=== PATIENT | male | born 1965 | race Caucasian/White ===

== ENCOUNTER 2017-04-10 08:14 | Emergency (ER) | payer BC ==
[2017-04-10 09:45] VITALS: BP 128/82
--- NOTE | 2017-04-10 10:16 | UC ---
UC General HPI - HPI Summary HPI Summary: pt c/o sudden bodyaches, sore throat, ear pressure, head/chest congestion. sputum clear to yellow. no overt f/c's, sob, n/v. - History of Current Complaint Chief Complaint: UCGeneralIllness Stated Complaint: UPPER RESP,ROMAIN Time Seen by Provider: 04/10/17 10:05 Hx Obtained From: Patient Onset/Duration: Sudden Onset Timing: Constant Pain Intensity: 8 Associated Signs & Symptoms: Positive: Cough. Negative: Chest Pain, Diarrhea, Dysuria, Fever, Headache, Nausea, SOB - Allergy/Home Medications Allergies/Adverse Reactions: Allergies Allergy/AdvReac Type Severity Reaction Status Date / Time No Known Allergies Allergy Verified 04/10/17 09:42 Home Medications: Home Medications Omeprazole CAP* [Prilosec CAP* 20 MG] 20 mg PO DAILY 04/10/17 [History Confirmed 04/10/17] Tadalafil [Cialis] 5 mg PO DAILY 04/10/17 [History Confirmed 04/10/17] PMH/Surg Hx/FS Hx/Imm Hx - Additional Past Medical History Additional PMH: Healthy Previously Healthy: Yes - Surgical History Surgical History: Yes Surgery Procedure, Year, and Place: SPLENECTOMY - Social History Occupation: Employed Full-time Alcohol Use: Occasionally Substance Use Type: None Smoking Status (MU): Never Smoked Tobacco - Immunization History Vaccination Up to Date: Yes Review of Systems ENT: Sore Throat, Ear Ache, Nasal Discharge, Sinus Congestion, Sinus Pain/ Tenderness Respiratory: Cough Musculoskeletal: Myalgia 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 Negative: Tonsillar swelling, Tonsillar exudate, Trismus , Muffled voice, Hoarse voice, Sinus tenderness Neck: Positive: Supple, Nontender, No Lymphadenopathy Respiratory: Positive: Lungs clear, Normal breath sounds, No respiratory distress, Other: - cough is congested Cardiovascular: Positive: RRR, No Murmur Abdomen Description: Positive: Nontender, No Organomegaly, Soft Bowel Sounds: Positive: Present Musculoskeletal: Positive: ROM Intact, No Edema Neurological: Positive: Alert Psychological: Positive: Age Appropriate Behavior Skin Exam: Normal Diagnostics - Laboratory Diagnostic Studies Completed/Ordered: rapid strep=neg, Rapid flu + A. will tx tamiflu and close f/u. pt is non toxic. no indication for antibiotics. tx plan d /w Dr Car. Course/Dx - Differential Dx - Multi-Symptom Provider Diagnoses: Influenza A Discharge - Discharge Plan Condition: Stable Disposition: HOME Prescriptions: Oseltamivir Phosphate [Tamiflu] 75 mg PO BID 5 Days #10 capsule Patient Education Materials: Influenza (ED) Forms: *Work Release Referrals: Dougie Gaytan DO [Primary Care Provider] - 5 Days Additional Instructions: GIVEN YOUR HISTORY OF SPLENECTOMY, YOU MUST FOLLOW UP WITH DR GAYTAN FOR A RECHECK IN 5 DAYS OR SOONER FOR ANY WORSENING.
== END 2017-04-10 10:59 | disposition home or self-care (01) ==
LOC: UCCORT 08:14
DX: J10.1 Influenza due to other identified influenza virus with other respiratory manifestations (principal); Z90.81 Acquired absence of spleen
CPT/HCPCS: 87502; 87651; 99212; G0463

== ENCOUNTER 2019-02-20 12:57 | Emergency (ER) | payer BC ==
[2019-02-20 13:27] LABS: ABS Basophils 0.1 10^3/ul (0-0.2); ABS Eosinophils 0.2 10^3/ul (0-0.6); ABS Lymphocytes 1.1 10^3/ul (1.0-4.8); ABS Monocytes 0.9 10^3/ul (0-0.8); ABS Neutrophils 6.6 10^3/ul (1.5-7.7); Eosinophil % 2.8 %; Hematocrit 32 % (42-52); Hemoglobin 10.9 g/dL (14.0-18.0); Mean Corpuscular HGB Conc 35 g/dL (31-36); Mean Corpuscular Hemoglobin 32 pg (27-31); Mean Corpuscular Volume 92 fL (80-94); Mean Platelet Volume 7.8 fL (7.4-10.4); Platelet Count 325 10^3/uL (150-450); Red Blood Count 3.44 10^6 /uL (4.18-5.48); Red Cell Distribution Width 14 % (10-15); White Blood Count 8.9 10^3/uL (3.5-10.8)
[2019-02-20] MEDS ORDERED: Aspirin 81 mg CHEW TAB* 81 MG TAB.CHEW PO ONE (13:34)
[2019-02-20] MEDS ORDERED: Nitroglycerin TAB 0.4 MG* 0.4 MG TAB SL ONE (13:34)
[2019-02-20 13:35] LABS: INR 1.09 (0.82-1.09)
--- NOTE | 2019-02-20 13:36 | ED ---
HPI Chest Pain - HPI Summary HPI Summary: The patient is a 54 y/o M presenting to [facility] accompanied by with a chief complaint of intermittent chest pressures over the last few days. He reports that he has been experiencing left anterior pressure and squeezing sensation intermittently but worst at night while at rest and lasting for a few hours before spontaneous resolution. He states that he has had similar episodes in the past likely attributed to elevated T waves on EKGs with workups for suspected pneumonitis and ground glass opacities found by CT. He has not followed up since then but has had negative nuclear stress tests. He denies any fevers, chills, nausea, vomiting, SOB, cough, pain in calves, or edema in legs. He currently has mild pressure rated 2/10 in severity. 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 There are no aggravating factors. He notes elevated BP over the last two days without diagnosed HTN. No previous history of DVTs. No recent travels or surgeries. PMHx: ulcerative colitis, splenectomy. FHx: fatal [place] in father age 67. Nonsmoker, occasional EtOH, no substance use. Medications reviewed. Allergies noted. - History of Current Complaint Chief Complaint: EDChestPainROMI Time Seen by Provider: 02/20/19 13:25 Hx Obtained From: Patient Onset/Duration: Started Days Ago, Still Present Timing: Intermittent, Lasting Hours Initial Severity: Moderate Current Severity: Mild Pain Intensity: 2 Pain Scale Used: 0-10 Numeric Chest Pain Location: Left Anterior Chest Pain Radiates: No Character: Pressure/Squeezing Aggravating Factor(s): Nothing Alleviating Factor(s): Nothing Associated Signs and Symptoms: Positive: Chest Pain, Back Pain - interscapular. Negative: Shortness of Breath, Fever, Chills, Nausea, Cough, Calf Pain/ Swelling, Vomiting, Edema - Allergy/Home Medications Allergies/Adverse Reactions: Allergies Allergy/AdvReac Type Severity Reaction Status Date / Time No Known Allergies Allergy Verified 02/20/19 13:09 Home Medications: Home Medications Meloxicam(NF) [Mobic(NF)] 15 mg PO DAILY 02/20/19 [History Confirmed 02/20/19] Mesalamine SUPP (NF) [Canasa SUPP (NF)] 1,000 mg AK DAILY 02/20/19 [History Confirmed 02/20/19] Omeprazole CAP (NF) [Prilosec CAP* 20 MG] 20 mg PO DAILY 02/20/19 [History Confirmed 02/20/19] Tadalafil (Nf) [Cialis (NF)] 5 mg PO DAILY 02/20/19 [History Confirmed 02/20/19] PMH/Surg Hx/FS Hx/Imm Hx Endocrine/Hematology History: Denies: Hx Diabetes Cardiovascular History: Denies: Hx Hypertension Respiratory History: Denies: Hx Chronic Obstructive Pulmonary Disease (COPD) GI History: Reports: Other GI Disorders - ulcerative colitis - Surgical History Surgical History: Yes Surgery Procedure, Year, and Place: SPLENECTOMY Infectious Disease History: No Infectious Disease History: Denies: Traveled Outside the [place] in Last 30 Days - Family History Known Family History: Positive: Cardiac Disease - fatal [place] father age 67 - Social History Alcohol Use: Occasionally Hx Substance Use: No Substance Use Type: Reports: None Hx Tobacco Use: No Smoking Status (MU): Never Smoked Tobacco Review of Systems Negative: Fever, Chills Positive: Chest Pain - pressure/squeezing left anterior Negative: Shortness Of Breath, Cough Negative: Vomiting, Nausea Positive: Other - interscapular pain. Negative: Myalgia - in calves, Edema - in legs All Other Systems Reviewed And Are Negative: Yes Physical Exam - Summary Physical Exam Summary: Constitutional: Well-developed, Well-nourished, Alert. (-) Distressed Skin: Warm, Dry HENT: Normocephalic; Atraumatic Eyes: Conjunctiva normal Neck: Musculoskeletal ROM normal neck. (-) JVD, (-) Stridor, (-) Tracheal deviation Cardio: Rhythm regular, rate normal, Heart sounds normal; Intact distal pulses; Radial pulses are 2+ and symmetric. (-) Murmur Pulmonary/Chest wall: Effort normal. (-) Respiratory distress, (-) Wheezes, (-) Rales Abd: Soft, (-) tenderness, (-) Distension, (-) Guarding, (-) Rebound Musculoskeletal: (-) Edema, Good pulses bilaterally in radius, No calf tenderness, No venous cords, No pain with dorsiflexion of foot. Lymph: (-) Cervical adenopathy Neuro: Alert, Oriented x3 Psych: Mood and affect Normal Triage Information Reviewed: Yes Vital Signs On Initial Exam: Initial Vitals Temp Pulse Resp BP Pulse Ox 98.0 F 83 16 148/97 98 02/20/19 13:05 02/20/19 13:05 02/20/19 13:05 02/20/19 13:05 02/20/19 13:05 Vital Signs Reviewed: Yes Procedures - Sedation Patient Received Moderate/Deep Sedation with Procedure: No Diagnostics - Vital Signs Vital Signs Temp Pulse Resp BP Pulse Ox 02/20/19 13:05 98.0 F 83 16 148/97 98 - Laboratory Lab Results: Lab Results 02/20/19 Range/Units 13:07 WBC 8.9 (3.5-10.8) 10^3/uL RBC 3.44 L (4.18-5.48) 10^6 /uL Hgb 10.9 L (14.0-18.0) g/dL Hct 32 L (42-52) % MCV 92 (80-94) fL MCH 32 H (27-31) pg MCHC 35 (31-36) g/dL RDW 14 (10-15) % Plt Count 325 (150-450) 10^3/uL MPV 7.8 (7.4-10.4) fL Neut % (Auto) 74.2 % Lymph % (Auto) 12.0 % [place] % (Auto) 10.3 % Eos % (Auto) 2.8 % Baso % (Auto) 0.7 % Absolute Neuts (auto) 6.6 (1.5-7.7) 10^3/ul Absolute Lymphs (auto) 1.1 (1.0-4.8) 10^3/ul Absolute Monos (auto) 0.9 H (0-0.8) 10^3/ul Absolute Eos (auto) 0.2 (0-0.6) 10^3/ul Absolute Basos (auto) 0.1 (0-0.2) 10^3/ul Absolute Nucleated RBC 0.0 10^3/ul Nucleated RBC % 0.0 Result Diagrams: 02/20/19 13:07 02/20/19 13:07 Lab Statement: Any lab studies that have been ordered have been reviewed, and results considered in the medical decision making process. - Radiology CXR Radiology Interpretation Completed By: Radiologist Summary of Radiographic Findings: Impression: No active cardiopulmonary disease. ED physician has reviewed this report. - EKG 1300 Cardiac Rate: NL - 76 bpm EKG Rhythm: Sinus Rhythm Summary of EKG Findings: EKG at 1300 reveals NSR at 76 bpm. No ischemic changes. No STEMI. ED physician has reviewed and interpreted this EKG. Re-Evaluation - Re-Evaluation First Eval Re-Evaluation Time: 14:40 Change: Improved Comment: Pain has slightly improved with NTG. Second Eval Re-Evaluation Time: 17:18 Comment: We discussed results and plan for discharge. Chest Pain Course/Dx - Course Course Of Treatment: Patient is here with periodic left-sided chest pressure that occurs mostly at night and is nonexertional in nature. Patient has no family history of ACS. Patient has minimal risk factors for ACS. Patient had an EKG which showed no evidence of ischemia. Patient had serial troponins which were negative. Patient has a well score of 0 for PE and his story is not consistent with aortic dissection. Given patient's low heart score, patient was discharged with stress test as an outpatient - Diagnoses Provider Diagnoses: Chest pain Discharge ED - Sign-Out/Discharge Documenting (check all that apply): Patient Departure - Patient will be discharged home. - Discharge Plan Condition: Stable Disposition: HOME Patient Education Materials: Chest Pain (DC) Referrals: Dougie Gaytan DO [Primary Care Provider] - 3 Days Dante Rolle MD [Medical Doctor] - 3 Days Additional Instructions: Follow up with your primary care provider or Dr. Rolle from cardiology for a stress test. Come back if you have any worsening chest pain, trouble breathing, or any other concerning symptoms. Avoid exertion until cleared by semiconductor processing group leader. - Billing Disposition and Condition Condition: STABLE Disposition: Home - Attestation Statements Document Initiated by Sven: Yes Documenting Scribe: Kailee Alvarado Provider For Whom Sven is Documenting (Include Credential): Dr. Sonny Stiles MD Scribe Attestation: Butch, Kailee Alvarado scribed for Dr. Sonny Stiles MD on 02/20/19 at 1836. Scribe Documentation Reviewed: Yes Provider Attestation: The documentation as recorded by the Kailee thompson accurately reflects the service I personally performed and the decisions made by me, Dr. Sonny Stiles MD Status of Scribe Document: Viewed
[2019-02-20 13:50] LABS: Albumin 4.1 g/dL (3.2-5.2); Albumin/Globulin Ratio 1.6 (1-3); BUN/Creatinine Ratio 28.4 (8-20); Calcium 8.4 mg/dL (8.6-10.3); EGFR African American 119.7 (>60); EGFR Non-African American 98.9 (>60); Globulin 2.5 g/dL (2-4); Potassium 4.1 mmol/L (3.5-5.0); Total Bilirubin 0.4 mg/dL (0.2-1.0); Total Protein 6.6 g/dL (6.4-8.9)
[2019-02-20 13:51] LABS: Troponin I 0.01 ng/mL (<0.03)
[2019-02-20 17:28] VITALS: BP 122/89
== END 2019-02-20 17:30 | disposition home or self-care (01) ==
LOC: ED 12:57
DX: R07.9 Chest pain, unspecified (principal); M54.9 Dorsalgia, unspecified; Z79.899 Other long term (current) drug therapy
CPT/HCPCS: 36415; 71045; 80053; 84484; 85025; 85610; 93005; 99284; A9270-GY

== ENCOUNTER 2019-03-15 21:19 | Observation (INO) | payer BC ==
--- NOTE | 2019-03-15 21:36 | ED ---
Complex/Multi-Sys Presentation - HPI Summary HPI Summary: Patient complains of hemoglobin of 6.4 per routine labs done at [place] today, intermittent chest pain, and exertional SOB 1 month. Patient was seen at [place] today, given 1 unit of RBC, then transferred here for possible GI bleed evaluation. Chest pain is left anterior chest radiating to left upper back and shoulder. Described as intermittent, sharp, random onset. CTA negative on at [place]. Last stress test 2015. History of chronic black stools times months. Denies red blood in stool. Recent diagnosis of pericarditis by cardiology Dr Bobby at [place] for chronic chest pain, taking daily prednisone. Denies fever, cough, sore throat, N/V/D, abdominal pain, change in urine, change in BM. Medical history is Crohn's, pericarditis. Positive family cardiac history. Nonsmoker, denies EtOH or recreational drug use. - History Of Current Complaint Chief Complaint: EDGIBleed Time Seen by Provider: 03/15/19 21:25 Hx Obtained From: Patient Onset/Duration: Gradual Onset, Lasting Weeks Timing: Intermittent, Lasting:, Hours Severity Currently: Moderate Severity Initially: Mild Character: Sharp Associated Signs And Symptoms: Positive: SOB, Chest Pain - Allergies/Home Medications Allergies/Adverse Reactions: Allergies Allergy/AdvReac Type Severity Reaction Status Date / Time No Known Allergies Allergy Verified 03/15/19 21:53 Home Medications: Home Medications Colchicine* [Colcrys*] 0.6 mg PO DAILY 03/16/19 [History Confirmed 03/16/19] PMH/Surg Hx/FS Hx/Imm Hx Endocrine/Hematology History: Denies: Hx Diabetes Cardiovascular History: Denies: Hx Hypertension Respiratory History: Denies: Hx Chronic Obstructive Pulmonary Disease (COPD) GI History: Reports: Other GI Disorders - ulcerative colitis History: Denies: Hx Dialysis Sensory History: Denies: Hx Eye Prosthesis Opthamlomology History: Denies: Hx Legally Blind EENT History: Denies: Hx Deafness Neurological History: Denies: Hx Dementia - Surgical History Surgery Procedure, Year, and Place: SPLENECTOMY Infectious Disease History: Yes Infectious Disease History: Denies: Traveled Outside the [place] in Last 30 Days - Family History Known Family History: Positive: Cardiac Disease - fatal [place] father age 67 - Social History Alcohol Use: Occasionally Hx Substance Use: No Substance Use Type: Reports: None Hx Tobacco Use: No Smoking Status (MU): Never Smoked Tobacco Review of Systems Constitutional: Negative Eyes: Negative ENT: Negative Positive: Chest Pain Positive: Shortness Of Breath Gastrointestinal: Negative Genitourinary: Negative Musculoskeletal: Negative Skin: Negative Neurological: Negative Psychological: Normal All Other Systems Reviewed And Are Negative: Yes Physical Exam - Summary Physical Exam Summary: Chest pain mildly reproducible with pressure. Abdomen soft nontender. Triage Information Reviewed: Yes Vital Signs On Initial Exam: Initial Vitals Temp Pulse Resp BP Pulse Ox 98.5 F 90 19 134/90 99 03/15/19 21:23 03/15/19 21:23 03/15/19 21:23 03/15/19 21:23 03/15/19 21:23 Vital Signs Reviewed: Yes Appearance: Positive: Well-Appearing Skin: Positive: Warm Head/Face: Positive: Normal Head/Face Inspection Eyes: Positive: Normal Neck: Positive: Supple Respiratory/Lung Sounds: Positive: Clear to Auscultation Cardiovascular: Positive: Normal Abdomen Description: Positive: Nontender Musculoskeletal: Positive: Normal Neurological: Positive: Normal Psychiatric: Positive: Normal AVPU Assessment: Alert - [place] Coma Scale Best Eye Response: 4 - Spontaneous Best Motor Response: 6 - Obeys Commands Best Verbal Response: 5 - Oriented Coma Scale Total: 15 Procedures - Sedation Patient Received Moderate/Deep Sedation with Procedure: No Diagnostics - Vital Signs Vital Signs Temp Pulse Resp BP Pulse Ox 03/15/19 21:34 90 03/15/19 21:23 98.5 F 90 19 134/90 99 - Laboratory Result Diagrams: 03/17/19 05:29 03/17/19 05:29 Lab Statement: Any lab studies that have been ordered have been reviewed, and results considered in the medical decision making process. Complex Multi-Symp Course/Dx Course Of Treatment: Patient complains of hemoglobin of 6.4 per routine labs done at [place] today, intermittent chest pain, and exertional SOB 1 month. Patient was seen at [place] today, given 1 unit of RBC, then transferred here for possible GI bleed evaluation. Chest pain is left anterior chest radiating to left upper back and shoulder. Described as intermittent, sharp, random onset. CTA negative on 03/04 at [place]. Last stress test 2015. History of chronic black stools times months. Denies red blood in stool. Recent diagnosis of pericarditis by cardiology Dr Bobby at [place] for chronic chest pain, taking daily prednisone. Denies fever, cough, sore throat, N/V/D, abdominal pain, change in urine, change in BM. Medical history is Crohn's, pericarditis. Positive family cardiac history. Nonsmoker, denies EtOH or recreational drug use. Vital signs within normal limits. WBC 20.2. Hemoglobin 7. Platelets 673. Serial troponins negative. EKG sinus rhythm, heart rate of 89, normal P axis, same as prior. Chest x-ray unremarkable. Discussed patient with GI Dr Lara, who recommended another unit of RBC and admission for further evaluation by GI. - Diagnoses Provider Diagnoses: Anemia, Crohn's disease Discharge ED - Sign-Out/Discharge Documenting (check all that apply): Patient Departure - Discharge Plan Condition: Stable Disposition: ADMITTED TO [facility] - Billing Disposition and Condition Condition: STABLE Disposition: Admitted to [facility]
[2019-03-15] MEDS ORDERED: Ondansetron INJ* 2 MG/ML VIAL IV ONE (21:47)
[2019-03-15] MEDS ORDERED: Morphine 4 MG/ML VIAL (1 ml) 4 MG/ML VIAL IV ONE (21:47)
[2019-03-15 22:09] LABS: Hematocrit 22 % (42-52); Mean Corpuscular HGB Conc 32 g/dL (31-36); Mean Corpuscular Hemoglobin 28 pg (27-31); Mean Corpuscular Volume 87 fL (80-94); Mean Platelet Volume 6.2 fL (7.4-10.4); Platelet Count 673 10^3/uL (150-450); Red Blood Count 2.49 10^6 /uL (4.18-5.48); Red Cell Distribution Width 15 % (10-15); White Blood Count 20.2 10^3/uL (3.5-10.8)
--- OUTSIDE RECORDS SUMMARY | 2019-03-15 22:15 | XMS REPORT | Continuity of Care Document ---
:1965 External Reference #:[id number] Author Name Joe Parham MD Address [address] [place] [id number] Care Team Providers Name Role Phone Dougie Gaytan DO Care Team Information Chute Tender [phone] Problems Active Problems Provider Date Problem Onset: Chronic ulcerative proctitis Joe Parham MD Onset: 08/27/2018 Abdominal pain Lucy Walsh PA-C Onset: 07/16/2018 Hemorrhage of rectum and anus Lucy Walsh PA-C Onset: 07/16/2018 Social History Type Date Description Comments Sex Unknown Tobacco Use Start: Unknown Patient has never smoked Smoking Status Reviewed: 01/27/19 Patient has never smoked Allergies, Adverse Reactions, Alerts Description No Known Drug Allergies Medications Active Medications SIG Qnty Indications Ordering Date Provider Mesalamine place one 60units Joe Chen 08/27/2018 1000mg suppository in MD Dione Suppository rectum q hs Mesalamine 2 by mouth twice a 120tabs Joe Chen 07/25/2018 1.2gm day MD Dione Tablets Escitalopram Oxalate Dougie Gaytan, DO 10mg Tablets Testosterone bi weekly injection Dougie Gaytan, Cypionate DO 200mg/ml Solution Tadalafil Dougie Gaytan, 5mg Tablets DO Omeprazole Dougie Gaytan, 20mg DO Capsules DR [place] Description No Information Available Vital Signs Date Vital Result Comment 01/27/2019 3:32pm Height 72 inches 6'0" Weight 184.00 lb BP Systolic 144 mmHg BP Diastolic 92 mmHg Heart Rate 69 /min BMI (Body Mass Index) 25.0 kg/m2 08/27/2018 9:41am Height 72 inches 6'0" Weight 183.00 lb BP Systolic 141 mmHg BP Diastolic 85 mmHg Heart Rate 68 /min BMI (Body Mass Index) 24.8 kg/m2 Results Test Acquired Facility Test Result H/L Range Note Date Hepatitis B 01/30/2019 [facility] [place]atitis B Nonreactive Nonreactive Surf Antigen Surface Antigen CBC Auto Diff 01/10/2019 N2N/CCD Import White Blood 6.2 10^3/uL 3.5- 10.8 Count Red Blood Count 4.37 10^6/uL 4.18-5.48 Hemoglobin 13.8 g/dL Low 14.0-18.0 Hematocrit 40 % Low 42-52 Mean Corpuscular Volume 91 fL 80-94 Mean Corpuscular Hemoglobin 32 pg High 27-31 Mean Corpuscular HGB Conc 35 g/dL 31-36 Red Cell Distribution Width 14 % 10-15 Platelet Count 364 10^3/uL 150-450 Mean Platelet Volume 8.2 fL 7.4-10.4 Abs Neutrophils 4.0 10^3/uL 1.5-7.7 Abs Lymphocytes 1.0 10^3/uL 1.0-4.8 Abs Monocytes 0.7 10^3/uL 0-0.8 Abs Eosinophils 0.5 10^3/uL 0-0.6 Abs Basophils 0.1 10^3/uL 0-0.2 Abs Nucleated RBC 0.0 10^3/uL Granulocyte % 64.7 % Lymphocyte % 16.0 % Monocyte % 11.0 % Eosinophil % 7.3 % Basophil % 1.0 % Nucleated Red Blood Cells % 0.1 1 Comp Metabolic Panel 01/10/2019 N2N/CCD Import Sodium 139 mmol/L 135- 145 Potassium 4.5 mmol/L 3.5-5.0 Chloride 103 mmol/L 101-111 Co2 Carbon Dioxide 30 mmol/L 22-32 Anion Gap 6 mmol/L 2-11 Calcium 9.2 mg/dL 8.6-10.3 Albumin 4.2 g/dL 3.2-5.2 Total Bilirubin 0.40 mg/dL 0.2-1.0 Glucose 93 mg/dL 70-100 Blood Urea Nitrogen 16 mg/dL 6-24 Creatinine 0.80 mg/dL 0.67-1.17 BUN/Creatinine Ratio 20.0 1 8-20 Total Protein 7.1 g/dL 6.4-8.9 Globulin 2.9 g/dL 2-4 Albumin/Globulin Ratio 1.4 1 1-3 Alkaline Phosphatase 59 U/L 34-104 Alt 18 U/L 7-52 Ast 19 U/L 13-39 Egfr Non- 100.7 1 Egfr 121.9 1 1 Lab Results 01/10/2019 N2N/CCD Import Testosterone 206.29 ng/dL Low 240- 950 Triglycerides 87 mg/dL 2 Cholesterol 229 mg/dL 3 HDL Cholesterol 71.1 mg/dL 4 LDL Cholesterol 141 mg/dL 5 PSA Screening 0.284 ng/mL 0-4.000 6 Vitamin B12 608 pg/mL 180-914 7 Lab Results 01/10/2019 N2N/CCD Import Triglycerides 87 mg/dL 8 Cholesterol 229 mg/dL 9 HDL Cholesterol 71.1 mg/dL 10 LDL Cholesterol 141 mg/dL 11 PSA Screening 0.284 ng/mL 0-4.000 12 Vitamin B12 608 pg/mL 180-914 13 Lab Results 01/10/2019 N2N/CCD Import PSA Screening 0.284 ng/mL 0-4.000 14 Vitamin B12 608 pg/mL 180-914 15 1 Because ethnic data is not always readily available, this report includes an eGFR for both -Americans and non- Americans. The National Kidney Disease Education Program (NKDEP) does not endorse the use of the MDRD equation for patients that are not between the ages of 18 and 70, are , have extremes of body size, muscle mass, or nutritional status, or are non- or non-. According to the National Kidney Foundation, irrespective of diagnosis, the stage of the disease is based on the level of kidney function: Stage Description GFR(mL/min/1.73 m(2)) 1 Kidney damage with normal or decreased GFR 90 2 Kidney damage with mild decrease in GFR 60-89 3 Moderate decrease in GFR 30-59 4 Severe decrease in GFR 15-29 5 Kidney failure <15 (or dialysis) 2 Desirable: <150 Borderline High: 150-199 High: 200-499 Very High: >500 3 Desirable: <200 Borderline High: 200-239 High: >239 4 Low: <40 Desirable: 40-60 High: >60 5 Desirable: <100 Near Optimal: 100-129 Borderline High: 130-159 High: 160-189 Very High: >189 6 Serum levels of PSA measured using the [employer] [place] DXI Hybritech immunoassay should not be interpreted as absolute evidence of the presence or absence of disease. The PSA value should be used in conjunction with other pertinent clinical diagnostic procedures. A PSA value in the range of 0.1 to 0.6 ng/ml is indeterminate if being used as an indicator of recurrent or residual disease. The values obtained with different assay methods or kits cannot be used interchangeably. 7 Normal Range 180 to 914 Indeterminate Range 145 to 180 Deficient Range <145 8 Desirable: <150 Borderline High: 150-199 High: 200-499 Very High: >500 9 Desirable: <200 Borderline High: 200-239 High: >239 10 Low: <40 Desirable: 40-60 High: >60 11 Desirable: <100 Near Optimal: 100-129 Borderline High: 130-159 High: 160-189 Very High: >189 12 Serum levels of PSA measured using the [employer]ub[employer] DXI Hybritech immunoassay should not be interpreted as absolute evidence of the presence or absence of disease. The PSA value should be used in conjunction with other pertinent clinical diagnostic procedures. A PSA value in the range of 0.1 to 0.6 ng/ml is indeterminate if being used as an indicator of recurrent or residual disease. The values obtained with different assay methods or kits cannot be used interchangeably. 13 Normal Range 180 to 914 Indeterminate Range 145 to 180 Deficient Range <145 14 Serum levels of PSA measured using the [employer] Lavern DXI Hybritech immunoassay should not be interpreted as absolute evidence of the presence or absence of disease. The PSA value should be used in conjunction with other pertinent clinical diagnostic procedures. A PSA value in the range of 0.1 to 0.6 ng/ml is indeterminate if being used as an indicator of recurrent or residual disease. The values obtained with different assay methods or kits cannot be used interchangeably. 15 Normal Range 180 to 914 Indeterminate Range 145 to 180 Deficient Range <145 Procedures Description No Information Available Medical Devices Description No Information Available Encounters Type Date Location Provider Dx Diagnosis Office Visit 08/27/2018 Gastroenterology Joe Chen K51.211 [facility]ative 9[facility] MD (chronic) proctitis with rectal bleeding Assessments Date Code Description Provider 01/27/2019 K51.211 Ulcerative (chronic) proctitis with rectal Joe Parham MD bleeding 08/27/2018 K51.211 Ulcerative (chronic) proctitis with rectal Joe Parham MD bleeding Plan of Treatment 01/27/2019 - Joe Parham MDK51.211 Ulcerative (chronic) proctitis with rectal bleedingComments:His symptoms are better however they have plateaued. We discussed mesalamine products in the next steps. We discussed immunosuppressants immunomodulators Biologics. he is already thought about all this and he would like to transition to Humira. We had a long discussion regarding risks benefits alternatives including infectious lymphoma neurological disorders. I will obtain blood work hepatitis BPPD and we will start the prior authorization for Humira Functional Status Description No Information Available Mental Status Description No Information Available Referrals Description No Information Available
--- OUTSIDE RECORDS SUMMARY | 2019-03-15 22:15 | XMS REPORT | Continuity of Care Document ---
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 Problems Active Problems Provider Date Mixed hyperlipidemia Onset: 08/27/2014 Benign essential hypertension Onset: 09/16/2014 Hyperlipidemia Chastity Saleh, CARLINE, CIVIL ENGINEER'S AIDE Onset: 02/26/2019 Social History Type Date Description Comments Sex Unknown Tobacco Use Start: Unknown Never Smoked Cigarettes ETOH Use Currently consumes alcohol socially Allergies, Adverse Reactions, Alerts Description No Known Drug Allergies Medications Active Medications SIG Qnty Indications Ordering Provider Date Escitalopram Oxalate 1 by mouth every Unknown 10mg day Tablets Meloxicam 1 tab by mouth Unknown 15mg Tablets every day Mesalamine Unknown 400mg Capsules DR Omeprazole 1 by mouth every Unknown 20mg Capsules DR day Tadalafil 1 tab by mouth Unknown 5mg Tablets as needed Immunizations Description No Information Available Vital Signs Date Vital Result Comment 09/16/2014 1:10pm Heart Rate 68 /min Respiratory Rate 16 /min Height 73 inches 6'1" Weight 180.00 lb BMI (Body Mass Index) 23.7 kg/m2 BSA (Body Surface Area) 2.06 m2 Results Description No Information Available Procedures Description No Information Available Medical Devices Description No Information Available Encounters Description No Information Available Assessments Date Code Description Provider 02/26/2019 R07.9 Chest pain, unspecified Chastity Saleh, CARLINE, CIVIL ENGINEER'S AIDE 02/26/2019 I10 Benign essential hypertension Chastity Saleh, MSN, CIVIL ENGINEER'S AIDE 02/26/2019 E78.5 Chastity Ding, MSN, CIVIL ENGINEER'S AIDE Plan of Treatment No Information Available Functional Status Description No Information Available Mental Status Description No Information Available Referrals Description No Information Available
--- OUTSIDE RECORDS SUMMARY | 2019-03-15 22:15 | XMS REPORT | Continuity of Care Document ---
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 [phone] Problems Active Problems Provider Date Mixed hyperlipidemia Onset: 08/27/2014 Benign essential hypertension Onset: 09/16/2014 Hyperlipidemia Chastity Saleh, MSN, AGENT LICENSING CLERK Onset: 02/26/2019 Chest pain Chastity Saleh, MSN, AGENT LICENSING CLERK Onset: 02/26/2019 Social History Type Date Description Comments Sex Unknown Tobacco Use Start: Unknown Never Smoked Cigarettes ETOH Use Currently consumes alcohol socially Allergies, Adverse Reactions, Alerts Description No Known Drug Allergies Medications Active Medications SIG Qnty Indications Ordering Date Provider Methylprednisolone Taper dosage 21tabs R07.9 Jacklynko, 02/26/2019 4mg Tablets over 6 days as Ranjan Starkey M.D., directed [facility] Escitalopram Oxalate 1 by mouth Unknown 10mg every day Tablets Meloxicam 1 tab by mouth Unknown 15mg Tablets every day Mesalamine Unknown 400mg Capsules DR Omeprazole 1 by mouth Unknown 20mg Capsules DR every day Tadalafil 1 tab by mouth Unknown 5mg Tablets as needed Cyclobenzaprine HCL Ron Houston, 10mg MD Tablets Alprazolam tid Ron Houston, 0.25mg Tablets MD Testosterone Cypionate Dougie Gaytan, 200mg/ml DO Solution Immunizations Description No Information Available Vital Signs Date Vital Result Comment 02/26/2019 4:35pm BP Systolic 115 mmHg BP Diastolic 73 mmHg Heart Rate 92 /min 09/16/2014 1:10pm Heart Rate 68 /min Respiratory Rate 16 /min Height 73 inches 6'1" Weight 180.00 lb BMI (Body Mass Index) 23.7 kg/m2 BSA (Body Surface Area) 2.06 m2 Results Description No Information Available Procedures Date Code Description Status 02/26/2019 59373 EKG-Tracing And Report Completed Medical Devices Description No Information Available Encounters Description No Information Available Assessments Date Code Description Provider 02/26/2019 R07.9 Chest pain, unspecified Chastity Saleh, MSN, AGENT LICENSING CLERK 02/26/2019 I10 Benign essential hypertension Chastity Saleh, MSN, AGENT LICENSING CLERK Plan of Treatment Future Appointment(s):03/04/2019 1:00 pm - Ranjan Bobby M.D., FACC at [id number]/26/2019 - Chastity Saleh, MSN, FNPR07.9 Chest pain, unspecifiedNew Medication:Methylprednisolone 4 mg - Taper dosage over 6 days as directedComments:I spent a long time discussing why I thought he has very low likelihood of having ischemic pain. He may have inflammation of the chest wall or, less likely, pericarditis or pleuritis. I also indicated that ischemic testing is not the best approach, being the pre-test probability of CAD so low.I preferto treat him empirically with tapering dose of steroids and bring him in a week to decide the next stepI10 Benign essential hypertensionComments: BP goal is <130/80 mmHg. Controlled. No changes Functional Status Description No Information Available Mental Status Description No Information Available Referrals Description No Information Available
[2019-03-15 22:28] LABS: ALT 16 U/L (7-52); AST 10 U/L (13-39); Albumin 3.1 g/dL (3.2-5.2); Albumin/Globulin Ratio 1.2 (1-3); Alkaline Phosphatase 49 U/L (34-104); Anion Gap 5 mmol/L (2-11); BUN/Creatinine Ratio 17.9 (8-20); Blood Urea Nitrogen 12 mg/dL (6-24); C Reactive Protein 16.72 mg/L (<8.01); CO2 Carbon Dioxide 28 mmol/L (22-32); Calcium 7.5 mg/dL (8.6-10.3); Chloride 101 mmol/L (101-111); EGFR Non-African American 123.2 (>60); Globulin 2.5 g/dL (2-4); Glucose 106 mg/dL (70-100); INR 1.12 (0.82-1.09); Potassium 3.9 mmol/L (3.5-5.0); Sodium 134 mmol/L (135-145); Total Protein 5.6 g/dL (6.4-8.9)
[2019-03-15 22:29] LABS: Troponin I 0.02 ng/mL (<0.03)
[2019-03-15 22:36] LABS: ABS Eosinophils 0.2 10^3/ul (0-0.6); ABS Lymphocytes 1.6 10^3/ul (1.0-4.8); ABS Neutrophils 16.3 10^3/ul (1.5-7.7); Eosinophil % 0.8 %; Nucleated Red Blood Cells % 0.1
[2019-03-15] MEDS ORDERED: NS 0.9% 1000 ML** 1,000 ML IV ONE (22:48)
[2019-03-15] MEDS ORDERED: Pantoprazole IV* 40 MG IV ONE (22:56)
[2019-03-15 23:17] LABS: Erythrocyte Sed Rate 45 mm/Hr (0-19)
[2019-03-16 01:18] LABS: Urine Appearance Clear; Urine Bilirubin Negative (Negative); Urine Blood Negative (Negative); Urine Color Straw; Urine Glucose Negative (Negative); Urine Ketones Negative (Negative); Urine Nitrite Negative (Negative); Urine Protein Negative (Negative); Urine Specific Gravity 1.012 (1.010-1.030); Urine Urobilinogen Negative (Negative)
[2019-03-16] MEDS ORDERED: Lactated Ringers 1000 ML Bag* 1,000 ML IV SCH (03:00)
[2019-03-16 03:03] LABS: Total Iron Binding Capacity 379 mcg/dL (250-450); Transferrin 271 mg/dL (203-362)
[2019-03-16 03:06] LABS: % Iron Saturation 5 % (15-55); Iron < 20 ug/dL (50-212)
[2019-03-16 03:37] LABS: Folate 13.74 ng/mL (>3.99)
[2019-03-16 03:58] LABS: Corrected Retic Count 2.1 % (0.5-1.5); Hematocrit 24 % (42-52); Hematocrit for Retic CNT 24 % (42-52); Hemoglobin 7.8 g/dL (14.0-18.0); Immature Retic Fraction 0.43; Mean Corpuscular HGB Conc 32 g/dL (31-36); Mean Corpuscular Hemoglobin 28 pg (27-31); Mean Corpuscular Volume 87 fL (80-94); Mean Platelet Volume 6.8 fL (7.4-10.4); Platelet Count 620 10^3/uL (150-450); Red Cell Distribution Width 15 % (10-15); White Blood Count 22.4 10^3/uL (3.5-10.8)
[2019-03-16 04:01] LABS: ABS Basophils 0.1 10^3/ul (0-0.2); ABS Eosinophils 0.1 10^3/ul (0-0.6); ABS Lymphocytes 1.1 10^3/ul (1.0-4.8); ABS Monocytes 2.6 10^3/ul (0-0.8); ABS Neutrophils 18.4 10^3/ul (1.5-7.7); Eosinophil % 0.6 %; Nucleated Red Blood Cells % 0.1
[2019-03-16 04:19] LABS: Troponin I 0.04 ng/mL (<0.03)
[2019-03-16] MEDS: Morphine INJ* 2 MG/ML 1 ML SYRINGE (TWO MG - NEW SYRINGE VERSION) IV PRN ×4 (05:44→15:40)
[2019-03-16 05:48] LABS: Troponin I 0.03 ng/mL (<0.03)
[2019-03-16] MEDS: Ondansetron INJ* 2 MG/ML VIAL IV PRN ×2 (06:32→13:12)
[2019-03-16] MEDS: MESALAMINE 1000 MG PR SCH (07:24)
[2019-03-16] MEDS: Pantoprazole IV* 40 MG IV SCH ×2 (07:30→19:48)
[2019-03-16] MEDS: Escitalopram * 10 MG TAB PO SCH (07:30)
[2019-03-16] MEDS ORDERED: Iron Sucrose* 200 MG in NS 0.9% 100 ML* 100 ML IVPB ONE (08:00)
[2019-03-16] MEDS ORDERED: Colchicine* 0.6 MG TAB PO SCH (09:00)
--- NOTE | 2019-03-16 10:25 | HP ---
HISTORY AND PHYSICAL: DATE OF ADMISSION: 03/16/19 PRIMARY CARE PHYSICIAN: Dr. Gaytan. ADMITTING PHYSICIAN: Dr. Arnold Caicedo. CHIEF COMPLAINT: Chest pain/pressure/pounding. HISTORY OF PRESENT ILLNESS: Christiano Ying is a 54-year-old male with a past medical history of recently diagnosed ulcerative colitis since Spring 2018 on mesalamine, months of chronic pericarditis, following with Dr. Bobby and recently started on colchicine and prednisone, anxiety, and GERD. He presented to [facility] with a sensation of chest discomfort and a pounding sensation on his chest, which he just could not get a break from and which the colchicine and steroids did not seem to be resolving. He was found to have a hemoglobin of 6.3 down from approximately 8 on 03/04/19 in [facility] and 10.9 on 02/20/19 at [facility]. He attested to months of black soft stool. He is not on any iron supplements. He never had an EGD. He has been following with Dr. Parham for this diagnosis and they have been trying to get him Humira but he needed to fail a second initial drug, the first being mesalamine, before that would be approved by his insurance. He got 1 unit of packed red blood cells at [facility] and given the unavailability of gastroenterology services, he was transferred to [facility]. Lara recommended the patient be admitted and get an additional unit of blood and prep for Dr. Parham to perform an EGD. He continues to attest to chest discomfort which was relieved somewhat by 4 mg of morphine in the emergency room. He was referred to hospital service for admission. PAST MEDICAL HISTORY: Ulcerative colitis diagnosed in July 2018, pericarditis ( chronic), anxiety, GERD, erectile dysfunction. MEDICATIONS: Home medications include: 1. Colchicine 0.6 mg p.o. daily. 2. Prednisone 20 mg p.o. daily. 3. Testosterone subcutaneous every 2 weeks. 4. Cialis 5 mg p.o. daily. 5. Omeprazole 20 mg p.o. daily. 6. Mesalamine suppository 1000 mg per rectum daily. 7. Meloxicam 50 mg p.o. daily. 8. Lexapro 10 mg p.o. daily. ALLERGIES: No known drug allergies. FAMILY HISTORY: Dad of heart disease in his late 60s. Mother of Alzheimer's at age 83. SOCIAL HISTORY: He is a never smoker. Occasional alcohol use. 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 REVIEW OF SYSTEMS: Complete 14 -point review of systems was negative except as per HPI. He does attest to a headache, some chronic abdominal pain, there are some black soft stools for the last several months. He complains of pounding chest pressure. PHYSICAL EXAMINATION VITAL SIGNS: Temperature 98.5, 90s, sating 99% on room air, respiratory rate 13 and 19, blood pressure 134/90. HEENT: Normocephalic and atraumatic. Pupils are equally round and reactive to light. Extraocular movements intact. No scleral icterus. LUNGS: Clear to auscultation bilaterally with no wheezing, rales, or rhonchi. CARDIOVASCULAR: Regular rate and rhythm. No murmurs, rubs, or gallops. ABDOMEN: Soft, nontender. No rebound or guarding. EXTREMITIES: Warm and well perfused. No peripheral edema. SKIN: No lesions or rashes. NEUROLOGIC: Cranial nerves II through XII intact. LABORATORY DATA: White count 20.2, hemoglobin 7.0, hematocrit 22, platelets 673, ESR 45, INR 1.12. Sodium 134, potassium 3.9, chloride 101, carbon dioxide 28, BUN 12, creatinine 0.67, glucose 106, iron less than 20, iron sat 5, ferritin 7, total bili 0.4, AST 10, ALT 16, alk phos 49. Troponin 0.02, 0.04, and 0.03. Albumin 3.1, vitamin B12 479, folic acid 13.7. Urinalysis within normal limits. Chest x-ray: Formal read pending, but no acute process per my read. EKG: Normal sinus rhythm, early R-wave progression, T-wave inversion in V1, no ST elevations or depressions, normal axis, normal intervals; unchanged from . ASSESSMENT: Christiano Ying is a 54-year-old with the past medical history of ulcerative colitis and chronic pericarditis, presenting with increasing sensation of pounding chest discomfort, found to be anemic with 6.3 at outside hospital, status post 2 units of blood now and with plan for EGD with Dr. Parham in the morning. He has been having months of black soft stools and has not been on outpatient iron. Add on labs do demonstrate evidence of iron- deficiency anemia and would recommend supplementation. There have been attempts to eventually get him on to Humira instead of the mesalamine, which has been of somewhat limited effect since last July. He is status post IV fluids. We will continue those along with IV PPI b.i.d., trend troponins which have peaked. Suspect some demand ischemia in the setting of severe anemia. He will be n.p.o. I will continue his prednisone and for his chronic pericarditis , we could consider echocardiogram. I will get records from [facility] and Dr. Bobby. We will avoid NSAIDs for now until we hear recommendations from Dr. Parham given his history, we are trying to rule out upper GI bleed. I will start him on 1 dose of Venofer now. His medical surrogate is his domestic partner, Radha Farfan. He desires to be a full code. [id number] #: [id number] MTDD
--- NOTE | 2019-03-16 15:38 | PN ---
Subjective Date of Service: 03/16/19 Interval History: Christiano still complained of bad chest pain, which is constant and no radiation, no related to exertion. He was recently diagnosed as pericarditis for which he was put on pred 20mg daily and colchicine for 1month He also complained of constant abdominal pain since he was diagnosed as ulcerative colitis, he used to have bloody stool, but now it turned back instead. His planetarium technician is planning to start biologics but they need him to prove he failed second medication other than mesalamine. Objective Active Medications: Colchicine (Colcrys*) 0.6 mg PO BID [facility] Escitalopram Oxalate (Lexapro *) 10 mg PO DAILY [facility] Last Admin: 03/16/19 07:30 Dose: 10 mg Mesalamine (Canasa Supp (Nf)) 1,000 mg GA DAILY [facility]; Protocol Last Admin: 03/16/19 07:24 Dose: Not Given Morphine Sulfate (Morphine Inj (Syringe))*) 2 mg IV Q2H PRN PRN Reason: PAIN - SEVERE Last Admin: 03/16/19 13:12 Dose: 2 mg Ondansetron HCl (Zofran Inj*) 4 mg IV Q6H PRN PRN Reason: NAUSEA Last Admin: 03/16/19 13:12 Dose: 4 mg Pantoprazole Sodium (Protonix Iv*) 40 mg IV Q12H [facility] Last Admin: 03/16/19 07:30 Dose: 40 mg Prednisone (Deltasone 20 Mg Tab) 20 mg PO DAILY [facility] Last Admin: 03/16/19 07:30 Dose: 20 mg Prochlorperazine Edisylate (Compazine Inj*) 2.5 mg IV Q6H PRN PRN Reason: NAUSEA/VOMITING Vital Signs - 8 hr 03/16/19 03/16/19 03/16/19 10:39 11:15 11:27 Temperature 98.8 F Pulse Rate 90 Respiratory 18 16 18 Rate Blood Pressure 125/70 (mmHg) O2 Sat by Pulse 97 Oximetry 03/16/19 03/16/19 13:12 14:07 Temperature Pulse Rate Respiratory 19 18 Rate Blood Pressure (mmHg) O2 Sat by Pulse Oximetry Oxygen Devices in Use Now: None Exam: Appearance: 54 y/o male not in NAD, alert and interactive Ears/Nose/Mouth/Throat: Clear Oropharnyx, Mucous Membranes Moist Neck: JVP not elevated Respiratory: Symmetrical Chest Expansion and Respiratory Effort, clear on auscultation Cardiovascular: NL Sounds; No Murmurs; no rubs Abdominal: NL Sounds; generalized tenderness on abdomen, no rebound tenderness; No Hepatosplenomegaly, Extremities: No Edema Neurological: Alert and Oriented x 3 Result Diagrams: 03/16/19 03:39 03/15/19 22:03 Additional Lab and Data: ESR 45 Iron study: low ferritin, low iron Assess/Plan/Problems-Billing Assessment: Christiano Ying is a 54 y/o male with history of ulcerative colitis on mesalamine, newly diagnosed pericarditis on daily steroid, presented with worsening chest pain and black stool, found to have iron def anemia with Hb drop , likely upper GI bleed vs UC relapse. - Patient Problems (1) Iron deficiency anemia Current Visit: Yes Status: Acute Code(s): D50.9 - IRON DEFICIENCY ANEMIA, UNSPECIFIED SNOMED Code(s): 29113542 Comment: - Cause unclear, upper GI bleeding (?NSAID, steroid related) vs UC flare causing chronic blood loss - 2U PRBC given in total, Hb increased from 6.3->7.8 - EGD today to look for upper GI bleeding - IV pantoprozole for now while nbm - off NSAID for now (2) Ulcerative colitis Current Visit: Yes Status: Acute Code(s): K51.90 - ULCERATIVE COLITIS, UNSPECIFIED, WITHOUT COMPLICATIONS SNOMED Code(s): 85166618 Comment: - concern of UC flare, still significant abdominal pain, and black stool - there is a plan for biologics humira when he was seeing Dr. Stiles outpatient , was told need to try second line medication first but still haven't obtained it - we will wait GI consult for this after EGD to decide whether a solemedru pulse will be needed. (3) Chest pain of pericarditis Current Visit: Yes Status: Acute Code(s): I31.9 - DISEASE OF PERICARDIUM, UNSPECIFIED SNOMED Code(s): 98358408831159 Comment: - Diagnosis was made by scrum coach Dr. Bobby in [place] 2019 - Notes from Dr. Bobby suggests the diagnosis was made in view of clinical features, chest pain improving with steroid, and elevated ESR, although EKG and echo was not indicative. Pred 20mg daily and colchicine was started therefore. - not responsive to current 20mg steroid and colchicine after 1+ weeks trial, persistent chest pain, unremarkable trop and ekg -At this moment, it's hard to say whether this chest pain is due to pericarditis or other causes (like gastric ulcer, muscularskeletal). We will wait GI workup results first, and we may need second opinion from our scrum coach regarding this chest pain. (4) Hypertension Current Visit: Yes Status: Acute Code(s): I10 - ESSENTIAL (PRIMARY) HYPERTENSION SNOMED Code(s): 02885374 Comment: well controlled (5) DVT prophylaxis Current Visit: Yes Status: Acute Code(s): Z29.9 - ENCOUNTER FOR PROPHYLACTIC MEASURES, UNSPECIFIED SNOMED Code(s): 419802458 Comment: ambulatory, consider if GI workup neg Status and Disposition: Inpatient Attestation Documenting Resident: Erin Ortega Supervising Physician: Cabrera Ramirez Attending/Supervising Physician Comment: Patient with clinical dx of pericarditis, but I doubt this now, not responding to colchicine, prednisone, and meloxicam. EGD deferred until tomorrow due to scheduling difficulties. Suspect UGI slow hemorrhage. NSAIDS on hold. HGB stable. Attestation: This service has been performed in part by a resident under the direction of a teaching physician.I, Cabrera Ramirez, performed the service, or was physically present during the critical, or vargas portions of the service, furnished by the resident. I participated in the management of the patient.
[2019-03-16] MEDS: PROCHLORPERAZINE INJ 5 MG/ML 2 ML VIAL IV PRN (15:40)
[2019-03-16] MEDS: Colchicine* 0.6 MG TAB PO SCH (19:49)
--- NOTE | 2019-03-17 01:24 | CONS ---
CONSULTATION REPORT: DATE OF CONSULT: 03/16/19 INDICATION: Chest pain and anemia. NARRATIVE: Mr. Ying is a pleasant 54-year-old gentleman well known to myself. I had seen him back in 2015 for a colonoscopy. It was normal at that time. In August 2018, I saw him for rectal bleeding. He did undergo a flex sig, which revealed ulcerative proctitis. He was started on mesalamine. Unfortunately, the mesalamine really has not done much to help his symptoms. I did want to switch him to Humira; however, his insurance company refused. He needs to fail two oral conservative medications until Humira can be be authorized. He has been switched to sulfasalazine at this point. In the meantime, he has been diagnosed with pericarditis and was put on meloxicam and prednisone for this. He states that around the time he started the meloxicam, he noticed dark and tarry stools. They have become black now. He states that the bright red blood he saw with the ulcerative proctitis had improved. I do wonder if it is related to the prednisone he had been on. He is having intermittent chest pains. No nausea, no vomiting. He denies any other non- steroidals other than the meloxicam. PAST MEDICAL HISTORY: Significant for cervical muscle spasms, ulcerative proctitis, GERD, and anxiety. MEDICATIONS: Medications at home include: 1. Lexapro. 2. Meloxicam. 3. Omeprazole. 4. Cialis. 5. Prednisone. 6. Colchicine. ALLERGIES: None. FAMILY HISTORY: Negative for colon cancer or inflammatory bowel disease. Alzheimer's and coronary artery disease. SOCIAL HISTORY: Rare alcohol. No tobacco. REVIEW OF SYSTEMS: Twelve systems were reviewed and other than that mentioned in the HPI were unremarkable. PHYSICAL EXAM: Temperature is 99.3, blood pressure is 126/63, pulse is 78, respiratory rate of 16, O2 sat is 97%. General: A well-appearing male lying flat on bed, alert, oriented, pleasant, and fluent. HEENT: Mucous membranes are moist without lesions, ulcers, or exudate. Neck is supple. Trachea is midline. Head is normocephalic, atraumatic. Heart: Regular rate and rhythm. Lungs: Clear to auscultation. Abdomen: Positive bowel sounds, soft, nontender , nondistended. No hepatosplenomegaly, masses, rebound or guarding. Skin is warm and dry. DIAGNOSTIC STUDIES/LAB DATA: Of note, white count is 22.4, hemoglobin is 7.8, up from 7.0, platelets of 620. Ferritin is 7. AST is 10. C-reactive protein is 16.72. ASSESSMENT AND PLAN: This is a pleasant 54-year-old gentleman with ulcerative proctitis, who presents with pericarditis and worsening anemia. I wonder if his worsening anemia is due to peptic ulcer disease likely secondary to the meloxicam and/or prednisone combination. We discussed the fact this could be ulcerative proctitis; however, I have lower suspicion for this. He does need an upper endoscopy. We will make arrangements for tomorrow. Additionally, he should continue with the Protonix on an every 12 hours basis and we will make further arrangements after his EGD. [id number]/[facility] #: [id number] SHANDRA
[2019-03-17] MEDS: Morphine INJ* 2 MG/ML 1 ML SYRINGE (TWO MG - NEW SYRINGE VERSION) IV PRN ×2 (02:50→09:14)
[2019-03-17] MEDS: PROCHLORPERAZINE INJ 5 MG/ML 2 ML VIAL IV PRN ×2 (02:50→09:14)
[2019-03-17 06:05] LABS: Hematocrit 26 % (42-52); Hemoglobin 8.7 g/dL (14.0-18.0); Mean Corpuscular HGB Conc 33 g/dL (31-36); Mean Corpuscular Hemoglobin 29 pg (27-31); Mean Corpuscular Volume 88 fL (80-94); Mean Platelet Volume 6.9 fL (7.4-10.4); Platelet Count 663 10^3/uL (150-450); Red Blood Count 2.99 10^6 /uL (4.18-5.48); Red Cell Distribution Width 15 % (10-15); White Blood Count 17.4 10^3/uL (3.5-10.8)
[2019-03-17 06:17] LABS: ABS Eosinophils 0.2 10^3/ul (0-0.6); ABS Lymphocytes 0.8 10^3/ul (1.0-4.8); ABS Monocytes 1.6 10^3/ul (0-0.8); ABS Neutrophils 14.7 10^3/ul (1.5-7.7); Eosinophil % 1.3 %; Lymphocyte % 4.6 %; Nucleated Red Blood Cells % 0.2
[2019-03-17 06:26] LABS: BUN/Creatinine Ratio 13.3 (8-20); Calcium 8.2 mg/dL (8.6-10.3); EGFR Non-African American 87.6 (>60); Potassium 4.7 mmol/L (3.5-5.0)
[2019-03-17] MEDS: Pantoprazole IV* 40 MG IV SCH (07:56)
[2019-03-17] MEDS: MESALAMINE 1000 MG PR SCH (10:11)
[2019-03-17 11:17] VITALS: BP 118/73
[2019-03-17] MEDS: Colchicine* 0.6 MG TAB PO SCH (15:48)
[2019-03-17] MEDS: Escitalopram * 10 MG TAB PO SCH (15:48)
[2019-03-17] MEDS ORDERED: Midazolam* 1 MG/ML 10 ML VIAL (10 MG) ONE (15:59)
[2019-03-17] MEDS ORDERED: fentaNYL* 50 MCG/ML 2 ML VIAL (100 MCG VIAL) ONE (15:59)
--- NOTE | 2019-03-18 03:04 | PRO ---
DATE: 03/17/19 - ROOM #443 REFERRING PHYSICIANS: Dougie Gaytan DO, [place]; Joe Parham MD * PROCEDURE: Upper gastrointestinal endoscopy and CLOtest mid gastric body; flexible sigmoidoscopy to mid sigmoid at 25 cm. 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 He was found to have a significant anemia and dark stool, although his BUN was not elevated. He had been seeing some red blood in the stool for a number of months because of history of ulcerative colitis. He had had a sense that the colitis was coming out of control and there have been questions changing his mesalamine to Humira, but the man at pharmacy he says is insisting on sulfasalazine. That problem has been going on a number of weeks. Currently, he has been having trouble with chest distress and has been treated for pericarditis. That workup is in [place]. Here, he apparently does not have an infusion. Because of neck stiffness, he was on meloxicam for 2 months in the fall. Because of pericarditis complaints (ER visits, 02/22/19, 02/27/19, and 03/04/19) , he had been treated with Medrol Dosepak and then since 03/04/19 prednisone 20 mg and colchicine 1 a day. He has been transfused 2 units and feels much better. Since admission, he has not had a bowel movement or any vomiting. Informed consent was obtained with an opportunity for questions and special concerns. Given the lack of chronic runny diarrhea, it was felt that a sigmoidoscopy might give information on his sigmoid colon. ENDOSCOPIST: Dr. Hickman. MEDICATIONS: Midazolam 8; fentanyl 50. FINDINGS: He is a slender, pale man in no overt distress. He was positioned left side down and moderate sedation induced with sequential doses of medication. EGD: Larynx - symmetric, limited views. Esophagus - easily entered and the mucosa is normal in the upper, mid, and lower esophagus with the EG junction at 40 to 41 cm. There are no erosions. Stomach - the cardia, fundus and body are normal. The antrum shows deformity which is concentrated from about 7 o'clock around to 2 or 3 o'clock. With this tipped further into the antrum, a large broad based smooth ulcer seen in that distribution. It has a uniform white base. There are no stigmata of bleeding and has a fairly uniform benign appearing smooth edge. There are few centimeters of intact mucosa down to the pylorus. The pylorus appears normal and patent. Duodenum - in the distal bulb, there are some linear ulcers with some red spots in them, although no protruding stigmata, clot or active bleeding. They are suspicious for recent blood loss. The second through fourth portions of the duodenum are normal. During withdrawal, a CLOtest taken in mid gastric body. FLEXIBLE SIGMOIDOSCOPY: Some irritation is seen from 0 to about 4 cm and then there was sparing of the rectum from about 5 cm to 10 or 12. Above that, there is edema, granularity and continuous mucopus up to about 25 cm and swelling and an angulation. Pseudomembranes were not seen. IMPRESSION: 1. Large gastric ulcer. 2. Duodenal ulcers - more likely the cause of acute bleeding. 3. Proctitis - probably being controlled by his current prednisone, which has been at 20 mg and some dose of prednisone can continue while the ulcer is being treated. 4. Anemia - substantial chronic contribution and some acute bleeding also, although the extent of this is hard to paddock judge as he has not displayed any active bleeding while in the hospital and his BUN is low. Double dose PPI and strict avoidance of NSAIDs is indicated. 5. Pericarditis - also could be an indication for taking some dose of prednisone and continuing colchicine, although GI toxicity clearly could be difficult to interpret. [id number]/[facility] #: [id number] MTDD
--- NOTE | 2019-03-18 23:42 | DS ---
CC: Dr. Dougie Gaytan, [place] * DISCHARGE SUMMARY: DATE OF ADMISSION: 03/16/19 DATE OF DISCHARGE: 03/17/19 PRIMARY DIAGNOSES: 1. Antral and Duodenal ulcer with upper gastrointestinal hem SECONDARY DIAGNOSES: 1. Ulcerative colitis. 2. Anemia of blood loss. 3. Nonsteroidal anti-inflammatory drug induced gastric and duodenal ulceration. 4. Gastroesophageal reflux disease. 5. Anxiety. 6. Erectile dysfunction. 7. Cervical muscle spasms. 8. Suspicion of pericarditis. MEDICATIONS ON DISCHARGE: 1. Colchicine 0.6 mg p.o. daily. 2. Lexapro 10 mg p.o. q.a.m. 3. Mesalamine suppositories 1000 mcg [place] daily. 4. Cialis 5 mg p.o. daily. 5. Testosterone 1 mL subcutaneous every 2 weeks. 6. Hydrocodone/acetaminophen 1 tab p.o. 4 times a day p.r.n. for chest pain. 7. Pantoprazole 40 mg p.o. b.i.d. 8. Prednisone 15 mg p.o. daily for 3 days and then 10 mg p.o. daily for 3 days and then 5 mg p.o. daily for 3 days and then stop. CONSULTATIONS: Dr. Parham of Gastroenterology. PROCEDURES: Endoscopy and sigmoidoscopy with Dr. Hickman. COMPLICATIONS: None. HOSPITAL COURSE: A 54-year-old man with recent diagnosis of ulcerative colitis within the last year, presented with chest pain and anemia. Please see the history and physical with Dr. Caicedo documenting the full admission presentation. The patient had been taking prednisone for possible pericarditis as well as ulcerative colitis as well as meloxicam for shoulder pain and pericarditis. The pericarditis was diagnosed by Dr. Bobby in [place] within the last month. He has had mildly elevated sedimentation rate, normal echocardiogram, normal EKG, so there is no clear evidence of pericarditis. He did respond with less chest pain to high dose prednisone, but as it was weaned down, he developed some more chest pain. In any case, he presented to the [place] [facility] with a hemoglobin of 6.3 and received 1 unit of blood transfusion in [place] and transferred to this hospital for GI investigations. The patient did receive a second unit of packed red cells here. His hemoglobin che from 7 up to 8.7 during this hospital stay. He had no further rectal bleeding or melena. He did have an elevated white count at 20 on admission, then fell to 17.4, this was attributed to prednisone use. His sedimentation rate was 45. Other interesting and pertinent lab studies during the hospital stay including INR of 1.1 and PTT of 24.2. He had an iron level of less than 20 and TIBC of 379 demonstrating iron deficiency anemia. Because of the chest pain, he was kept on telemetry for 24 hours and troponin was 0.02, initially peaked at 0.04 and fell to 0.03. No ischemic changes were seen in the EKG. He does not require any further cardiac workup. Stool occult blood was positive. The patient was seen in consultation by Dr. Parham who deferred endoscopy until the following day. Dr. Hickman performed an endoscopy, which showed the large smooth antral ulcer and large duodenal ulcer which he thinks is the source of bleeding. The patient was of course taken off NSAIDs and given intravenous Protonix on the beginning of admission. Dr. Hickman advised tapering the prednisone down slowly to avoid a flare of ulcerative colitis. There was discussion about switching the patient to biologics for his ulcerative colitis control because he was not really responding to mesalamine and prednisone well. The diagnosis of pericarditis is certainly possible, but not life-threatening and the patient agrees to take the colchicine and cut down on the prednisone and avoid any NSAIDs in the future. 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 He is to remain on pantoprazole twice a day for at least a month. He could go back to every day dosing after that. He was given a small supply of hydrocodone to give him alternative to take for chest pain and avoid NSAIDs. DISPOSITION: To home. FOLLOWUP: Follow up with primary care within 1 week and Gastroenterology in 1 month. DIET: Regular. ACTIVITY: As tolerated. STATUS: Observation. CONDITION: Improved. [id number]/[facility] #: [id number] SHANDRA
== END 2019-03-17 19:03 | disposition home or self-care (01) ==
LOC: ED 21:19 → MEDTELE 03-16 02:12
PROVIDERS: ADMIT Internal Medicine; ATTEND Internal Medicine
DX: K26.4 Chronic or unspecified duodenal ulcer with hemorrhage (principal); K92.2 Gastrointestinal hemorrhage, unspecified; K51.90 Ulcerative colitis, unspecified, without complications; D50.9 Iron deficiency anemia, unspecified; K21.9 Gastro-esophageal reflux disease without esophagitis; R06.02 Shortness of breath; K50.90 Crohn's disease, unspecified, without complications; F41.9 Anxiety disorder, unspecified; N52.9 Male erectile dysfunction, unspecified; M62.838 Other muscle spasm; Z79.899 Other long term (current) drug therapy; I31.9 Disease of pericardium, unspecified
CPT/HCPCS: 36415; 36430; 71046; 80048; 80053; 81003; 82270; 82607; 82728; 82746; 83540; 83550; 84484; 85025; 85045; 85610; 85652; 85730; 86140; 86850; 86900; 86901; 86922; 87077; 93005; 96361; 96365; 96367; 96375; 96376; 99156; 99157; 99285; G0378; J0780; J1756; J2250; J2270; J2405; J3010; J7512; P9040

== ENCOUNTER 2019-03-29 09:20 | Emergency (ER) | payer BC ==
[2019-03-29 11:04] VITALS: BP 148/88
--- NOTE | 2019-03-29 11:34 | UC ---
Complaint Male HPI - HPI Summary HPI Summary: 54 year old male present with complaint of c/o urgency, frequency, and discomfort with urination that started 4 days ago. Denies gross hematuria. He notes slight pelvic and lower back pain. He was diagnosed with Ulcerative Colitis within the past year, following with GI and his PCP. He also has a Reumatology and Dermatology appt this week. He is being treated for an ulcer and for anemia with iron infusions. No melena nor hematochezia recently. He also is being treated for pericarditis with colchicine, now controlled. - History of Current Complaint Chief Complaint: UCGU Stated Complaint: URINARY Time Seen by Provider: 03/29/19 11:32 Hx Obtained From: Patient Onset/Duration: Gradual Onset - over the past 4 days Pain Intensity: 7 Aggravating Factor(s): Voiding Associated Signs And Symptoms: Positive: Dysuria. Negative: Diaphoresis, Back Pain, Fever, Hematuria, Blood in Stool, Rectal Pain, Nausea - Allergies/Home Medications Allergies/Adverse Reactions: Allergies Allergy/AdvReac Type Severity Reaction Status Date / Time No Known Allergies Allergy Verified 03/29/19 11:04 Home Medications: Home Medications Prochlorperazine 10 mg TAB [Compazine 10 mg TAB] 10 mg PO Q6H PRN 03/29/19 [ History Confirmed 03/29/19] PMH/Surg Hx/FS Hx/Imm Hx Previously Healthy: Yes GI/ History: Ulcer, Other - ulcerative colitis - Surgical History Surgical History: Yes Surgery Procedure, Year, and Place: SPLENECTOMY - Family History Known Family History: Positive: Cardiac Disease - fatal [place] father age 67 - Social History Alcohol Use: Occasionally Substance Use Type: None Smoking Status (MU): Never Smoked Tobacco - Immunization History Vaccination Up to Date: Yes Review of Systems All Other Systems Reviewed And Are Negative: Yes Constitutional: Positive: Negative Skin: Positive: Rash - sores on his skin, seeing Derm in 3 days Eyes: Positive: Negative ENT: Positive: Negative Respiratory: Positive: Negative Cardiovascular: Positive: Negative Gastrointestinal: Positive: Other - lower pelvic discomfort. Genitourinary: Positive: Dysuria, Frequency, Urgency Motor: Positive: Negative Neurovascular: Positive: Negative Musculoskeletal: Positive: Negative Neurological: Positive: Negative Psychological: Positive: Negative Is Patient Immunocompromised?: No Physical Exam Triage Information Reviewed: Yes Appearance: Well-Appearing Vital Signs: Initial Vital Signs Temp 97.8 F 03/29/19 10:57 Pulse 86 03/29/19 10:57 Resp 17 03/29/19 10:57 BP 148/88 03/29/19 10:57 Pulse Ox 100 03/29/19 10:57 Vital Signs Reviewed: Yes Eye Exam: Normal ENT Exam: Normal Neck: Positive: Supple, Nontender, No Lymphadenopathy Respiratory: Positive: Chest non-tender, Lungs clear, Normal breath sounds, No respiratory distress. Negative: Crackles, Rhonchi, Wheezing Cardiovascular: Positive: RRR, No Murmur, Brisk Capillary Refill Abdomen Description: Positive: Soft, Other: - mild suprabubic tendernsss, no masses palpable.. Negative: CVA Tenderness (R), CVA Tenderness (L), Distended, Guarding Male Genital Exam: Positive: Normal Genitalia, Normal Prostate, No Hernia, Other - brown stool in vault, no gross blood.. Negative: Epididymal Tenderness , Inguinal Tenderness, Lesions, Scrotum Tenderness (R), Scrotum Tenderness (L), Testicular Tenderness (R), Testicular Tenderness (L), Urethral Discharge Musculoskeletal Exam: Normal Neurological Exam: Normal Psychological Exam: Normal Skin: Positive: Rashes - healing pustules on arms and buttock region. Complaint Male Course/Dx - Course Course Of Treatment: Discussed with patient there is no obvious cause of his dysuria. Urine was normal and prostate was small, nontender. - Differential Dx/Diagnosis Provider Diagnosis: Dysuria Discharge ED - Sign-Out/Discharge Documenting (check all that apply): Patient Departure All imaging exams completed and their final reports reviewed: No Studies - Discharge Plan Condition: Stable Disposition: HOME Patient Education Materials: Dysuria (ED) Referrals: Dougie Gaytan DO [Primary Care Provider] - Additional Instructions: Drink plenty of fluids, monitor for blood in your urine or stool. If your symptoms persist or worsen, follow-up with your primary care physician. - Billing Disposition and Condition Condition: STABLE Disposition: Home
== END 2019-03-29 12:17 | disposition home or self-care (01) ==
LOC: UCCORT 09:20
DX: R30.0 Dysuria (principal); R35.0 Frequency of micturition; R39.15 Urgency of urination; M54.9 Dorsalgia, unspecified; D64.9 Anemia, unspecified; I31.9 Disease of pericardium, unspecified; K51.90 Ulcerative colitis, unspecified, without complications; Z79.899 Other long term (current) drug therapy
CPT/HCPCS: 81003; 99211; G0463

== ENCOUNTER 2019-03-31 09:18 | Inpatient (IN) | payer BC ==
--- NOTE | 2019-03-31 09:31 | ED ---
Abdominal Pain/Male - HPI Summary HPI Summary: Patient is a 54 y/o M presenting to the ED for a chief complaint of suprapubic abdominal pain that radiates to the lower back for the last 1-2 weeks. On , patient was seen at [facility] for his symptoms. On 03/31/19, patient had 2 loose bowel movements with blood in the stool. He also notes nausea and dysuria. Patient denies fever, chills, vomiting, or diarrhea. The abdominal pain is rated as a 9/10 in severity. No aggravating or alleviating factors are reported. He believes he may have a bowel obstruction or ulcerative colitis flareup. Recently, patient was prescribed prednisone for pericarditis. PMHx is significant for anemia and ulcerative colitis diagnosed in Spring 2018. 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 Patient admits rare alcohol use, but denies tobacco or drug use. Five days ago, patient had labs drawn by Dr. Blancas. 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 His GI is Dr. Parham. Medications reviewed. Allergies noted. - History of Current Complaint Chief Complaint: EDAbdPain Stated Complaint: STOMACH PAIN PER PT Time Seen by Provider: 03/31/19 09:24 Hx Obtained From: Patient Onset/Duration: Sudden Onset, Still Present Timing: Constant Severity Initially: Severe Severity Currently: Severe Pain Intensity: 9 Pain Scale Used: 0-10 Numeric Location: Suprapubic Radiates: Yes Radiates to: Back - Lower Aggravating Factor(s): Nothing Alleviating Factor(s): Nothing Associated Signs And Symptoms: Positive: Urinary Symptoms - Dysuria, Nausea. Negative: Fever, Vomiting, Diarrhea - Allergies/Home Medications Allergies/Adverse Reactions: Allergies Allergy/AdvReac Type Severity Reaction Status Date / Time No Known Allergies Allergy Verified 03/31/19 09:41 PMH/Surg Hx/FS Hx/Imm Hx Previously Healthy: Yes Endocrine/Hematology History: Reports: Hx Anemia Denies: Hx Diabetes Cardiovascular History: Denies: Hx Hypertension Respiratory History: Denies: Hx Chronic Obstructive Pulmonary Disease (COPD) GI History: Reports: Hx Ulcer, Other GI Disorders - ulcerative colitis History: Denies: Hx Dialysis Sensory History: Denies: Hx Contacts or Glasses, Hx Eye Prosthesis, Hx Legally Blind, Hx Deafness, Hx Hearing Aid Opthamlomology History: Denies: Hx Contacts or Glasses, Hx Eye Prosthesis, Hx Legally Blind EENT History: Denies: Hx Deafness Neurological History: Denies: Hx Dementia Psychiatric History: Reports: Hx Anxiety, Hx Depression - Surgical History Surgical History: Yes Surgery Procedure, Year, and Place: SPLENECTOMY Infectious Disease History: No Infectious Disease History: Denies: Traveled Outside the [place] in Last 30 Days - Family History Known Family History: Positive: Cardiac Disease - fatal [place] father age 67 - Social History Occupation: Employed Part-time Lives: With Family Alcohol Use: Rare Hx Substance Use: No Substance Use Type: Reports: None Hx Tobacco Use: No Smoking Status (MU): Never Smoked Tobacco Review of Systems Negative: Fever, Chills Positive: Abdominal Pain - Suprapubic, Nausea, Other - Positive blood in stool with loose bowel movements. Negative: Vomiting, Diarrhea Positive: dysuria All Other Systems Reviewed And Are Negative: Yes Physical Exam - Summary Physical Exam Summary: Constitutional: Well-developed, Well-nourished, Alert. (-) Distressed Skin: Warm, Dry HENT: Normocephalic; Atraumatic Eyes: Conjunctiva normal Neck: Musculoskeletal ROM normal neck. (-) JVD, (-) Stridor, (-) Tracheal deviation Cardio: Rhythm regular, rate normal, Heart sounds normal; Intact distal pulses; Radial pulses are 2+ and symmetric. (-) Murmur Pulmonary/Chest wall: Effort normal. (-) Respiratory distress, (-) Wheezes, (-) Rales Abd: Soft, (-) Distension, (-) Guarding, (-) Rebound. Tenderness in the LLQ and suprapubic region Rectal: Jorje Granados nurse, is present for the exam. Hematochezia Musculoskeletal: (-) Edema Lymph: (-) Cervical adenopathy Neuro: Alert, Oriented x3 Psych: Mood and affect Normal Triage Information Reviewed: Yes Vital Signs On Initial Exam: Initial Vitals Temp Pulse Resp BP Pulse Ox 98.5 F 93 18 130/82 97 03/31/19 09:19 03/31/19 09:19 03/31/19 09:19 03/31/19 09:19 03/31/19 09:19 Vital Signs Reviewed: Yes Procedures - Sedation Patient Received Moderate/Deep Sedation with Procedure: No Diagnostics - Vital Signs Vital Signs Temp Pulse Resp BP Pulse Ox 03/31/19 09:19 98.5 F 93 18 130/82 97 - Laboratory Result Diagrams: 03/31/19 09:37 03/31/19 09:37 Lab Statement: Any lab studies that have been ordered have been reviewed, and results considered in the medical decision making process. - CT Abdomen/Pelvis CT CT Interpretation Completed By: Radiologist Summary of CT Findings: Abdomen/Pelvis CT IMPRESSION: There is mucosal thickening of the descending colon and sigmoid colon extending into the rectum. There is an extraluminal fluid collection consistent with an abscess and air- fluid levels noted posterior to the sigmoid colon measuring 4.2 x 4.0 x 3.[address] Stiles. Abdominal Pain Male Course/Dx - Course Course Of Treatment: Patient is here with lower abdominal pain in the setting of ulcerative colitis. Patient had laboratory performed which showed a leukocytosis of 12, elevated CRP of 150 and ESR greater than 120. Patient had a CT scan which showed colitis in the sigmoid colon with an abscess adjacent to the sigmoid colon as well. Surgery was called and thought that the probably better dressed with IR and GI. IR was called and they do not think this is amenable to IR drainage given the location. GI was called and they wanted to do a couple of days IV antibiotics with the thought that patient could be transferred in a couple of days but that is unknown at this time. - Diagnoses Provider Diagnoses: Exacerbation of ulcerative colitis, Intra-abdominal abscess - Provider Notifications Discussed Care Of Patient With: Vikas Reynoso - At 13:07, Dr. Vikas Reynoso recommends to call IR and GI. At 13:14, Dr. Dustin Shields states he thinks patient should try antibiotics and see if rescan needed in a few days. At 13:20 , Dr. Faizan Villareal recommends a trial of IV antibiotics. There is a possibility the patient will be transferred in a couple of days. At 13:51, Dr. Trina Garíca reviewed the patients case and agrees to admit the patient to [facility] with a diagnosis of ulcerative colitis flare and intraabdominal abscess. Time Discussed With Above Provider: 13:07 Instructed by Provider To: Admit As Inpatient Discharge ED - Sign-Out/Discharge Documenting (check all that apply): Patient Departure - Admit - Discharge Plan Condition: Stable Disposition: ADMITTED TO [facility] Referrals: Gaytan DO,Dougie Lo [Primary Care Provider] - - Billing Disposition and Condition Condition: STABLE Disposition: Admitted to [facility] - Attestation Statements Document Initiated by Sven: Yes Documenting Scribe: Vicenta Orosco Provider For Whom Sven is Documenting (Include Credential): Sonny Stiles MD Scribe Attestation: Vicenta Rae, scribed for Sonny Stiles MD on 03/31/19 at 1554. Scribe Documentation Reviewed: Yes Provider Attestation: The documentation as recorded by the Vicenta thompson accurately reflects the service I personally performed and the decisions made by me, Sonny Stiles MD Status of Scribe Document: Viewed
[2019-03-31] MEDS ORDERED: NS 0.9% 1000 ML** 1,000 ML IV ONE (09:36)
[2019-03-31] MEDS ORDERED: Morphine 4 MG/ML VIAL (1 ml) 4 MG/ML VIAL IV ONE ×2 (09:36→12:51)
[2019-03-31 09:58] LABS: ABS Basophils 0.1 10^3/ul (0-0.2); ABS Eosinophils 0.1 10^3/ul (0-0.6); ABS Lymphocytes 0.6 10^3/ul (1.0-4.8); ABS Monocytes 1.2 10^3/ul (0-0.8); ABS Neutrophils 9.8 10^3/ul (1.5-7.7); Eosinophil % 0.8 %; Hematocrit 25 % (42-52); Hemoglobin 7.9 g/dL (14.0-18.0); Lymphocyte % 5.4 %; Mean Corpuscular HGB Conc 32 g/dL (31-36); Mean Corpuscular Hemoglobin 27 pg (27-31); Mean Corpuscular Volume 85 fL (80-94); Mean Platelet Volume 7.4 fL (7.4-10.4); Platelet Count 899 10^3/uL (150-450); Red Blood Count 2.91 10^6 /uL (4.18-5.48); Red Cell Distribution Width 18 % (10-15); White Blood Count 11.8 10^3/uL (3.5-10.8)
[2019-03-31 10:06] LABS: Albumin 3.4 g/dL (3.2-5.2); Albumin/Globulin Ratio 0.9 (1-3); BUN/Creatinine Ratio 14.1 (8-20); C Reactive Protein 151.36 mg/L (<8.01); Calcium 8.5 mg/dL (8.6-10.3); EGFR African American 113.2 (>60); EGFR Non-African American 93.6 (>60); Globulin 3.7 g/dL (2-4); Potassium 3.7 mmol/L (3.5-5.0); Total Bilirubin 0.3 mg/dL (0.2-1.0); Total Protein 7.1 g/dL (6.4-8.9)
[2019-03-31 10:34] LABS: Urine Appearance Cloudy; Urine Bilirubin Negative (Negative); Urine Blood Negative (Negative); Urine Color Amber; Urine Glucose Negative (Negative); Urine Ketones Negative (Negative); Urine Nitrite Negative (Negative); Urine Protein 1+(30 mg/dL) (Negative); Urine Specific Gravity 1.033 (1.010-1.030); Urine Urobilinogen Negative (Negative)
[2019-03-31 10:37] LABS: Urine Bacteria Absent (Absent); Urine Red Blood Cell 1+(3-5/hpf) (Absent); Urine White Blood Cell Trace(0-5/hpf) (Absent)
--- OUTSIDE RECORDS SUMMARY | 2019-03-31 10:40 | XMS REPORT | Continuity of Care Document ---
:1965 External Reference #:[id number] Author Name Joe Parham MD Address [address] [place] [id number] Care Team Providers Name Role Phone Dougie Gaytan DO Care Team Information Staff Pharmacist [phone] Problems Active Problems Provider Date Problem Onset: [...] Medications SIG Qnty Indications Ordering Date Provider Sulfasalazine 4 by mouth twice a 540tabs Joe D. 03/16/2019 500mg day MD Dione Tablets DR Jesse Gamez inject 1 pens 6units Joe D. 03/02/2019 40mg/0.4ML every other week MD Dione PNKT after induction. Humira Pen-CD/UC/hs inject 2 80 mg 3units Joe D. 03/02/2019 Starter pens day 1,1 80 mg MD Dione 80mg/0.8ML PNKT pen day [address] one 60units Joe D. 08/27/2018 1000mg suppository in MD Dione Suppository rectum q hs Mesalamine 2 by mouth twice a 120tabs Joe D. 07/25/2018 1.2gm day MD Dione Tablets Escitalopram Oxalate Dougie Gaytan, DO 10mg Tablets Testosterone bi weekly Dougie Gaytan, Cypionate injection DO 200mg/ml Solution Tadalafil Dougie Gaytan, 5mg Tablets DO Omeprazole Dougie Gaytan, 20mg DO Capsules DR Immunizations Description No Information Available Vital Signs [...] Mass Index) 24.8 kg/m2 Results Test Acquired Date Facility Test Result H/L Range Note Laboratory test 03/16/2019 [facility] [place] Troponin I 0.02 ng/mL <0.03 1 finding Type & Screen 03/15/2019 [facility] Patient Blood B Positive 2 Type Antibody Screen NEGATIVE Laboratory test 03/15/2019 [facility] Packed Cells SEE RESULTS BELO 3 finding <SEE NOTE> Hepatitis B Surf 01/30/2019 [facility] Hepatitis B Nonreactive Nonreactive Antigen Surface Antigen CBC Auto Diff 01/10/2019 [...] Egfr Non- 100.7 1 Egfr 121.9 1 4 Lab Results 01/10/2019 [facility] Testosterone 206.29 ng/dL Low 240- 950 Triglycerides 87 mg/dL 5 Cholesterol 229 mg/dL 6 HDL Cholesterol 71.1 mg/dL 7 LDL Cholesterol 141 mg/dL 8 PSA Screening 0.284 ng/mL 0-4.000 9 Vitamin B12 608 pg/mL 180-914 10 Lab Results 01/10/2019 [facility] Triglycerides 87 mg/dL 11 Cholesterol 229 mg/dL 12 HDL Cholesterol 71.1 mg/dL 13 LDL Cholesterol 141 mg/dL 14 PSA Screening 0.284 ng/mL 0-4.000 15 Vitamin B12 608 pg/mL 180-914 16 Lab Results 01/10/2019 [facility] PSA Screening 0.284 ng/mL 0-4.000 17 Vitamin B12 608 pg/mL 180-914 18 1 Troponin-I testing on Plasma Separator Tubes (PST) has a known false positive rate of 0.20-0.40%. All positive troponins reflex immediately to secondary confirmatory testing. Using the [employer] Access Immunoassay systems, the 99th percentile upper reference limit was demonstrated to be < 0.03 ng/mL. 2 GI BLEED PER EMS 3 SEE RESULTS BELOW [id number] BP PC TRANSFUSED 03/16/19 0027 4 Because ethnic data is not always readily [...] 15-29 5 Kidney failure <15 (or dialysis) 5 Desirable: <150 Borderline High: 150-199 High: 200-499 Very High: >500 6 Desirable: <200 Borderline High: 200-239 High: >239 7 Low: <40 Desirable: 40-60 High: >60 8 Desirable: <100 Near Optimal: 100-129 Borderline High: 130-159 High: 160-189 Very High: >189 9 Serum levels of PSA measured using the [employer] 3Nod DXI Hybritech immunoassay should not be interpreted [...] methods or kits cannot be used interchangeably. 10 Normal Range 180 to 914 Indeterminate Range 145 to 180 Deficient Range <145 11 Desirable: <150 Borderline High: 150-199 High: 200-499 Very High: >500 12 Desirable: <200 Borderline High: 200-239 High: >239 13 Low: <40 Desirable: 40-60 High: >60 14 Desirable: <100 Near Optimal: 100-129 Borderline High: 130-159 High: 160-189 Very High: >189 15 Serum levels of PSA measured using the [employer] DXI Hybritech immunoassay should not be interpreted [...] methods or kits cannot be used interchangeably. 16 Normal Range 180 to 914 Indeterminate Range 145 to 180 Deficient Range <145 17 Serum levels of PSA measured using the Sh[employer]ham 3Nod DXI Hybritech immunoassay should not be interpreted [...] methods or kits cannot be used interchangeably. 18 Normal Range 180 to 914 Indeterminate Range 145 to 180 Deficient Range <145 Procedures Description No Information Available Medical Devices Description No Information Available Encounters Type Date Location Provider Dx Diagnosis Office Visit 01/27/2019 [facility] Joe Chen K51.211 Ulcerative 3:[facility] Parham MD (chronic) proctitis [...]
--- OUTSIDE RECORDS SUMMARY | 2019-03-31 10:40 | XMS REPORT | Continuity of Care Document ---
:1965 External Reference #:[id number] Author Name Joe Parham MD Address [address] [place] [id number] Care Team Providers Name Role Phone Dougie Gaytan DO Care Team Information Extension Service Specialist [phone] Problems Active Problems Provider Date Problem Onset: Gastric ulcer without hemorrhage, Joe Parham MD Onset: 03/26/2019 without perforation AND without obstruction Chronic ulcerative proctitis Joe Parham MD Onset: 08/27/2018 Abdominal pain Lucy Walsh PA-C Onset: 07/16/2018 Hemorrhage of rectum and anus Lucy Walsh PA-C Onset: 07/16/2018 Social History Type Date Description Comments Sex Unknown Tobacco Use Start: Unknown Patient has never smoked Smoking Status Reviewed: 03/26/19 Patient has never smoked Allergies, Adverse Reactions, Alerts Description No Known Drug Allergies Medications Active Medications SIG Qnty Indications Ordering Date Provider Mesalamine as needed 60units Joe Chen 08/27/2018 1000mg MD Dione Suppository Mesalamine 2 by mouth twice 120tabs Joe Chen 07/25/2018 1.2gm a day MD Dione Tablets Escitalopram Oxalate Dougie Gaytan, DO 10mg Tablets Testosterone bi weekly Dougie Gaytan, Cypionate injection DO 200mg/ml Solution Tadalafil Dougie Gaytan, 5mg Tablets DO Hydrocodone-Acetamino Cabrera Ramirez, taryn LEWIS 5-325mg Tablets Pantoprazole Sodium Erin Ortega M.D. 40mg Tablets Colchicine Unknown 0.6mg Tablets History Medications Sulfasalazine 4 by mouth twice 540tabs Joe Parham, 03/16/2019 - 500mg Tablets a day 03/26/2019 DR Molina Pen inject 1 pens 6units Joe Parham, 03/02/2019 - 40mg/0.4ML PNKT every other week 03/26/2019 after induction. Jesse Pen-CD/UC/hs inject 2 80 mg 3units Joe Parham, 03/02/2019 - Starter pens day 1,1 80 MD 03/26/2019 80mg/0.8ML PNKT mg pen day 15 Immunizations Description No Information Available Vital Signs Date Vital Result Comment 03/26/2019 2:28pm Height 72 inches 6'0" Weight 179.00 lb BP Systolic 140 mmHg BP Diastolic 77 mmHg Heart Rate 88 /min BMI (Body Mass Index) 24.3 kg/m2 01/27/2019 3:32pm Height 72 inches 6'0" Weight 184.00 lb BP Systolic 144 mmHg BP Diastolic 92 mmHg Heart Rate 69 /min BMI (Body Mass Index) 25.0 kg/m2 Results Test Acquired Date Facility Test Result H/L Range Note Laboratory test 03/16/2019 [facility] Troponin I 0.02 ng/mL <0.03 1 finding Type & Screen 03/15/2019 [facility] Patient Blood B Positive 2 Type Antibody Screen NEGATIVE Laboratory test 03/15/2019 [facility] Packed Cells SEE RESULTS BELO 3 finding <SEE NOTE> Hepatitis B Surf 01/30/2019 [facility] Hepatitis B Nonreactive Nonreactive Antigen Surface Antigen [...] % 0.1 1 Comp Metabolic Panel 01/10/2019 [facility] Sodium 139 mmol/L 135- 145 Potassium [...] Egfr 121.9 1 4 Lab Results 01/10/2019 [facility] Testosterone 206.29 ng/dL Low 240- 950 Triglycerides 87 mg/dL 5 Cholesterol 229 mg/dL 6 HDL Cholesterol 71.1 mg/dL 7 LDL Cholesterol 141 mg/dL 8 PSA Screening 0.284 ng/mL 0-4.000 9 Vitamin B12 608 pg/mL 180-914 10 Lab Results 01/10/2019 [facility] Triglycerides 87 mg/dL 11 Cholesterol 229 mg/dL 12 HDL Cholesterol 71.1 mg/dL 13 LDL Cholesterol 141 mg/dL 14 PSA Screening 0.284 ng/mL 0-4.000 15 Vitamin B12 608 pg/mL 180-914 16 Lab Results 01/10/2019 [facility] PSA Screening 0.284 ng/mL 0-4.000 17 Vitamin B12 608 pg/mL 180-914 18 1 Troponin-I testing on Plasma Separator Tubes (PST) has a known false positive rate of 0.20-0.40%. All positive troponins reflex immediately to secondary confirmatory testing. Using the [employer]sCloud DxI 800 Access Immunoassay systems, the 99th percentile upper reference limit was demonstrated to be < 0.03 ng/mL. 2 GI BLEED PER EMS 3 SEE RESULTS BELOW [id number] BP PC TRANSFUSED 03/16/19 0027 4 Because [...] levels of PSA measured using the Shubham [place] DXI Hybritech immunoassay should not be interpreted [...] levels of PSA measured using the [employer] [place] DXI Hybritech immunoassay should not be interpreted [...] rectal bleeding Assessments Date Code Description Provider 03/26/2019 K25.9 Gastric ulcer, unspecified as acute or Joe Parham MD chronic, without hemorrhage or perforation 03/26/2019 K51.211 Ulcerative (chronic) proctitis with rectal Joe Parham MD bleeding 03/16/2019 D64.9 Anemia, unspecified Joe Parham MD 01/27/2019 K51.211 Ulcerative (chronic) proctitis with rectal Joe Parham MD bleeding Plan of Treatment Future Appointment(s):05/07/2019 9:00 am - [facility] MD at [facility]03/26/2019 - Joe Parham MDK25.9 Gastric ulcer, unspecified as acute or chronic, without hemorrhage or perforationComments: RISKS AND BENEFITS OF THE PROCEDURE WERE DISCUSSED WITH PATIENT. Skippy in approximately a month from nowK51.211 Ulcerative (chronic) proctitis with rectal bleedingComments:Unfortunately he was not doing well with his mesalamine thus we switched him to the Pentasa per his insurance requirements and unfortunately he had an allergic reaction to the Pentasa. We will try to get authorization for Humira at this point. Functional Status Description No Information Available Mental Status Description No Information Available Referrals Description No Information Available
--- OUTSIDE RECORDS SUMMARY | 2019-03-31 10:40 | XMS REPORT | Continuity of Care Document ---
:1965 External Reference #:[id number] Author Name Joe Parham MD Address [address] [place] [id number] Care Team Providers Name Role Phone Dougie Gaytan DO Care Team Information Engine Repairer [phone] Problems Active Problems Provider Date Problem Onset: Chronic ulcerative proctitis oJe Parham MD Onset: 08/27/2018 Abdominal pain Lucy [...] Result H/L Range Note Laboratory test 03/16/2019 [facility]roponin I 0.02 ng/mL <0.03 1 finding Type & Screen 03/15/2019 [facility] Patient Blood B Positive 2 Type Antibody Screen NEGATIVE Laboratory test 03/15/2019 [facility] Packed Cells SEE RESULTS BELO 3 finding <SEE NOTE> Hepatitis B Surf 01/30/2019 [facility] [place]atitis B Nonreactive Nonreactive Antigen Surface Antigen [...] immediately to secondary confirmatory testing. Using the [employer] Access Immunoassay systems, the 99th percentile upper reference limit was demonstrated to be < 0.03 ng/mL. 2 GI BLEED PER EMS 3 SEE RESULTS BELOW [id number] BP PC TRANSFUSED 03/16/19 0027 4 Because [...] levels of PSA measured using the [employer] [place] DXI Hybritech immunoassay should not be interpreted [...] Serum levels of PSA measured using the [employer] DXI Hybritech immunoassay should not be interpreted [...] levels of PSA measured using the [employer] [place] Secure DXI Hybritech immunoassay should not be interpreted [...]
--- OUTSIDE RECORDS SUMMARY | 2019-03-31 10:40 | XMS REPORT | Continuity of Care Document ---
:1965 External Reference #:[id number] Author Name Raeann Matute PA Address [address] [place] [address] Problems Description No Information Available Social History Type Date Description Comments Sex Unknown Tobacco Use Start: Unknown Never Smoked Cigarettes ETOH Use Occasionally consumes liquor Recreational Drug Use Denies Drug Use Allergies, Adverse Reactions, Alerts Description No Known Drug Allergies Medications Active Medications SIG Qnty Indications Ordering Date Provider Pantoprazole Sodium 1 by mouth bid 30tabs Dougie Gaytan, 03/19/[address] ELEN 3ML Syringe use as directed every 8units E29.1 Dougie Gaytan, 2018 W/Needle 21GX1" 2 weeks for home DO admin of testosterone Testosterone 1 milliliters 6ml E29.1 Dougie Gaytan, 09/24/2016 Cypionate subcutaneously every DO 200mg/ml 2 weeks- code f Solution Escitalopram Oxalate take 1 tablet by 30tabs Dougie Gaytan, 04/04/2016 mouth once daily DO 10mg Tablets Cialis Take One Tablet by 30tabs N52.9 Dougie Gaytan, 11/22/2015 5mg Tablets mouth every day DO Sulfasalazine 4 by mouth twice a Unknown 500mg day Tablets Colchicine 1 by mouth twice a Unknown 0.6mg day Capsules History Medications Meloxicam take one tablet 30tabs Dougie Gaytan DO 02/10/2019 - 15mg by mouth every 03/19/2019 Tablets day with food Medications Administered in Office Medication SIG Qnty Indications Ordering Provider Date PPD Injection Schedule, Nurses 07/21/2018 PPD Injection Schedule, Nurses 08/06/2017 Injection Testosterone Cypionate Dougie Gaytan DO 12/20/2016 1cc, 200 MG Injection Injection Testosterone Cypionate Schedule, Nurses 12/20/2016 1cc, 200 MG Injection PPD Injection Schedule, Nurses 08/01/2015 Immunizations CPT Code Status Date Vaccine Lot # [id number] Given 12/02/2018 Influenza Vac, Quadrivalent, Split, 0.5mL Dosage, Im Use [id number] Given 05/26/2018 Tdap (Adacel) Ages 7 And Above Only [id number] Given 11/18/2017 Influenza Vac, Quadrivalent, Split, 0.5mL Dosage, Im Use Vital Signs Date Vital Result Comment 03/19/2019 1:56pm Body Temperature 98.7 F Weight 181.00 lb Heart Rate 97 /min BP Systolic 142 mmHg BP Diastolic 82 mmHg Respiratory Rate 18 /min Height 71 inches 5'11" O2 % BldC Oximetry 98 % BMI (Body Mass Index) 25.2 kg/m2 01/14/2019 1:44pm Weight 189.00 lb Heart Rate 76 /min BP Systolic 144 mmHg BP Diastolic 84 mmHg Respiratory Rate 18 /min Height 71 inches 5'11" BMI (Body Mass Index) 26.4 kg/m2 Results Test Acquired Date Facility Test Result H/L Range Note Laboratory test 03/19/2019 [facility] Vitamin B12 <pending> finding Inr/Protime 03/15/2019 [facility] Inr 1.12 High 0.82-1.09 1 Comp Metabolic 03/15/2019 [facility] Sodium 134 mmol/L Low 135 -145 Panel Potassium 3.9 mmol/L Normal 3.5-5.0 Chloride 101 mmol/L Normal 101-111 Co2 Carbon Dioxide 28 mmol/L Normal 22-32 Anion Gap 5 mmol/L Normal 2-11 Glucose 106 mg/dL High 70-100 Blood Urea Nitrogen 12 mg/dL Normal 6-24 Creatinine 0.67 mg/dL Normal 0.67-1.17 BUN/Creatinine Ratio 17.9 Normal 8-20 Calcium 7.5 mg/dL Low 8.6-10.3 Total Protein 5.6 g/dL Low 6.4-8.9 Albumin 3.1 g/dL Low 3.2-5.2 Globulin 2.5 g/dL Normal 2-4 Albumin/Globulin Ratio 1.2 Normal 1-3 Total Bilirubin 0.40 mg/dL Normal 0.2-1.0 Alkaline Phosphatase 49 U/L Normal 34-104 Alt 16 U/L Normal 7-52 Ast 10 U/L Low 13-39 Egfr Non- 123.2 >60 Egfr 149.0 >60 2 Laboratory test 03/15/2019 [facility] C Reactive 16.72 mg/L High <8.01 finding Protein Troponin I 0.02 ng/mL <0.03 3 CBC Auto Diff 03/15/2019 [facility] White Blood 20.2 10^3/uL High 3.5-10.8 Count Red Blood Count 2.49 10^6/uL Low 4.18-5.48 Hemoglobin 7.0 g/dL Low 14.0-18.0 Hematocrit 22 % Low 42-52 Mean Corpuscular Volume 87 fL Normal 80-94 Mean Corpuscular Hemoglobin 28 pg Normal 27-31 Mean Corpuscular HGB Conc 32 g/dL Normal 31-36 Red Cell Distribution Width 15 % Normal 10-15 Platelet Count 673 10^3/uL High 150-450 Mean Platelet Volume 6.2 fL Low 7.4-10.4 Abs Neutrophils 16.3 10^3/uL High 1.5-7.7 Abs Lymphocytes 1.6 10^3/uL Normal 1.0-4.8 Abs Monocytes 2.0 10^3/uL High 0-0.8 Abs Eosinophils 0.2 10^3/uL Normal 0-0.6 Abs Basophils 0.0 10^3/uL Normal 0-0.2 Abs Nucleated RBC 0.0 10^3/uL Granulocyte % 81.1 % Lymphocyte % 8.0 % Monocyte % 9.9 % Eosinophil % 0.8 % Basophil % 0.2 % Nucleated Red Blood Cells % 0.1 Laboratory test 03/15/2019 [facility] Erythrocyte Sed 45 mm/Hr High 0-19 finding Rate Urinalysis Profile 03/15/2019 [facility] Urine Color Straw Urine Appearance Clear Urine Specific [place] 1.012 Normal 1.010-1.030 Urine pH 7.0 Normal 5-9 Urine Urobilinogen Negative Negative Urine Ketones Negative Negative Urine Protein Negative Negative Urine Leukocytes Negative Negative Urine Blood Negative Negative Urine Nitrite Negative Negative Urine Bilirubin Negative Negative Urine Glucose Negative Negative Iron & Iron 03/15/2019 [facility] Total Iron 379 g/dL Normal 250-450 Binding Capacity Binding Capacity Transferrin 271 mg/dL Normal 203-362 Iron < 20 g/dL Low 50-212 Unsaturated Iron Binding < 364 g/dL % Iron Saturation 5 % Low 15-55 Laboratory test finding 03/15/2019 [facility] Ferritin 7.0 ng/ mL Low 24-336 Folate 13.74 ng/mL >3.99 Vitamin B12 479 pg/mL Normal 180-914 4 Stool Occult 03/15/2019 [facility] Stool Occult SEE RESULT 5 Blood, Screen Blood, Screen BELOW Laboratory test 03/04/2019 [facility] CK 146 U/L Normal 39-308 6 finding (315)- - Troponin-I < 0.015 ng/mL 7 C-Reactive Protein,Quant 37.4 mg/L High <3.0 Comprehensive 03/04/2019 [facility] Glucose 104 mg/dL Normal 74-106 Metabolic Panel (315)- - BUN 22 mg/dL High 7-18 Creatinine 0.9 mg/dL Normal 0.6-1.3 Glom Filtration Rate, Estimate >60 mL/min >60 If >60 mL/min >60 8 BUN/Creat 24.4 ratio Sodium 135 mmol/L Low 136-145 Potassium 4.2 mmol/L Normal 3.5-5.1 Chloride 103 mmol/L Normal 98-107 Carbon Dioxide 27 mmol/L Normal 21-32 Anion Gap 5 mEq/L Low 8-16 Calcium 7.5 mg/dL Low 8.5-10.1 Total Protein 6.8 g/dL Normal 6.4-8.2 Albumin 2.9 g/dL Low 3.4-5.0 Globulin 3.9 g/dL Normal 1.9-4.3 Alb/Glob 0.7 ratio Bilirubin,Total 0.2 mg/dL Normal 0.2-1.0 Sgot/Ast 13 U/L Low 15-37 9 SGPT/Alt 30 U/L Normal 12-78 Alkaline Phosphatase 63 U/L Normal 45-117 CBS W/Automated 03/04/2019 [facility] White Blood 16.3 K/ uL High 3.4-10.5 Diff (315)- - Count Red Blood Count 2.78 M/uL Low 4.20-5.80 Hemoglobin 8.1 gm/dL Low 12.8-17.0 Hematocrit 25.7 % Low 38.0-48.0 Mean Cell Volume 92.4 fl Normal 80.0-96.0 Mean Corpuscular HGB 29.1 pg Normal 27.0-33.0 Mean Corpuscular HGB Conc 31.5 g/dL Low 31.7-36.0 Platelet Count 617 K/uL High 155-360 Red Cell Distri Width SD 44.8 fl Normal 36-51 Red Cell Distri Width %CV 13.5 % Normal 11.6-15.8 Mean Platelet Volume 8.9 fl Normal 6.6-10.6 Neut% 80.8 % High 33.0-73.0 Lymph % 7.1 % Low 20.0-42.0 [place] % 8.1 % Normal 0.0-10.0 Eo% 2.6 % Normal 0.0-6.6 Bas% 0.6 % Normal 0.0-1.1 Immature Grans 0.8 % Normal 0.0-5.0 NRBC % 0.0 /100WBC < 10/ 100 WBC Neut# 13.14 K/uL High 1.8-7.0 Lymph # 1.16 K/uL Normal 1.0-4.0 [place] # 1.31 K/uL High 0.0-0.8 Eos # 0.42 K/uL Normal 0.0-0.5 Baso # 0.10 K/uL Normal 0.0-0.1 Immature Grans Absolute 0.13 K/uL NRBC # 0.00 K/uL Laboratory test 03/04/2019 [facility] Sedimentation 64 mm /hr High 2-45 10 finding (315)- - Rate Laboratory test 03/04/2019 [facility] Troponin-I < 0.015 11 finding (315)- - ng/mL CBS W/Automated 02/22/2019 [facility] White Blood Count 10.4 K/uL Normal 3.4-10.5 12 Diff (315)- - Red Blood Count 3.39 M/uL Low 4.20-5.80 Hemoglobin 10.3 gm/dL Low 12.8-17.0 Hematocrit 31.9 % Low 38.0-48.0 Mean Cell Volume 94.1 fl Normal 80.0-96.0 Mean Corpuscular HGB 30.4 pg Normal 27.0-33.0 Mean Corpuscular HGB Conc 32.3 g/dL Normal 31.7-36.0 Platelet Count 346 K/uL Normal 155-360 Red Cell Distri Width SD 46.1 fl Normal 36-51 Red Cell Distri Width %CV 13.5 % Normal 11.6-15.8 Mean Platelet Volume 9.4 fl Normal 6.6-10.6 Neut% 75.6 % High 33.0-73.0 Lymph % 8.7 % Low 20.0-42.0 [place] % 11.8 % High 0.0-10.0 Eo% 2.8 % Normal 0.0-6.6 Bas% 0.7 % Normal 0.0-1.1 Immature Grans 0.4 % Normal 0.0-5.0 NRBC % 0.0 /100WBC < 10/ 100 WBC Neut# 7.85 K/uL High 1.8-7.0 Lymph # 0.90 K/uL Low 1.0-4.0 [place] # 1.23 K/uL High 0.0-0.8 Eos # 0.29 K/uL Normal 0.0-0.5 Baso # 0.07 K/uL Normal 0.0-0.1 Immature Grans Absolute 0.04 K/uL NRBC # 0.00 K/uL Laboratory test 02/22/2019 [facility] D-Dimer, 0.49 ug/ mL 13 finding (315)- - Quantitative Comprehensive 02/22/2019 [facility] Glucose 108 mg/dL High 74-10 Metabolic Panel (315)- - 6 BUN 15 mg/dL Normal 7-18 Creatinine 0.9 mg/dL Normal 0.6-1.3 Glom Filtration Rate, Estimate >60 mL/min >60 If >60 mL/min >60 14 BUN/Creat 16.6 ratio Sodium 138 mmol/L Normal 136-145 Potassium 4.0 mmol/L Normal 3.5-5.1 Chloride 108 mmol/L High 98-107 Carbon Dioxide 26 mmol/L Normal 21-32 Anion Gap 4 mEq/L Low 8-16 Calcium 7.9 mg/dL Low 8.5-10.1 Total Protein 6.8 g/dL Normal 6.4-8.2 Albumin 3.2 g/dL Low 3.4-5.0 Globulin 3.6 g/dL Normal 1.9-4.3 Alb/Glob 0.9 ratio Bilirubin,Total 0.3 mg/dL Normal 0.2-1.0 Sgot/Ast 18 U/L Normal 15-37 SGPT/Alt 28 U/L Normal 12-78 Alkaline Phosphatase 55 U/L Normal 45-117 Laboratory test 02/22/2019 [facility] Lipase 124 U/L Normal 56-289 finding (315)- - Troponin-I < 0.015 ng/mL 15 Laboratory test 02/20/2019 [facility] Troponin I 0.01 ng/mL < 0.03 16 finding Comp Metabolic 02/20/2019 [facility] Sodium 137 mmol/L Normal 135-145 Panel Potassium 4.1 mmol/L Normal 3.5-5.0 Chloride 104 mmol/L Normal 101-111 Co2 Carbon Dioxide 27 mmol/L Normal 22-32 Anion Gap 6 mmol/L Normal 2-11 Glucose 92 mg/dL Normal 70-100 Blood Urea Nitrogen 23 mg/dL Normal 6-24 Creatinine 0.81 mg/dL Normal 0.67-1.17 BUN/Creatinine Ratio 28.4 High 8-20 Calcium 8.4 mg/dL Low 8.6-10.3 Total Protein 6.6 g/dL Normal 6.4-8.9 Albumin 4.1 g/dL Normal 3.2-5.2 Globulin 2.5 g/dL Normal 2-4 Albumin/Globulin Ratio 1.6 Normal 1-3 Total Bilirubin 0.40 mg/dL Normal 0.2-1.0 Alkaline Phosphatase 46 U/L Normal 34-104 Alt 18 U/L Normal 7-52 Ast 22 U/L Normal 13-39 Egfr Non- 98.9 >60 Egfr 119.7 >60 17 Inr/Protime 02/20/2019 [facility] Inr 1.09 Normal 0.82-1.09 18 CBC Auto Diff 02/20/2019 [facility] White Blood 8.9 10^3/uL Normal 3.5-10.8 Count Red Blood Count 3.44 10^6/uL Low 4.18-5.48 Hemoglobin 10.9 g/dL Low 14.0-18.0 Hematocrit 32 % Low 42-52 Mean Corpuscular Volume 92 fL Normal 80-94 Mean Corpuscular Hemoglobin 32 pg High 27-31 Mean Corpuscular HGB Conc 35 g/dL Normal 31-36 Red Cell Distribution Width 14 % Normal 10-15 Platelet Count 325 10^3/uL Normal 150-450 Mean Platelet Volume 7.8 fL Normal 7.4-10.4 Abs Neutrophils 6.6 10^3/uL Normal 1.5-7.7 Abs Lymphocytes 1.1 10^3/uL Normal 1.0-4.8 Abs Monocytes 0.9 10^3/uL High 0-0.8 Abs Eosinophils 0.2 10^3/uL Normal 0-0.6 Abs Basophils 0.1 10^3/uL Normal 0-0.2 Abs Nucleated RBC 0.0 10^3/uL Granulocyte % 74.2 % Lymphocyte % 12.0 % Monocyte % 10.3 % Eosinophil % 2.8 % Basophil % 0.7 % Nucleated Red Blood Cells % 0.0 Laboratory test 02/20/2019 [facility] Troponin I 0.01 ng/mL < 0.03 19 finding Laboratory test 01/14/2019 [facility] 4.7 mg/dL 2.6-8.4 finding CRP (C-Reactive) inflammation 0.21 mg/dL 0.00-0.75 CBC Auto Diff 01/10/2019 [facility] White Blood 6.2 10^3/uL Normal 3.5-10.8 Count Red Blood Count 4.37 10^6/uL Normal 4.18-5.48 Hemoglobin 13.8 g/dL Low 14.0-18.0 Hematocrit 40 % Low 42-52 Mean Corpuscular Volume 91 fL Normal 80-94 Mean Corpuscular Hemoglobin 32 pg High 27-31 Mean Corpuscular HGB Conc 35 g/dL Normal 31-36 Red Cell Distribution Width 14 % Normal 10-15 Platelet Count 364 10^3/uL Normal 150-450 Mean Platelet Volume 8.2 fL Normal 7.4-10.4 Abs Neutrophils 4.0 10^3/uL Normal 1.5-7.7 Abs Lymphocytes 1.0 10^3/uL Normal 1.0-4.8 Abs Monocytes 0.7 10^3/uL Normal 0-0.8 Abs Eosinophils 0.5 10^3/uL Normal 0-0.6 Abs Basophils 0.1 10^3/uL Normal 0-0.2 Abs Nucleated RBC 0.0 10^3/uL Granulocyte % 64.7 % Lymphocyte % 16.0 % Monocyte % 11.0 % Eosinophil % 7.3 % Basophil % 1.0 % Nucleated Red Blood Cells % 0.1 Comp Metabolic Panel 01/10/2019 [facility] Sodium 139 mmol/L Normal 135-145 Potassium 4.5 mmol/L Normal 3.5-5.0 Chloride 103 mmol/L Normal 101-111 Co2 Carbon Dioxide 30 mmol/L Normal 22-32 Anion Gap 6 mmol/L Normal 2-11 Calcium 9.2 mg/dL Normal 8.6-10.3 Albumin 4.2 g/dL Normal 3.2-5.2 Total Bilirubin 0.40 mg/dL Normal 0.2-1.0 Glucose 93 mg/dL Normal 70-100 Blood Urea Nitrogen 16 mg/dL Normal 6-24 Creatinine 0.80 mg/dL Normal 0.67-1.17 BUN/Creatinine Ratio 20.0 Normal 8-20 Total Protein 7.1 g/dL Normal 6.4-8.9 Globulin 2.9 g/dL Normal 2-4 Albumin/Globulin Ratio 1.4 Normal 1-3 Alkaline Phosphatase 59 U/L Normal 34-104 Alt 18 U/L Normal 7-52 Ast 19 U/L Normal 13-39 Egfr Non- 100.7 >60 Egfr 121.9 >60 20 Laboratory test 01/10/2019 [facility] Testosterone 206.29 ng/dL Low 240-950 finding Lipid Profile 01/10/2019 [facility] Triglycerides 87 mg/dL 21 (Trig/Chol/HDL) Cholesterol 229 mg/dL 22 HDL Cholesterol 71.1 mg/dL 23 LDL Cholesterol 141 mg/dL 24 Laboratory test 01/10/2019 [facility] PSA Screening 0.284 ng/mL Normal 0-4.000 25 finding Vitamin B12 608 pg/mL Normal 180-914 26 1 Standard intensity warfarin therapeutic range: 2.0-3.0 High intensity warfarin therapeutic range: 2.5-3.5 2 Because ethnic data is not always readily [...] 15-29 5 Kidney failure <15 (or dialysis) 3 Troponin-I testing on Plasma Separator Tubes (PST) has a known false positive rate of 0.20-0.40%. All positive troponins reflex immediately to secondary confirmatory testing. Using the [employer] DxI 800 Access Immunoassay systems, the 99th percentile upper reference limit was demonstrated to be < 0.03 ng/mL. 4 Normal Range 180 to 914 Indeterminate Range 145 to 180 Deficient Range <145 5 SEE RESULT BELOW Name: YOBANY YING : [address]: Michelle Hermosillo MD Acct: [id number] Unit: [id number] AGE: 54 Location: ED Re03/15/19 SEX: M Status: REG ER SPEC: [id number] SANDY: 03/15/19-2[address] [facility] [address]: Tru DIXON REQ: [id number] RECD: 03/15/19 STATUS: LIAN DALAL DR: Michelle Gaytan DO _ SOURCE: STOOL SPDESC: ORDERED: Occult Bl, Scn Procedure Result Reported Site Stool Occult Blood (1) Final 03/15/19- 2220 [facility] Stool Occult Blood Positive Collection Date (1) 03/15/19 * [facility] - Main Lab . END OF REPORT DEPARTMENT OF PATHOLOGY, [address] [place] [address] Darryl Zuñiga M.D. Director [facility] # [id number] 6 CP 7 0.0 - 0.045 ng/mL: Normal 0.046 - 0.5 ng/mL: Suggestive 0.6 - 1.5 ng/mL: Consistent 8 Note: Persistent reduction for 3 months or more in an eGFR <60 mL/min/1.73 m2 defines CKD. Patients with eGFR values >/=60 mL/min/1.73 m2 may also have CKD if evidence of persistent proteinuria is present. The original MDRD equation for estimated GFR is not valid for patients less than 18 years of age. Additional information may be found at www.kdoqi.org. 9 Values below the stated reference ranges of AST and ALT can be seen in normal populations. Clinical correlation is suggested. 10 This result was obtained with an ESR method that is not based on the standard Westergren Method. When comparing results obtained from the traditional Westergren ESR and this method it is important to refer to the reference range for each method. Method: Capillary Photometry 11 0.0 - 0.045 ng/mL: Normal 0.046 - 0.5 ng/mL: Suggestive 0.6 - 1.5 ng/mL: Consistent 12 CHEST PAIN 13 <=0.49 ug/mL - Low likelihood of DIC, DVT or Pulmonary Embolism >0.49 ug/mL - Additional testing should be done to rule out DIC, DVT, or Pulmonary embolism as clinically indicated. ([facility] has established a 97.89% negative predictive value for thrombotic disease when a cutoff value of 0.5 ug/mL is used.) 14 Note: Persistent reduction for 3 months or more in an eGFR <60 mL/min/1.73 m2 defines CKD. Patients with eGFR values >/=60 mL/min/1.73 m2 may also have CKD if evidence of persistent proteinuria is present. The original MDRD equation for estimated GFR is not valid for patients less than 18 years of age. Additional information may be found at www.kdoqi.org. 15 0.0 - 0.045 ng/mL: Normal 0.046 - 0.5 ng/mL: Suggestive 0.6 - 1.5 ng/mL: Consistent 16 Troponin-I testing on Plasma Separator Tubes (PST) has a known false positive rate of 0.20-0.40%. All positive troponins reflex immediately to secondary confirmatory testing. Using the [employer] Access Immunoassay systems, the 99th percentile upper reference limit was demonstrated to be < 0.03 ng/mL. 17 Because ethnic data is not always readily [...] 15-29 5 Kidney failure <15 (or dialysis) 18 Standard intensity warfarin therapeutic range: 2.0-3.0 High intensity warfarin therapeutic range: 2.5-3.5 19 Troponin-I testing on Plasma Separator Tubes (PST) has a known false positive rate of 0.20-0.40%. All positive troponins reflex immediately to secondary confirmatory testing. Using the PEPperPRINT DxI 800 Access Immunoassay systems, the 99th percentile upper reference limit was demonstrated to be < 0.03 ng/mL. 20 Because ethnic data is not always readily [...] 15-29 5 Kidney failure <15 (or dialysis) 21 Desirable: <150 Borderline High: 150-199 High: 200-499 Very High: >500 22 Desirable: <200 Borderline High: 200-239 High: >239 23 Low: <40 Desirable: 40-60 High: >60 24 Desirable: <100 Near Optimal: 100-129 Borderline High: 130-159 High: 160-189 Very High: >189 25 Serum levels of PSA measured using the [employer] DXI Hybritech immunoassay should not be interpreted [...] methods or kits cannot be used interchangeably. 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 D51.9 Vitamin B12 deficiency anemia, unspecified F43.0 Acute stress reaction N52.9 Male erectile dysfunction, unspecified J30.9 Allergic rhinitis, unspecified K21.9 Gastro-esophageal reflux disease without esophagitis M54.2 Cervicalgia I83.92 Asymptomatic varicose veins of LEFT lower extremity K51.911 Ulcerative colitis, unspecified with rectal bleeding Z13.31 Encounter for screening for depression M79.672 Pain in LEFT foot Z68.26 Body mass index (BMI) 26.0-26.9, adult Assessments Date Code Description Provider 03/19/2019 K29.01 Acute gastritis with bleeding Raeann Matute PA 03/19/2019 K51.911 Ulcerative colitis, unspecified with rectal Raeann Matute PA bleeding 03/19/2019 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) 03/19/2019 R07.89 Other chest pain Raeann Matute PA 03/19/2019 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 Schedule, Laboratory loss (chronic) 03/19/2019 Z68.25 Body mass index (BMI) 25.0-25.9, adult Raeann Matute PA 03/19/2019 K29.01 Acute gastritis with bleeding Schedule, Laboratory 01/14/2019 M79.672 Pain in LEFT foot Dougie Gaytan, 01/14/2019 E29.1 Testicular hypofunction Dougie Gaytan, DO 01/14/2019 D51.9 Vitamin B12 deficiency anemia, unspecified Dougie Gaytan, DO 01/14/2019 F43.0 Acute stress reaction Dougie Gaytan, DO 01/14/2019 N52.9 Male erectile dysfunction, unspecified Dougie Gaytan, DO 01/14/2019 J30.9 Allergic rhinitis, unspecified Dougie Gaytan, DO 01/14/2019 K21.9 Gastro-esophageal reflux disease without Dougie Gaytan, esophagitis 01/14/2019 M54.2 Cervicalgia Dougie Gaytan, 01/14/2019 I83.92 Asymptomatic varicose veins of LEFT lower Dougie Gaytan DO extremity 01/14/2019 K51.911 Ulcerative colitis, unspecified with rectal Dougie Gaytan, bleeding 01/14/2019 Z13.31 Encounter for screening for depression Dougie Gaytan, DO 01/14/2019 M79.672 Pain in LEFT foot GaytanDougie mera, DO 01/14/2019 Z68.26 Body mass index (BMI) 26.0-26.9, adult Dougie Gaytan, DO 01/14/2019 M79.672 Pain in LEFT foot Schedule, Laboratory 01/14/2019 M79.672 Pain in LEFT foot [facility] Plan of Treatment Future Appointment(s):07/17/2019 3:00 pm - [facility]/19/2019 - Raeann Matute PAK29.01 Acute gastritis with bleedingComments:Had 2 units PRBC transfusedFollows with Dr. Hoffman pantoprazoleBland dietFollow up: PrnK51.911 Ulcerative colitis, unspecified with rectal bleedingComments: Recently changed from mesalamine to sulfasalazine Discussed Humira with Dr. Rubin50.0 Iron deficiency anemia secondary to blood loss (chronic)Comments: Will check labs todayDiscussed potential hematology referralCall with worsening SOB, dizziness, wcudnqcD33.89 Other chest painComments:On colchicine for possible pericarditisPain has improvedContinue care with Dr. Villagomez68.25 Body mass index (BMI) 25.0-25.9, adult Functional Status Description No Information Available Mental Status Description No Information Available Referrals Description No Information Available
--- OUTSIDE RECORDS SUMMARY | 2019-03-31 10:40 | XMS REPORT | Continuity of Care Document ---
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: @ 10 yrs old due to trauma Ulcerative colitis DESTINY Gregorio Onset: 10/24/2018 Social History Type Date Description Comments Sex Unknown Tobacco Use Start: Unknown Patient has never smoked Smoking Status Reviewed: 03/30/19 Patient has never smoked Allergies, Adverse Reactions, Alerts Description No Known Drug Allergies Medications Active Medications SIG Qnty Indications Ordering Date Provider Escitalopram Oxalate 1 by mouth 30tabs Dougie Gaytan, 10mg every day DO Tablets Testosterone twice a month Unknown Cypionate/Testosterone as needed Propionate 160-40mg/ml Solution Tadalafil 1 by mouth Unknown 5mg Tablets every day as needed Colcrys 1 by mouth Unknown 0.6mg Tablets every day as neededf Pantoprazole Sodium 1 by mouth Unknown 40mg every day Solution Rec Hydrocodone-Acetaminophe 1 or 2 tabs by Unknown n mouth every 6-8 5-325mg Tablets hours as needed for pain Prochlorperazine Maleate take 1 tab by Unknown 5mg mouth every 6 Tablets hours as needed for nausea Sulfasalazine take one Unknown 500mg Tablets capsule/tablet daily by mouth for 1 week then 1 twice daily ongoing History Medications Azithromycin 2 tabs by 11tabs J06.9 Nahum Sanchez, 10/24/2018 - 250mg mouth today 11/04/2018 Tablets then 1 tab by mouth daily Immunizations Description No Information Available Vital Signs Date Vital Result Comment 03/30/2019 7:51am Height 71.5 inches 5'11.50" Weight 175.00 lb Heart Rate 93 /min BP Systolic 145 mmHg BP Diastolic 88 mmHg Body Temperature 98.3 F Pain Level 7 O2 % BldC Oximetry 96 % BMI (Body Mass Index) 24.1 kg/m2 10/24/2018 12:11pm Heart Rate 85 /min BP Systolic Sitting 148 mmHg BP Diastolic Sitting 90 mmHg Body Temperature 99.1 F O2 % BldC Oximetry 98 % Results Test Acquired Date Facility Test Result H/L Range Note CBC W/Auto 03/30/2019 [facility] White Blood <pending > Diff [address] [place] [address] [phone] RBC Red Blood Count <pending> Hemoglobin <pending> Hematocrit <pending> MCV (Corpuscular Volume) <pending> MCH (Corpuscular Hemoglobin) <pending> MCHC (Corpuscular Hemog Conc) <pending> RDW <pending> Platelet Count <pending> MPV <pending> Neutrophils <pending> Bands <pending> Lymphocytes <pending> Monocytes <pending> Eosinophils <pending> Basophils <pending> Absolute Basophil <pending> Absolute Eosinophil <pending> Absolute Lymphocyte <pending> Absolute Monocytes <pending> Absolute Neutrophils <pending> Comp Metabolic 03/26/2019 [facility] Sodium 137 mmol/L Normal 135-[address] [place] [address] [phone] Potassium 4.3 mmol/L Normal 3.5-5.0 Chloride 101 mmol/L Normal 101-111 Co2 Carbon Dioxide 29 mmol/L Normal 22-32 Anion Gap 7 mmol/L Normal 2-11 Calcium 8.2 mg/dL Low 8.6-10.3 Albumin 3.4 g/dL Normal 3.2-5.2 Total Bilirubin 0.30 mg/dL Normal 0.2-1.0 Glucose 125 mg/dL High 70-100 Blood Urea Nitrogen 9 mg/dL Normal 6-24 Creatinine 0.85 mg/dL Normal 0.67-1.17 BUN/Creatinine Ratio 10.6 Normal 8-20 Total Protein 6.3 g/dL Low 6.4-8.9 Globulin 2.9 g/dL Normal 2-4 Albumin/Globulin Ratio 1.2 Normal 1-3 Alkaline Phosphatase 62 U/L Normal 34-104 Alt 24 U/L Normal 7-52 Ast 14 U/L Normal 13-39 Egfr Non- 93.6 >60 Egfr 113.2 >60 1 Laboratory test 03/26/2019 [facility] C Reactive 110.46 mg/L High <8.[address] [place] [address] [phone] CBC Auto Diff 03/26/2019 [facility] White Blood 11.0 High 3.5- 10.[address] Count 10^3/[place] [address] [phone] Red Blood Count 2.81 10^6/uL Low 4.18-5.48 Hemoglobin 7.7 g/dL Low 14.0-18.0 Hematocrit 24 % Low 42-52 Mean Corpuscular Volume 87 fL Normal 80-94 Mean Corpuscular Hemoglobin 27 pg Normal 27-31 Mean Corpuscular HGB Conc 32 g/dL Normal 31-36 Red Cell Distribution Width 16 % High 10-15 Platelet Count 517 10^3/uL High 150-450 Mean Platelet Volume 7.4 fL Normal 7.4-10.4 Abs Neutrophils 9.1 10^3/uL High 1.5-7.7 Abs Lymphocytes 0.7 10^3/uL Low 1.0-4.8 Abs Monocytes 0.7 10^3/uL Normal 0-0.8 Abs Eosinophils 0.3 10^3/uL Normal 0-0.6 Abs Basophils 0.1 10^3/uL Normal 0-0.2 Abs Nucleated RBC 0.0 10^3/uL Granulocyte % 83.3 % Lymphocyte % 6.6 % Monocyte % 6.6 % Eosinophil % 2.8 % Basophil % 0.7 % Nucleated Red Blood Cells % 0.0 Laboratory test 03/26/2019 [facility] Erythrocyte Sed > 120 High 0-[address] Rate mm/[place] [address] [phone] Anti Nuclear Antibody 0.4 U 2 Anca AB Ser If 03/26/2019 [facility] C-Anca Negative Negative [address] [place] [address] [phone] P-Anca Positive Abnormal Negative 3 Hla B27 03/26/2019 [facility] Hla B27 Positive 4 [address] [place] [address] [phone] Hla B27 Interp See Comment 5 1 Because ethnic data is not always [...] 5 Kidney failure <15 (or dialysis) 2 REFERENCE VALUE <=1.0 (Negative) Test Performed by: [facility] [place] [address] Foster Winder: Jesse Haynes M.D. Ph.D.; CLIA# [id number] 3 Positive for pANCA pattern by immunofluorescence. Suggest further testing for anti-myeloperoxidase (anti-MPO) antibodies, if clinically indicated. ADDITIONAL INFORMATION This test was developed and its performance characteristics determined by [facility] in a manner consistent with CLIA requirements. This test has not been cleared or approved by the U.S. Food and Drug Administration. Test Performed by: [place] [address] Foster Winder: Jesse Haynes M.D. Ph.D.; CLIA# [id number] 4 REFERENCE VALUE Not Applicable 5 HLA-B27 antigen was detected. Approximately 8% of the normal population carries the HLA-B27 antigen. HLA-B27 is present in approximately 89% of patients with ankylosing spondylitis, 79% of patients with Chuy's syndrome and 42% of patients with juvenile rheumatoid arthritis. However, lacking other data, it is not diagnostic for these disorders. This test does not differentiate B27 alleles. i.e. B*27:05, B*27:06, etc. ADDITIONAL INFORMATION Method: Flow Cytometry Test Performed by: [place] [address] Foster Winder: Jesse Haynes M.D. Ph.D.; CLIA# [id number] Procedures Date Code Description Status 11/29/2015 [id number] Colonoscopy Completed Medical Devices Description No Information Available Encounters Type Date Location Provider Dx Diagnosis Office Visit 10/24/2018 [facility] Karyn Archer, J06.9 Acute upper 10:01a Walk-in at [facility] respiratory Drugs infection, unspecified R03.0 Elevated blood-pressure reading, w/o diagnosis of htn R05 Cough Assessments Date Code Description Provider 03/30/2019 K27.4 Chronic or unspecified peptic ulcer, Rolando Atkinson MD site unspecified, with hemorrhage 03/30/2019 K51.918 Ulcerative colitis, unspecified with Rolando Atkinson MD other complication 03/30/2019 D50.9 Iron deficiency anemia, unspecified Rolando Atkinson MD 03/30/2019 R21 Rash and other nonspecific skin Rolando Atkinson MD eruption 03/30/2019 R79.82 Elevated C-reactive protein (CRP) Rolando Atkinson MD 03/30/2019 R70.0 Elevated erythrocyte sedimentation Rolando Atkinson MD rate 03/30/2019 R76.0 Raised antibody titer Rolando Atkinson MD 03/17/2019 K27.4 Chronic or unspecified peptic ulcer, Cabrera [facility] M.D.,[facility] site unspecified, with hemorrhage 03/16/2019 D50.9 Iron deficiency anemia, unspecified Arnold Caicedo MD 03/16/2019 R07.9 Chest pain, unspecified Arnold Caicedo MD 03/16/2019 K92.1 Melena Arnold Caicedo MD 10/24/2018 J06.9 Acute upper respiratory infection, DESTINY Gregorio unspecified 10/24/2018 R03.0 Elevated blood-pressure reading, DESTINY Gregorio without diagnosis of hypertension 10/24/2018 R05 Cough DESTINY Gregorio Plan of Treatment Future Appointment(s):04/13/2019 8:00 am - Rolando Atkinson MD at [facility]04/01/2019 8:45 am - Pancho Allan DO at [facility]87/10/2020 - Rolando Atkinson MDK27.4 Chronic or unspecified peptic ulcer, site unspecified, with hemorrhageFollow up:1-2 [id number] Ulcerative colitis, unspecified with other complicationNew Labs: Hepatitis B Core Antibody Tot, Ordered: 03/30/19Hepatitis C Virus Antibody, Ordered: 03/30/19iopurine Methyltransferase, Ordered: 03/30/19Follow up: Please print out excuse [id number] Iron deficiency anemia, unspecifiedComments: Lab the week of [id number] Rash and other nonspecific skin nkltzsawI52.82 Elevated C-reactive protein (CRP)R70.0 Elevated erythrocyte sedimentation rateR76.0 Raised antibody titerNew Labs:Myeloperoxidase Abs, Ordered: 03/30/19Proteinase- 3 AB, Ordered: 03/30/19 Functional Status Description No Information Available Mental Status Description No Information Available Referrals Description No Information Available
--- OUTSIDE RECORDS SUMMARY | 2019-03-31 10:40 | XMS REPORT | Continuity of Care Document ---
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 Using the [employer] Access Immunoassay systems, the 99th percentile upper reference limit was demonstrated to be < 0.03 ng/mL. 2 GI BLEED PER EMS 3 SEE RESULTS BELOW [id number] BP PC TRANSFUSED 03/16/19 0027 4 Because [...] levels of PSA measured using the [employer] DXI Hybritech immunoassay should not be interpreted [...] Serum levels of PSA measured using the [employer] DXI Hybritech immunoassay should not be interpreted [...] levels of PSA measured using the [employer] DXI Hybritech immunoassay should not be interpreted [...] 01/27/2019 [facility]astroenter[facility] Joe Chen K51.211 Ulcerative 3:45p [facility] Nolan Parham MD (chronic) proctitis with rectal bleeding Assessments Date Code Description Provider 01/27/2019 K51.211 Ulcerative (chronic) proctitis with rectal Joe Parham MD bleeding Plan of Treatment Future Appointment(s):03/26/2019 2:45 pm - Joe Parham MD at [facility]01/27/2019 - Joe Parham MDK51.211 Ulcerative (chronic) proctitis [...]
[2019-03-31] MEDS ORDERED: Iohexol 300* (CONTRAST) 10 ML SDV IV ONE (10:50)
[2019-03-31 11:00] LABS: Erythrocyte Sed Rate > 120 mm/Hr (0-19)
[2019-03-31] MEDS ORDERED: Piperacillin/Tazobac ADVAN(*) 3.375 GM in NS 0.9% 100 ML* 100 ML IVPB ONE (12:59)
[2019-03-31] MEDS ORDERED: HYDROcodone/ACETAMIN 5-325 MG* 1 TAB PO PRN (15:29)
[2019-03-31] MEDS ORDERED: NS 0.9% 1000 ML** 1,000 ML IV SCH (15:30)
[2019-03-31] MEDS ORDERED: Zosyn per Pharmacy* NOTE FOLLOW UP SCH (16:00)
--- NOTE | 2019-03-31 16:38 | HP ---
History of Present Illness - History of Present Illness Reason for Visit: Abdominal pain for 3 days History of Present Illness: 54 M with past medical history significant for Ulcerative colitis, Peptic Ulcer disease, Pericarditis, Iron deficiency anemia and erectile dysfunction presented with complaint of abdominal pain for 3 days. According to patient, he was having on and of abdominal pain for couple of weeks but since 3 days he says that his abdominal pain is worsening, located on suprapubic region, deep aching type with occasional throbbing and 9/10 intensity radiating to lower back. He denies any aggravating and alleviating factor but admits that he would get severe cramps while defecation. He denies nausea and vomiting, fever, chills and rigor. Although he reports of having loose motion since this morning and is painful and there is blood in stool. He states that since this episode he is also having pain during urination and increased frequency of micturition. He was recently admited on 03/16/2019 for gastric and duodenal ulcer and was prescribed PPI. SInce his discharge he has rash in his extremities and buttocks which is nontender but is red and one of them had seropurulent drainage. he is seeing Dr. narvaez for Ulcerative colitis. he also sees Dr. Blancas for anemia and was referred to Dr. Atkinson for rashes and UC. He saw DR. Atkinson yesterday who highly recommended biologics for UC and did Iron infusion. Hospital Course patient vitals were stable. Blood work showed leukocytosis of 11.8, Hb of 7.9, Platelet of 899, elevated CRP of 150 and ESR greater than 120. Patient had a CT scan which showed mucosal thickening of descending colon and sigmoid colon extending to rectum with extraluminal fluid collection consistent with an abscess and air-fluid levels noted posterior to the sigmoid colon. According to ED, Surgery was called and thought that the probably better addressed with IR and GI. IR was called and they do not think this is amenable to IR drainage given the location. GI was called and they wanted to do a couple of days IV antibiotics. - Past Medical History Past Medical History: 1. Ulcerative Colitis- for 1 year; Mesalamine 1.2 g 2 tablets twice a day. HAs failed sulfasalazine and insurance didnot cover humira. 2. Anemia: secondary to LEYDA 2/2 blood loss- received iron infusion yesterday 3. PUD- gastric and duodenal ulcer- on PPI 4. Pericarditis- On colchicine 5. Erectile dysfunction- On cialis; takes testosterone injection every 2 weeks. 6. Anxiety0 On escitalopram - Past Surgical History Past Surgical History: 1. 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 Mother had alzheimer. 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 He ocassionally consumes alcohol. Denies tobacco use and substance use. He lives with significant other-Ivory Worley() who is his surrogate decision maker. He is full code. Medications: Home Medications Medication Instructions Recorded Confirmed Type Escitalopram * [Lexapro 10 mg (NF)] 10 mg PO DAILY 07/18/18 03/31/19 History Mesalamine SUPP (NF) [Canasa SUPP 1,000 mg TN DAILY 02/20/19 03/31/19 History (NF)] Colchicine* [Colcrys*] 0.6 mg PO DAILY 03/16/19 03/31/19 History Hydrocodone/Acetaminophen 1 each PO QID PRN #20 tablet MDD 4 03/17/19 03/31/19 Rx [Hydrocodone-Acetamin 5-325 mg] Pantoprazole TAB * [Protonix TAB*] 40 mg PO BID #30 tab 03/17/19 03/31/19 Rx Prochlorperazine 10 mg TAB 10 mg PO Q6H PRN 03/29/19 03/31/19 History [Compazine 10 mg TAB] Allergies/Adverse Reactions: Allergies Allergy/AdvReac Type Severity Reaction Status Date / Time No Known Allergies Allergy Verified 03/31/19 09:41 Review of Systems - Review of Systems Constitutional: Negative: Fever, Chills, Sweats, Weakness, Malaise, Other Eyes: Negative: Pain, Vision Change, Conjunctivae Inflammation, Eyelid Inflammation, Redness, Other ENT: Negative: Ear Pain, Ear Discharge, Nose Pain, Nose Discharge, Nose Congestion, Mouth Pain, Mouth Swelling, Throat Pain, Throat Swelling, Other Respiratory: Negative: Cough, Dry, Shortness of Breath, Hemoptysis, SOB with Excertion, Pleuritic Pain, Sputum, Wheezing Cardiovascular: Negative: Chest Pain, Palpitations, Orthopnea, Paroxysmal Noc. Dyspnea, Edema, Light Headedness, Other Gastrointestinal: Positive: Nausea, Abdominal Pain, Hematochezia. Negative: Vomiting, Diarrhea, Constipation, Melena, Other Genitourinary: Positive: Dysuria, Frequency. Negative: Incontinence, Hematuria , Retention, Other Musculoskeletal: Negative: Neck Pain, Shoulder Pain, Arm Pain, Back Pain, Hand Pain, Leg Pain, Foot Pain, Other Skin: Positive: Rash. Negative: Lesions, Dewayne, Bruising, Other Neurological/Mental Status: Negative: Weakness, Numbness, Incoordination, Change in Speech, Confusion, Seizures, Other Exam Vital Signs: Vital Signs (72 hours) 03/31/19 03/31/19 03/31/19 09:19 09:51 09:53 Temperature 98.5 F Pulse Rate 93 90 91 Respiratory 18 Rate Blood Pressure 130/82 138/79 (mmHg) O2 Sat by Pulse 97 97 98 Oximetry 03/31/19 03/31/19 03/31/19 09:57 10:00 10:14 Temperature Pulse Rate 87 83 Respiratory 18 Rate Blood Pressure 137/80 (mmHg) O2 Sat by Pulse 97 98 Oximetry 03/31/19 03/31/19 03/31/19 10:29 10:44 11:02 Temperature Pulse Rate 84 79 86 Respiratory Rate Blood Pressure 144/88 144/93 (mmHg) O2 Sat by Pulse 96 97 98 Oximetry 03/31/19 03/31/19 03/31/19 11:14 12:31 12:32 Temperature Pulse Rate 80 96 94 Respiratory Rate Blood Pressure 148/84 158/83 (mmHg) O2 Sat by Pulse 95 98 98 Oximetry 03/31/19 03/31/19 03/31/19 12:47 13:01 13:02 Temperature Pulse Rate 86 86 Respiratory 14 Rate Blood Pressure 150/89 (mmHg) O2 Sat by Pulse 96 98 Oximetry 03/31/19 03/31/19 03/31/19 13:17 13:47 14:00 Temperature Pulse Rate 84 84 85 Respiratory Rate Blood Pressure 141/80 147/81 (mmHg) O2 Sat by Pulse 96 97 96 Oximetry 03/31/19 03/31/19 03/31/19 14:17 14:47 15:00 Temperature Pulse Rate 75 77 80 Respiratory Rate Blood Pressure 135/79 129/76 (mmHg) O2 Sat by Pulse 96 93 94 Oximetry 03/31/19 03/31/19 03/31/19 15:18 15:47 16:19 Temperature 99 F Pulse Rate 84 84 84 Respiratory 18 Rate Blood Pressure 140/83 134/82 134/82 (mmHg) O2 Sat by Pulse 95 96 96 Oximetry Exam: General - NAD, sitting up in bed, well groomed Eyes - PERRLA, EOM intact HEENT- no abnormality Lymph Nodes - No lymphadenopathy Cardiovascular - RRR no m/r/g, no JVD, no carotid bruits Lungs - Clear to auscltation, no use of acessory muscles, no crackles or wheezes. Skin - skin warm and dry, [place] scattered erythematous area on upper extremities with one open wound; nontender. Abdomen - Normal bowel sounds, abdomen soft and nondistended. tender on suprapubic area Extremities - No edema, cyanosis or clubbing Musculo Skeletal - 5/5 strength, normal range of motion, no swollen or erythematous joints. Neurological Alert and oriented x 3, CN 2-12 grossly intact. Result Diagrams: 03/31/19 09:37 03/31/19 09:37 Assessment/Plan - Assessment/Plan Assessment: 54 M with past medical history significant for Ulcerative colitis, Peptic Ulcer disease, Pericarditis, Iron deficiency anemia and erectile dysfunction presented with acute suprapubic abdominal pain associated with hematochezia and nausea. FOund to have intraabdominal abscess posterior to sigmoid colon with mucosal thickening of descending and sigmoid colon. Treating conservatively with IV zosyn(day 1) Plan: 1. Abdominal pain: Patient had on and off abdominal pain for weeks but severe acute pain for 3 days. He is found to have intrabdominal abscess(2/2 to microperforation). other differential include UC flare up. He is noncomplaint with his medication. he states that he takes his meds on and off as he thinks mesalamine does not work for him. He is not on any biologics. We will ask GI to see him and optimize his medication. He is not a good candidate for steroids as he has PUD. For abscess we will treat him conservatively with IV zosyn. If does not improve then needs to be managed surgically. 2. Ulcerative colitis: He has distal ulcerative colitis- proctitis. Patient is not complaint with his meds. He is currently taking Mesalamine 2.4g BID PO and 100o mg suppositories 1-2 times a week. His last discharge summary says Mesalamine 1000 mg TN daily. We will continue that for now. 3. Anemia: Iron deficiency anemia 2/2 to blood loss. received IV iron yesterday at rheumatology clinic. Hb is 7.9. We will continue to monitor it. 4. Peptic ulcer disease: Has gastric and duodenal ulcer diagnosed on 03/16/2019 secondary to NSAIDS. Continue PPI. Avoid NSAIDS. 5. Dysuria: Has dysuria with increased frequency and this morning he had dark colored urine. Urine analysis showed cast and higher specific gravity which could be from dehydration. No nitrates and leucocyte esterase. Urine culture pending. we will give him IV fluids. 6. Hematochezia: Could be from Proctitis form UC. will continue mesalamine. 7. Pericarditis: No sx at present. Continue cochicine. 8. Erectile dysfunction: he says he ocassinally takes the meds but gets testosterone injection every 2 weeks. 9. Anxiety: Continue lexapro 10. DVT prophylaxis: SCD as he has ulcer. 11. Full code Attestation Documenting Resident: Darryl Small Supervising Physician: Sophia Nam Attending/Supervising Physician Comment: Agree with resident findings and plan, essentially 54M with roughly new onset UC , poorly controlled, who is presenting with a deep pelvic abscess. -Surgery feels not amenable, IR feels to deep for percutaneous drainage, will attempt conservative mgmt with IV abx, bring GI onboard and help determine best when to repeat CT scan Attestation: This service has been performed in part by a resident under the direction of a teaching physician.I, Sophia Nam, performed the service, or was physically present during the critical, or vargas portions of the service, furnished by the resident. I participated in the management of the patient.
[2019-03-31] MEDS: HYDROcodone/ACETAMIN 5-325 MG* 1 TAB PO PRN ×2 (17:50→23:00)
[2019-03-31] MEDS: ZOSYN 3.375 GM Q8H per EXTENDED INFUSION IVPB SCH ×2 (17:51)
[2019-03-31] MEDS: Pantoprazole TAB * 40 MG TAB PO SCH (21:42)
--- NOTE | 2019-03-31 22:53 | CONS ---
CC: Dr. Atkinson, Rheumatology; Dr. Blancas, Hematology; Dr. Parham, Primary Supervisor [employer] * CONSULTATION REPORT: DATE OF CONSULT: 03/31/19 REASON FOR CONSULT: Sigmoid abscess. HISTORY OF PRESENT ILLNESS: This is a 54-year-old male with a past medical history of ulcerative colitis, recent peptic ulcer disease, pericarditis, and iron deficiency anemia, who presented to the emergency room with a complaint of abdominal pain for about 2 to 3 days. He states overall his bowels have been relatively normal, but over the last 2 to 3 days he began to have abdominal pain on the left side that radiated to his back. This was up to 9 in intensity , worse with straining in a bowel movement, nothing seemed to improve the pain. Denies nausea or vomiting. Denies any black in the stool. He did have 1 episode of some scant blood today, but has not had any consistent blood on a regular basis for some time. He had a recent admission on 03/16/19 and was found to have a gastric duodenal ulcer and was prescribed b.i.d. PPI therapy with a plan for repeat upper endoscopy in the next few months to ensure healing. He did also have a flexible sigmoidoscopy which did show some mild erythema and some skipping to about 15 to 20 cm with again edema and swelling. No biopsies were taken. He has not done well with mesalamine therapy. This has been complicated by allergic reaction and potentially pericarditis and the plan was eventually to get Humira. Of note, he has also had a developing rash on his extremities which is red and nodular at times with eruption. He recently saw Rheumatology, there was concern for potential vasculitis. He denies any weight loss or weight gain. Denies any dysphagia or odynophagia. The remainder of the 14-point review of systems was grossly negative except for as described in the HPI. PAST MEDICAL HISTORY: Ulcerative colitis, peptic ulcer disease, pericarditis, iron deficiency anemia. 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 HOME MEDICATIONS: Include: 1. Lexapro. 2. Mesalamine suppository. 3. Canasa. 4. Hydrocodone. 5. Pantoprazole. 6. Prochlorperazine. ALLERGIES: No known drug allergies. FAMILY HISTORY: Denies any family history of GI cancer or inflammatory bowel disease. 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 Denies tobacco or illicit substances. REVIEW OF SYSTEMS: Remainder of the 14-point review of systems was grossly negative except for as described in the HPI. PHYSICAL EXAM: Vital Signs: Blood pressure is 146/74, pulse is 81, respiratory rate is 16, temperature is 98.9, he is 97% on room air. General: Alert and oriented x3, in no acute distress. HEENT: Atraumatic, normocephalic. Pupils equal, round, reactive to light. Extraocular movements intact. Conjunctivae are pink. Sclerae anicteric. Cardiovascular: Regular rate and rhythm. S1, S2. Respiratory: Clear to auscultation bilaterally. Abdomen: Soft. Tenderness to palpation left lower quadrant, left upper quadrant. No guarding or rebound. Bowel sounds positive. Extremities: No clubbing, no cyanosis, no edema. Multiple lesions on the skin with partial eruption, warm. Psych: Appropriate mood and affect. DIAGNOSTIC STUDIES/LAB DATA: Hemoglobin 7.9. WBC count is 11.8, platelet count is 899. ESR 120. CRP 151. Chloride 100, bilirubin 0.3, AST 12, ALT 17, alkaline phosphatase is 74. He had a CT of the abdomen and pelvis done on 03/31/19. This showed mucosal thickening of the descending and sigmoid colon extending into the rectum. There is extraluminal fluid collection consistent with an abscess, this measures 4.2 x 4 x 3.1. IMPRESSION: 1. Sigmoid abscess, unclear if this is secondary to a diverticular abscess. He was noted to have diverticulosis on colonoscopy in 2016; however, he has had a recent diagnosis of ulcerative colitis. It would be unusual to develop an abscess and ulcerative colitis; however, it is possible that this may be Crohn' s where an abscess may be possible. The case was discussed with the interventional radiologist via the ER physician earlier and does not feel that this may be amendable to interventional drainage secondary to the posterior nature of it. General Surgery was also contacted and recommended input from us and consideration for IV antibiotics and observation initially. At this point, he is nontoxic and hemodynamically stable. I think it would be reasonable to give him IV antibiotics and then consider repeat imaging in the next 48 hours. If no change, may potentially need surgical treatment of this. Hold on biologics for the time being. It may be useful to get an MRI enterography to see if there is any evidence of any other small bowel disease that would lead more towards a diagnosis of Crohn colitis and ileitis. 2. Ulcerative colitis, has failed mesalamine, insurance has not approved Humira but work on this is pending. 3. Multiple skin lesions, in process of evaluation via Dermatology and Rheumatology. 4. Iron deficiency anemia, has been following with Dr. Blancas, likely partially contributing is his recent large gastric ulcer, continue b.i.d. PPI therapy. 5. Large gastric ulcer, continue b.i.d. PPI therapy, repeat endoscopy in the next few months as scheduled. [id number]/CPS #: [id number] [facility]
[2019-04-01] MEDS: ZOSYN 3.375 GM Q8H per EXTENDED INFUSION IVPB SCH ×6 (00:51→16:44)
[2019-04-01] MEDS: HYDROcodone/ACETAMIN 5-325 MG* 1 TAB PO PRN ×4 (04:51→19:03)
--- NOTE | 2019-04-01 07:03 | PN ---
Subjective Date of Service: 04/01/19 Interval History: HD 2 on 04/01 54 M with past medical history significant for Ulcerative colitis, Peptic Ulcer disease, Pericarditis, Iron deficiency anemia and erectile dysfunction presented with acute suprapubic abdominal pain associated with hematochezia and nausea. FOund to have intraabdominal abscess posterior to sigmoid colon with mucosal thickening of descending and sigmoid colon. Treating conservatively with IV zosyn(day 2) No acute overnight events Vitals stable Patient was having his breakfast and tolerating it well. patient has abdominal pain but is getting better than yesterday. Objective Active Medications: Hydrocodone Bitart/Acetaminophen ([place] 5-325 Tab*) 1 tab PO QID PRN PRN Reason: PAIN - MILD Last Admin: 04/01/19 04:51 Dose: 1 tab Colchicine (Colcrys*) 0.6 mg PO DAILY [facility] Escitalopram Oxalate (Lexapro *) 10 mg PO DAILY [facility] Piperacillin Sod/Tazobactam (Sod 3.375 gm/ Sodium Chloride) 100 mls @ 25 mls/ hr IVPB Q8H [facility] Last Admin: 04/01/19 00:51 Dose: 25 mls/hr Mesalamine (Canasa Supp (Nf)) 1,000 mg DC DAILY [facility]; Protocol Pantoprazole Sodium (Protonix Tab*) 40 mg PO BID [facility] Last Admin: 03/31/19 21:42 Dose: 40 mg Pharmacy Consult (Zosyn Per Pharmacy*) 1 note FOLLOW UP .ZOSYN PER PHARMACY [facility] Vital Signs - 8 hr 03/31/19 04/01/19 04/01/19 23:00 00:31 03:01 Temperature Pulse Rate Respiratory 16 18 18 Rate Blood Pressure (mmHg) O2 Sat by Pulse Oximetry 04/01/19 04/01/19 03:40 04:51 Temperature 98.5 F Pulse Rate 80 Respiratory 20 16 Rate Blood Pressure 149/70 (mmHg) O2 Sat by Pulse 98 Oximetry Oxygen Devices in Use Now: None Exam: General - NAD, sitting up in bed, well groomed Eyes - PERRLA, EOM intact HEENT- no abnormality Lymph Nodes - No lymphadenopathy Cardiovascular - RRR no m/r/g, no JVD, no carotid bruits Lungs - Clear to auscltation, no use of acessory muscles, no crackles or wheezes. Skin - skin warm and dry, [place] scattered erythematous area on upper extremities with one open wound; nontender. Abdomen - Normal bowel sounds, abdomen soft and nondistended. tender on suprapubic area Extremities - No edema, cyanosis or clubbing Musculo Skeletal - 5/5 strength, normal range of motion, no swollen or erythematous joints. Neurological Alert and oriented x 3, CN 2-12 grossly intact. Result Diagrams: 04/01/19 08:00 04/01/19 08:00 Assess/Plan/Problems-Billing Assessment: 54 M with past medical history significant for Ulcerative colitis, Peptic Ulcer disease, Pericarditis, Iron deficiency anemia and erectile dysfunction presented with acute suprapubic abdominal pain associated with hematochezia and nausea. FOund to have intraabdominal abscess posterior to sigmoid colon with mucosal thickening of descending and sigmoid colon. Treating conservatively with IV zosyn(day 2) - Patient Problems (1) Intra-abdominal abscess Current Visit: Yes Status: Acute Code(s): K65.1 - PERITONEAL ABSCESS SNOMED Code(s): 27738474 Comment: -Presented with 3 days of worsening abdominal pain. -No fever -MIld leucocytosis -CT scan showing intra-abdominal abscess-sigmoid and colitis -there is concern that is this from IBD or from diverticular as patient had diverticulosis previously -managing conservatively with IV zosyn(day 2 on 04/01) -repeat CT scan in 48 hours to see response -If no response then need surgical drainage -appreciate GI input (2) Ulcerative colitis Current Visit: No Status: Acute Code(s): K51.90 - ULCERATIVE COLITIS, UNSPECIFIED, WITHOUT COMPLICATIONS SNOMED Code(s): 71590202 Comment: -Diagnosed in 2019 -on mesalamine- failed sulfasalazine -has abdominal pain and loose stool with blood- could be UC flare; but no BM since yesterday -can't give steroid because of gastric and duodenal ulcer. -GI following (3) Anemia Current Visit: Yes Status: Acute Code(s): D64.9 - ANEMIA, UNSPECIFIED SNOMED Code(s): 871482231 Comment: -Hb of 8.2 -2/2 LEYDA which 2/2 to blood loss secondary to PUD and UC -received Iv infusion on 03/30 -H and H stable -will monitor (4) PUD (peptic ulcer disease) Current Visit: Yes Status: Acute Code(s): K27.9 - PEPTIC ULC, SITE UNSP, UNSP AC OR CHR, W/O HEMOR OR PERF SNOMED Code(s): 35655177 Comment: -has gastric and duodenal ulcer diagnosed in 03/17/19 -EGD on 03/17/19 -On PPI (5) Pericarditis Current Visit: Yes Status: Acute Code(s): I31.9 - DISEASE OF PERICARDIUM, UNSPECIFIED SNOMED Code(s): 0576816 Comment: -Diagnosed months ago -Asymptomatic at present -on colchicine (6) Rash Current Visit: Yes Status: Acute Code(s): R21 - RASH AND OTHER NONSPECIFIC SKIN ERUPTION SNOMED Code(s): 811050351 Comment: -has scattered erythematous rash on extremities and buttock -2 open wound. -likely manifestation of UC -following with rheumatology as an outpatient (7) DVT prophylaxis Current Visit: No Status: Acute Code(s): Z29.9 - ENCOUNTER FOR PROPHYLACTIC MEASURES, UNSPECIFIED SNOMED Code(s): 015835014 Comment: -SCD -ambulatory -has ulcer and anemia (8) Full code status Current Visit: Yes Status: Acute Code(s): Z78.9 - OTHER SPECIFIED HEALTH STATUS SNOMED Code(s): 503822788 Status and Disposition: Inpatient Attending: Sophia Nam Attestation Documenting Resident: Darryl Small Supervising Physician: Sophia Nam Attending/Supervising Physician Comment: Agree with resident findings and agree with note, 54M PMH UC admitted for deep pelvic abscess, treating conservatively Interim Hx: No issues since admission, VSS and labs stable Plan -Tolerating clear diet, advance to soft today -Continue tx for recent pericarditis -Continue mesalamine for UC, appreciate GI to hold on Biologic initiation -Need to suss out best time to repeat CTAP, if no change, need to re consult for definitive mgmt, 48 hours from admission, we will place the order Attestation: This service has been performed in part by a resident under the direction of a teaching physician.I, Sophia Nam, performed the service, or was physically present during the critical, or vargas portions of the service, furnished by the resident. I participated in the management of the patient.
[2019-04-01 08:22] LABS: ABS Basophils 0.1 10^3/ul (0-0.2); ABS Eosinophils 0.1 10^3/ul (0-0.6); ABS Lymphocytes 0.9 10^3/ul (1.0-4.8); ABS Neutrophils 8.3 10^3/ul (1.5-7.7); Eosinophil % 1.4 %; Hematocrit 26 % (42-52); Hemoglobin 8.2 g/dL (14.0-18.0); Lymphocyte % 8.6 %; Mean Corpuscular HGB Conc 32 g/dL (31-36); Mean Corpuscular Hemoglobin 27 pg (27-31); Mean Corpuscular Volume 85 fL (80-94); Mean Platelet Volume 7.4 fL (7.4-10.4); Platelet Count 941 10^3/uL (150-450); Red Blood Count 3.01 10^6 /uL (4.18-5.48); Red Cell Distribution Width 18 % (10-15); White Blood Count 10.5 10^3/uL (3.5-10.8)
[2019-04-01 08:40] LABS: Calcium 8.6 mg/dL (8.6-10.3); EGFR African American 110.2 (>60); EGFR Non-African American 91.1 (>60); Potassium 3.9 mmol/L (3.5-5.0)
[2019-04-01] MEDS: Colchicine* 0.6 MG TAB PO SCH (08:58)
[2019-04-01] MEDS: Escitalopram * 10 MG TAB PO SCH (08:58)
[2019-04-01] MEDS: Pantoprazole TAB * 40 MG TAB PO SCH ×2 (08:58→20:52)
[2019-04-01] MEDS ORDERED: MESALAMINE 1000 MG PR SCH (09:00)
--- NOTE | 2019-04-01 18:37 | PN ---
Progress Note - Progress Note Date of Service: 04/01/19 Note: GASTROENTEROLOGY FOLLOW-UP IE/S: - Pain persists (unchanged) across lower abdomen and back O: VS stable. Tm 99.1 Sitting upright in chair, eating dinner. Comfortable appearing. Abdominal exam not performed. Labs reviewed. Normal WBC. H/H low, but stable. CRP elevated yesterday. Micro blood cultures NGTD CT Abdomen/pelvis reviewed. A/P: 54yM w/ history of ulcerative colitis, PUD, pericarditis, and LEYDA, who is admitted with colonic abscess. Unclear if the abscess is related to IBD (underlying Crohn's more likely than UC in that case) or complicated diverticulitis. Discussed with IR today. Dr Shields confirmed that the abscess is not easily accessible for drainage (nearby ureter and vascular structures). Will continue IV antibiotics in hope that this leads to abscess improvement/resolution. - Monitor CBC, CMP, CRP daily - Continue Zosyn - Recommend MR enterography and MR pelvis (performed at same time) on to reassess abscess for interval change AND evaluate small bowel for evidence of inflammation (given concern for Crohn's). If MRI is not feasible tomorrow, then ok to proceed with CT abdomen/pelvis instead (would discuss with radiology the possibility of adding enterography procotol). - If abscess persists unchanged on follow-up imaging, then I would recommend multi-disciplinary discussion between GI, surgery, ID, and IR to discuss best way to address abscess. Biologic therapy cannot be started for underlying IBD until abscess has been adequately addressed. - Consider IV iron while inpatient given significant LEYDA. Hgb too high for transfusion today. GI will continue to follow. Myra Lara MD
[2019-04-01] MEDS: PTO:Mesalamine (NF) 1.2 GM TAB PO SCH (20:53)
[2019-04-01] MEDS ORDERED: HYDROcodone/ACETAMIN 5-325 MG* 1 TAB PO ONE (21:05)
[2019-04-02] MEDS: ZOSYN 3.375 GM Q8H per EXTENDED INFUSION IVPB SCH ×6 (00:47→17:18)
[2019-04-02] MEDS ORDERED: Morphine INJ* 4 MG/ML 1 ML SYRINGE (NEW SYRINGE VERSION) IV ONE (02:28)
[2019-04-02] MEDS ORDERED: PROCHLORPERAZINE INJ 5 MG/ML 2 ML VIAL IV ONE (02:29)
--- NOTE | 2019-04-02 02:38 | PN ---
Hospitalist Progress Note Date of Service: 04/02/19 Called to bedside to eval pain. Patient with increasing abd pain in the pelvic area. He states it feels like it did when he came in He denies n/v. He state the norco helps somewhat but is not lasting. He denies distention. He states that walking around helps him. On exam he is tender in the lower abdomen, non distended, no tenderness in the upper quadrants, does not appear to be a surgical abdomen, at this point will given one time dose of morphine and compazine as the morphine makes him nauseous, will continue to follow
[2019-04-02 06:39] LABS: ABS Basophils 0.1 10^3/ul (0-0.2); ABS Eosinophils 0.2 10^3/ul (0-0.6); ABS Lymphocytes 0.7 10^3/ul (1.0-4.8); ABS Monocytes 1.2 10^3/ul (0-0.8); ABS Neutrophils 8.2 10^3/ul (1.5-7.7); Eosinophil % 1.9 %; Hematocrit 24 % (42-52); Hemoglobin 7.8 g/dL (14.0-18.0); Lymphocyte % 6.4 %; Mean Corpuscular HGB Conc 33 g/dL (31-36); Mean Corpuscular Hemoglobin 28 pg (27-31); Mean Corpuscular Volume 85 fL (80-94); Mean Platelet Volume 7.3 fL (7.4-10.4); Platelet Count 841 10^3/uL (150-450); Red Cell Distribution Width 18 % (10-15); White Blood Count 10.3 10^3/uL (3.5-10.8)
[2019-04-02 06:56] LABS: BUN/Creatinine Ratio 8.5 (8-20); Calcium 8.1 mg/dL (8.6-10.3); EGFR Non-African American 97.5 (>60); Potassium 3.8 mmol/L (3.5-5.0)
[2019-04-02] MEDS: HYDROcodone/ACETAMIN 5-325 MG* 1 TAB PO PRN ×3 (07:29→20:53)
--- NOTE | 2019-04-02 07:34 | PN ---
Subjective Date of Service: 04/02/19 Interval History: HD 3 on 04/02 54 M with past medical history significant for Ulcerative colitis, Peptic Ulcer disease, Pericarditis, Iron deficiency anemia and erectile dysfunction presented with acute suprapubic abdominal pain associated with hematochezia and nausea. FOund to have intraabdominal abscess posterior to sigmoid colon with mucosal thickening of descending and sigmoid colon. Treating conservatively with IV zosyn(day 3) Overnight: had abdominal pain and received morphine vitals: stable. Patient has some abdominal pain on suprapubic region. denies nausea and vomiting. had 3 BM yesterday; liquid and watery. waiting MRI Objective Active Medications: Hydrocodone Bitart/Acetaminophen ([place] 5-325 Tab*) 1 tab PO QID PRN PRN Reason: PAIN - MODERATE Last Admin: 04/02/19 07:29 Dose: 1 tab Colchicine (Colcrys*) 0.6 mg PO DAILY [facility] Last Admin: 04/01/19 08:58 Dose: 0.6 mg Escitalopram Oxalate (Lexapro *) 10 mg PO DAILY [facility] Last Admin: 04/01/19 08:58 Dose: 10 mg Piperacillin Sod/Tazobactam (Sod 3.375 gm/ Sodium Chloride) 100 mls @ 25 mls/ hr IVPB Q8H [facility] Last Admin: 04/02/19 00:47 Dose: 25 mls/hr Mesalamine (Lialda (Nf)) 2.4 gm PO BID [facility] Last Admin: 04/01/19 20:53 Dose: 2.4 gm Pantoprazole Sodium (Protonix Tab*) 40 mg PO BID [facility] Last Admin: 04/01/19 20:52 Dose: 40 mg Pharmacy Consult (Zosyn Per Pharmacy*) 1 note FOLLOW UP .ZOSYN PER PHARMACY [facility] Vital Signs - 8 hr 04/02/19 04/02/19 04/02/19 00:47 02:35 03:15 Temperature 98.2 F Pulse Rate 88 Respiratory 16 18 20 Rate Blood Pressure 133/70 (mmHg) O2 Sat by Pulse 97 Oximetry 04/02/19 04/02/19 04/02/19 07:05 07:06 07:10 Temperature 98.1 F Pulse Rate 79 Respiratory 18 18 18 Rate Blood Pressure 136/62 (mmHg) O2 Sat by Pulse 99 Oximetry 04/02/19 07:29 Temperature Pulse Rate Respiratory 18 Rate Blood Pressure (mmHg) O2 Sat by Pulse Oximetry Oxygen Devices in Use Now: None Exam: General - NAD, sitting up in bed, well groomed Eyes - PERRLA, EOM intact HEENT- no abnormality Lymph Nodes - No lymphadenopathy Cardiovascular - RRR no m/r/g, no JVD, no carotid bruits Lungs - Clear to auscltation, no use of acessory muscles, no crackles or wheezes. Skin - skin warm and dry, [place] scattered erythematous area on upper extremities with one open wound; nontender. Abdomen - Normal bowel sounds, abdomen soft and nondistended. tender on suprapubic area Extremities - No edema, cyanosis or clubbing Musculo Skeletal - 5/5 strength, normal range of motion, no swollen or erythematous joints. Neurological Alert and oriented x 3, CN 2-12 grossly intact. Result Diagrams: 04/02/19 06:13 04/02/19 06:13 Assess/Plan/Problems-Billing Assessment: 54 M with past medical history significant for Ulcerative colitis, Peptic Ulcer disease, Pericarditis, Iron deficiency anemia and erectile dysfunction presented with acute suprapubic abdominal pain associated with hematochezia and nausea. FOund to have intraabdominal abscess posterior to sigmoid colon with mucosal thickening of descending and sigmoid colon. Treating conservatively with IV zosyn(day 3) - Patient Problems (1) Intra-abdominal abscess Current Visit: Yes Status: Acute Code(s): K65.1 - PERITONEAL ABSCESS SNOMED Code(s): 45969190 Comment: -Presented with 3 days of worsening abdominal pain. -No fever -CT scan showing intra-abdominal abscess-sigmoid and colitis -there is concern that is this from IBD or from diverticular as patient had diverticulosis previously -managing conservatively with IV zosyn(day 3 on 04/02) -appreciate GI input -pending MRI (2) Ulcerative colitis Current Visit: No Status: Acute Code(s): K51.90 - ULCERATIVE COLITIS, UNSPECIFIED, WITHOUT COMPLICATIONS SNOMED Code(s): 14766849 Comment: -Diagnosed in 2019 -on mesalamine- failed sulfasalazine -has abdominal pain and loose stool with blood- could be UC flare; -can't give steroid because of gastric and duodenal ulcer. -GI following (3) Anemia Current Visit: Yes Status: Acute Code(s): D64.9 - ANEMIA, UNSPECIFIED SNOMED Code(s): 053135173 Comment: -Hb of 8.2 -2/2 LEYDA which 2/2 to blood loss secondary to PUD and UC -received Iv infusion on 03/30 -H and H low but stable; can not give IV iron because of ongoing infection. -will monitor (4) PUD (peptic ulcer disease) Current Visit: Yes Status: Acute Code(s): K27.9 - PEPTIC ULC, SITE UNSP, UNSP AC OR CHR, W/O HEMOR OR PERF SNOMED Code(s): 49521426 Comment: -has gastric and duodenal ulcer diagnosed in 03/17/19 -EGD on 03/17/19 -On PPI (5) Pericarditis Current Visit: Yes Status: Acute Code(s): I31.9 - DISEASE OF PERICARDIUM, UNSPECIFIED SNOMED Code(s): 3905807 Comment: -Diagnosed months ago -Asymptomatic at present -on colchicine (6) Rash Current Visit: Yes Status: Acute Code(s): R21 - RASH AND OTHER NONSPECIFIC SKIN ERUPTION SNOMED Code(s): 453945880 Comment: -has scattered erythematous rash on extremities and buttock -2 open wound. -likely manifestation of UC -following with rheumatology as an outpatient (7) DVT prophylaxis Current Visit: No Status: Acute Code(s): Z29.9 - ENCOUNTER FOR PROPHYLACTIC MEASURES, UNSPECIFIED SNOMED Code(s): 794647926 Comment: -SCD -ambulatory -has ulcer and anemia (8) Full code status Current Visit: Yes Status: Acute Code(s): Z78.9 - OTHER SPECIFIED HEALTH STATUS SNOMED Code(s): 763628784 Status and Disposition: Inpatient GI and ID following Attending: Imani Thacker Attestation Documenting Resident: Darryl Small Supervising Physician: Imani Thacker Attending/Supervising Physician Comment: Agree with resident findings and agree with note. Mr Ying is a 54yo M who has a PMHx of UC admitted for deep pelvic abscess currently being treated conservatively. Follow up GI recommendations today [facility], IBD specialist and colorectal surgeon. Currently the patient's VSS and labs are improving. Plan -Diet de-escalated today due to patient having increased pain last night. -Continue tx for recent pericarditis with colchicine. -Continue mesalamine for UC, appreciate GI to hold on Biologic initiation -As above, attempt to transfer pt to [facility] (no beds at this time). Attestation: This service has been performed in part by a resident under the direction of a teaching physician.I, Imani Thacker, performed the service, or was physically present during the critical, or vargas portions of the service, furnished by the resident. I participated in the management of the patient.
[2019-04-02 08:21] LABS: C Reactive Protein 129.86 mg/L (<8.01)
[2019-04-02] MEDS: Escitalopram * 10 MG TAB PO SCH (08:38)
[2019-04-02] MEDS: PTO:Mesalamine (NF) 1.2 GM TAB PO SCH ×2 (08:38→20:53)
[2019-04-02] MEDS: Pantoprazole TAB * 40 MG TAB PO SCH ×2 (08:38→20:53)
[2019-04-02] MEDS: Colchicine* 0.6 MG TAB PO SCH (08:38)
[2019-04-02] MEDS ORDERED: Glucagon* 1 MG VIAL ONE (11:33)
[2019-04-02] MEDS ORDERED: Gadoteridol* (CONTRAST) 279.3 MG/ML 10 ML IV ONE (12:30)
--- NOTE | 2019-04-02 14:52 | DS ---
Resident Discharge Summary Discharge Summary: Date of Admission: 03/31/19 Date of Discharge: 04/04/2019 Admitting MD: Trina García MD Attending MD: Juliette Erickson MD Primary Care Physician: Dougie Gaytan DO MEDICATION AT DISCHARGE Escitalopram * [Lexapro 10 mg (NF)] 10 mg PO DAILY 07/18/18 [History Confirmed 03/31/19] Colchicine* [Colcrys*] 0.6 mg PO DAILY 03/16/19 [History Confirmed 03/31/19] Hydrocodone/Acetaminophen [Hydrocodone-Acetamin 5-325 mg] 1 each PO QID PRN #20 tablet MDD 4 03/17/19 [Rx Confirmed 03/31/19] Pantoprazole TAB * [Protonix TAB*] 40 mg PO BID #30 tab 03/17/19 [Rx Confirmed 03/31/19] Prochlorperazine 10 mg TAB [Compazine 10 mg TAB] 10 mg PO Q6H PRN 03/29/19 [ History Confirmed 03/31/19] Mesalamine (NF) [Lialda (NF)] 2.4 gm PO BID tab 04/02/19 [Rx] Zosyn per Pharmacy* 1 note FOLLOW UP .ZOSYN PER PHARMACY note 04/02/19 [Rx] Acetaminophen TAB* [Tylenol TAB*] 650 mg PO Q6H PRN tab 04/04/19 [Rx] Heparin FLUSH PICC/ML/CVC(*) 1 - 3 ml FLUSH 0600,1800 syringe 04/04/19 [Rx] Disposition: Transfer to other facility Condition: Stable Primary Diagnosis: 1. Pelvic abscess 2. Ulcerative Colitis Secondary Diagnosis: 1. Peptic Ulcer Disease 2. Iron Deficiency Anemia 3. Anxiety 4. Pericarditis Diagnostic Imagin. Abdomen/Pelvis CT(03/31/2019): Mucosal thickening of descending and sigmoid colon extending into rectum. There is an extraluminal fluid collection and air- fluid level consistent with abscess posterior to sigmoid colon measuring 4.2x4.0x3.1 cm. 2. Abdomen MRI(04/02/2019): Pelvic abscess superior to sigmoid colon measuring 5.2x2.6x3.4 cm. There is wall thickening of sigmoid colon. No dilated loops of bowel noted. Small bowel demonstrates no mucosal thickening. Pertinent Laboratory Results: Laboratory Last Values WBC 13.5 10^3/uL (3.5-10.8) H 04/04/19 04:58 RBC 2.93 10^6 /uL (4.18-5.48) L 04/04/19 04:58 Hgb 7.9 g/dL (14.0-18.0) L 04/04/19 04:58 Hct 25 % (42-52) L 04/04/19 04:58 MCV 86 fL (80-94) 04/04/19 04:58 MCH 27 pg (27-31) 04/04/19 04:58 MCHC 31 g/dL (31-36) 04/04/19 04:58 RDW 19 % (10-15) H 04/04/19 04:58 Plt Count 907 10^3/uL (150-450) H 04/04/19 04:58 MPV 6.7 fL (7.4-10.4) L 04/04/19 04:58 Neut % (Auto) 81.2 % 04/04/19 04:58 Lymph % (Auto) 6.4 % 04/04/19 04:58 Crane % (Auto) 10.9 % 04/04/19 04:58 Eos % (Auto) 1.0 % 04/04/19 04:58 Baso % (Auto) 0.5 % 04/04/19 04:58 Absolute Neuts (auto) 10.9 10^3/ul (1.5-7.7) H 04/04/19 04:58 Absolute Lymphs (auto) 0.9 10^3/ul (1.0-4.8) L 04/04/19 04:58 Absolute Monos (auto) 1.5 10^3/ul (0-0.8) H 04/04/19 04:58 Absolute Eos (auto) 0.1 10^3/ul (0-0.6) 04/04/19 04:58 Absolute Basos (auto) 0.1 10^3/ul (0-0.2) 04/04/19 04:58 Absolute Nucleated RBC 0.0 10^3/ul 04/04/19 04:58 Nucleated RBC % 0.0 04/04/19 04:58 ESR > 120 mm/Hr (0-19) H 03/31/19 09:37 Sodium 136 mmol/L (135-145) 04/04/19 04:58 Potassium 3.8 mmol/L (3.5-5.0) 04/04/19 04:58 Chloride 101 mmol/L (101-111) 04/04/19 04:58 Carbon Dioxide 26 mmol/L (22-32) 04/04/19 04:58 Anion Gap 9 mmol/L (2-11) 04/04/19 04:58 BUN 5 mg/dL (6-24) L 04/04/19 04:58 Creatinine 0.69 mg/dL (0.67-1.17) 04/04/19 04:58 Est GFR ( Amer) 144.0 (>60) 04/04/19 04:58 Est GFR (Non-Af Amer) 119.0 (>60) 04/04/19 04:58 BUN/Creatinine Ratio 7.2 (8-20) L 04/04/19 04:58 Glucose 106 mg/dL (70-100) H 04/04/19 04:58 Calcium 8.2 mg/dL (8.6-10.3) L 04/04/19 04:58 Total Bilirubin 0.30 mg/dL (0.2-1.0) 04/04/19 04:58 AST 14 U/L (13-39) 04/04/19 04:58 ALT 18 U/L (7-52) 04/04/19 04:58 Alkaline Phosphatase 88 U/L (34-104) 04/04/19 04:58 C-Reactive Protein 143.02 mg/L (<8.01) H 04/04/19 04:58 Total Protein 6.7 g/dL (6.4-8.9) 04/04/19 04:58 Albumin 3.2 g/dL (3.2-5.2) 04/04/19 04:58 Globulin 3.5 g/dL (2-4) 04/04/19 04:58 Albumin/Globulin Ratio 0.9 (1-3) L 04/04/19 04:58 Lipase 17 U/L (11.0-82.0) 03/31/19 09:37 Urine Color Demetria 03/31/19 10:05 Urine Appearance Cloudy 03/31/19 10:05 Urine pH 5.0 (5-9) 03/31/19 10:05 Ur Specific [place] 1.033 (1.010-1.030) H 03/31/19 10:05 Urine Protein 1+(30 mg/dl) (Negative) A 03/31/19 10:05 Urine Ketones Negative (Negative) 03/31/19 10:05 Urine Blood Negative (Negative) 03/31/19 10:05 Urine Nitrate Negative (Negative) 03/31/19 10:05 Urine Bilirubin Negative (Negative) 03/31/19 10:05 Urine Urobilinogen Negative (Negative) 03/31/19 10:05 Ur Leukocyte Esterase Negative (Negative) 03/31/19 10:05 Urine WBC (Auto) Trace(0-5/hpf) (Absent) 03/31/19 10:05 Urine RBC (Auto) 1+(3-5/hpf) (Absent) A 03/31/19 10:05 Urine Bacteria Absent (Absent) 03/31/19 10:05 Hyaline Casts Present (Absent) A 03/31/19 10:05 Urine Glucose Negative (Negative) 03/31/19 10:05 Urine Ascorbic Acid * (Negative) A 03/31/19 10:05 Hospital Course: 54 M with past medical history significant for Ulcerative colitis, Peptic Ulcer Disease, Iron Deficiency anemia and Anxiety presented with complaint of suprapubic abdominal pain for 3 days associated with hematochezia( 2 episodes) and intermittent abdominal pain for 2 weeks. He also had dysuria and increased frequency of micturition. He denied nausea, vomiting, fever, chills and rigor. When he arrived to emergency his vitals were stable but had mild leucocytosis of 11.8, Hb 7.9, thrombocytosis and elevated CRP of 151. Urine analysis did not show UTI and urine culture were negative. Abdominal Ct showed abscess adjacent to sigmoid colon with colitis. He was seen by GI and IR. It was difficult to drain by IR because of the location of abscess. So he was started on conservative management with IV zosyn. His Mesalamine was continued but he was not on any steroid and biologic and it was not given on this hospitalization given his abscess and PUD. Patient did not develop fever throughout the hospitalization but he had on and off abdominal pain. We repeated imaging in 48 hour to look for progression of abscess. MRI showed pelvic abscess superior to sigmoid colon. GI specialist was consulted and he recommended transfer to higher facility with advance IR and colorectal surgeon. Patient failed conservative management and is deteriorating clinically; having abdominal pain and increasing leucocytosis. Plan of care was discussed with patient and his significant other and patient was agreeable with the plan. Hospital Course by problem: 1. Pelvic Abscess: See above 2. Ulcerative Colitis: Patient is on Mesalamine 2.4g BID. He has failed sulfasalazine and insurance did not cover humira. 3. PUD: Has gastric and duodenal ulcer. COntinue PPI BID. 4. Pericarditis: He had pericarditis 2 months ago. he is asymptomatic at present. He is on maintenance Colchicine. 5. Iron Deficiency Anemia: Secondary to blood loss. he is getting IV iron as an outpatient. last infusion 03/30/2019. CONSULTATION DURING HOSPITAL STAY: Business Attorney, Infectious Disease Follow Up Instructions: Patient is ambulating well and is tolerating clear liquid diet. Patient is stable to be transferred to [facility]. Attestation Documenting Resident: Darryl Small Supervising Physician: Juliette Erickson Attestation: This service has been performed in part by a resident under the direction of a teaching physician.I, Juliette Erickson, performed the service, or was physically present during the critical, or vargas portions of the service, furnished by the resident. I participated in the management of the patient.
--- NOTE | 2019-04-02 17:12 | PN ---
Progress Note - Progress Note Date of Service: 04/02/19 Note: GI Follow up Note: Patient seen and examined. A bit more pain today. Hungry. Just went for MRI. VS: 136/62, P-79, R-18, T-98.1, 99% RA Gen: alert and oriented x3, nad HEENT: at/nc, perral, eomi, no jvp CVS: RRR s1s2 Resp: cta b/l Abd: soft, ttp LLQ, LUQ, bs+ Ext: eruptive erythematous lesions WBC: 11.80->10.3 Hgb 7.9->7.8 CRP 151->129 MRI: similar abscess. Normal small bowel A/P 54 year old male with history of poorly controlled ulcerative colitis, diverticulosis presenting with sigmoid abscess 1.) Sigmoid abscess. Unchanged by IV antibiotics. IR here states difficult area with ureter nearby. Recommend transfer for tertiary IR evaluation, if not feasible will likely need colorectal surgery to drain. Continue with IV antibiotics. If change in clinical status here may need general surgery evaluation. Unclear if abscess related to IBD (?Crohns) or diverticular. [facility] would be preference given IBD physician availability. 2.) Ulcerative colitis: Primary GI has been trying to get Humira approved but insurance states had 2 fail at least 2 oral 5-ASA. He did not tolerate lialda, pentasa. Had pericarditis. Will need humira after abscess addressed. Faizan Forrest DO 04/02/19 1203
[2019-04-03] MEDS: ZOSYN 3.375 GM Q8H per EXTENDED INFUSION IVPB SCH ×6 (01:17→16:34)
[2019-04-03] MEDS: HYDROcodone/ACETAMIN 5-325 MG* 1 TAB PO PRN ×4 (03:23→18:17)
[2019-04-03 07:50] LABS: ABS Basophils 0.1 10^3/ul (0-0.2); ABS Eosinophils 0.2 10^3/ul (0-0.6); ABS Lymphocytes 0.6 10^3/ul (1.0-4.8); ABS Monocytes 1.1 10^3/ul (0-0.8); ABS Neutrophils 6.9 10^3/ul (1.5-7.7); Eosinophil % 2.1 %; Hematocrit 25 % (42-52); Lymphocyte % 7.2 %; Mean Corpuscular HGB Conc 32 g/dL (31-36); Mean Corpuscular Hemoglobin 27 pg (27-31); Mean Corpuscular Volume 85 fL (80-94); Mean Platelet Volume 7.3 fL (7.4-10.4); Platelet Count 940 10^3/uL (150-450); Red Blood Count 2.92 10^6 /uL (4.18-5.48); Red Cell Distribution Width 18 % (10-15); White Blood Count 8.9 10^3/uL (3.5-10.8)
[2019-04-03 08:15] LABS: Albumin 3.1 g/dL (3.2-5.2); Albumin/Globulin Ratio 0.9 (1-3); BUN/Creatinine Ratio 6.4 (8-20); C Reactive Protein 137.54 mg/L (<8.01); Calcium 8.3 mg/dL (8.6-10.3); EGFR African American 100.8 (>60); EGFR Non-African American 83.3 (>60); Globulin 3.4 g/dL (2-4); Potassium 3.7 mmol/L (3.5-5.0); Total Bilirubin 0.2 mg/dL (0.2-1.0); Total Protein 6.5 g/dL (6.4-8.9)
[2019-04-03] MEDS: Pantoprazole TAB * 40 MG TAB PO SCH ×2 (08:48→21:13)
[2019-04-03] MEDS: PTO:Mesalamine (NF) 1.2 GM TAB PO SCH ×2 (08:48→21:13)
[2019-04-03] MEDS: Colchicine* 0.6 MG TAB PO SCH (08:49)
[2019-04-03] MEDS: Escitalopram * 10 MG TAB PO SCH (08:49)
--- NOTE | 2019-04-03 12:11 | PN ---
Subjective Date of Service: 04/03/19 Interval History: HD 4 on 04/03 54 M with past medical history significant for Ulcerative colitis, Peptic Ulcer disease, Pericarditis, Iron deficiency anemia and erectile dysfunction presented with acute suprapubic abdominal pain associated with hematochezia and nausea. FOund to have intraabdominal abscess posterior to sigmoid colon with mucosal thickening of descending and sigmoid colon. Treating conservatively with IV zosyn(day 4) No acute overnight events vitals stable. Paient has suprapubic pain-2/10. Denies nausea and vomiting. Had Loose BM yesterday; no any blood. Tolerating clear diet. will advance to soft diet. Objective Active Medications: Hydrocodone Bitart/Acetaminophen ([place] 5-325 Tab*) 1 tab PO QID PRN PRN Reason: PAIN - MODERATE Last Admin: 04/03/19 08:48 Dose: 1 tab Colchicine (Colcrys*) 0.6 mg PO DAILY [facility] Last Admin: 04/03/19 08:49 Dose: 0.6 mg Enoxaparin Sodium (Lovenox(*)) 40 mg SUBCUT Q24H [facility] Escitalopram Oxalate (Lexapro *) 10 mg PO DAILY [facility] Last Admin: 04/03/19 08:49 Dose: 10 mg Piperacillin Sod/Tazobactam (Sod 3.375 gm/ Sodium Chloride) 100 mls @ 25 mls/ hr IVPB Q8H [facility] Last Admin: 04/03/19 08:48 Dose: 25 mls/hr Mesalamine (Lialda (Nf)) 2.4 gm PO BID [facility] Last Admin: 04/03/19 08:48 Dose: 2.4 gm Pantoprazole Sodium (Protonix Tab*) 40 mg PO BID [facility] Last Admin: 04/03/19 08:48 Dose: 40 mg Pharmacy Consult (Zosyn Per Pharmacy*) 1 note FOLLOW UP .ZOSYN PER PHARMACY [facility] Vital Signs - 8 hr 04/03/19 04/03/19 04/03/19 05:31 07:13 07:15 Temperature 98.3 F Pulse Rate 79 Respiratory 17 16 14 Rate Blood Pressure 116/64 (mmHg) O2 Sat by Pulse 98 Oximetry 04/03/19 04/03/19 04/03/19 08:48 10:32 11:15 Temperature 98.6 F Pulse Rate 80 Respiratory 16 16 18 Rate Blood Pressure 123/73 (mmHg) O2 Sat by Pulse 99 Oximetry Oxygen Devices in Use Now: None Exam: General - NAD, sitting up in bed, well groomed Eyes - PERRLA, EOM intact HEENT- no abnormality Lymph Nodes - No lymphadenopathy Cardiovascular - RRR no m/r/g, no JVD, no carotid bruits Lungs - Clear to auscltation, no use of acessory muscles, no crackles or wheezes. Skin - skin warm and dry, [place] scattered erythematous area on upper extremities with one open wound; nontender. Abdomen - Normal bowel sounds, abdomen soft and nondistended. tender on suprapubic area Extremities - No edema, cyanosis or clubbing Musculo Skeletal - 5/5 strength, normal range of motion, no swollen or erythematous joints. Neurological Alert and oriented x 3, CN 2-12 grossly intact. Result Diagrams: 04/03/19 07:05 04/03/19 07:05 Assess/Plan/Problems-Billing Assessment: 54 M with past medical history significant for Ulcerative colitis, Peptic Ulcer disease, Pericarditis, Iron deficiency anemia and erectile dysfunction presented with acute suprapubic abdominal pain associated with hematochezia and nausea. FOund to have intraabdominal abscess posterior to sigmoid colon with mucosal thickening of descending and sigmoid colon. Treating conservatively with IV zosyn(day 4) - Patient Problems (1) Intra-abdominal abscess Current Visit: Yes Status: Acute Code(s): K65.1 - PERITONEAL ABSCESS SNOMED Code(s): 96851865 Comment: -Presented with 3 days of worsening abdominal pain. -No fever -CT scan showing intra-abdominal abscess-sigmoid and colitis -there is concern that is this from IBD or from diverticular as patient had diverticulosis previously -managing conservatively with IV zosyn(day 3 on 04/02) -appreciate GI input -MRI showing abscess adjacent to sigmoid measuring 5 cm. -there was a plan of trasferring him to higher center for possible drainage but we will try IV abx for 3-4 weeks and repeat imaging next week. -He will have to follow up with Dr. Peters closely after discharge -PICC line ordered (2) Ulcerative colitis Current Visit: No Status: Acute Code(s): K51.90 - ULCERATIVE COLITIS, UNSPECIFIED, WITHOUT COMPLICATIONS SNOMED Code(s): 53372947 Comment: -Diagnosed in 2019 -on mesalamine- failed sulfasalazine -has abdominal pain and loose stool with blood- could be UC flare; -can't give steroid because of gastric and duodenal ulcer. -GI following (3) Anemia Current Visit: Yes Status: Acute Code(s): D64.9 - ANEMIA, UNSPECIFIED SNOMED Code(s): 905182226 Comment: -Hb of 8.0 -2/2 LEYDA which 2/2 to blood loss secondary to PUD and UC -received Iv infusion on 03/30 -H and H low but stable; can not give IV iron because of ongoing infection. -will monitor (4) PUD (peptic ulcer disease) Current Visit: Yes Status: Acute Code(s): K27.9 - PEPTIC ULC, SITE UNSP, UNSP AC OR CHR, W/O HEMOR OR PERF SNOMED Code(s): 14617649 Comment: -has gastric and duodenal ulcer diagnosed in 03/17/19 -EGD on 03/17/19 -On PPI (5) Pericarditis Current Visit: Yes Status: Acute Code(s): I31.9 - DISEASE OF PERICARDIUM, UNSPECIFIED SNOMED Code(s): 7695077 Comment: -Diagnosed months ago -Asymptomatic at present -on colchicine (6) Rash Current Visit: Yes Status: Acute Code(s): R21 - RASH AND OTHER NONSPECIFIC SKIN ERUPTION SNOMED Code(s): 895125722 Comment: -has scattered erythematous rash on extremities and buttock -2 open wound. -likely manifestation of UC -following with rheumatology as an outpatient (7) DVT prophylaxis Current Visit: No Status: Acute Code(s): Z29.9 - ENCOUNTER FOR PROPHYLACTIC MEASURES, UNSPECIFIED SNOMED Code(s): 416107482 Comment: -SCD -ambulatory -has ulcer and anemia (8) Full code status Current Visit: Yes Status: Acute Code(s): Z78.9 - OTHER SPECIFIED HEALTH STATUS SNOMED Code(s): 539547962 Status and Disposition: Inpatient GI and ID following Attending: Juliette Erickson Attestation Documenting Resident: Darryl Small Supervising Physician: Juliette Erickson Attestation: This service has been performed in part by a resident under the direction of a teaching physician.I, Juliette Erickson, performed the service, or was physically present during the critical, or vargas portions of the service, furnished by the resident. I participated in the management of the patient.
--- NOTE | 2019-04-03 12:37 | CONS ---
CONSULTATION REPORT: DATE OF CONSULT: 04/03/19 REQUESTING PHYSICIAN: Dr. Mckeon. CONSULTING SERVICE: Infectious Disease. REASON FOR CONSULT: Pelvic abscess. IMPRESSION: 1. Small pelvic abscess, seen first on CT on 03/31/19, 4.2 x 4 x 3.1 cm, adjacent to bladder by my read which may explain some of his prior bladder symptoms despite negative urinalysis, urine culture, just a mechanical issue. A follow up MRI after a brief course of antibiotics showed a 5.2 x 2.6 x 3.4 cm pelvic abscess superior to the sigmoid colon. There is associated wall thickening of the sigmoid colon. Given location, this could be microperforation from diverticular disease leading to this abnormality. He also has underlying inflammatory bowel disease which may be contributing. The microbiology is bowel samia. I do not think we need fluid sampling to obtain microbiology data. There is ongoing evaluation for transfer for further source control. I think given the small size and relatively brief duration of antibiotics in between the images, it would also be reasonable to pursue a couple of weeks of IV antibiotics as an outpatient and followup imaging given that he is otherwise slowly improving symptom gurrola and is quit well overall. 2. Chronic pericarditis, question related to underlying inflammatory condition. 3. Recent onset pustular rash. No active lesions to biopsy currently. This could be an epiphenomenon related to his inflammatory bowel disease, could be allergic reaction to colchicine which was started recently. 4. Recent upper gastrointestinal bleed with transfusions. Ulcer on EGD, february. 5. Inflammatory bowel disease. Current diagnosis is ulcerative colitis, question of Crohn's has been raised and not confirmed. RECOMMENDATIONS: Continue Zosyn which is excellent coverage. I will discuss the case with Gastroenterology as I would also be comfortable with 2 to 3 weeks of IV antibiotics and repeat imaging at that time assuming he is otherwise improving day to day. I think the size and location may preclude Interventional Radiology wanting to take much action. HISTORY OF PRESENT ILLNESS: This is a 54-year-old man with inflammatory bowel disease, recent admission with pericarditis, treated with colchicine and prednisone, transferred to [facility] february with an upper GI bleed. Endoscopy confirmed an esophageal ulcer which did not show active bleeding. He has had blood transfusion. He was discharged, february on colchicine and his baseline home medications. About a week later, he developed pelvic symptoms of pain and some bladder pressure and urgency. Pain was worse lying down. His appetite was about the same. No real change in the bowel and his bowel patterns. Because of progressive pain, he saw GI as an outpatient. He was recommended to come in to the hospital. He had a white count of 12,000. A CT scan with findings as noted above. He was started on Zosyn and then on , he had the MRI with results as above. During that time, he has had no fevers. His white count was down to 8.9. CRP was initially 150 then was 129 on 04/02/19, today is 137. He does not know the history of diverticulitis or other diverticular issues. He is not having significant issues with diarrhea currently. His appetite is fair. For about the last 2 or 3 weeks, he has had some pustular skin lesions on his proximal legs, arms, upon his trunk, that resolved on their own after a few days. He has not had any recent ones. They had initially been thought related to his inflammatory bowel disease. He has not had other rash. PAST MEDICAL HISTORY: 1. Inflammatory bowel disease, ulcerative colitis. 2. Anemia in the setting of blood loss. 3. Peptic ulcer disease. 4. Chronic pericarditis. 5. Erectile dysfunction. 6. Testosterone deficiency. 7. Anxiety. 8. 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 MEDICATIONS: 1. Colchicine. 2. Lexapro. 3. Mesalamine. 4. Pantoprazole. 5. Zosyn 3.375 g every 8 hours by extended infusion. FAMILY HISTORY: Father with cardiac issues. Mother has had Alzheimer's dementia. SOCIAL HISTORY: He lives in [place]. 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 Drinks alcohol occasionally, nonsmoker or no illicit use. Lives with a partner. REVIEW OF SYSTEMS: All negative except as noted above to 14 point review of systems. PHYSICAL EXAM: Vital Signs: Temperature is 37, heart rate 79, respiratory rate 14, blood pressure 116/64, oxygen saturation 98% on room air. General: He is awake, not in distress. Neurologic: He is oriented x3, follows all commands. HEENT: There is no conjunctival hemorrhage. Oropharynx without lesions. Neck is supple without mass. Lymph nodes: There is no cervical, supraclavicular, inguinal, axillary, or epitrochlear lymphadenopathy. Heart is regular rate and rhythm without murmurs, rubs, or gallops. Lungs are clear to auscultation bilaterally. Abdomen: Soft, nontender, nondistended. There are bowel sounds present. There is no rebound tenderness. Skin: There is no diffuse rash or splinter hemorrhage. There are a few 3 to 4 mm resolving erythematous lesions on his trunk, arms, proximal legs, which are nonblanching. There is no vesicle or pustule currently. Musculoskeletal: There is no spine tenderness to palpation or joint synovitis. DIAGNOSTIC STUDIES/LAB DATA: White blood cell count 8.9, hemoglobin 8, platelets 940. Creatinine is 0.9. Urinalysis was negative for blood or leukocyte esterase or white cells. Please see impressions and recommendations outlined above. Thanks for asking me to see Mr. Ying in consultation. [id number]/CPS #: [id number] MTDD
[2019-04-03] MEDS ORDERED: Enoxaparin(*) 40 MG/0.4 ML SYR SUBCUT SCH (13:00)
[2019-04-03] MEDS ORDERED: Morphine INJ* 4 MG/ML 1 ML SYRINGE (NEW SYRINGE VERSION) IV ONE (21:25)
[2019-04-03] MEDS ORDERED: PROCHLORPERAZINE INJ 5 MG/ML 2 ML VIAL ONE (21:27)
[2019-04-03] MEDS ORDERED: Morphine INJ* 4 MG/ML 1 ML SYRINGE (NEW SYRINGE VERSION) ONE (21:28)
[2019-04-04] MEDS: HYDROcodone/ACETAMIN 5-325 MG* 1 TAB PO PRN ×4 (00:18→17:13)
[2019-04-04] MEDS: ZOSYN 3.375 GM Q8H per EXTENDED INFUSION IVPB SCH ×6 (00:18→17:13)
[2019-04-04 05:06] LABS: ABS Basophils 0.1 10^3/ul (0-0.2); ABS Eosinophils 0.1 10^3/ul (0-0.6); ABS Lymphocytes 0.9 10^3/ul (1.0-4.8); ABS Monocytes 1.5 10^3/ul (0-0.8); ABS Neutrophils 10.9 10^3/ul (1.5-7.7); Hematocrit 25 % (42-52); Hemoglobin 7.9 g/dL (14.0-18.0); Lymphocyte % 6.4 %; Mean Corpuscular HGB Conc 31 g/dL (31-36); Mean Corpuscular Hemoglobin 27 pg (27-31); Mean Corpuscular Volume 86 fL (80-94); Mean Platelet Volume 6.7 fL (7.4-10.4); Platelet Count 907 10^3/uL (150-450); Red Blood Count 2.93 10^6 /uL (4.18-5.48); Red Cell Distribution Width 19 % (10-15); White Blood Count 13.5 10^3/uL (3.5-10.8)
[2019-04-04 05:37] LABS: Total Bilirubin 0.3 mg/dL (0.2-1.0)
[2019-04-04 05:44] LABS: C Reactive Protein 143.02 mg/L (<8.01); Total Protein 6.7 g/dL (6.4-8.9)
[2019-04-04 05:57] LABS: Albumin 3.2 g/dL (3.2-5.2); Albumin/Globulin Ratio 0.9 (1-3); BUN/Creatinine Ratio 7.2 (8-20); Calcium 8.2 mg/dL (8.6-10.3); Globulin 3.5 g/dL (2-4)
[2019-04-04 05:58] LABS: Potassium 3.8 mmol/L (3.5-5.0)
[2019-04-04] MEDS ORDERED: Acetaminophen TAB* 325 MG PO PRN (07:10)
--- NOTE | 2019-04-04 07:15 | PN ---
Subjective Date of Service: 04/04/19 Interval History: HD 5 on 04/04 54 M with past medical history significant for Ulcerative colitis, Peptic Ulcer disease, Pericarditis, Iron deficiency anemia and erectile dysfunction presented with acute suprapubic abdominal pain associated with hematochezia and nausea. Found to have intraabdominal abscess posterior to sigmoid colon with mucosal thickening of descending and sigmoid colon. Treating conservatively with IV zosyn(day 5) Overnight: Had abdominal pain; required Morphine vitals stable. Patient seen and examined at bedside. Patient states he had bad experience overnight because of abdominal silva. Although he denies nausea and vomiting. Patient is back to clear liquids again. Discussed in length about ongoing medical issues. Spoke to Dr. Forrest and recommends transferring him to higher facility for possible IR drain and if required surgery-colorectal Objective Active Medications: Acetaminophen (Tylenol Tab*) 650 mg PO Q6H PRN PRN Reason: PAIN - MILD Hydrocodone Bitart/Acetaminophen ([place] 5-325 Tab*) 1 tab PO QID PRN PRN Reason: PAIN - MODERATE Last Admin: 04/04/19 06:19 Dose: 1 tab Colchicine (Colcrys*) 0.6 mg PO DAILY [facility] Last Admin: 04/03/19 08:49 Dose: 0.6 mg Escitalopram Oxalate (Lexapro *) 10 mg PO DAILY [facility] Last Admin: 04/03/19 08:49 Dose: 10 mg Heparin Sodium (Porcine) (Heparin Flush Picc/Ml/Cvc(*)) 1 - 3 ml FLUSH 0600, 1800 [facility]; Protocol Last Admin: 04/04/19 04:59 Dose: 1 ml Piperacillin Sod/Tazobactam (Sod 3.375 gm/ Sodium Chloride) 100 mls @ 25 mls/ hr IVPB Q8H [facility] Last Admin: 04/04/19 00:18 Dose: 25 mls/hr Mesalamine (Lialda (Nf)) 2.4 gm PO BID [facility] Last Admin: 04/03/19 21:13 Dose: 2.4 gm Pantoprazole Sodium (Protonix Tab*) 40 mg PO BID [facility] Last Admin: 04/03/19 21:13 Dose: 40 mg Pharmacy Consult (Zosyn Per Pharmacy*) 1 note FOLLOW UP .ZOSYN PER PHARMACY [facility] Vital Signs - 8 hr 04/04/19 04/04/19 04/04/19 00:18 00:25 03:15 Temperature 98.5 F 98.2 F Pulse Rate 84 81 Respiratory 18 16 18 Rate Blood Pressure 141/64 126/67 (mmHg) O2 Sat by Pulse 98 99 Oximetry 04/04/19 04/04/19 04:02 06:19 Temperature Pulse Rate Respiratory 16 16 Rate Blood Pressure (mmHg) O2 Sat by Pulse Oximetry Oxygen Devices in Use Now: None Exam: General - NAD, sitting up in bed, well groomed Eyes - PERRLA, EOM intact HEENT- no abnormality Lymph Nodes - No lymphadenopathy Cardiovascular - RRR no m/r/g, no JVD, no carotid bruits Lungs - Clear to auscltation, no use of acessory muscles, no crackles or wheezes. Skin - skin warm and dry, [place] scattered erythematous area on upper extremities with one open wound; nontender. Abdomen - Normal bowel sounds, abdomen soft and nondistended. tender on suprapubic area Extremities - No edema, cyanosis or clubbing Musculo Skeletal - 5/5 strength, normal range of motion, no swollen or erythematous joints. Neurological Alert and oriented x 3, CN 2-12 grossly intact. Result Diagrams: 04/04/19 04:58 04/04/19 04:58 Assess/Plan/Problems-Billing Assessment: 54 M with past medical history significant for Ulcerative colitis, Peptic Ulcer disease, Pericarditis, Iron deficiency anemia and erectile dysfunction presented with acute suprapubic abdominal pain associated with hematochezia and nausea. FOund to have intraabdominal abscess posterior to sigmoid colon with mucosal thickening of descending and sigmoid colon. Treating conservatively with IV zosyn(day 5) - Patient Problems (1) Intra-abdominal abscess Current Visit: Yes Status: Acute Code(s): K65.1 - PERITONEAL ABSCESS SNOMED Code(s): 69380982 Comment: -Presented with 3 days of worsening abdominal pain. -No fever -CT scan showing intra-abdominal abscess-sigmoid and colitis -there is concern that is this from IBD or from diverticular as patient had diverticulosis previously -managing conservatively with IV zosyn(day 5 on 04/04) -appreciate GI input -MRI showing abscess adjacent to sigmoid measuring 5 cm. -there was a plan of transferring him to [facility] for possible drainage but we will try IV abx for 3-4 weeks and repeat imaging next week but the patient developed pain overnight with increasing leucocytosis and elevated CRP. -Plan is to transfer him to [facility] for possible IR drainage +/- colorectal surgery. (2) Ulcerative colitis Current Visit: No Status: Acute Code(s): K51.90 - ULCERATIVE COLITIS, UNSPECIFIED, WITHOUT COMPLICATIONS SNOMED Code(s): 10462800 Comment: -Diagnosed in 2019 -on mesalamine- failed sulfasalazine; declined humira by insurance -has abdominal pain and loose stool with blood- could be UC flare; -can't give steroid because of gastric and duodenal ulcer. -GI following (3) Anemia Current Visit: Yes Status: Acute Code(s): D64.9 - ANEMIA, UNSPECIFIED SNOMED Code(s): 943080498 Comment: -Hb of 7.9 -2/2 LEYDA which 2/2 to blood loss secondary to PUD and UC -received Iv infusion on 03/30 -H and H low but stable; can not give IV iron because of ongoing infection. -will monitor (4) PUD (peptic ulcer disease) Current Visit: Yes Status: Acute Code(s): K27.9 - PEPTIC ULC, SITE UNSP, UNSP AC OR CHR, W/O HEMOR OR PERF SNOMED Code(s): 01454617 Comment: -has gastric and duodenal ulcer diagnosed in 03/17/19 -EGD on 03/17/19 -On PPI (5) Pericarditis Current Visit: Yes Status: Acute Code(s): I31.9 - DISEASE OF PERICARDIUM, UNSPECIFIED SNOMED Code(s): 4632525 Comment: -Diagnosed months ago -Asymptomatic at present -on colchicine (6) Rash Current Visit: Yes Status: Acute Code(s): R21 - RASH AND OTHER NONSPECIFIC SKIN ERUPTION SNOMED Code(s): 837236071 Comment: -has scattered erythematous rash on extremities and buttock -2 open wound. -likely manifestation of UC -following with rheumatology as an outpatient (7) DVT prophylaxis Current Visit: No Status: Acute Code(s): Z29.9 - ENCOUNTER FOR PROPHYLACTIC MEASURES, UNSPECIFIED SNOMED Code(s): 303730949 Comment: -SCD -ambulatory -has ulcer and anemia (8) Full code status Current Visit: Yes Status: Acute Code(s): Z78.9 - OTHER SPECIFIED HEALTH STATUS SNOMED Code(s): 185664355 Status and Disposition: Inpatient GI and ID following transfer to higher facility Attending: Juliette Erickson Attestation Documenting Resident: Darryl Small Supervising Physician: Juliette Erickson Attestation: This service has been performed in part by a resident under the direction of a teaching physician.I, Juliette Erickson, performed the service, or was physically present during the critical, or vargas portions of the service, furnished by the resident. I participated in the management of the patient.
[2019-04-04] MEDS: Escitalopram * 10 MG TAB PO SCH (09:16)
[2019-04-04] MEDS: Colchicine* 0.6 MG TAB PO SCH (09:17)
[2019-04-04] MEDS: Pantoprazole TAB * 40 MG TAB PO SCH ×2 (09:17→21:07)
[2019-04-04] MEDS: PTO:Mesalamine (NF) 1.2 GM TAB PO SCH ×2 (09:17→21:07)
--- NOTE | 2019-04-04 12:18 | PN ---
Progress Note - Progress Note Date of Service: 04/04/19 Note: GI Progress Note Patient seen and examined. Pain worse over night. No chills or rigors VS: 127/70, P-70, 99.2 Gen: alert and oriented x3 HEENT: AT/NC, perrla, eomi, no jvp CVS: RRR s1s2 Resp: cta b/l Abd:soft, ttp LLQ, BS+ Ext: no c/c/e Labs: WBC 8.5-> 13.5 CRP trending up Assessment Sigmoid abscess in setting of diverticulosis and ulcerative colitis not in remission Plan: Again unclear if diverticular abscess or IBD source Worsening pain, increased leukocytosis. Discussion with patient and plan, pain concerning, and worsening of WBC count. We are also delaying definitive treatment of his IBD (Humira). His insurance would not pay for Humira in past unless he failed 2 consecutive 5ASA agents, taking sulfasalazine yielded nausea and vomiting and mesalamine yieled pericarditis. Unsure if this abscess is diverticular or IBD, he previously has had clear ulcerative colitis uncomplicated but not controlled. Recent MRE yielded no small bowel involvement. Given pain, increased leukocytosis, I feel her should be evaluated at tertiary care for IR drainage +/- Colorectal surgery evaluation. Needs higher level of care as our IR here states would be difficult with ureter closeby the ideal tract. In addition if surgery needed for drainage given concurrent IBD CRS services would be needed. Faizan Forrest Do 04/04/19 [id number]
[2019-04-04] MEDS ORDERED: HYDROcodone/ACETAMIN 5-325 MG* 1 TAB PO ONE (19:58)
--- NOTE | 2019-04-04 20:31 | PN ---
Hospitalist Progress Note Date of Service: 04/04/19 Interval Update since Discharge Summary. Patient has continued on zosyn and had increasing abdominal pain. Leukocytosis increased AM of discharge and spike a fever evening of transfer. Dr. Forrest of GI continued to recommend transfer to a tertiary care center with access to colorectal surgery and interventional radiology. [facility] has been on diversion but transfer center called around 7:30pm saying a bed likely would be available later tonight. Case discussed with Dr. Kelly who accepted the patient for transfer.
[2019-04-04 21:29] VITALS: BP 116/72
== END 2019-04-04 19:15 | disposition short-term general hospital (02) | DRG 245 ==
LOC: ED 09:18 → MED 15:23
PROVIDERS: ADMIT Internal Medicine; ATTEND Internal Medicine
PROC: 05H533Z Insertion of Infusion Device into Right Subclavian Vein, Percutaneous Approach (ICD-10-PCS; principal; 2019-04-03)
DX: K51.914 Ulcerative colitis, unspecified with abscess (principal); I31.9 Disease of pericardium, unspecified; K92.1 Melena; K27.9 Peptic ulcer, site unspecified, unspecified as acute or chronic, without hemorrhage or perforation; F41.9 Anxiety disorder, unspecified; D47.3 Essential (hemorrhagic) thrombocythemia; N52.9 Male erectile dysfunction, unspecified; D72.829 Elevated white blood cell count, unspecified; D50.0 Iron deficiency anemia secondary to blood loss (chronic); L08.0 Pyoderma; R30.0 Dysuria; Z82.49 Family history of ischemic heart disease and other diseases of the circulatory system; Z79.899 Other long term (current) drug therapy
CPT/HCPCS: 36415; 71045; 74177; 74183; 80048; 80053; 81003; 81015; 82272; 83605; 83690; 85025; 85652; 86140; 87040; 87086; 96374; 96376; 99284; A9270-GY; A9579; C1751; J0780; J1610; J2270; J2543; Q9967

== ENCOUNTER 2019-05-08 08:40 | Emergency (ER) | payer BC ==
--- OUTSIDE RECORDS SUMMARY | 2019-05-08 08:51 | XMS REPORT | Summary of Care ---
:1965 Author Organization [facility] Address [address] [place] [address] Care Team Providers Name Role Phone Dougie Gaytan DO Primary Care Provider Reason for Referral Diagnostic Radiology (STAT) Status Reason Specialty Diagnoses / Referred By Referred To Procedures Contact Contact Authorized Radiology Diagnoses Abscess of abdominal cavity Juli Ayala Procedures CT Abdomen Pelvis with Contrast MD Demetra [address] [place] [address] Email: [email or web address] Reason for Visit Diagnostic Radiology (STAT) Status Reason Specialty Diagnoses / Referred By Referred To Procedures Contact Contact Authorized Radiology Diagnoses Abscess of abdominal cavity Juli Ayala Procedures CT Abdomen Pelvis with Contrast MD Demetra [address] [address] Email: [email or web address] Encounter Details Date Type Department Care Team Description 04/27/[address] [facility] Abscess of abdominal [address] [facility] [address] [place] [address] Allergies No Known Allergiesdocumented as of this encounter (statuses as of 04/28/2019) Medications Medication Sig Dispensed Refills Start Date End Date Status Escitalopram Oxalate Take 10 mg by mouth 0 Active 10 MG Oral Tablet daily (LEXAPRO) Tadalafil 5 MG Oral Take 5 mg by mouth 0 Active Tablet (CIALIS) as needed for Erectile Dysfunction Colchicine 0.6 MG Take 0.6 mg by 0 Active Oral Tablet mouth daily oxymetazoline 0.025 % 2 sprays by Nasal 0 Active NA nasal spray route as needed for Congestion Testosterone Inject 200 mg into 0 Active Cypionate 200 MG/ML the skin every 14 Injection Solution (fourteen) days On Saturdays Mesalamine 1.2 GM Take 2,400 mg by 0 Active Oral Tablet Delayed mouth Two Times Release (LIALDA) Daily Pantoprazole Sodium Take 40 mg by mouth 0 Active 40 MG Oral Tablet Two Times Daily Delayed Release (PROTONIX) documented as of this encounter (statuses as of 04/28/2019) Active Problems Problem Noted Date Colostomy in place 04/15/2019 Peptic ulcer disease 04/08/2019 Anemia of chronic disease 04/08/2019 Pelvic abscess in male 04/08/2019 Encounter for ostomy care education 04/08/2019 Ulcerative colitis 04/06/2019 Abscess of abdominal cavity 04/04/2019 documented as of this encounter (statuses as of 04/28/2019) Social History Tobacco Use Types Packs/Day Years Used Date Never Smoker Smokeless Tobacco: Never Used Alcohol Use Drinks/Week oz/Week Comments Yes Occasionally, hasn't had a drink in months Sex Assigned at Date Recorded Not on file Job Start Date Occupation Industry Not on file Not on file Not on file Travel History Travel Start Travel End No recent travel history available. documented as of this encounter Last Filed Vital Signs Not on filedocumented in this encounter Plan of Treatment Name Type Priority Associated Diagnoses Date/Time CT Abdomen Pelvis with Imaging STAT Abscess of abdominal 04/27/2019 5:44 PM Contrast cavity EDT Name Type Priority Associated Diagnoses Order Schedule CT Abdomen Pelvis Imaging STAT Abscess of abdominal As Needed for 1 with Contrast cavity Occurrences starting 04/27/2019 until 04/27/2019 Health Maintenance Due Date Last Done Comments MMR Vaccines (1 of 1 - Standard 02[birth year]14/1965 series) Varicella Vaccines (1 of 2 - 02/14/1965 2-dose childhood series) HIV Screening 02/14/1977 Colon Cancer Screening 10 yrs 02/14/2014 DTaP,Tdap,and Td Vaccines (2 - Td) 06/23/2018 05/26/2018 Influenza Vaccine 11/18/2018 Pneumococcal Vaccine: 65+ Years (1 02/14/2029 of 2 - PCV13) Hepatitis C Screening (B. Completed 04/13/[id number]) HIB Vaccines Aged Out No longer eligible based on patient's age to complete this topic Hepatitis A Vaccines Aged Out No longer eligible based on patient's age to complete this topic Hepatitis B Vaccines Aged Out No longer eligible based on patient's age to complete this topic IPV Vaccines Aged Out No longer eligible based on patient's age to complete this topic Pneumococcal Vaccine: Pediatrics Aged Out No longer eligible based on (0 to 5 Years) and At-Risk patient's age to complete Patients (6 to 64 Years) this topic documented as of this encounter Implants Implanted Type Area Lean Manufacturing Engineer Device Shelf Model / Identifier Expiration Serial / Date Lot Barrier Adhesion Seprafilm 5x6 - [id number] N/A: Abdomen [employer] 11/17/2021 4301-02 / Implanted: Qty: 1 on 04/12/2019 by Michelle Marrero MD at [facility] 5E [employer]ODUCTS / [id number] documented as of this encounter Results Not on filedocumented in this encounter Visit Diagnoses Diagnosis Abscess of abdominal cavity Peritoneal abscess documented in this encounter Administered Medications Medication Order MAR Action Action Date Dose Rate Site iohexol (OMNIPAQUE) 240 MG/ML Given 04/27/2019 4:45 PM EDT 20 mLs contrast 20 mL 20 mL, Oral, IMG once PRN, Contrast, Starting 04/27/19 at 1558, For 1 day, Imaging Protocol, Dilute before administering, Medication Order MAR Action Action Date Dose Rate Site iohexol (OMNIPAQUE) 240 MG/ML Given 04/27/2019 4:00 PM EDT 20 mLs contrast 20 mL 20 mL, Oral, 1 TIME IMAGING, Sat04/27/19 at 1600, For 1 dose, Imaging Protocol, Dilute before administering, iohexol (OMNIPAQUE) 300 MG/ML contrast New Bag 04/27/2019 5:19 PM EDT 100 mLs injection 100 mL 100 mL, Intravenous, 1 TIME IMAGING, 04/27/19 at 1630, For 1 dose, Imaging Protocol documented in this encounter
--- OUTSIDE RECORDS SUMMARY | 2019-05-08 08:51 | XMS REPORT | Summary of Care ---
:1965 Author Organization [facility] Address [address] [place] [address] Care Team Providers Name Role Phone Dougie Gaytan DO Primary Care Provider Reason for Visit Reason Comments Follow-up ostomy Encounter Details Date Type Department Care Team Description 05/01/2019 Office Visit [facility] Dotty [facility], Ulcerative pancolitis with other complication (Primary Dx); [address] [facility] [employer] Encounter for change or removal of drains [address] [id number] [place], [place] [phone] Allergies No Known Allergiesdocumented as of this encounter (statuses as of 05/01/2019) Medications Medication Sig Dispensed Refills Start Date [...] Tablet Two Times Daily Delayed Release (PROTONIX) oxyCODONE HCl 5 MG Take 5 mg by mouth 0 04/30/2019 Active Oral Tablet every 6 (six) hours (ROXICODONE) as needed For Pain documented as of this encounter (statuses as of 05/01/2019) Active Problems Problem Noted Date Colostomy in place 04/15/2019 Peptic ulcer disease 04/08/2019 Anemia of chronic disease 04/08/2019 Pelvic abscess in male 04/08/2019 Encounter for ostomy care education 04/08/2019 Ulcerative colitis 04/06/2019 Abscess of abdominal cavity 04/04/2019 documented as of this encounter (statuses as of 05/01/2019) Social History Tobacco Use Types Packs/Day Years [...] of this encounter Last Filed Vital Signs Vital Sign Reading Time Taken Comments Blood Pressure 117/82 05/01/2019 1:45 PM EDT Pulse 85 05/01/2019 1:45 PM EDT Temperature 36.8 05/01/2019 1:45 PM EDT C (98.2 F) Respiratory Rate 16 05/01/2019 1:45 PM EDT Oxygen Saturation 97% 05/01/2019 1:45 PM EDT Inhaled Oxygen Concentration - - Weight - - Height - - Body Mass Index - - documented in this encounter Progress Notes Krish Gaming, [employer] - 05/01/2019 1:45 PM EDT Christiano Ying 54 y.o. 1965 male [id number] No Known Allergies Patient Active Problem List Diagnosis Abscess of abdominal cavity Ulcerative colitis Peptic ulcer disease Anemia of chronic disease Pelvic abscess in male Encounter for ostomy care education Colostomy in place Visit Vitals BP 117/82 (BP Location: Right arm, Patient Position: Sitting, Cuff size: Regular ) Pulse 85 Temp 36.8 C (98.2 F) (Oral) Resp 16 SpO2 97% Christiano Ying is a 54 y.o. man with history of UC. He is s/p lap drainage of pelvic abscess on04/08/19. He initially did well and was discharged, however returned with abdominal pain and feculentoutput via surgical drain. He was taken to OR on 04/12/19 for ex lap, sigmoid resection, end colostomy and drainage of pelvic abscess. Last seen 04/24/19 on clinic follow-up. A STAT CT was completed to rule out abscess or possibly acute intra-abdominal process. CT results: 04/29/19 IMPRESSION: 1. The percutaneous drain terminates within a solitary 5.0 x 1.3 cm upper left pelvic collection adjacent to the sigmoid staple line and the collection has decreased in size over the interval. No additional abnormal fluid collection seen. 2. Postsurgical changes reflect sigmoid colon resection related to diverticulitis. Adjacent concentrically thickened small bowel loops are likely reactive. No bowel obstruction or extravasation demonstrated. 3. Hypodense left pelvic noncalcified lesions are too small to adequately characterize by CT but appear unchanged. May consider elective renal ultrasound or MRI if clinically indicated. 4. Additional findings as above. Findings discussed with Dr. Ayala, Department of surgery, [facility], 11:45 AM, 04/29/2019. The pt was scheduled for [facility] clinic appointment for drain removal. Focused Exam: Awake,alert appropriate Respiratory: equal,non-labored Lungs clear bilaterally. Heart: regular,S1S2, no jvd, no murmur appreciated Abdomen: relatively soft and non- tender, surgical wound is c/d/i, passing flatus/moved bowels as noted by ostomy output. Stoma is pink and viable. The right abdominal drain (DEDRICK) was removed without issue. A DSD now overlays. Extremities: no calf pain, palpable pulses noted Disposition/Patient Instructions: 1) DEDRICK drain removed without issue. 2) the pt will be following up with Dr Kelly for ostomy takedown and Ulcerative Colitis follow-upas well. The pt is on Humira and will need to keep this in mind prior to his pre-op work up and procedure. 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 Completed 04/13/2019 [id number]) HIB Vaccines Aged Out No longer eligible [...] of this encounter Implants Implanted Type Area Transformation Manager Device Shelf Model / Identifier Expiration Serial / Date Lot Barrier Adhesion Seprafilm 5x6 - [id number] N/A: Abdomen [employer] 11/17/2021 4301-02 / Implanted: Qty: 1 on 04/12/2019 by Michelle Marrero MD at [facility] [employer]E [employer] / [id number] documented as of this encounter Results Not on filedocumented in this encounter Visit Diagnoses Diagnosis Ulcerative pancolitis with other complication - Primary Encounter for change or removal of drains Other specified aftercare following surgery documented in this encounter
--- OUTSIDE RECORDS SUMMARY | 2019-05-08 08:51 | XMS REPORT | Continuity of Care Document ---
:1965 External Reference #:[id number] Author Name Schedule, Laboratory (transmitted by agent of provider Iram MOTA) Address [address] [facility] [address] [place] [address] Care Team Providers Name Role Phone Ron Avery MD Care Team Information Zipper Trimmer [phone] Selam Blancas MD - Hematology Care Team Information Zipper Trimmer Problems Description No Information Available Social History Type Date Description Comments Sex Unknown Tobacco Use Start: Unknown Never Smoked Cigarettes ETOH Use Occasionally consumes liquor Recreational Drug Use Denies Drug Use Allergies, Adverse Reactions, Alerts Description No Known Drug Allergies Medications Active Medications SIG Qnty Indications Ordering Date Provider Colchicine 1 by mouth once daily 30caps Dougie Gaytan, 04/20/2019 0.6mg DO Capsules Pantoprazole Sodium 1 by mouth bid 30tabs Dougie Gaytan, 03/19/[address] MYRICK 3ML Syringe use as directed every 8units [...] 11/22/2015 5mg Tablets mouth every day DO Acetaminophen 2 by mouth four times Unknown 325mg a day as needed Tablets Ciprofloxacin HCL 1 by mouth twice a Unknown day 500mg Tablets Mesalamine Unknown 1.2gm Tablets DR Metronidazole 1 by mouth three Unknown 500mg times a day Tablets Oxycodone HCL 1 by mouth every 6 15tabs Dougie Gaytan, 5mg hours as needed pain DO Tablets Afrin Nasal [place] 2 sprays each nostril Unknown twice a day for 3 0.05% Solution days only History Medications Meloxicam take one tablet 30tabs Dougie Gaytan, 02/10/2019 - 15mg by mouth every 03/19/2019 [...] CPT Code Status Date Vaccine Lot # [id number] Given 12/02/2018 Influenza Vac, Quadrivalent, Split, 0.5mL Dosage, [place] Use [id number] Given 05/26/2018 Tdap (Adacel) Ages 7 And Above Only [id number] Given 11/18/2017 Influenza Vac, Quadrivalent, Split, 0.5mL Dosage, Im Use Vital Signs Date Vital Result Comment 04/30/2019 11:44am Weight 163.00 lb Heart Rate 70 /min BP Systolic 128 mmHg BP Diastolic 82 mmHg Respiratory Rate 16 /min Height 71 inches 5'11" BMI (Body Mass Index) 22.7 kg/m2 04/17/2019 10:48am Weight 164.00 lb Heart Rate 68 /min BP Systolic 118 mmHg BP Diastolic 58 mmHg Respiratory Rate 18 /min Height 71 inches 5'11" BMI (Body Mass Index) 22.9 kg/m2 Results Test Acquired Date Facility Test Result H/L Range Note CBC with Auto Diff-fcmg 05/04/2019 [facility] 5.7 K/uL 4.1-11.0 1 RBC 3.83 M/uL Low 4.60-6.10 2 Hemoglobin 10.7 gm/dL Low 13.5-18.0 3 Hematocrit 34.1 % Low 41.0-53.0 4 MCV 89.0 fL 80.0-95.0 5 MCH 27.9 pg 27.0-32.0 6 MCHC 31.4 g/dL Low 32.0-36.0 7 RDW 23.0 % High 10.5-14.5 8 PLT Count 465 K/ul High 150-400 9 MPV 8.0 FL 7.1-10.7 Neutrophil 71.4 % 35.0-75.0 10 Lymphocyte 11.8 % Low 16.0-52.0 11 Monocyte 13.0 % High 0.0-8.0 12 Eosinophil 2.7 % 0.0-5.0 Basophil 1.1 % 0.0-4.0 Abs Neutrophils 4.1 K/uL 1.8-7.7 13 Abs Lymphocytes 0.7 K/uL Low 1.2-4.8 14 Abs Monocytes 0.7 K/uL 0.0-0.8 15 Abs Eosinophils 0.2 K/uL 0.0-0.5 16 Abs Basophils 0.1 K/uL 0.0-0.2 17 Laboratory test finding 05/04/2019 [facility] Iron, Total 201 g/dL High 65 -175 CRP (C-Reactive) inflammation 1.97 mg/dL High 0.00-0.75 Comprehensive Met Panel-FCMG 05/04/2019 [facility] Sodium 138 mmol/L 135- 146 18 Potassium 4.2 mmol/L 3.5-5.2 Chloride# 101 mmol/L 97-110 19 Carbon Dioxide 29 mmol/L 24-34 Calcium 8.9 mg/dL 8.5-10.5 20 Glucose 128 mg/dL High 70-105 BUN 10 mg/dL 6-26 Creatinine 0.7 mg/dL 0.5-1.4 Total Protein 6.5 g/dL 6.0-8.0 Albumin 3.8 g/dL 3.6-4.9 Globulin 2.7 g/dL 2.0-3.5 A/G Ratio 1.4 Ratio 1.0-2.2 Total Bilirubin 0.3 mg/dL 0.1-1.3 Alkaline Phosphatase 96 U/L 24-140 Alt 35 U/L 3-42 Ast 23 U/L 8-42 Anion Gap 8 mmol/L 5-15 21 Female Egfr 91 >60 22 Male Egfr 104 >60 23 Laboratory test finding 05/04/2019 [facility] TSH 1.62 uIU/mL 0.35-4.94 Vitamin B12 696 pg/mL 180-914 Total Testosterone Adult Male 158 ng/dL Low 285-950 Stool Occult 03/31/2019 [facility] Stool Occult SEE RESULT 24 Blood Diag Blood, Diag BELOW Laboratory test 03/31/2019 [facility] Erythrocyte Sed > 120 mm/ Hr High 0-19 finding Rate CBC Auto Diff 03/31/2019 [facility] White Blood Count 11.8 10^3/ uL High 3.5-10 .8 Red Blood Count 2.91 10^6/uL Low 4.18-5.48 Hemoglobin 7.9 g/dL Low 14.0-18.0 Hematocrit 25 % Low 42-52 Mean Corpuscular Volume 85 fL Normal 80-94 Mean Corpuscular Hemoglobin 27 pg Normal 27-31 Mean Corpuscular HGB Conc 32 g/dL Normal 31-36 Red Cell Distribution Width 18 % High 10-15 Platelet Count 899 10^3/uL High 150-450 Mean Platelet Volume 7.4 fL Normal 7.4-10.4 Abs Neutrophils 9.8 10^3/uL High 1.5-7.7 Abs Lymphocytes 0.6 10^3/uL Low 1.0-4.8 Abs Monocytes 1.2 10^3/uL High 0-0.8 Abs Eosinophils 0.1 10^3/uL Normal 0-0.6 Abs Basophils 0.1 10^3/uL Normal 0-0.2 Abs Nucleated RBC 0.0 10^3/uL Granulocyte % 82.9 % Lymphocyte % 5.4 % Monocyte % 10.3 % Eosinophil % 0.8 % Basophil % 0.6 % Nucleated Red Blood Cells % 0.0 Laboratory test 03/31/2019 [facility] Lipase 17 U/L Normal 11.0-82.0 finding C Reactive Protein 151.36 mg/L High <8.01 Comp Metabolic Panel 03/31/2019 [facility] Sodium 135 mmol/L Normal 135-145 Potassium 3.7 mmol/L Normal 3.5-5.0 Chloride 100 mmol/L Low 101-111 Co2 Carbon Dioxide 28 mmol/L Normal 22-32 Anion Gap 7 mmol/L Normal 2-11 Glucose 120 mg/dL High 70-100 Blood Urea Nitrogen 12 mg/dL Normal 6-24 Creatinine 0.85 mg/dL Normal 0.67-1.17 BUN/Creatinine Ratio 14.1 Normal 8-20 Calcium 8.5 mg/dL Low 8.6-10.3 Total Protein 7.1 g/dL Normal 6.4-8.9 Albumin 3.4 g/dL Normal 3.2-5.2 Globulin 3.7 g/dL Normal 2-4 Albumin/Globulin Ratio 0.9 Low 1-3 Total Bilirubin 0.30 mg/dL Normal 0.2-1.0 Alkaline Phosphatase 74 U/L Normal 34-104 Alt 17 U/L Normal 7-52 Ast 12 U/L Low 13-39 Egfr Non- 93.6 >60 Egfr 113.2 >60 25 Urine Culture And 03/31/2019 [facility] Urine Culture SEE RESULT 26 Sensitivities BELOW Urinalysis Profile 03/31/2019 [facility] Urine Color Demetria Urine Appearance Cloudy Urine Specific [place] 1.033 High 1.010-1.030 Urine pH 5.0 Normal 5-9 Urine Urobilinogen Negative Negative Urine Ketones Negative Negative Urine Protein 1+(30 mg/dL) Abnormal Negative Urine Leukocytes Negative Negative Urine Blood Negative Negative * * Abnormal Negative 27 Urine Nitrite Negative Negative Urine Bilirubin Negative Negative Urine Glucose Negative Negative Urine White Blood Cell Trace(0-5/hpf) Absent Urine Red Blood Cell 1+(3-5/hpf) Abnormal Absent Urine Bacteria Absent Absent Urine Hyaline Casts Present Abnormal Absent Poc Urinalysis 03/29/2019 [facility] Poc Glucose, Urine NEGATIVE Negative Poc Bilirubin, Urine NEGATIVE Negative Poc Ketone, Urine NEGATIVE Negative Poc Specific [place], Urine <= 1.005 Low 1.010-1.030 Poc Blood, Urine NEGATIVE Negative 28 Poc pH, Urine 5.5 Normal 5-9 Poc Protein, Urine NEGATIVE Negative Poc Urobilinogen, Urine 0.2 Negative Poc Nitrite, Urine NEGATIVE Negative Poc Leukocytes, Urine NEGATIVE Negative Poc Color, Urine YELLOW Poc Clarity, Urine CLEAR CBC with Auto Diff-fcmg 03/19/2019 [facility] WBC 14.5 K/uL High 4.1-11.0 29 RBC 2.89 M/uL Low 4.60-6.10 30 Hemoglobin 8.0 gm/dL Low 13.5-18.0 31 Hematocrit 25.3 % Low 41.0-53.0 32 MCV 87.8 fL 80.0-95.0 33 MCH 27.8 pg 27.0-32.0 34 MCHC 31.6 g/dL Low 32.0-36.0 35 RDW 15.4 % High 10.5-14.5 36 PLT Count 629 K/ul High 150-400 37 MPV 7.3 FL 7.1-10.7 Neutrophil 84.7 % High 35.0-75.0 38 Lymphocyte 3.0 % Low 16.0-52.0 39 Monocyte 10.9 % High 0.0-8.0 40 Eosinophil 1.1 % 0.0-5.0 Basophil 0.3 % 0.0-4.0 Abs Neutrophils 12.3 K/uL High 1.8-7.7 41 Abs Lymphocytes 0.4 K/uL Low 1.2-4.8 42 Abs Monocytes 1.6 K/uL High 0.0-0.8 43 Abs Eosinophils 0.2 K/uL 0.0-0.5 44 Abs Basophils 0.0 K/uL 0.0-0.2 45 Iron Panel 03/19/2019 [facility] Iron, Total <10 g/dL Low 65-175 Transferrin 246.0 mg/dL 203.0-362.0 Tibc (calc) 344 g/dL 261-478 % Iron Saturation 2.9 % Low 13.0-45.0 Laboratory test finding 03/19/2019 [facility] Vitamin B12 392 pg/mL 180- 914 Comprehensive Met Panel-FCMG 03/19/2019 [facility] Sodium 139 mmol/L 135- 146 46 Potassium 4.2 mmol/L 3.5-5.2 Chloride# 101 mmol/L 97-110 47 Carbon Dioxide 29 mmol/L 24-34 Calcium 8.6 mg/dL 8.5-10.5 48 Glucose 86 mg/dL 70-105 BUN 16 mg/dL 6-26 Creatinine 0.8 mg/dL 0.5-1.4 Total Protein 6.1 g/dL 6.0-8.0 Albumin 3.4 g/dL Low 3.6-4.9 Globulin 2.7 g/dL 2.0-3.5 A/G Ratio 1.3 Ratio 1.0-2.2 Total Bilirubin 0.2 mg/dL 0.1-1.3 Alkaline Phosphatase 51 U/L 24-140 Alt 19 U/L 3-42 Ast 14 U/L 8-42 Anion Gap 9 mmol/L 5-15 49 Female Egfr 79 >60 50 Male Egfr 99 >60 51 Stool Occult 03/15/2019 [facility] Stool Occult SEE RESULT 52 Blood, Screen Blood, Screen BELOW Laboratory test 03/15/2019 [facility] Ferritin 7.0 ng/mL Low 24-336 finding Folate 13.74 ng/mL >3.99 Vitamin B12 479 pg/mL Normal 180-914 53 Iron & Iron 03/15/2019 [facility] Total Iron 379 g/dL Normal 250-450 Binding Capacity Binding Capacity Transferrin 271 mg/dL Normal 203-362 Iron < 20 g/dL Low 50-212 Unsaturated Iron Binding < 364 g/dL % Iron Saturation 5 % Low 15-55 Urinalysis Profile 03/15/2019 [facility] Urine Color Straw Urine Appearance Clear Urine Specific [place] 1.012 Normal 1.010-1.030 Urine pH 7.0 Normal 5-9 Urine Urobilinogen Negative Negative Urine Ketones Negative Negative Urine Protein Negative Negative Urine Leukocytes Negative Negative Urine Blood Negative Negative Urine Nitrite Negative Negative Urine Bilirubin Negative Negative Urine Glucose Negative Negative Laboratory test 03/15/2019 [facility] Erythrocyte Sed 45 mm/Hr High 0-19 finding Rate CBC Auto Diff 03/15/2019 [facility] White Blood Count 20.2 High 3.5-10.8 10^3/uL Red Blood Count 2.49 10^6/uL Low 4.18-5.48 [...] Blood Cells % 0.1 Laboratory test 03/15/2019 [facility] C Reactive 16.72 mg/L High <8.01 finding Protein Troponin I 0.02 ng/mL <0.03 54 Comp Metabolic Panel 03/15/2019 [facility] Sodium 134 mmol/L Low 135-145 Potassium 3.9 mmol/L Normal 3.5-5.0 Chloride 101 [...] Egfr Non- 123.2 >60 Egfr 149.0 >60 55 Inr/Protime 03/15/2019 [facility] Inr 1.12 High 0.82-1.09 56 Laboratory test 03/04/2019 [facility] Troponin-I < 0.015 57, finding (315)- - ng/mL 58 Laboratory test 03/04/2019 [facility] Sedimentation 64 mm /hr High 2-45 59 finding (315)- - Rate CBS W/Automated 03/04/2019 [facility] White Blood Count 16.3 High 3.4-10.5 Diff (315)- - K/uL Red Blood Count 2.78 M/uL Low 4.20-5.80 [...] 33.0-73.0 Lymph % 7.1 % Low 20.0-42.0 Motley % 8.1 % Normal 0.0-10.0 Eo% 2.6 % Normal 0.0-6.6 Bas% 0.6 % Normal 0.0-1.1 Immature Grans 0.8 % Normal 0.0-5.0 NRBC % 0.0 /100WBC < 10/ 100 WBC Neut# 13.14 K/uL High 1.8-7.0 Lymph # 1.16 K/uL Normal 1.0-4.0 Motley # 1.31 K/uL High 0.0-0.8 Eos # 0.42 K/uL Normal 0.0-0.5 Baso # 0.10 K/uL Normal 0.0-0.1 Immature Grans Absolute 0.13 K/uL NRBC # 0.00 K/uL Comprehensive 03/04/2019 [facility] Glucose 104 mg/dL Normal 74-106 Metabolic Panel (315)- - BUN 22 mg/dL High 7-18 Creatinine 0.9 mg/dL Normal 0.6-1.3 Glom Filtration Rate, Estimate >60 mL/min >60 If >60 mL/min >60 60 BUN/Creat 24.4 ratio Sodium 135 mmol/L Low [...] Normal 0.2-1.0 Sgot/Ast 13 U/L Low 15-37 61 SGPT/Alt 30 U/L Normal 12-78 Alkaline Phosphatase 63 U/L Normal 45-117 Laboratory test finding 03/04/2019 [facility] CK 146 U/L Normal 39-308 (315)- - Troponin-I < 0.015 ng/mL 62 C-Reactive Protein,Quant 37.4 mg/L High <3.0 Laboratory test 02/22/2019 [facility] Lipase 124 U/L Normal 56-289 63 finding (315)- - Troponin-I < 0.015 ng/mL 64 Comprehensive Metabolic 02/22/[address] [facility] Glucose 108 mg/dL High 74-106 Panel (315)- - BUN 15 mg/dL Normal 7-18 Creatinine 0.9 mg/dL Normal 0.6-1.3 Glom Filtration Rate, Estimate >60 mL/min >60 If >60 mL/min >60 65 BUN/Creat 16.6 ratio Sodium 138 mmol/L Normal [...] 55 U/L Normal 45-117 Laboratory test 02/22/2019 [facility] D-Dimer, 0.49 ug/ mL 66 finding (315)- - Quantitative CBS W/Automated 02/22/[address] [facility] White Blood Count 10.4 K/uL Normal 3.4-1 Diff (315)- - 0.5 Red Blood Count 3.39 M/uL Low 4.20-5.80 [...] 33.0-73.0 Lymph % 8.7 % Low 20.0-42.0 Motley % 11.8 % High 0.0-10.0 Eo% 2.8 % Normal 0.0-6.6 Bas% 0.7 % Normal 0.0-1.1 Immature Grans 0.4 % Normal 0.0-5.0 NRBC % 0.0 /100WBC < 10/ 100 WBC Neut# 7.85 K/uL High 1.8-7.0 Lymph # 0.90 K/uL Low 1.0-4.0 Motley # 1.23 K/uL High 0.0-0.8 Eos # 0.29 K/uL Normal 0.0-0.5 Baso # 0.07 K/uL Normal 0.0-0.1 Immature Grans Absolute 0.04 K/uL NRBC # 0.00 K/uL Laboratory test 02/20/2019 [facility] Troponin I 0.01 ng/mL < 0.03 67 finding CBC Auto Diff 02/20/2019 [facility] White Blood 8.9 10^3/uL Normal 3.5-10.8 [...] % Nucleated Red Blood Cells % 0.0 Inr/Protime 02/20/2019 [facility] Inr 1.09 Normal 0.82-1.09 68 Comp Metabolic Panel 02/20/2019 [facility] Sodium 137 mmol/L Normal 135-145 Potassium 4.1 mmol/L Normal 3.5-5.0 Chloride 104 [...] Egfr Non- 98.9 >60 Egfr 119.7 >60 69 Laboratory test 02/20/2019 [facility] Troponin I 0.01 ng/mL < 0.03 70 finding Laboratory test 01/14/2019 [facility] Uric Acid 4.7 mg/dL 2.6-8.4 finding CRP (C-Reactive) inflammation 0.21 mg/dL 0.00-0.75 CBC Auto Diff 01/10/2019 [facility] White Blood 6.2 10^3/uL Normal 3.5-10.8 [...] Cells % 0.1 Comp Metabolic Panel 01/10/2019 [facility] Sodium 139 mmol/L Normal 135-145 Potassium [...] Egfr Non- 100.7 >60 Egfr 121.9 >60 71 Laboratory test 01/10/2019 [facility] Testosterone 206.29 ng/dL Low 240-950 finding Lipid Profile 01/10/2019 [facility] Triglycerides 87 mg/dL 72 (Trig/Chol/HDL) Cholesterol 229 mg/dL 73 HDL Cholesterol 71.1 mg/dL 74 LDL Cholesterol 141 mg/dL 75 Laboratory test 01/10/2019 [facility] PSA Screening 0.284 ng/mL Normal 0-4.000 76 finding Vitamin B12 608 pg/mL Normal 180-914 77 1 Updated Reference Range 12/2018 2 Updated Reference Range 12/2018 3 Updated Reference Range 12/2018 4 Updated Reference Range 12/2018 5 Updated Reference Range 12/2018 6 Updated Reference Range 12/2018 7 Updated Reference range 12/2018 8 Updated Reference range 12/2018 9 Updated Reference Range 12/2018 10 Updated Reference Range 12/2018 11 Updated Reference Range 12/2018 12 Updated Reference Range 12/2018 13 Updated Reference Range 12/2018 14 Updated Reference Range 12/2018 15 Updated Reference Range 12/2018 16 Updated Reference Range 12/2018 17 Updated Reference Range 12/2018 18 Updated reference range on new analyzer 19 Updated reference range on new analyzer 20 Updated reference range 06-18-2018 21 Updated Reference Range 22 Concerning GFR Guidelines for Americans: Normal function or mild renal disease, if clinically at risk: >/= 60 mL/min Moderately decreased: 30-59 Severely decreased: 15-29 Renal failure: <15 There is reduced accuracy above 60ml/min/1.73 m squared, but the numeric value may be clinically useful in the near 60 range 23 Concerning GFR Guidelines: Normal function or mild renal disease, if clinically at risk: >/= 60 mL/min Moderately decreased: 30-59 Severely decreased: 15-29 Renal failure: <15 There is reduced accuracy above 60ml/min/1.73 m squared, but the numeric value may be clinically useful in the near 60 range Glomerular Filtration Rate (GFR) is estimated based on the CKD-EPI equation, which assumes a steady state for creatinine as recommended by the National Kidney Disease Education Program in conjunction with the National Institutes of Health and the National Kidney Foundation. Clinical conditions in which it may be necessary to measure GFR by using clearance methods include extremes of age and body size, severe malnutrition or obesity, diseases of skeletal muscle, paraplegia or quadriplegia, vegetarian diet, rapidly changing kidney function, and calculation of the dose of potentially toxic drugs that are excreted by the kidneys. 24 SEE RESULT BELOW Name: YOBANY YING : [address]: Sonny Stiles MD Acct: [id number] Unit: [id number] AGE: 54 Location: ED Re03/31/19 SEX: M Status: REG ER SPEC: [id number] SANDY: 03/31/[address]: Sonny Stiles MD REQ: [id number] RECD: 03/31/19 STATUS: LAIN DALAL DR: Dougie Gaytan DO _ SOURCE: STOOL SPDESC: ORDERED: Occult Bl, Diag Procedure Result Reported Site Stool Occult Blood (1) Final 03/31/19- 1152 ML Stool Occult Blood Negative * [facility] - Main Lab . END OF REPORT DEPARTMENT OF PATHOLOGY, [address] [place] [address] Darryl Zuñiga M.D. Director [facility] # [id number] 25 Because ethnic data is not always readily [...] 15-29 5 Kidney failure <15 (or dialysis) 26 SEE RESULT BELOW Name: YOBANY YING : [address]: Sophia Nam MD Acct: [id number] Unit: [id number] AGE: 54 Location: [place] [address] Re03/31/19 SEX: M Status: ADM IN SPEC: [id number] SANDY: 03/31/19-[address]: oSnny Stiles MD REQ: [id number] RECD: 03/31/19-2 STATUS: COMP OT DR: Dougie Gaytan DO _ SOURCE: URINE SPDESC: ORDERED: Urine Culture Procedure Result Reported Site Urine Culture Final 04/01/19- 1051 ML No Growth (<1,000 CFU/mL) * ML - Main Lab . END OF REPORT DEPARTMENT OF PATHOLOGY, [address] [place] [address] Darryl Zuñiga M.D. Director [facility] # [id number] 27 *Ascorbic acid is present which may interfere with detection of blood. 28 Delinquent Notice Machine Operator: [id number] 29 Updated Reference Range 12/2018 30 Updated Reference Range 12/2018 31 Updated Reference Range 12/2018 32 Updated Reference Range 12/2018 33 Updated Reference Range 12/2018 34 Updated Reference Range 12/2018 35 Updated Reference range 12/2018 36 Updated Reference range 12/2018 37 Updated Reference Range 12/2018 38 Updated Reference Range 12/2018 39 Updated Reference Range 12/2018 40 Updated Reference Range 12/2018 41 Updated Reference Range 12/2018 42 Updated Reference Range 12/2018 43 Updated Reference Range 12/2018 44 Updated Reference Range 12/2018 45 Updated Reference Range 12/2018 46 Updated reference range on new analyzer 47 Updated reference range on new analyzer 48 Updated reference range 06-18-2018 49 Updated Reference Range 50 Concerning GFR Guidelines for Americans: Normal function or mild renal disease, if clinically at risk: >/= 60 mL/min Moderately decreased: 30-59 Severely decreased: 15-29 Renal failure: <15 There is reduced accuracy above 60ml/min/1.73 m squared, but the numeric value may be clinically useful in the near 60 range 51 Concerning GFR Guidelines: Normal function or mild renal disease, if clinically at risk: >/= 60 mL/min Moderately decreased: 30-59 Severely decreased: 15-29 Renal failure: <15 There is reduced accuracy above 60ml/min/1.73 m squared, but the numeric value may be clinically useful in the near 60 range Glomerular Filtration Rate (GFR) is estimated based on the CKD-EPI equation, which assumes a steady state for creatinine as recommended by the National Kidney Disease Education Program in conjunction with the National Institutes of Health and the National Kidney Foundation. Clinical conditions in which it may be necessary to measure GFR by using clearance methods include extremes of age and body size, severe malnutrition or obesity, diseases of skeletal muscle, paraplegia or quadriplegia, vegetarian diet, rapidly changing kidney function, and calculation of the dose of potentially toxic drugs that are excreted by the kidneys. 52 SEE RESULT BELOW Name: YOBANY YING : [address]: Michelle Hermosillo MD Acct: [id number] Unit: [id number] AGE: 54 Location: ED Re03/15/19 SEX: M Status: REG ER SPEC: [id number] SANDY: 03/15/[address]: Tru DIXON REQ: [id number] RECD: 03/15/19 STATUS: COMP MULUGETA DR: Michelle Gaytan DO _ SOURCE: STOOL SPDESC: ORDERED: Occult Bl, Scn Procedure Result Reported Site Stool Occult Blood (1) Final 03/15/19- 2219 ML Stool Occult Blood Positive Collection Date (1) 03/15/19 * [facility] - Main Lab . END OF REPORT DEPARTMENT OF PATHOLOGY, [address] [place] [address] Darryl Zuñiga M.D. Director [facility] # [id number] 53 Normal Range 180 to 914 Indeterminate Range 145 to 180 Deficient Range <145 54 Troponin-I testing on Plasma Separator Tubes (PST) has a known false positive rate of 0.20-0.40%. All positive troponins reflex immediately to secondary confirmatory testing. Using the [employer] DxI 800 Access Immunoassay systems, the 99th percentile upper reference limit was demonstrated to be < 0.03 ng/mL. 55 Because ethnic data is not always readily [...] 15-29 5 Kidney failure <15 (or dialysis) 56 Standard intensity warfarin therapeutic range: 2.0-3.0 High intensity warfarin therapeutic range: 2.5-3.5 57 CP 58 0.0 - 0.045 ng/mL: Normal 0.046 - 0.5 ng/mL: Suggestive 0.6 - 1.5 ng/mL: Consistent 59 This result was obtained with an ESR method that is not based on the standard Westergren Method. When comparing results obtained from the traditional Westergren ESR and this method it is important to refer to the reference range for each method. Method: Capillary Photometry 60 Note: Persistent reduction for 3 months or more in an eGFR <60 mL/min/1.73 m2 defines CKD. Patients with eGFR values >/=60 mL/min/1.73 m2 may also have CKD if evidence of persistent proteinuria is present. The original MDRD equation for estimated GFR is not valid for patients less than 18 years of age. Additional information may be found at www.kdoqi.org. 61 Values below the stated reference ranges of AST and ALT can be seen in normal populations. Clinical correlation is suggested. 62 0.0 - 0.045 ng/mL: Normal 0.046 - 0.5 ng/mL: Suggestive 0.6 - 1.5 ng/mL: Consistent 63 CHEST PAIN 64 0.0 - 0.045 ng/mL: Normal 0.046 - 0.5 ng/mL: Suggestive 0.6 - 1.5 ng/mL: Consistent 65 Note: Persistent reduction for 3 months or more in an eGFR <60 mL/min/1.73 m2 defines CKD. Patients with eGFR values >/=60 mL/min/1.73 m2 may also have CKD if evidence of persistent proteinuria is present. The original MDRD equation for estimated GFR is not valid for patients less than 18 years of age. Additional information may be found at www.kdoqi.org. 66 <=0.49 ug/mL - Low likelihood of DIC, DVT or Pulmonary Embolism >0.49 ug/mL - Additional testing should be done to rule out DIC, DVT, or Pulmonary embolism as clinically indicated. ([facility] has established a 97.89% negative predictive value for thrombotic disease when a cutoff value of 0.5 ug/mL is used.) 67 Troponin-I testing on Plasma Separator Tubes (PST) has a known false positive rate of 0.20-0.40%. All positive troponins reflex immediately to secondary confirmatory testing. Using the [employer] DxI 800 Access Immunoassay systems, the 99th percentile upper reference limit was demonstrated to be < 0.03 ng/mL. 68 Standard intensity warfarin therapeutic range: 2.0-3.0 High intensity warfarin therapeutic range: 2.5-3.5 69 Because ethnic data is not always readily [...] 15-29 5 Kidney failure <15 (or dialysis) 70 Troponin-I testing on Plasma Separator Tubes (PST) has a known false positive rate of 0.20-0.40%. All positive troponins reflex immediately to secondary confirmatory testing. Using the [employer] DxI 800 Access Immunoassay systems, the 99th percentile upper reference limit was demonstrated to be < 0.03 ng/mL. 71 Because ethnic data is not always readily [...] 15-29 5 Kidney failure <15 (or dialysis) 72 Desirable: <150 Borderline High: 150-199 High: 200-499 Very High: >500 73 Desirable: <200 Borderline High: 200-239 High: >239 74 Low: <40 Desirable: 40-60 High: >60 75 Desirable: <100 Near Optimal: 100-129 Borderline High: 130-159 High: 160-189 Very High: >189 76 Serum levels of PSA measured using the [employer] DXI Hybritech immunoassay should not be interpreted [...] methods or kits cannot be used interchangeably. 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 Z93.3 Colostomy status R07.9 Chest pain, unspecified R53.83 Other fatigue R25.1 Tremor, unspecified Office Visit 03/19/2019 2:00p [facility] Raeann Matute PA K29.01 Acute gastritis with bleeding K51.911 Ulcerative colitis, unspecified with rectal bleeding 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 loss (chronic) R07.89 Other chest pain Z68.25 Body mass index (BMI) 25.0-25.9, adult Office Visit 01/14/2019 1:30p [facility] Dougie Gaytan DO E29.1 Testicular hypofunction D51.9 Vitamin B12 deficiency anemia, unspecified F43.0 [...] 26.0-26.9, adult Assessments Date Code Description Provider 05/04/2019 D50.9 Iron deficiency anemia, unspecified Dougie Gaytan DO 05/04/2019 D50.9 Iron deficiency anemia, unspecified Schedule, Laboratory 05/04/2019 K51.914 Ulcerative colitis, unspecified with abscess Dougie Gaytan DO 05/04/2019 K51.914 Ulcerative colitis, unspecified with abscess Schedule, Laboratory 05/04/2019 R25.1 Tremor, unspecified GaytanDougie mera DO 05/04/2019 R25.1 Tremor, unspecified Schedule, Laboratory 05/04/2019 R53.83 Other fatigue Dougie Gaytan DO 05/04/2019 R53.83 Other fatigue Schedule, Laboratory 05/04/2019 D50.9 Iron deficiency anemia, unspecified [facility] 05/04/2019 K51.914 Ulcerative colitis, unspecified with abscess [facility] 05/04/2019 R25.1 Tremor, unspecified [facility] 05/04/2019 R53.83 Other fatigue [facility] 04/30/2019 K51.914 Ulcerative colitis, unspecified with abscess Fara Gaytanew, DO 04/30/2019 D50.9 Iron deficiency anemia, unspecified Gaytan, Dougie, DO 04/30/2019 I30.9 Acute pericarditis, unspecified Gaytan, Dougie, DO 04/30/2019 K25.0 Acute gastric ulcer with hemorrhage Gaytan, Dougie, DO 04/30/2019 K57.21 Diverticulitis of large intestine with Gaytan, Dougie, DO perforation and abscess with bleeding 04/30/2019 Z93.3 Colostomy status Gaytan, Dougie, DO 04/30/2019 R07.9 Chest pain, unspecified Gaytan, Dougie, DO 04/30/2019 R53.83 Other fatigue Gaytan, Dougie, DO 04/30/2019 R25.1 Tremor, unspecified Gaytan, Dougie, DO 04/17/2019 K51.914 Ulcerative colitis, unspecified with abscess Gaytan, Dougie, DO 04/17/2019 D50.9 Iron deficiency anemia, unspecified Gaytan, Dougie, DO 04/17/2019 I30.9 Acute pericarditis, unspecified Gaytan, Dougie, DO 04/17/2019 K25.0 Acute gastric ulcer with hemorrhage Gaytan, Dougie, DO 04/17/2019 K57.21 Diverticulitis of large intestine with Gaytan, Dougie, DO perforation and abscess with bleeding 04/17/2019 Z93.3 Colostomy status Gaytan, Dougie, DO 04/17/2019 G47.9 Sleep disorder, unspecified Gaytan, Dougie, DO 03/19/2019 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, Dougie, 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) 03/19/2019 K29.01 Acute gastritis with bleeding Raeann Matute PA 03/19/2019 K29.01 Acute gastritis with bleeding Gaytan, Dougie, DO 03/19/2019 K51.911 Ulcerative colitis, unspecified with rectal Raeann Matute PA bleeding 03/19/2019 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) 03/19/2019 R07.89 Other chest pain Raeann Matute PA 03/19/2019 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 Schedule, Laboratory loss (chronic) 03/19/2019 Z68.25 Body mass index (BMI) 25.0-25.9, adult Raeann Matute PA 03/19/2019 K29.01 Acute gastritis with bleeding Schedule, Laboratory 03/19/2019 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 [facility] loss (chronic) 03/19/2019 K29.01 Acute gastritis with bleeding [facility] 01/14/2019 M79.672 Pain in LEFT foot Dougie Gaytan, DO 01/14/2019 E29.1 Testicular hypofunction Gaytan, Dougie, DO 01/14/2019 D51.9 Vitamin B12 deficiency anemia, unspecified Dougie Gaytan, DO 01/14/2019 F43.0 Acute stress reaction Dougie Gaytan, DO 01/14/2019 N52.9 Male erectile dysfunction, unspecified Dougie Gaytan, DO 01/14/2019 J30.9 Allergic rhinitis, unspecified Dougie Gaytan, DO 01/14/2019 K21.9 Gastro-esophageal reflux disease without Dougie Gaytan, esophagitis 01/14/2019 M54.2 Cervicalgia Dougie Gaytan, DO 01/14/2019 I83.92 Asymptomatic varicose veins of LEFT lower Dougie Gaytan DO extremity 01/14/2019 K51.911 Ulcerative colitis, unspecified with rectal Dougie Gaytan DO bleeding 01/14/2019 Z13.31 Encounter for screening for depression Dougie Gaytan, DO 01/14/2019 M79.672 Pain in LEFT foot Dougie Gaytan, DO 01/14/2019 Z68.26 Body mass index (BMI) 26.0-26.9, adult GaytanDougie, DO 01/14/2019 M79.672 Pain in LEFT foot Schedule, Laboratory 01/14/2019 M79.672 Pain in LEFT foot [facility] Plan of Treatment Future Appointment(s):06/02/2019 9:45 am - Dougie Gaytan DO at [facility]07/17/2019 3:00 pm - Dougie Gaytan DO at [facility]04/30/2019 - Dougie Gaytan DOK51.914 Ulcerative colitis, unspecified with abscessComments:Pt has ulcerative colitis. I recommended the patient to continue with the current medication regimen, which include Mesalamine. Insurance has approved Humira and will start taking it in the future under the direction of Dr. Parham. Follow up with the specialist, Dr. Parham as scheduled. Will continue to monitor.Follow up:Blood work saturday. Follow up with me in 1 month.D50.9 Iron deficiency anemia, unspecifiedComments:His hemoglobin was low while he was at the hospital. Pt has had iron infusions and has an appointment scheduled for a iron infusion on 05/01/19. Follow up with Dr. Marrero as scheduled. Will continueto monitor.I30.9 Acute pericarditis, unspecifiedComments:Improved with Prednisone and Colchicine. No concerns at the present time. Will monitor for recurrence. May need to follow up with Dr. Bobby if this recurs. Will continue to monitor.K25.0 Acute gastric ulcer with hemorrhageComments:Pt has ulcerative colitis. he has a colostomy in place. I recommended the patient to continue withthe current medication regimens. Follow up with the specialist, Dr. Parham as scheduled. Will continue to monitor.K57.21 Diverticulitis of large intestine with perforation and abscess with bleedingComments:Pt has ulcerative colitis. he has a colostomy in place. I recommended the patient to continue withthe current medication regimens. Follow up with the specialist, Dr. Parham as scheduled. Will continue to monitor.Z93.3 Colostomy statusComments: Pt has colostomy in place. Has some pain in the incision site. I recommended the patient to take Tylenol and Oxycodone as needed. Pt has home care support for the colostomy maintainence. Patient hasbeen managing the colostomy well and a scripts for ostomy supplies were sent today.R07.9 Chest pain, unspecifiedComments:Ekg was normal today. May be due to musculoskeltal or GERD symptoms. Continue taking Pantoprazole or TUMS. Will call or return if this kwkuakbD90.83 Other fatigueComments:Improved at the present time. Will continue to monitor.R25.1 Tremor, unspecifiedComments:Will obtain blood work for further determination of the symptoms. Will continue to monitor. Functional Status Description No Information Available Mental Status Description No Information Available Referrals Refer to Reason for Referral Status Appt Date Ron Avery MD Anemia, iron deficiency GI bleed Faxed all Closed 2019 necessary paperwork needed for the to review and schedule the pt. [place] 03/20/19 REFAXED -TRH 03/24 LMTCB ON OFFICE VOICEMAIL TO GET UPDATE ON REFERRAL [address] [place] [address] [phone]
--- OUTSIDE RECORDS SUMMARY | 2019-05-08 08:52 | XMS REPORT | Summary of Care ---
:1965 Author Organization [facility] Address [address] [place] [address] Care Team Providers Name Role Phone Dougie Gaytan DO Primary Care Provider Reason for Referral Home Health Care (Routine) Status Reason Specialty Diagnoses / Referred By Referred To Procedures Contact Contact Open Specialty Home Health Diagnoses Colostomy in place Supriya Ortega [facility] DESTINY Cunningham Required [address] [facility] [id number] [place] [address] Email: [email or web address] Reason for Visit Auth/Cert Status Reason Specialty Diagnoses / Procedures Referred By Contact Referred To Contact Diagnoses Pelvic abscess in male Pelvic abscess in male Encounter Details Date Type Department Care Team Description 04/12/2019 - Hospital Encounter 06B GENERAL Oneil Terrell Colostomy in place 04/15/2019 MEDICINE MD Humberto (Primary Dx) [address] [facility] [address] [place] [address] Allergies No Known Allergiesdocumented as of this encounter (statuses as of 04/15/2019) Medications Medication Sig Dispensed Refills Start End Date Status Date Escitalopram Take 10 mg by 0 Active Oxalate 10 MG Oral mouth daily Tablet (LEXAPRO) Tadalafil 5 MG Take 5 mg by 0 Active Oral Tablet mouth as needed (CIALIS) for Erectile Dysfunction Colchicine 0.6 MG Take 0.6 mg by 0 Active Oral Tablet mouth daily oxymetazoline 2 sprays by 0 Active 0.025 % NA nasal Nasal route as spray needed for Congestion Testosterone Inject 200 mg 0 Active Cypionate 200 into the skin MG/ML Injection every 14 Solution (fourteen) days On Saturdays Mesalamine 1.2 GM Take 2,400 mg by 0 Active Oral Tablet mouth Two Times Delayed Release Daily (LIALDA) Pantoprazole Take 40 mg by 0 Active Sodium 40 MG Oral mouth Two Times Tablet Delayed Daily Release (PROTONIX) Acetaminophen 325 Take 2 tablets 30 tablet 0 04/22/19 Active MG Oral Tablet by mouth every 6 0 20 (six) hours as needed for Pain for up to 7 days oxyCODONE HCl 5 MG Take 1 tablet by 12 tablet 0 04/18/19 Active Oral Tablet mouth every 6 0 20 (ROXICODONE) (six) hours as needed for up to 3 days, Max Daily Dose: 20 mg Ciprofloxacin HCl Take 1 tablet by 14 tablet 0 04/22/19 Active 500 MG Oral Tablet mouth Two Times 0 20 (Cipro) Daily for 7 days metroNIDAZOLE 500 Take 1 tablet by 21 tablet 0 04/22/19 Active MG Oral Tablet mouth Three 0 20 (FLAGYL) times daily for 7 days Amoxicillin-Pot Take 1 tablet by 8 tablet 0 04/15/19 Discontinued Clavulanate mouth Two Times 0 20 (Stop Taking at 875-125 MG Oral Daily for 4 Discharge) Tablet days documented as of this encounter (statuses as of 04/15/2019) Active Problems Problem Noted Date Colostomy in place 04/15/2019 Peptic ulcer disease 04/08/2019 Anemia of chronic disease 04/08/2019 Pelvic abscess in male 04/08/2019 Encounter for ostomy care education 04/08/2019 Ulcerative colitis 04/06/2019 Abscess of abdominal cavity 04/04/2019 documented as of this encounter (statuses as of 04/15/2019) Social History Tobacco Use Types Packs/Day Years [...] Sign Reading Time Taken Comments Blood Pressure 158/90 04/15/2019 1:02 PM EST Pulse 83 04/15/2019 1:02 PM EST Temperature 36.9 04/15/2019 1:02 PM C (98.4 EST F) Respiratory Rate 16 04/15/2019 1:02 PM EST Oxygen Saturation 95% 04/15/2019 1:02 PM EST Inhaled Oxygen Concentration - - Weight 76.5 kg (168 lb 10.4 oz) 04/14/2019 5:48 AM EST Height 180.3 cm (5' 11") 04/12/2019 9:59 AM EST Body Mass Index 23.52 04/12/2019 9:59 AM EST documented in this encounter Discharge Instructions Hossein Hollingsworth - 04/14/2019 11:27 AM ESTPlease contact your primary care physician office to schedule your hospital follow up once you are discharged. Discharge Instr - Other Supriya Sandoval PA - 04/15/2019 10:42 AM EST Interventions & Plan: Discussed ostomy basics and described ostomy care and supplies, Gave teaching booklet, Ordered supplies and Wound Ostomy Care Orders (From admission, onward) Wound Ostomy Order Comments: Ostomy Care: Please keep accurate ostomy/fistula output. Record at least Q Shift in I&O. Wound Ostomy Order Comments: Ostomy Care: Please encourage independence with emptying ostomy pouch. Pouch should be emptied when 1/3 full. Patient should be independent with emptying prior to discharge. Wound Ostomy Order Comments: Colostomy care: [place] Convex cut to fit pouch #[id number], with antonio seal around stoma. Paste to creases. Change every 3-7 days and prn May shower with either the ostomy appliance on or off, depending on your comfort. No soap to stoma if pouch is off. If showering with pouch on, pat it dry with a towel. Make sure the drain is flowing freely into the collection container. Place a dry dressing at the insertion site at the skin. Measure and record the out put for each drain at least two times per day and as needed until your follow-up appointment. Bring the record with you to your appointment. Please make a notation of character of output. Change the dressing around the DEDRICK drain at least once a day, may change more often with saturation. You are being discharged with 2 antibiotics, Cipro and Flagyl. DO NOT consume alcohol with the Flagyl, this can make you very ill. documented in this encounter Progress Notes Alla Rutledge RN - 04/15/2019 2:06 PM ESTPatient will be discharged today with home care services in place. [facility] will be seeing Yobany. 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 CM will continue to follow Alla Candelario RN - 04/15/2019 9:07 AM ESTMet with patient to discuss home health. Yobany is agreeable to home health services-nursing home. Gave him choices to choose from his first choice is [facility]. Provided patient/caregiver with a list of in-network facilities and/or agencies within their preferred geographic area which are available to provide the services recommended by the physician as described in the discharge plan. Have also provided information on CMS Star ratings for the above post-acute care providers and ways for the patient/career portals teacher to access additional information on these ratings, if they prefer. CM will continue to follow Flaquito Grimes RN - 04/14/2019 2:01 PM ESTPt finished 2 units of blood transfusion. Pt lungs are clear, vs are stable, and there is no sign of a reaction. 7: 35 PM Krish Kim NP - 04/14/2019 11:02 AM EST Subjective: Patient is a 54 y.o. male Hospital Day: 3, 2 Days Post-Op No Known Allergies Pain Level: 0/10 Objective: Temp (24hrs), Av C (98.6 F), Min:36.6 C (97.9 F), Max:37.3 C (99.1 F) Vitals: 04/14/19 0548 04/14/19 0728 04/14/19 1002 04/14/19 1025 BP: 116/70 129/74 118/74 BP Location: Right arm Patient Position: Lying Pulse: 85 89 86 Resp: 18 18 18 Temp: 37 C (98.6 F) 37 C (98.6 F) 37.1 C (98.8 F) TempSrc: Oral Oral Oral SpO2: 96% 97% 96% Weight: 76.5 kg (168 lb 10.4 oz) Height: I/O last 3 completed shifts: In: 4229.5 [P.O.:1300; I.V.:2790.1; IV Piggyback:139.4] Out: 2390 [Urine:2095; Drains:240; Stool:55] Recent Labs Lab 04/13/19 0319 04/14/19 0303 04/14/19 0600 NA 135* 131* 139 K 3.6 4.1 4.2 CL 98 98 101 BICARBONATE 26 25 23 GLUCOSE 120 113 112 BUN 11 9 10 CREATININE 0.73 0.78 0.79 BCR 15 12 13 GFRAA >90 >90 >90 GFRNONAA >90 >90 >90 Recent Labs Lab 04/10/19 0353 04/13/19 0319 04/14/19 0303 MG 1.9 1.8 1.9 Recent Labs Lab 04/12/19 1057 04/12/19 1515 04/14/19 0303 04/14/19 0600 HCT 28.5* -- 20.0* 20.6* HGB 8.8* -- 6.4* 6.5* MCH 26.0* -- 26.6* 26.5* MCHC 31.0* -- 31.7* 31.5* MCV 84.1 -- 84.0 84.1 PLT 731* -- 567* 634* RDW 19.7* -- 19.8* 19.7* WBCUA -- 5 -- -- WBC 28.5* -- 17.4* 16.1* No results for input(s): LABPT, INR, PTT in the last 168 hours. Patient Active Problem List Diagnosis Abscess of abdominal cavity Ulcerative colitis Peptic ulcer disease Anemia of chronic disease Pelvic abscess in male Encounter for ostomy care education Gen: AAOx3,Responsive, NAD, resting comfortably Heart: RRR, nl s1/s2, no jvd, no chest pain Lungs: Clear B/L Respiratory: non-labored,regular, no SOB/Dyspnea, Symetrical Abd: Soft/ND/ appropriate tenderness in the post-op period, bowel sounds are active, stoma is viableand the ostomy is functional with dark /loose stool, Patient passing flatus -noted in appliance/ Patient Moving Bowels -noted in appliance DSG: clean/dry/intact at midline Drain(s):right abdominal drain noted with a seropurulent output today. The drain was milked and is functional. Exrem: warm, well perfused 2+pulses b/l, no calf tenderness Catheter:voiding well. IV Lines:Heplocked PIV A/P: 54 y.o. male, the ACS service was consulted due to pelvic abscess due to UC related pelvic abscess. Returned to the hospital on POD4 s/p laparoscopic drainage with DEDRICK drain placement who presentsto the hospital with worsening abdominal pain and feculent drainage. The patient was a redstrip to the OR for exlap possible colon resection possible ostomy possible abhterra with serial washouts Hospital Day: 3, 2 Days Post-Op S/p Brief Procedure/Operative Note Date of operation/procedure: 04/12/2019 Surgical Lo Pre-Op Diagnosis: failure of nonoperative management of ulcerative-colitis associated abscess Post-Op Diagnosis: colonic perforation at rectosigmoid junction, pelvic abscess. Procedure(s): ex lap, washout, sigmoid resection, end colostomy Surgeon(s): MD Faizan Harrison MD Benjamin J Dahlberg, MD Comments: recto-sigmoid perforation, proximal sigmoid colon resected with end descending colostomy. Perforated segmented not resected due to severe inflammation. Specimens and Anatomical Sites perforated colon r/o ulcerative colitis Reason for Procedure failure of nonoperative management of ulcerative- colitis associated abscess - the pt has responded appropriately post-transfusion of 2 units of PRB's - Anxiety/depression: C/w citalopram home dose - dvt ppx: C/w lovenox sq - GI Ulcer ppx protonix - diet: Advanced to regular - analgesia C/w Acetaminophen, lidocaine patch, oxycodone (06/27). - consult placed to wound and ostomy - HL IV - Plan is for d/c home 04/15/19 THIERRY: 04/15/2019 4: 31 PM EST Associated attestation - Oneil Terrell MD - 04/14/2019 4:31 PM MAHESH saw and evaluated the patient. Discussed with the non-physician practitioner and agree with the non-physician practitioner findings and plan as documented in their note. Alla Rutledge RN - 04/14/2019 9:39 AM ESTCase Management Screen & Assessment Patient's Name: Yobany Ying Date of : 1965 Age: 54 y.o. Gender: male Attending Provider: Oneil Terrell MD Admitting Diagnosis: Pelvic abscess in male [K65.1] Admission Date and Time: 04/12/2019 10:30 AM High Risk Criteria - SUPERVIS[employer]/Upon Arrival [employer]-Type of Residence: Private residence [employer]- Home Care Services: No Limited Home Supports/Lives Alone?: No Multi trauma/Critical care admit?: No Head/Spinal cord injury?: No Self pay/No prescription plan?: No Active with homecare?: No Multiple ED visits?: No Related/Unplanned readmission within 30 days?: No Complex/New medical issues: pelvic abscess Relevant comorbidities: ulcerative colitis Bedhold?: No CM Screen Outcome Math Interventionist Screen Outcome: Meets high risk criteria for active employment evaluator/case manager intervention Patient/Agent informed of choice and given written list?: Patient/agent accepted list Important message (Medicare rights) given?: No CM Chart Review Notice of Privacy Practice Signed?: Yes Self Pay: No Prescription Plan?: Yes (comment) Pt. Pharmacy & Phone # : [facility] [employer]: Functional/Environmental Assessment Came from Rehab/SNF, plan to return?: No Brief physical/psychosocial summary: patient was independent [employer] Bathing: Independent Dressing: Independent Toileting: Independent Medication administration: Independent Transfers: Independent Ambulation: Independent Meal preparation: Independent Number of stairs into home: 6 Number of stairs to bathroom: 6 Number of stairs to bedroom: 12 Case Management Review Date CM re-review date needed?: Yes Case Management Review Date: 04/16/19 Discharge Assessment Additional Referrals Requested: home health DME Referred to Coordinator for: benefit check Patient/family informed of need for discharge planning?: Yes Patient/Agent informed of choice and given written list?: Patient/agent accepted list Patient expects to be discharged to:: home Actual discharge location : Home-With Homecare Services Has discharge transport been arranged?: No transport arrangement necessary Home with support services reinstated?: No Living Arrangements: Spouse/significant other Support Systems: Spouse/significant other Type of Residence: Private residence Note: Met with patient to explain my role. Patient plans on being discharged to home with home health services. Patient has a new ostomy. A benefit check will be requested. CM will continue to follow Alla Rutledge MElectronically signed by Alla Rutledge RN at 2019 9:41 AM Rachel Lagos RN - 04/14/2019 5:37 AM ESTCritical Hct of 20.0; Brandie Duarte contacted and aware Rachel Chavarriatronically signed by Rachel Chavarria RN at 04/14/2019 5:39 AM Kristin Sears RN - 04/14/2019 5:23 AM ESTNotified from lab about critical value hematocrit 20.0, notified bedside ROBSON Chavarria Radha Casey LMSW - 04/13/2019 11:35 AM EST Social Work Screening Patient Name: Yobany Ying Date of : 1965 County of Residence: [place] Admitting Dx: Pelvic abscess in male [K65.1] Admitting Provider: Oneil Terrell MD Referral Type: Inpatient Referral Source: Self Referral Reason for Referral: Information Date: April 13, 2019 Informant: Patient KADEEM was at nurses desk when pt came up with a release of information form that he began to complete to get records to his GI doctor. SW met with pt in his room to get clarification as release was not completed correctly. PT stated that he has been trying to get prior approval for a medication for ulcerative colitis. He states that he received a call from his GI doctors's office telling him he is approved. However, pt had emergency surgery yesterday and may not have ulcerative colitis and may not needmedications and he would like the medical records from his admissions to be faxed to his GI. SW assisted pt in completing form and also spoke to surgery resident and asked if they can also callpt's GI doctor to speak to him about the findings, they will once pathology has come back. No other needs Interventions Provided psychological support and education to patient on adjustment to illness. Signature: Radha Rogel Date: April 13, 2019 chaffert, Td Reardon MD - 04/13/2019 7:36 AM EST --- DAILY PROGRESS NOTE FOR THE SURGERY SERVICE --- Date: April 13, 2019 7:36 AM HOSPITAL LENGTH OF STAY: 1 POST OPERATIVE DAY #: 1 Day Post-Op PROCEDURE: Procedure(s) (LRB): ex lap, washout, sigmoid resection, end colostomy (N/A) SUBJECTIVE/INTERVAL PRESENT HISTORY: Yobany Ying was examined with the surgical team at bedside today and an interval review of systems was performed. Has had a calm night. No pain. Ostomy pink,still no output. REVIEW OF SYSTEMS: Denies any chest fabiano, dyspnea, nausea, vomiting, diarrhea, abdominal pain. PHYSICAL EXAM: Temp: [36.7 C-37.6 C] 36.9 C Pulse: [79-108] 82 Resp: [10-27] 12 BP: (124-152)/(63-94) 126/70 SpO2: [95 %-100 %] 96 % O2 Therapy: Room air O2 Flow Rate (L/min): [2 L/min] 2 L/min GENERAL: The patient is not in acute distress and resting calmly. CVS: Regular rate and rhythm PULM: Symmetric chest wall expansion and non-labored breathing appreciated. ABDOMINAL: The abdomen is soft, non-tender and non-distended in all four quadrants. There is no abdominal rebound tenderness present. Abdominal midline incision c/d/i. Ostomy pink, no output in bag. Abd bulb drain with serosanguinous output. NEURO: The patient is grossly oriented to place, time, and self during this examination. MSK: All extremities are warm and well perfused. INTAKE AND OUTPUT FROM THE LAST THREE SHIFTS: I/O last 3 completed shifts: In: 2934 [P.O.:30; I.V.:1810.4; Other:25; IV Piggyback:1068.5] Out: 1320 [Urine:985; Drains:155; Stool:5; Blood:175] Recent Labs Lab 04/10/19 0353 04/12/19 1057 04/13/19 0319 NA 136 134* 135* K 3.5 3.5 3.6 CL 98 94* 98 BICARBONATE 29 25 26 GLUCOSE 121 115 120 BUN 6 11 11 CREATININE 0.63* 0.66* 0.73 BCR 10 17 15 GFRAA >90 >90 >90 GFRNONAA >90 >90 >90 Recent Labs Lab 04/09/19 0357 04/10/19 0353 04/12/19 1057 04/13/19 0319 CALCIUM 8.2* 7.9* 8.7 8.1* MG 2.1 1.9 -- 1.8 PHOS 3.4 2.7 -- 4.6* Recent Labs Lab 04/09/19 0357 04/10/19 0353 04/12/19 1057 WBC 19.7* 11.9* 28.5* RBC 2.88* 2.80* 3.39* HGB 7.5* 7.6* 8.8* HCT 24.3* 23.4* 28.5* PLT 687* 656* 731* NEUTOPHILPCT 92 82 94 MONOPCT 6 10 5 LINES/TUBES: Airway: IV Catheters: Peripheral IV 04/12/19 Right Forearm (Active) Site Assessment Clean;Dry;Intact 04/12/2019 10:14 PM Line Status Infusing 04/13/2019 5:00 AM Line Care Connections checked and tightened;Flushed per protocol 04/12/2019 10: 14 PM Dressing Type Tegaderm 04/12/2019 10:14 PM Dressing Status Dry;Clean;Intact 04/12/2019 10:14 PM Number of days: 0 Peripheral IV 04/12/19 Right Hand (Active) Site Assessment Clean;Intact;Dry 04/12/2019 10:14 PM Line Status Infusing 04/13/2019 5:00 AM Dressing Type Tegaderm 04/12/2019 10:14 PM Dressing Status Clean;Dry;Intact 04/12/2019 10:14 PM Number of days: 0 Drains: Closed/Suction Drain Right Abdomen Bulb 19 Fr. (Active) Number of days: 4 Closed/Suction Drain Anterior Abdomen Bulb 19 Fr. (Active) Site Description Unable to view 04/13/2019 3:08 AM Dressing Status Clean;Dry;Intact 04/13/2019 3:08 AM Drainage Appearance Serosanguineous 04/13/2019 3:08 AM Status To bulb suction 04/13/2019 6:45 AM Input (mL) 0 mL 04/13/2019 6:45 AM Output (mL) 10 mL 04/13/2019 6:45 AM Number of days: 0 Colostomy LLQ (Active) Stomal Appliance 2 piece 04/13/2019 6:45 AM Site Assessment Intact 04/13/2019 6:45 AM Output (mL) 5 mL 04/13/2019 6:45 AM Are there skin issues? No breakdown noted 04/13/2019 6:45 AM Number of days: 0 DIET: Dietary Orders (From admission, onward) Start Ordered 04/12/192214 Diet Age: Adult; Diet: NPO; Except For: PO Meds DIET EFFECTIVE NOW Question Answer Comment Age Adult Diet NPO Except For PO Meds 04/12/194 Assessment: 54 y.o. male s/p ex lap, washout, sigmoid resection, end colostomy creation on 04/12 for colonic perforation at the recrosigmiod junction, now recovering well, AROBF and pain control, PT. Patient Active Problem List Diagnosis Date Noted Peptic ulcer disease 04/08/2019 Anemia of chronic disease 04/08/2019 Pelvic abscess in male 04/08/2019 Encounter for ostomy care education 04/08/2019 Ulcerative colitis 04/06/2019 Abscess of abdominal cavity 04/04/2019 INTEGRATED PLAN SUMMARY: -PT/OT, Pain control, ICOUGH OOB AdLib -colostomy rountine care -countinue abdominal drain, with serosanguinous output -Diet still NPO except PO meds, could consider to cautiously advance as tolerated -Overall recovering well from surgery PHARMACOLOGICAL: Lovenox 40 mg Daily , MECHANICAL: SCDs ; STRESS ULCER PROPHYLAXIS: Protonix 40 mg PO twice daily Case discussed with Dr. Terrell. Td Rivera M.D. PGY-1 Resident General Surgery Pager: [phone] Associated attestation - Oneil Terrell MD - 04/13/2019 2:33 PM MAHESH saw and evaluated the patient. Discussed with the resident and agree with residents findings as documented in the resident's note. Pancho Loco MD - 04/13/2019 3:26 AM EST Surgery Progress Note Hospital Day #: 1 Post Operative Day #: 1 Day Post-Op Procedure: Procedure(s) (LRB): ex lap, washout, sigmoid resection, end colostomy (N/A) Interval Present History: Patient seen and examined for a post op check. He reported his pain is well controlled. He has not passed gas or stool to the ostomy. Vital Signs: Temp (24hrs), Av.9 C, Min:36.7 C, Max:37.6 C Visit Vitals BP 126/70 (BP Location: Left arm) Pulse 82 Temp 36.9 C (Oral) Resp 12 Ht 1.803 m Wt 76.2 kg (168 lb) SpO2 98% BMI 23.43 kg/m Physical Exam Gen: NAD CVS: HDS Resp: Normal work of breathing GI: midline incision cdi, rlq drain with serosang drainage, left sided ostomy in place : burdick in place with yellow urine Ext: WWP Data reviewed: Pertinent labs reviewed, please refer to chart for values. Assessment: Yobany Ying is a 54 y.o. male with a colonic perforation at the rectosigmoid junction with a pelvic abscess who is now s/p exlap, washout and hartmanns doing well post op with pain well controlled. Plan: - cw zosyn - cw multimodal pain control - cw npo w/ po meds and mIVF Dustin Loco, PGY1 Pager [phone] Rachel Lagos RN - 04/12/2019 10:10 PM ESTAssumed care of pt upon arrival to at approx 2205 Full assessment, shift specifics, and nursing interventions noted in doc flow Pt is AO x 3, laughing and having meaningful conversation with narrative writer On 2L NC with no respiratory complaints Complains of 10/10 pain (see MAR for intervention) NPO with sips with meds okay Burdick intact draining clear/yellow Ostomy intact with no drainage DEDRICK drain; draining serosanguineous fluid 2 working PIV's [place] spouse at bedside; updated; all questions addressed/answered VSS SCD's on Bed in low position with alarm on; able to demonstrate proper use of call forde Will continue to closely monitor until transfer of care in Rachel Chavarria Rachel Lagos RN - 04/12/2019 10:05 PM ESTIf wound was present on admission, this documentation was sent to attending provider for cosignature. documented in this encounter Plan of Treatment Date Type Specialty Care Team Description 04/17/2019 Office Visit Surgery Erika Ramos V, [facility] [address] [place] [id number] [place] [address] 04/24/2019 Office Visit Surgery Name Type Priority Associated Date/Time Diagnoses Type and Crossmatch Blood Bank STAT 04/12/2019 10:57 AM EST Transfuse RBC Units Nursing Transfusion Routine 04/14/2019 10:07 (Once) 2 Units Over AM EST 1 Hour Each Transfuse RBC Units Nursing Transfusion Routine 04/14/2019 10:07 (Once) 2 Units Over AM EST 1 Hour Each Transfuse RBC Units Nursing Transfusion Routine 04/14/2019 12:22 (Once) 2 Units Over PM EST 1 Hour Each Name Type Priority Associated Order Schedule Diagnoses Surgical Pathology Pathology and Routine Once for 1 Exam ( Only) Cytology Occurrences starting 04/12/2019 until 04/12/2019 CBC Lab Routine Daily for 30 Days starting 04/14/2019 until 05/12/2019, 3 completed Prepare RBC 1 Unit Blood Bank Routine Once for 1 Occurrences starting 04/14/2019 until 04/14/2019 Type and Crossmatch Blood Bank Routine Once for 1 Occurrences starting 04/14/2019 until 04/14/2019 Prepare RBC 2 Units Blood Bank STAT STAT for 1 Occurrences starting 04/14/2019 until 04/14/2019 Name Type Priority Associated Diagnoses Order Schedule Referral to home Outpatient Referral Routine Colostomy in place Ordered: health 04/15/2019 Health Maintenance Due Date Last Done Comments MMR Vaccines (1 of 1 - Standard 02/14/1965 series) Varicella Vaccines (1 of 2 - 02/14/1965 2-dose childhood series) HIV Screening 02/14/1977 Colon Cancer Screening 10 yrs 02/14/2014 DTaP,Tdap,and Td Vaccines (2 - Td) 06/23/2018 05/26/2018 Influenza Vaccine 11/18/2018 Pneumococcal Vaccine: 65+ Years (1 02/14/2029 of 2 - PCV13) Hepatitis C Screening (B. Completed 04/13/[id number]) HIB Vaccines Aged Out No longer eligible [...] of this encounter Implants Implanted Type Area Guide Dog Mobility Instructor Device Shelf Model / Identifier Expiration Serial / Date Lot Barrier Adhesion Seprafilm 5x6 - [id number] N/A: Abdomen [employer] 11/17/2021 [id number] / Implanted: Qty: 1 on 04/12/2019 by Oneil Terrell MD at OR [employer] / [id number] documented as of this encounter Procedures Procedure Name Priority Date/Time Associated Diagnosis Comments CBC Routine 04/15/2019 4:28 Results for this AM EST procedure are in the results section. PHOSPHORUS LEVEL Routine 04/15/2019 4:28 Results for this AM EST procedure are in the results section. MAGNESIUM LEVEL Routine 04/15/2019 4:28 Results for this AM EST procedure are in the results section. BASIC METABOLIC PANEL Routine 04/15/2019 4:28 Results for this AM EST procedure are in the results section. CBC AND DIFFERENTIAL Routine 04/14/2019 3:58 Results for this PM EST procedure are in the results section. BASIC METABOLIC PANEL Routine 04/14/2019 3:58 Results for this PM EST procedure are in the results section. CBC Routine 04/14/2019 6:00 Results for this AM EST procedure are in the results section. BASIC METABOLIC PANEL Routine 04/14/2019 6:00 Results for this AM EST procedure are in the results section. CBC Routine 04/14/2019 3:03 Results for this AM EST procedure are in the results section. PHOSPHORUS LEVEL Routine 04/14/2019 3:03 Results for this AM EST procedure are in the results section. MAGNESIUM LEVEL Routine 04/14/2019 3:03 Results for this AM EST procedure are in the results section. BASIC METABOLIC PANEL Routine 04/14/2019 3:03 Results for this AM EST procedure are in the results section. HEPATITIS C ANTIBODY Routine 04/13/2019 3:30 Results for this AM EST procedure are in the results section. PHOSPHORUS LEVEL Routine 04/13/2019 3:19 Results for this AM EST procedure are in the results section. MAGNESIUM LEVEL Routine 04/13/2019 3:19 Results for this AM EST procedure are in the results section. BASIC METABOLIC PANEL Routine 04/13/2019 3:19 Results for this AM EST procedure are in the results section. 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 URINALYSIS WITH STAT 04/12/2019 3:15 Results for this MICROSCOPIC PM EST procedure are in the results section. ANTIBODY Routine 04/12/2019 10:57 Results for this IDENTIFICATION AM EST procedure are in the results section. CBC AND DIFFERENTIAL Routine 04/12/2019 10:57 Results for this AM EST procedure are in the results section. TYPE AND CROSSMATCH STAT 04/12/2019 10:57 AM EST LIPASE LEVEL Routine 04/12/2019 10:57 Results for this AM EST procedure are in the results section. HEPATIC FUNCTION PANEL Routine 04/12/2019 10:57 Results for this A AM EST procedure are in the results section. BASIC METABOLIC PANEL Routine 04/12/2019 10:57 Results for this AM EST procedure are in the results section. SURGICAL PATHOLOGY Routine 04/12/2019 12:00 Results for this EXAM ( ONLY) AM EST procedure are in the results section. documented in this encounter Results Phosphorus Level (04/15/2019 4:28 AM EST) Phosphorus 2.8 2.5 - 4.5 mg/dL [facility] Pathology Specimen Plasma Performing Organization Address [facility] [place] Phone Number [facility] PATHOLOGY [address] [place] [address] [phone] [facility] [address] [place] [id number] Pathology Magnesium Level (04/15/2019 4:28 AM EST) Magnesium 1.9 1.6 - 2.6 mg/dL [facility] Pathology Specimen Plasma Performing Organization Address [facility] [place] Phone Number [facility] PATHOLOGY [address] [place] [address] [phone] [facility] [address] [place] [address] Pathology CBC (04/15/2019 4:28 AM EST) White Blood Cell 12.9 (H) 4 - 10 10*3/uL [facility] Pathology Red Blood Cell 2.85 (L) 4.6 - 6.1 [facility] 10*6/uL [facility] Clin Pathology Hemoglobin 7.7 (L) 13.5 - 18 g/dL [facility] Pathology Hematocrit 23.6 (L) 41 - 53 % [facility] Pathology Mean Cell Volume 82.8 80 - 96 fL [facility] Pathology Mean Cell Hemoglobin 27.0 27 - 33 pg [facility] Pathology Mean Cell Hgb Conc 32.6 32.0 - 36.0 [facility] g/dL [facility] Pathology Red Cell Dist Width 19.0 (H) 11.5 - 14.5 % [facility] Pathology Platelet Count 624 (H) 150 - 400 [facility] 10*3/uL [facility] Pathology Specimen EDTA Whole Blood Performing Organization Address [facility] [place] Phone Number [facility]OLOG[facility] [address] [place] [address] [facility] [address] [place] [address] Pathology Basic Metabolic Panel (04/15/2019 4:28 AM EST) Bicarbonate 24 22 - 29 mmol/L [facility] Pathology Chloride 100 98 - 107 mmol/L [facility] Pathology Creatinine 0.69 (L) 0.70 - 1.20 [facility] mg/dL [facility] Pathology Glucose 133 70 - 140 mg/dL [facility] Pathology Potassium 4.0 3.4 - 5.1 [facility] mmol/L [facility] Pathology Sodium 135 (L) 136 - 145 [facility] mmol/L [facility] Pathology Blood Urea Nitrogen 7 6 - 20 mg/dL [facility] Pathology Anion Gap 10 8 - 15 mmol/L [facility] Pathology Osmolality, Lalito 280 275 - 300 [facility] mosm/kg [facility] Pathology BUN/Cre Ratio 10 [facility] Pathology Calcium 7.4 (L) 8.6 - 10.0 [facility] mg/dL [facility] Pathology GFR Non >90 >60 [facility] Ghanaian 2008 CDK-EPI mL/min/1.73m2 [facility] Pathology GFR >90 >60 [facility] 2009 CKD-EPI mL/min/1.73m2 [facility] Clin Pathology Specimen Plasma Performing Organization Address City/State/[facility] [place] Phone Number [facility] CL[facility]ICAL PATHOLOGY [address] [place], [place] [phone] [facility] [address] [place] [address] Pathology Basic Metabolic Panel (04/14/2019 3:58 PM EST) Bicarbonate 25 22 - 29 mmol/L [facility] Pathology Chloride 99 98 - 107 mmol/L [facility] Pathology Creatinine 0.62 (L) 0.70 - 1.20 [facility] mg/dL [facility] Pathology Glucose 99 70 - 140 mg/dL [facility] Pathology Potassium 4.0 3.4 - 5.1 [facility] mmol/L [facility] Pathology Sodium 133 (L) 136 - 145 [facility] mmol/L [facility] Pathology Blood Urea Nitrogen 9 6 - 20 mg/dL [facility] Pathology Anion Gap 9 8 - 15 mmol/L [facility] Pathology Osmolality, Lalito 275 275 - 300 [facility] mosm/kg [facility] Pathology BUN/Cre Ratio 15 [facility] Pathology Calcium 7.7 (L) 8.6 - 10.0 [facility] mg/dL [facility] Pathology GFR Non >90 >60 [facility] Ghanaian 2008 CDK-EPI mL/min/1.73m2 [facility] Pathology GFR >90 >60 [facility] 2009 CKD-EPI mL/min/1.73m2 [facility] Clin Pathology Specimen Plasma Performing Organization Address City/State/Zipcode Phone Number [facility] CLINICAL PATHOLOGY [address] [place] [address] [facility] [address] [place] [address] Pathology CBC and Differential (04/14/2019 3:58 PM EST) White Blood Cell 15.2 (H) 4 - 10 [facility] 10*3/uL [facility] Pathology Red Blood Cell 2.80 (L) 4.6 - 6.1 [facility] 10*6/uL [facility] Pathology Hemoglobin 7.5 (L) 13.5 - 18 [facility] g/dL [facility] Pathology Hematocrit 23.5 (L) 41 - 53 % [facility] Pathology Mean Cell Volume 83.8 80 - 96 fL [facility] Pathology Mean Cell Hemoglobin 26.9 (L) 27 - 33 pg [facility] Pathology Mean Cell Hgb Conc 32.1 32.0 - 36.0 [facility] g/dL [facility] Pathology Red Cell Dist Width 18.6 (H) 11.5 - 14.5 % [facility] Pathology Platelet Count 600 (H) 150 - 400 [facility] 10*3/uL Univ [facility] Pathology Differential Type Automated Diff [facility] Pathology Neutrophil 85 % [facility] Pathology Lymphocyte 6 % [facility] Pathology Monocyte 6 % [facility] Pathology Eosinophil 3 % [facility] Pathology Basophil 0 % [facility] Pathology Abs Neutrophil 12.94 (H) 1.8 - 7.0 [facility] 10*3/uL Univ [facility] Pathology Abs Lymphocyte 0.86 (L) 1.2 - 4.0 [facility] 10*3/uL [facility] Pathology Abs Monocyte 0.87 (H) 0 - 0.8 [facility] 10*3/uL [facility] Pathology Abs Eosinophil 0.49 0 - 0.5 [facility] 10*3/uL [facility] Pathology Abs Basophil 0.02 0 - 0.2 [facility] 10*3/uL [facility] Pathology Nucleated Red Blood 0 0 - 0 [facility] Cells /100{WBCs} [facility] Pathology Specimen EDTA Whole Blood Performing Organization Address [facility] Phone Number [facility] [address] [place] [address] [phone] [facility] [address] [place] [address] Pathology CBC (04/14/2019 6:00 AM EST) White Blood Cell 16.1 (H) 4 - 10 [facility] 10*3/uL [facility] Pathology Red Blood Cell 2.45 (L) 4.6 - 6.1 [facility] 10*6/uL [facility] Pathology Hemoglobin 6.5 (L) 13.5 - 18 [facility] g/dL [facility] Pathology Hematocrit 20.6 (LL)Comment: 41 - 53 % [facility] No significant [facility] change since last Pathology result called Mean Cell Volume 84.1 80 - 96 fL [facility] Pathology Mean Cell 26.5 (L) 27 - 33 pg [facility] Hemoglobin [facility] Pathology Mean Cell Hgb Conc 31.5 (L) 32.0 - 36.0 [facility] g/dL [facility] Pathology Red Cell Dist 19.7 (H) 11.5 - 14.5 % [facility] Width [facility] Pathology Platelet Count 634 (H) 150 - 400 [facility] 10*3/uL [facility] Pathology Specimen EDTA Whole Blood Performing Organization Address [facility] Phone Number [facility] PATHOLOG[facility] [address] [place] [address] [phone] [facility] [address] [place] [address] Pathology Basic Metabolic Panel (04/14/2019 6:00 AM EST) Bicarbonate 23 22 - 29 mmol/L [facility] Pathology Chloride 101 98 - 107 mmol/L [facility] Pathology Creatinine 0.79 0.70 - 1.20 [facility] mg/dL [facility] Pathology Glucose 112 70 - 140 mg/dL [facility] Pathology Potassium 4.2 3.4 - 5.1 [facility] mmol/L [facility] Pathology Sodium 139 136 - 145 [facility] mmol/L [facility] Pathology Blood Urea Nitrogen 10 6 - 20 mg/dL [facility] Pathology Anion Gap 15 8 - 15 mmol/L [facility] Pathology Osmolality, Lalito 287 275 - 300 [facility] mosm/kg [facility] Pathology BUN/Cre Ratio 13 [facility] Pathology Calcium 7.5 (L) 8.6 - 10.0 [facility] mg/dL [facility] Pathology GFR Non >90 >60 [facility] Ghanaian 2009 CDK-EPI mL/min/1.73m2 [facility] Pathology GFR >90 >60 [facility] 2009 CKD-EPI mL/min/1.73m2 [facility] Pathology Specimen Plasma Performing Organization Address [facility] Phone Number [facility]OLOG[facility] [address] [place] [address] [facility] [address] [place] [address] Pathology Phosphorus Level (04/14/2019 3:03 AM EST) Phosphorus 3.0 2.5 - 4.5 mg/dL [facility] Pathology Specimen Plasma Performing Organization Address [facility] Phone Number [facility] CLINICAL PATHOLOGY [address] [place] [address] [facility] [address] [place] [address] Pathology Magnesium Level (04/14/2019 3:03 AM EST) Magnesium 1.9 1.6 - 2.6 mg/dL [facility] Pathology Specimen Plasma Performing Organization Address [facility] Phone [facility] CLINICAL PATHOLOGY [address] [place] [address] [phone] [facility] [address] [place] [address] Pathology CBC (04/14/2019 3:03 AM EST) White Blood Cell 17.4 (H) 4 - 10 [facility] 10*3/uL [facility] Clin Pathology Red Blood Cell 2.39 (L) 4.6 - 6.1 [facility] 10*6/uL [facility] Pathology Hemoglobin 6.4 (L) 13.5 - 18 [facility] g/dL [facility] Pathology Hematocrit 20.0 (LL)Comment: 41 - 53 % [facility] Called to and Univ [facility] read back by Pathology Shana Thompson RN, 6B, 05:22. 1663 Mean Cell Volume 84.0 80 - 96 fL [facility] Pathology Mean Cell 26.6 (L) 27 - 33 pg [facility] Hemoglobin [facility] Pathology Mean Cell Hgb Conc 31.7 (L) 32.0 - 36.0 [facility] g/dL [facility] Pathology Red Cell Dist Width 19.8 (H) 11.5 - 14.5 % [facility] Pathology Platelet Count 567 (H) 150 - 400 [facility] 10*3/uL [facility] Pathology Specimen EDTA Whole Blood Performing Organization Address City/State/Zipcode Phone Number [facility] CL[facility]ICAL PATHOLOGY [address] [place] [address] [facility] [address] [place] [address] Pathology Basic Metabolic Panel (04/14/2019 3:03 AM EST) Bicarbonate 25 22 - 29 mmol/L [facility] Pathology Chloride 98 98 - 107 mmol/L [facility] Pathology Creatinine 0.78 0.70 - 1.20 [facility] mg/dL [facility] Pathology Glucose 113 70 - 140 mg/dL [facility] Pathology Potassium 4.1 3.4 - 5.1 [facility] mmol/L [facility] Pathology Sodium 131 (L) 136 - 145 [facility] mmol/L [facility] Pathology Blood Urea Nitrogen 9 6 - 20 mg/dL [facility] Pathology Anion Gap 8 8 - 15 mmol/L [facility] Pathology Osmolality, Lalito 271 (L) 275 - 300 [facility] mosm/kg [facility] Pathology BUN/Cre Ratio 12 [facility] Pathology Calcium 7.7 (L) 8.6 - 10.0 [facility] mg/dL [facility] Pathology GFR Non >90 >60 [facility] Ghanaian 2009 CDK-EPI mL/min/1.73m2 [facility] Pathology GFR >90 >60 [facility] 2009 CKD-EPI mL/min/1.73m2 [facility] Pathology Specimen Plasma Performing Organization Address [facility] Phone Number [facility] CL[facility]ICAL PATHOLOGY [address] [place] [address] [phone] [facility] [address] [place] [address] Pathology Hepatitis C antibody (04/13/2019 3:30 AM EST) Hepatitis C Ab Non ReactiveComment: Non Reactive [facility] No serological [facility] evidence of active Pathology infection. If recent exposure is suspected, test for HCV RNA. Specimen Serum Performing Organization Address [facility] Phone [facility] [address] [place] [address] [phone] [facility] [address] [place] [address] Pathology Phosphorus Level (04/13/2019 3:19 AM EST) Phosphorus 4.6 (H) 2.5 - 4.5 mg/dL [facility] Pathology Specimen Plasma Performing Organization Address [facility] Phone Number [facility] [address] [place] [address] [facility] [address] [place] [address] Pathology Magnesium Level (04/13/2019 3:19 AM EST) Magnesium 1.8 1.6 - 2.6 mg/dL [facility] Pathology Specimen Plasma Performing Organization Address [facility] Phone Number [facility] [address] [place] [address] [phone] [facility] [address] [place] [address] Pathology Basic Metabolic Panel (04/13/2019 3:19 AM EST) Bicarbonate 26 22 - 29 mmol/L [facility] Pathology Chloride 98 98 - 107 mmol/L [facility] Pathology Creatinine 0.73 0.70 - 1.20 [facility] mg/dL [facility] Pathology Glucose 120 70 - 140 mg/dL [facility] Pathology Potassium 3.6 3.4 - 5.1 [facility] mmol/L [facility] Pathology Sodium 135 (L) 136 - 145 [facility] mmol/L [facility] Pathology Blood Urea Nitrogen 11 6 - 20 mg/dL [facility] Pathology Anion Gap 11 8 - 15 mmol/L [facility] Pathology Osmolality, Lalito 281 275 - 300 [facility] mosm/kg [facility] Pathology BUN/Cre Ratio 15 [facility] Pathology Calcium 8.1 (L) 8.6 - 10.0 [facility] mg/dL [facility] Pathology GFR Non >90 >60 [facility] Ghanaian 2009 CDK-EPI mL/min/1.73m2 [facility] Pathology GFR >90 >60 [facility] 2009 CKD-EPI mL/min/1.73m2 [facility] Pathology Specimen Plasma Performing Organization Address City/State/Zipcode Phone Number [facility] CL[facility]ICAL PATHOLOGY [address] [place] [address] [facility] [address] [place] [address] Abdomen Pelvis with Contrast (04/12/2019 3:55 PM EST) Specimen Impressions Performed At IMPRESSION: [facility] 1. Compared to prior examination, there has been interval enlargement of the left paracolic abdominal fluid collection, likely abscess, as described above. The collection now extends more superiorly and anteriorly, with all components likely communicating. A drain is present within this collection. 2. Diffuse thickening of the sigmoid colon, and surrounding soft tissue stranding, consistent with diverticulitis. Narrative Performed At INDICATION: 54-year-old male status post drain placement for left lower [facility] quadrant abscess, assess for abscess. TECHNIQUE: Multidetector CT images were obtained from the domes of the diaphragm to the iliac crests and from the iliac crests to the greater trochanters with intravenous contrast. No oral contrast was administered. Coronal and sagittal images were reconstructed from the axial data. Automated dose lowering techniques and/or adjustment according to patient size were utilized for this exam. COMPARISON: CT abdomen pelvis dated 04/05/2019. FINDINGS: There is suboptimal evaluation of the bowel and mesentery due to lack of oral contrast. Lungs: The visualized lung bases appear clear. Liver: Normal in size and contour. No focal lesions are identified. Gallbladder: The gall bladder is without radio opaque stone. No gallbladder wall thickening is seen. Biliary Ducts: No biliary ductal dilatation is seen. Spleen: Small in size measuring approximately 7.2 x 2.2 x 2.9 cm. A small 1.5 cm splenule is visualized adjacent to the superior medial aspect of the spleen. Pancreas: Normal in size and configuration. No ductal dilatation is visualized. Adrenal Glands: Normal in size and contour. Kidneys: Unremarkable. Bowel: The bowel is nondilated without evidence for bowel obstruction. The appendix is visualized and is unremarkable. There is diffuse wall thickening the sigmoid colon with surrounding edema and inflammatory fat stranding. The fluid collection along the left aspect of the sigmoid colon appears slightly enlarged compared to prior examination, now measuring approximately 7.0 x 3.1 cm, with a portion extending more superiorly into the peritoneum measuring approximately 5.5 x 2.4 cm.. A percutaneous drain is present within the collection, terminating within the most dependent portion of the collection. All components of the collection appear to communicate. Peritoneum: There is a small amount of pneumoperitoneum, likely postsurgical. Vasculature: No aortic aneurysm is seen. Normal in size and caliber. Lymph nodes: Scattered subcentimeter retroperitoneal, mesenteric and pelvic lymph nodes are seen. In the pelvis, The prostate gland does not appear enlarged, however does contain several calcifications. The seminal vesicles are symmetric. The bladder is partially distended and partially filled with contrast. It appears grossly unremarkable. Bones: Small 5 mm sclerotic focus visualized in the left iliac bone, likely product sales representative of a bone island. 1 cm sclerotic focus is visualized in the left sacrum near to, which may represent bone island. A 5.7 mm sclerotic focus is visualized in the right side of the L3 vertebral body, which may represent a bone island. There are multilevel degenerative changes visualized throughout the spine. Mild degenerative changes of the bilateral hips. Body wall: A small fat containing umbilical hernia is seen. Left-sided abdominal drain, as described above. Procedure Note Interface, Received Via [employer] [facility] - 04/12/2019 4:55 PM EST INDICATION: 54-year-old male status post drain placement for left lower quadrant abscess, assess for abscess. TECHNIQUE: Multidetector CT images were obtained from the domes of the diaphragm to the iliac crests and from the iliac crests to the greater trochanters with intravenous contrast. No oral contrast was administered. Coronal and sagittal images were reconstructed from the axial data. Automated dose lowering techniques and/or adjustment according to patient size were utilized for this exam. COMPARISON: CT abdomen pelvis dated 04/05/2019. FINDINGS: There is suboptimal evaluation of the bowel and mesentery due to lack of oral contrast. Lungs: The visualized lung bases appear clear. Liver: Normal in size and contour. No focal lesions are identified. Gallbladder: The gall bladder is without radio opaque stone. No gallbladder wall thickening is seen. Biliary Ducts: No biliary ductal dilatation is seen. Spleen: Small in size measuring approximately 7.2 x 2.2 x 2.9 cm. A small 1.5 cm splenule is visualized adjacent to the superior medial aspect of the spleen. Pancreas: Normal in size and configuration. No ductal dilatation is visualized. Adrenal Glands: Normal in size and contour. Kidneys: Unremarkable. Bowel: The bowel is nondilated without evidence for bowel obstruction. The appendix is visualized and is unremarkable. There is diffuse wall thickening the sigmoid colon with surrounding edema and inflammatory fat stranding. The fluid collection along the left aspect of the sigmoid colon appears slightly enlarged compared to prior examination, now measuring approximately 7.0 x 3.1 cm, with a portion extending more superiorly into the peritoneum measuring approximately 5.5 x 2.4 cm.. A percutaneous drain is present within the collection, terminating within the most dependent portion of the collection. All components of the collection appear to communicate. Peritoneum: There is a small amount of pneumoperitoneum, likely postsurgical. Vasculature: No aortic aneurysm is seen. Normal in size and caliber. Lymph nodes: Scattered subcentimeter retroperitoneal, mesenteric and pelvic lymph nodes are seen. In the pelvis, The prostate gland does not appear enlarged, however does contain several calcifications. The seminal vesicles are symmetric. The bladder is partially distended and partially filled with contrast. It appears grossly unremarkable. Bones: Small 5 mm sclerotic focus visualized in the left iliac bone, likely product sales representative of a bone island. 1 cm sclerotic focus is visualized in the left sacrum near to, which may represent bone island. A 5.7 mm sclerotic focus is visualized in the right side of the L3 vertebral body, which may represent a bone island. There are multilevel degenerative changes visualized throughout the spine. Mild degenerative changes of the bilateral hips. Body wall: A small fat containing umbilical hernia is seen. Left-sided abdominal drain, as described above. IMPRESSION: 1. Compared to prior examination, there has been interval enlargement of the left paracolic abdominal fluid collection, likely abscess, as described above. The collection now extends more superiorly and anteriorly, with all components likely communicating. A drain is present within this collection. 2. Diffuse thickening of the sigmoid colon, and surrounding soft tissue stranding, consistent with diverticulitis. Performing Organization Address City/[facility] Phone Number [facility] [address] [place] [address] Urinalysis with microscopic (04/12/2019 3:15 PM EST) Color Demetria [facility] Pathology Clarity Sl Cloudy [facility] Pathology Specific [place] 1.022 1.003 - 1.030 [facility] Pathology PH Urine 6.0 5.0 - 8.0 [facility] Pathology Total Protein UA 30 (A) Negative mg/dL [facility] Pathology Glucose UA Negative Negative mg/dL [facility] Pathology Ketone Urine 80 (A) Negative mg/dL [facility] Pathology Bilirubin Negative Negative [facility] Pathology Hemoglobin, Urine 1+ (A) Negative [facility]ology Leukocyte Esterase Negative Negative [place]ores/uL [facility]ology Nitrite Negative Negative [facility] WBC 5 0 - 5 /HPF [facility] RBC 7 (H) 0 - 3 /HPF [facility] Pathology Squam Epithel, UA <1 (A) None /HPF [facility] Pathology Mucus, UA 1+ (A) None /LPF [facility] Pathology Hyaline Cast 4 (A) None /LPF [facility] Pathology Specimen Urine Performing Organization Address [facility] Phone Number [facility] PATHOLOGY [address] [place] [address] [phone] [facility] [address] [place] [address] Pathology Antibody Identification (04/12/2019 10:57 AM EST) ANTIBODY IDENT Anti-JK(A) [facility] Pathology Site Performed at [facility], [facility] Pathology [place], [place] Specimen EDTA Whole Blood Performing Organization Address [facility] Phone Number [facility] PATHOLOGY [address] [place] [address] [facility] [address] [place] [address] Pathology Lipase Level (04/12/2019 10:57 AM EST) Lipase 145 (H) 13 - 60 U/L [facility] Pathology Specimen Plasma Performing Organization Address [facility] Phone Number [facility] PATHOLOG[facility] [address] [place] [address] [facility] [address] [place] [id number] Pathology Hepatic Function Panel (04/12/2019 10:57 AM EST) Albumin 3.1 (L) 3.5 - 5.2 g/dL [facility] Pathology Bilirubin, Total 0.4 <1.2 mg/dL [facility] Pathology Bilirubin, Direct <0.2 <0.3 mg/dL [facility] Pathology Alkaline Phosphatase 155 (H) 40 - 129 U/L [facility] Pathology AST/SGO 53 (H) <40 U/L [facility] Pathology ALT/SGP 39 <41 U/L [facility] Pathology Total Protein 6.9 6.4 - 8.3 g/dL [facility] Pathology Specimen Plasma Performing Organization Address [facility] Phone Number [facility] CLINICAL PATHOLOGY [address] [place] [address] [phone] [facility] [address] [place] [id number] Pathology CBC and Differential (04/12/2019 10:57 AM EST) White Blood Cell 28.5 (H) 4 - 10 [facility] 10*3/uL [facility] Pathology Red Blood Cell 3.39 (L) 4.6 - 6.1 [facility] 10*6/uL [facility] Pathology Hemoglobin 8.8 (L) 13.5 - 18 [facility] g/dL [facility] Pathology Hematocrit 28.5 (L) 41 - 53 % [facility] Pathology Mean Cell Volume 84.1 80 - 96 fL [facility] Pathology Mean Cell Hemoglobin 26.0 (L) 27 - 33 pg [facility] Pathology Mean Cell Hgb Conc 31.0 (L) 32.0 - 36.0 [facility] g/dL Univ Clin Pathology Red Cell Dist Width 19.7 (H) 11.5 - 14.5 % [facility] Pathology Platelet Count 731 (H) 150 - 400 [facility] 10*3/uL [facility] Pathology Differential Type Automated Diff [facility] Pathology Neutrophil 94 % [facility] Lymphocyte 1 % [facility] Pathology Monocyte 5 % [facility] Pathology Eosinophil 0 % [facility] Pathology Basophil 0 % [facility] Pathology Abs Neutrophil 26.64 (H) 1.8 - 7.0 [facility] 10*3/uL [facility] Pathology Abs Lymphocyte 0.41 (L) 1.2 - 4.0 [facility] 10*3/uL [facility] Pathology Abs Monocyte 1.36 (H) 0 - 0.8 [facility] 10*3/uL [facility] Pathology Abs Eosinophil 0.08 0 - 0.5 [facility] 10*3/uL [facility] Pathology Abs Basophil 0.03 0 - 0.2 [facility] 10*3/uL [facility] Pathology Nucleated Red Blood 0 0 - 0 [facility] Cells /100{WBCs} [facility] Pathology Specimen EDTA Whole Blood Performing Organization Address City/State/Zipcode Phone Number [facility] CL[facility]ICAL PATHOLOGY [address] [place] [address] [facility] [address] [place] [address] Pathology Basic Metabolic Panel (04/12/2019 10:57 AM EST) Bicarbonate 25 22 - 29 mmol/L [facility] Pathology Chloride 94 (L) 98 - 107 mmol/L [facility] Pathology Creatinine 0.66 (L) 0.70 - 1.20 [facility] mg/dL [facility] Pathology Glucose 115 70 - 140 mg/dL [facility] Pathology Potassium 3.5 3.4 - 5.1 [facility] mmol/L [facility] Pathology Sodium 134 (L) 136 - 145 [facility] mmol/L [facility] Pathology Blood Urea Nitrogen 11 6 - 20 mg/dL [facility] Pathology Anion Gap 15 8 - 15 mmol/L [facility] Pathology Osmolality, Lalito 278 275 - 300 [facility] mosm/kg [facility] Pathology BUN/Cre Ratio 17 [facility] Pathology Calcium 8.7 8.6 - 10.0 [facility] mg/dL [facility] Pathology GFR Non >90 >60 [facility] Ghanaian 2009 CDK-EPI mL/min/1.73m2 [facility] Pathology GFR >90 >60 [facility] 2009 CKD-EPI mL/min/1.73m2 [facility] Pathology Specimen Plasma Performing Organization Address City/State/Zipcode Phone Number [facility] CL[facility]ICAL PATHOLOGY [address] [place] [address] [facility] [address] [place] [address] Pathology Surgical Pathology Exam ( Only) (04/12/2019 12:00 AM EST) SURGICAL Surgical Pathology Report [facility] Name: [facility] CLINICAL PATHOLOGY Collection Date: 04/12/2019 00:00 Received Date: 04/13/2019 07:12 Physician(s): ONEIL TERRELL MOUSTAFA AOM Specimen(s) Received A: Perforated colon R/O ulcerative colitis Clinical History 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 Rule out ulcerative colitis. Diagnosis COLON, PARTIAL COLECTOMY: RUPTURED DIVERTICULITIS WITH PARADIVERTICULAR ABCESS. QUIESCENT (INACTIVE) COLITIS CONSISTENT WITH HISTORY OF ULCERATIVE COLITIS. NEGATIVE FOR DYSPLASIA. Electronically Signed By Amauri Dutton M.D., Attending Pathologist 04/14/2019 15:41:04 Unless 'gross-only' is specified, the final diagnosis is based on a microscopic examination of product sales representative sections of tissue. Gross Description The specimen is received in formalin labeled with the patient's name "Yobany Ying" and "perforated colon". It consists of a segment of unoriented large bowel measuring 7.0 cm in length. Both ends are stapled. The serosa is farfan and thickened. There is a moderate amount of red-green necrotic appearing fat. On opening the mucosa is pink-red with the usual folds that appear slightly edematous. On sectioning an area of hemorrhage and possible abscess formation is identified measuring 0.8 cm in greatest dimension. Additional uncomplicated diverticulum are present. No other lesions are seen. Soda Fountain Operator sections are submitted as follows: A1 - margins. A2 - area of abscess. A3-5 - additional product sales representative sections of diverticula. ND/hjg This report may include one or more immunohistochemical stain results that use analyte specific reagents. All positive and negative controls have been reviewed by the attending pathologist and are satisfactory. The tests were developed and their performance characteristics determined by [facility] Pathology department. They have not been cleared or approved by the [place] Food and Drug Administration. The FDA has determined that such clearance or approval is not necessary. Specimen Performing Organization Address City/State/Zipcode Phone Number [facility] CL[facility]ICAL PATHOLOGY [address] [place] [address] documented in this encounter Visit Diagnoses Diagnosis Pelvic abscess in male - Primary Colostomy in place Colostomy status documented in this encounter Administered Medications Medication Order MAR Action Action Date Dose Rate Site acetaminophen (TYLENOL) tablet Given 04/15/2019 5:53 AM EST 975 mg 975 mg 975 mg, Oral, Every 8 hours, First dose on Sat04/12/19 at 2215, For 30 days, Maximum daily dose of acetaminophen is 3,000 mg from all sources in 24 hours., Given 04/14/2019 10:03 PM EST 975 mg Given 04/14/2019 1:50 PM EST 975 mg calcium carbonate (TUMS) chewable tablet 500 Given 04/14/2019 1:00 AM EST 500 mg mg 500 mg, Oral, Daily PRN, Indigestion, Starting Tu04/14/19 at 0018, For 30 days colchicine tablet 0.6 mg Given 04/15/2019 8:04 AM EST 0.6 mg 0.6 mg, Oral, Daily Standard, First dose on Sat04/13/19 at 0900, For 30 days Given 04/14/2019 8:45 AM EST 0.6 mg Given 04/13/2019 8:37 AM EST 0.6 mg enoxaparin sodium (LOVENOX) injection 40 mg Given 04/15/2019 8:04 AM EST 40 mg 40 mg, Subcutaneous, Daily Standard, First dose on Sat04/13/19 at 0900, For 30 days, Non Patients: body weight < 150 kg, CrCl > 30 mL/min. Guidelines for Lovenox: MUST wait 24 hours before starting Enoxaparin if patient has epidural catheter. D/C Enoxaparin 10-12 hours prior to removing epidural catheter., Given 04/14/2019 8:44 AM EST 40 mg Given 04/13/2019 8:37 AM EST 40 mg escitalopram (LEXAPRO) tablet 10 mg Given 04/15/2019 8:04 AM EST 10 mg 10 mg, Oral, Daily Standard, First dose on Sat04/13/19 at 0900, For 30 days Given 04/14/2019 8:45 AM EST 10 mg Given 04/13/2019 8:37 AM EST 10 mg fentaNYL (SUBLIMAZE) (PF) injection 25 mcg New 04/14/2019 6:51 PM EST 25 mcg 25 mcg, Intravenous, Every 2 hours PRN, breakthrough pain, Starting Sat04/12/19 at 2214, For 7 days 04/14/2019 2:41 PM EST 25 mcg 04/12/2019 10:58 PM EST 25 mcg lidocaine (LIDODERM) 5 % patch Patch Applied 04/14/2019 6:51 PM EST 1 patch Other 1 patch 1 patch, Transdermal, Every 24 hours, First dose on Sat04/13/19 at 1945, For 30 days, Apply to right shoulder 12 hours on - 12 hours off, Patch Applied 04/13/2019 8:23 PM EST 1 patch Other melatonin tablet 5 mg Given 04/14/2019 10:03 PM EST 5 mg 5 mg, Oral, Nightly, First dose on Sat04/14/19 at 2200, For 30 days ondansetron (ZOFRAN) injection 4 mg 04/13/2019 10:09 AM EST 4 mg 4 mg, Intravenous, Every 8 hours PRN, Nausea, Vomiting, Starting Sat04/12/19 at 2214, For 5 days oxyCODONE (ROXICODONE) immediate release Given 04/14/2019 5:15 PM EST 10 mg tablet 10 mg 10 mg, Oral, Every 4 hours PRN, Severe Pain (Pain Scale Score 7-10), Starting Sat04/14/19 at 1212, For 72 hours, Oxycodone immediate release is limited to 10 mg per dose. Higher doses ( only) require Pain Service consultation and approval., oxyCODONE (ROXICODONE) immediate release Given 04/15/2019 5:53 AM EST 5 mg tablet 5 mg 5 mg, Oral, Every 4 hours PRN, Moderate Pain (Pain Scale Score 4-6), Starting Sat04/14/19 at 1212, For 72 hours, Oxycodone immediate release is limited to 10 mg per dose. Higher doses ( only) require Pain Service consultation and approval., Given 04/14/2019 10:03 PM EST 5 mg Given 04/14/2019 12:48 PM EST 5 mg pantoprazole (PROTONIX) EC tablet 40 mg Given 04/15/2019 8:04 AM EST 40 mg 40 mg, Oral, 2 Times Daily, First dose on Sat04/13/19 at 0900, For 30 days, Do not crush or chew, Given 04/14/2019 8:59 PM EST 40 mg Given 04/14/2019 8:45 AM EST 40 mg piperacillin-tazobactam (ZOSYN) New Bag 04/15/2019 5:54 AM 3.375 g 12.5 mL /hr IVPB 3.375 g (premix) EST 3.375 g, Intravenous, Administer over 4 Hours, Every 8 hours, First dose on Sat04/13/19 at 0200, For 5 days New Bag 04/14/2019 10:03 PM EST 3.375 g 12.5 mL/hr New Bag 04/14/2019 1:58 PM EST 3.375 g 12.5 mL/hr simethicone (MYLICON) chewable tablet 80 mg Given 04/14/2019 1:50 PM EST 80 mg 80 mg, Oral, Every 6 hours PRN, Flatulence, Starting Sat04/14/19 at 0021, For 30 days Given 04/14/2019 1:00 AM EST 80 mg Medication Order MAR Action Action Date Dose Rate Site dextrose 5 % and 0.45 % NaCl New Bag 04/14/2019 8:48 AM EST 125 mL/hr with KCl 20 mEq infusion at 125 mL/hr, Intravenous, Continuous, Starting [place] 04/12/19 at 2215, For 30 days Restarted - All Meds 04/14/2019 1:00 AM EST 125 mL/hr Rate/Dose Verify 04/14/2019 12:59 AM EST 125 mL/hr diphenhydrAMINE (BENADRYL) injection 25 mg Given 04/12/2019 8:57 PM EST 25 mg 25 mg, Intravenous, Once PRN, Nausea, Vomiting, Starting Sat20 at 2031, For 1 dose, Recovery fentaNYL (SUBLIMAZE) (PF) Given by IV push 04/12/2019 8:50 PM EST 25 mcg injection 25 mcg 25 mcg, Intravenous, Every 5 min PRN, Moderate Pain (Pain Scale Score 4-6), Starting [place] 04/12/19 at 2031, For 10 doses, Recovery Given by IV push 04/12/2019 8:45 PM EST 25 mcg Given by IV push 04/12/2019 8:30 PM EST 25 mcg fentaNYL (SUBLIMAZE) (PF) Given by IV push 04/12/2019 1:16 PM EST 50 mcg injection 50 mcg 50 mcg, Intravenous, Once, [place] 04/12/19 at 1300, For 1 dose fentaNYL (SUBLIMAZE) (PF) Given by IV push 04/12/2019 4:23 PM EST 50 mcg injection 50 mcg 50 mcg, Intravenous, Once, [place] 04/12/19 at 1600, For 1 dose iohexol (OMNIPAQUE) 300 MG/ML contrast Given 04/12/2019 3:55 PM EST 100 mLs injection 100 mL 100 mL, Given by IV, 1 TIME IMAGING, [place] 04/12/19 at 1500, For 1 dose ketorolac (TORADOL) 30 MG/ML injection 15 New Bag 04/14/2019 8:08 AM EST 15 mg mg 15 mg, Intravenous, Every 6 hours, First dose on Sat04/12/19 at 2044, For 3 days New Bag 04/14/2019 1:02 AM EST 15 mg Given by IV push 04/13/2019 8:24 PM EST 15 mg magnesium gluconate (MAGONATE) tablet TABS Given 04/13/2019 8:37 AM EST 500 mg 500 mg 500 mg, Oral, Once, [facility] 04/13/19 at 0630, For 1 dose morphine sulfate (PF) injection 2 mg Given 04/12/2019 8:55 PM EST 2 mg 2 mg, Intravenous, Every 5 min PRN, Severe Pain (Pain Scale Score 7-10), Starting [place] 04/12/19 at 2031, For 5 doses, Recovery Given 04/12/2019 8:50 PM EST 2 mg Given by IV push 04/12/2019 8:40 PM EST 2 mg morphine sulfate (PF) injection 4 Given by IV push 04/12/2019 11:13 AM EST 4 mg mg 4 mg, Intravenous, Once, 04/12/19 at 1115, For 1 dose oxyCODONE (ROXICODONE) immediate release Given 04/13/2019 4:20 AM EST 10 mg tablet 10 mg 10 mg, Oral, Every 4 hours PRN, Severe Pain (Pain Scale Score 7-10), Starting 04/12/19 at 2040, For 3 days, Oxycodone immediate release is limited to 10 mg per dose. Higher doses ( only) require Pain Service consultation and approval., Given 04/12/2019 8:45 PM EST 10 mg oxyCODONE (ROXICODONE) immediate release Given 04/13/2019 10:19 PM EST 5 mg tablet 5 mg 5 mg, Oral, Every 4 hours PRN, Moderate Pain (Pain Scale Score 4-6), Starting 04/12/19 at 2040, For 3 days, Oxycodone immediate release is limited to 10 mg per dose. Higher doses ( only) require Pain Service consultation and approval., Given 04/13/2019 5:10 PM EST 5 mg Given 04/13/2019 11:20 AM EST 5 mg potassium chloride (K-DUR,KLOR-CON) Given 04/13/2019 6:50 AM EST 40 mEq dissolvable tablet 40 mEq 40 mEq, Oral, Once, 04/13/19 at 0630, For 1 dose, May be dissolved in water for patients with a G-Tube or unable to swallow. If concern for clogging G-Tube, may contact Pharmacy to switch formulation to a powder packet., prochlorperazine (COMPAZINE) New Bag 04/12/2019 12:12 PM EST 10 mg 200 mL/ hr injection 10 mg 10 mg, Intravenous, Once, 04/12/19 at 1200, For 1 dose sodium chloride 0.9 % bolus New Bag 04/12/2019 11:13 AM EST 1,000 mLs 1000 mL/hr 1,000 mL 1,000 mL, Intravenous, Once, 04/12/19 at 1115, For 1 dose documented in this encounter
--- OUTSIDE RECORDS SUMMARY | 2019-05-08 08:52 | XMS REPORT | Summary of Care ---
:1965 Author Organization [facility] Address [address] [place] [address] Care Team Providers Name Role Phone Dougie Gaytan DO Primary Care Provider Reason for Visit Reason Comments Post-op Problem Encounter Details Date Type Department Care Team Description 04/24/2019 Emergency EMERGENCY DEPARTMENT Tuan Angulo MD [address] [facility] [address] [place], [place] [id number] [place] [address] [phone] Allergies No Known Allergiesdocumented as of this encounter (statuses as of 04/24/2019) Medications Medication Sig Dispensed Refills Start Date End Date Status Escitalopram Oxalate Take 10 mg by 0 Active 10 MG Oral Tablet mouth daily (LEXAPRO) Tadalafil 5 MG Oral Take 5 mg by mouth 0 Active Tablet (CIALIS) as needed for Erectile Dysfunction Colchicine 0.6 MG Take 0.6 mg by 0 Active Oral Tablet mouth daily oxymetazoline 0.025 2 sprays by Nasal 0 Active % NA nasal spray route as needed for Congestion Testosterone Inject 200 mg into 0 Active Cypionate 200 MG/ML the skin every 14 Injection Solution (fourteen) days On Saturdays Mesalamine 1.2 GM Take 2,400 mg by 0 Active Oral Tablet Delayed mouth Two Times Release (LIALDA) Daily Pantoprazole Sodium Take 40 mg by 0 Active 40 MG Oral Tablet mouth Two Times Delayed Release Daily (PROTONIX) Acetaminophen 325 MG Take 2 tablets by 30 tablet 0 04/15/2019 04/24/2019 Active Oral Tablet mouth every 6 (six) hours as needed for Pain for up to 7 days documented as of this encounter (statuses as of 04/24/2019) Active Problems Problem Noted Date Colostomy in place 04/15/2019 Peptic ulcer disease 04/08/2019 Anemia of chronic disease 04/08/2019 Pelvic abscess in male 04/08/2019 Encounter for ostomy care education 04/08/2019 Ulcerative colitis 04/06/2019 Abscess of abdominal cavity 04/04/2019 documented as of this encounter (statuses as of 04/24/2019) Social History Tobacco Use Types Packs/Day Years [...] Sign Reading Time Taken Comments Blood Pressure 123/80 04/24/2019 2:04 PM EST Pulse 80 04/24/2019 2:04 PM EST Temperature 36.5 04/24/2019 2:04 PM EST C (97.7 F) Respiratory Rate 16 04/24/2019 2:04 PM EST Oxygen Saturation 98% 04/24/2019 2:04 PM EST Inhaled Oxygen Concentration - - Weight 71.7 kg (158 lb) 04/24/2019 2:04 PM EST Height 182.9 cm (6') 04/24/2019 2:04 PM EST Body Mass Index 21.43 04/24/2019 2:04 PM EST documented in this encounter Plan of Treatment Health [...] - PCV13) Hepatitis C Screening (B. Completed 04/13/[id number]) HIB Vaccines Aged Out No longer eligible [...] of this encounter Implants Implanted Type Area Mortgage Servicing Specialist Device Shelf Model / Identifier Expiration Serial / Date Lot Barrier Adhesion [employer] 5x6 - [id number] N/A: Abdomen [employer] 11/17/2021 [id number] / Implanted: Qty: 1 on 04/12/2019 by Michelle Marrero MD at [facility] 5E [employer]ODU[employer] / [id number] documented as of this encounter Results Not on filedocumented in this encounter
--- OUTSIDE RECORDS SUMMARY | 2019-05-08 08:52 | XMS REPORT | Summary of Care ---
:1965 Author Organization [facility] Address [address] [place] [address] Care Team Providers Name Role Phone Dougie Gaytan DO Primary Care Provider Reason for Visit Auth/Cert Status Reason Specialty Diagnoses / Procedures Referred By Contact Referred To Contact Diagnoses pelvic abscess, hx of ulcerative colitis, Abscess of abdominal cavity Encounter Details Date Type Department Care Team Description 04/04/2019 - Hospital Encounter 05B Joel Kelly 04/10/2019 SURGERY/TRANSPLANT DELGADO Ford MD [address] [place], [place] [address] [id number] [place] [address] [phone] Allergies No Known Allergiesdocumented as of this encounter (statuses as of 04/10/2019) Medications Medication Sig Dispensed Refills Start End [...] mouth Two Times Delayed Release Daily (LIALDA) Amoxicillin-Pot Take 1 tablet by 8 tablet 0 04/14/19 Active Clavulanate mouth Two Times 0 20 875-125 MG Oral Daily for 4 Tablet days Pantoprazole Take 40 mg by 0 04/09/19 Discontinued Sodium 40 MG Oral mouth Two Times 20 (Medication Tablet Delayed Daily Reconcilation) Release (PROTONIX) HYDROcodone-Acetam Take 1 tablet by 0 04/09/19 Discontinued inophen 5-325 MG mouth every 4 20 (Medication Oral Tablet (four) hours as Reconcilation) (LORTAB) needed for Pain (not to exceed 4 per day) documented as of this encounter (statuses as of 04/10/2019) Active Problems Problem Noted Date Peptic ulcer disease 04/08/2019 Anemia of chronic disease 04/08/2019 Pelvic abscess in male 04/08/2019 Encounter for ostomy care education 04/08/2019 Ulcerative colitis 04/06/2019 Abscess of abdominal cavity 04/04/2019 documented as of this encounter (statuses as of 04/10/2019) Social History Tobacco Use Types Packs/Day Years [...] Sign Reading Time Taken Comments Blood Pressure 134/73 04/10/2019 12:04 PM EST Pulse 81 04/10/2019 12:04 PM EST Temperature 36.8 04/10/2019 12:04 PM EST C (98.3 F) Respiratory Rate 16 04/10/2019 12:04 PM EST Oxygen Saturation 96% 04/10/2019 12:04 PM EST Inhaled Oxygen Concentration - - Weight 77.7 kg (171 lb 6.4 oz) 04/04/2019 11:17 PM EST Height 181.6 cm (5' 11.5") 04/04/2019 11:17 PM EST Body Mass Index 23.57 04/04/2019 11:17 PM EST documented in this encounter Discharge Instructions Jaycee Chavez - 04/06/2019 10:41 AM ESTPatient to call primary care up discharge for Hospital Follow Up appointment. Discharge Instr - Betzy Bolden - 04/10/2019 8:24 AM ESTActivity: Activity as tolerated. Diet: May resume regular diet Bathing: May shower. Allow water to roll over incision, do not scrub. Pat dry. Do not submerge in water (pool, bath, etc) Call for: Fevers or chills. Redness or drainage at the surgical site(s). Persistent nausea, vomitingor pain. Follow-up in [facility] in 1 week PICC DISCHARGE INSTRUCTIONS A Peripherally Inserted Central Catheter called a PICC line was removed on 2019 at 1220pm. Discharge Instructions: Leave the occlusive dressing/bandage on for 24 hours. Keep the area clean and dry. Do not get the site wet. Remove the dressing after 24 hours. Leave open to air if healed. If the site is not healed cover with gauze and tape. Check dressing daily. Contact your physician or healthcare provider if you have any of the following at the catheter site: Redness Swelling Tenderness or pain Drainage or discharge Warmth Bleeding Call if you have fever or chills Patient/Guardian Name: Christiano Chen Relationship to Patient: selfElectronically signed by Betzy Ruiz at 2019 12:25 PM EST AttachmentsThe following attachments cannot be sent through Care Everywhere.Aman Alfredo Drainage Tube, Discharge Instructions (South Korean)A Closed Suction Drainage Tube, Caring for ([place] Korean)Diverticulosis and Diverticulitis, Understanding ([place] Korean)Diverticulitis, Discharge Instructions for ([place] Korean)documented in this encounter Progress Notes Shana Vo - 04/10/2019 1:04 PM ESTPatient discharged from floor at 1230. AVS and DEDRICK drain reviewed with patient. Patient accepting of DEDRICK drain education and teaching. Patient sent home with educational materials on DEDRICK drain and materials for care. Vitals stable on discharged. sterBetzy - 04/10/2019 12:26 PM ESTPICC LINE REMOVAL PICC discontinued per M.D. order with PICC intact. Reason for removal: treatment or therapy complete. 34 cm of intact PICC line removed from RUE without difficulty per PROC CM C-34A - Central Line Insertion and Removal. No redness, swelling or drainage noted from insertion site. Occlusive, dry sterile dressing applied over site and labeled with dateand time of PICC line removal along with date and time to remove dressing. Discharge instructions placed on AVS and verbally reviewed with patient. Advised to leave site open to air once bandage is removed between 24-48 hours. Patient voiced understanding. Bedside nurse ROBSON Harp aware. Sukh Arias MD - 04/09/2019 7:57 AM EST Surgery Progress Note Hospital Day #: 5 Post Operative Day #: 1 Day Post-Op Procedure: Procedure(s) (LRB): Laparoscopic drainage of pelvic abscess (N/A) CYSTOSCOPY, left stent placement (N/A) Interval Present History: Pain controlled. Tolerating diet. No nausea or emesis. No flatus or BM. Voiding without difficulty. Ambulating. No concerns. Denies fevers, chills, chest pain, shortness of breath or any other concerns at this time. Vital Signs: Temp (24hrs), Av.8 C, Min:36.6 C, Max:37 C Visit Vitals BP 116/70 (BP Location: Left arm, Patient Position: Lying) Pulse 81 Temp 36.7 C (Oral) Resp 18 Ht 1.816 m Wt 77.7 kg (171 lb 6.4 oz) SpO2 99% BMI 23.57 kg/m O2 Flow Rate (L/min): 2 L/min Intake/Output last 3 shifts: I/O last 3 completed shifts: In: 640 [P.O.:640] Out: 900 [Urine:700; Drains:160; Blood:40] Intake/Output this shift: No intake/output data recorded. Diet: Diet Age: Adult; Diet: Regular Physical Exam Gen: Alert and oriented x 3, no acute distres HEENT: Pupils equally round and reactive to light CV: Regular rate and rhythm Resp: Non labored on room air. Abdomen: soft, non-distended, Drain in place LLQ with SS drainage. 160 over 24 hours. Laparoscopic incisions cdi. Ext: Warm, well perfused. Motor and sensation intact Data Reviewed CBC: Lab Results Component Value Date WBC 19.7 (H) 04/09/2019 RBC 2.88 (L) 04/09/2019 HGB 7.5 (L) 04/09/2019 HCT 24.3 (L) 04/09/2019 PLT 687 (H) 04/09/2019 BMP: Lab Results Component Value Date NA 134 (L) 04/09/2019 K 3.9 04/09/2019 CL 97 (L) 04/09/2019 BICARBONATE 27 04/09/2019 GLUCOSE 117 04/09/2019 BUN 7 04/09/2019 CREATININE 0.53 (L) 04/09/2019 BCR 13 04/09/2019 GFRAA >90 04/09/2019 GFRNONAA >90 04/09/2019 Assessment and Plan: Christiano Ying is a 54 y.o. male with Principal Problem: Abscess of abdominal cavity Active Problems: Ulcerative colitis Anemia of chronic disease Pelvic abscess in male Encounter for ostomy care education Post Operative Day #: 1 Day Post-Op Procedure: Procedure(s) (LRB): Laparoscopic drainage of pelvic abscess (N/A) CYSTOSCOPY, left stent placement (N/A) This is a 54 y.o. male who is post laparoscopic drainage of a pelvic abscess, POD 1. He is DWPO. Hispain is controlled, and he is voiding appropriately. He is tolerating a diet; his abscess was drained and a DEDRICK drain was left in his abdomen, with serosanguinous drainage without feculent material. He has leukocytosis, possible sequelae from being immediately post op vs reactive to his abscess drainage. He is currently on Cef/Flagyl for antibiotics. AFVSS. Plan: Neuro: Continue pain control with oxy, tylenol, fentanyl; Lexapro 10mg QD, Gabapentin, melatonin HS for sleep; celebrex. HEENT: No changes CV: Monitor, no changes Resp: No changes, monitor GI: S/p Pelvic abscess drainage. Continue antibiotics. Continue Regular diet. Monitor drain output. Monitor abdominal incisions. ERAS. Protonix, Zofran. : No changes Heme: Heparin 5000 TID ID: Ceftriaxone, Flagyl Activity: OOB AT. ICOUGH. Dr. Sukh Kingston PGY 1 General Surgery [phone] Associated attestation - Joel Kelly MD - 04/09/2019 12:54 PM ESTStaff Attestation/Addendum: Doing very well. Continue on ATB. Follow WBC. Likely home tomorrow. No evidence of Crohn's disease based on serosal surfaces of colon. Will need further workup in future. I directly interviewed the patient, performed vargas portions of the examination, personally reviewed pertinent ancillary data/imaging, and supervised the vargas medical decision-making/plan of care. I agreewith the assessment, meds, and plan proposed by resident, unless mentioned above in this attending note. Joel Kelly MD 04/09/19 12:52 PM Brandie See MD - 04/09/2019 12:58 AM EST Post op check Diagnosis: colitis Procedure: laparoscopic drainage of pelvic abscess S: Patient feels well, no new complaints. Patient states his pain has decreased since before surgery however still complains of 10 O: Visit Vitals BP 135/82 (BP Location: Left arm) Pulse 75 Temp 36.6 C (Oral) Resp 16 Ht 1.816 m Wt 77.7 kg (171 lb 6.4 oz) SpO2 97% BMI 23.57 kg/m General: NAD, alert CV: regular rate, extremities perfused, no edema Pulm: No respiratory distress Abd: Soft, non tender non disteded Wound: c/d/i Drains: Bulb drain to self suction draining serosang A/P 54 y.o. male s/p lap drainage of pelvic abscess. Doing well post-operatively. - Diet: Clears - Pain: oxy, celebrex, tylenol, gabapentin - OOB: as tolerateed - VTE ppx: heparin - Entereg until ROBF - Abx: ceftriaxone, flagyl Brandie See MD General Surgery PGY-1 Lexii Caraballo RN - 04/08/2019 4:08 PM ESTPt npo since 5a. Nose to toes given by prior shift. Confirmed by pt. Pt transferred to OR via WC. Accompanied by . Suzi Gaytan MD - 04/08/2019 10:56 AM EST Surgery Progress Note Admit Day: 04/04/2019 Hospital Day: 4 Procedure: Laparoscopic drainage of pelvic abscess, possible Harpreet's Post-Operative Day: Day of Surgery Interval Present History: Could not tolerate Golytely prep overnight, drinking 1/4-1/3 of prep. He states his night was "miserable." He states his BMs were starting to clear up. He denies fever, chills, shortness of breath, chest pain. +void, +BM Vital Signs: Vitals: 04/07/19 1954 04/07/19 2313 04/08/19 0400 04/08/19 0806 BP: 128/66 115/56 113/61 124/65 Pulse: 81 83 79 82 Resp: 18 18 14 14 Temp: 36.9 C 36.7 C 36.9 C 37 C SpO2: 98% 98% 97% 96% I/O last 3 completed shifts: In: 1850 [P.O.:1600; IV Piggyback:250] Out: - No intake/output data recorded. Diet: Dietary Orders (From admission, onward) Start Ordered 04/08/19 0000 Diet Age: Adult; Diet: NPO; Nursing Instructions (NOT seen by Food & Nutrition):Effective breakfast 0500 the DAY OF surgery (Reduced Fasting For Patients Receiving Bowel Prep) DIET EFFECTIVE 0500 Question Answer Comment Age Adult Diet NPO Nursing Instructions (NOT seen by Food & Nutrition): Effective breakfast 0500 the DAY OF surgery 04/07/19 0733 Physical Exam General: laying in bed in no acute distress. Awake, alert, oriented x3 HEENT: normocephalic, atraumatic Resp: non-labored breathing CVS: regular rate and rhythm Abd: soft, non-distended, mildly tender to palpation LLQ Ext: moves all spontaneously. Warm and well perfused Skin: warm, dry Data Reviewed Results for orders placed or performed during the hospital encounter of (from the past 24 hour(s)) Type and Crossmatch Collection Time: 04/08/19 6:00 AM Result Value Ref Range ABO/RH(D) B POS Gel Antibody Screen POS Crossmatch Expiration 04/10/2019 Site Performed at [place], [place] UNIT NUMBER [id number] Blood Component Type Leukoreduced Red Cells Unit Division 00 STATUS OF UNIT REL FROM ALLOC CROSSMATCH RESULT Incompatible UNIT NUMBER [id number] Blood Component Type Leukoreduced Red Cells Unit Division 00 STATUS OF UNIT REL FROM ALLOC CROSSMATCH RESULT Incompatible UNIT NUMBER [id number] Blood Component Type Leukoreduced Red Cell Unit Division 00 STATUS OF UNIT ALLOCATED UNIT TAG COMMENT Patient/Unit blood types differ. Okay to transfuse. JK(A) Antigen Absent TRANSFUSION STATUS OK TO TRANSFUSE CROSSMATCH RESULT Compatible UNIT NUMBER [id number] Blood Component Type Leukoreduced Red Cell, 2nd Container Unit Division 00 STATUS OF UNIT ALLOCATED UNIT TAG COMMENT Patient/Unit blood types differ. Okay to transfuse. JK(A) Antigen Absent TRANSFUSION STATUS OK TO TRANSFUSE CROSSMATCH RESULT Compatible UNIT NUMBER [id number] Blood Component Type Leukoreduced Red Cell, 2nd Container Unit Division 00 STATUS OF UNIT ALLOCATED UNIT TAG COMMENT Patient/Unit blood types differ. Okay to transfuse. JK(A) Antigen Absent TRANSFUSION STATUS OK TO TRANSFUSE CROSSMATCH RESULT Compatible UNIT NUMBER [id number] Blood Component Type Leukoreduced Red Cell, 2nd Container Unit Division 00 STATUS OF UNIT ALLOCATED UNIT TAG COMMENT Patient/Unit blood types differ. Okay to transfuse. JK(A) Antigen Absent TRANSFUSION STATUS OK TO TRANSFUSE CROSSMATCH RESULT Compatible Basic Metabolic Panel Collection Time: 04/08/19 6:00 AM Result Value Ref Range Bicarbonate 25 22 - 29 mmol/L Chloride 98 98 - 107 mmol/L Creatinine 0.62 (L) 0.70 - 1.20 mg/dL Glucose 102 70 - 140 mg/dL Potassium 3.8 3.4 - 5.1 mmol/L Sodium 137 136 - 145 mmol/L Blood Urea Nitrogen 6 6 - 20 mg/dL Anion Gap 14 8 - 15 mmol/L Osmolality, Lalito 282 275 - 300 mosm/kg BUN/Cre Ratio 9 Calcium 8.0 (L) 8.6 - 10.0 mg/dL GFR Non 2008 CDK-EPI >90 >60 mL/min/1.73m2 GFR 2008 CKD-EPI >90 >60 mL/min/1.73m2 CBC and Differential Collection Time: 04/08/19 6:00 AM Result Value Ref Range White Blood Cell 12.8 (H) 4 - 10 10*3/uL Red Blood Cell 2.91 (L) 4.6 - 6.1 10*6/uL Hemoglobin 7.6 (L) 13.5 - 18 g/dL Hematocrit 24.5 (L) 41 - 53 % Mean Cell Volume 84.3 80 - 96 fL Mean Cell Hemoglobin 26.1 (L) 27 - 33 pg Mean Cell Hgb Conc 31.0 (L) 32.0 - 36.0 g/dL Red Cell Dist Width 18.7 (H) 11.5 - 14.5 % Platelet Count 715 (H) 150 - 400 10*3/uL Differential Type Automated Diff Neutrophil 83 % Lymphocyte 6 % Monocyte 10 % Eosinophil 0 % Basophil 1 % Abs Neutrophil 10.67 (H) 1.8 - 7.0 10*3/uL Abs Lymphocyte 0.74 (L) 1.2 - 4.0 10*3/uL Abs Monocyte 1.31 (H) 0 - 0.8 10*3/uL Abs Eosinophil 0.04 0 - 0.5 10*3/uL Abs Basophil 0.07 0 - 0.2 10*3/uL Nucleated Red Blood Cells 0 0 - 0 /100 Magnesium Level Collection Time: 04/08/19 6:00 AM Result Value Ref Range Magnesium 1.9 1.6 - 2.6 mg/dL Phosphorus Level Collection Time: 04/08/19 6:00 AM Result Value Ref Range Phosphorus 3.6 2.5 - 4.5 mg/dL Antibody Identification Collection Time: 04/08/19 6:00 AM Result Value Ref Range ANTIBODY IDENT Anti-JK(A) Anti-Specificity Unknown Site Performed at [place], [place] POCT glucose, docked Collection Time: 04/08/19 10:26 AM Result Value Ref Range POC Glucose 97 70 - 140 mg/dL Assessment/Plan: Christiano Ying is a 54 y.o. male with history of IBD, reportedly UC, with intraabdominal abscessof unclear etiology, IBD vs diverticular disease. Endoscopy demonstrated patchy disease. CT scan showed pelvic abscess; IR was unable to access deep pelvic abscess, though did aspirate likely reactive ascites. Discussion with patient and was had, and plan is to proceed to OR today for laparoscopic drainage of abscess, possible colectomy, possible ostomy. Patient Active Problem List Diagnosis Abscess of abdominal cavity Ulcerative colitis Peptic ulcer disease Anemia of chronic disease Pelvic abscess in male Procedure: Laparoscopic drainage of pelvic abscess, possible Harpreet's Post-Operative Day: Day of Surgery Plan: Neuro: continue current pain regimen. Continue lexapro 10mg QD Resp: ICOUGH CVS: no acute issues GI: reduced fasting per ERAS protocol. Due to inability to tolerate Golytely, will give enemas this morning to aid in prep. Continue zofran prn nausea/ vomiting. Continue protonix Endo: no acute issues Heme: Heme/Onc believes patient has anemia of chronic disease. 2u pRBC on hold for OR. DVT PPX: SQH,SCDs ID: Ceftriaxone/Flagyl MSK: OOB, encourage ambulation Lines: pIV Dispo: To OR today for laparoscopic drainage of intraabdominal abscess, possible colectomy, possibleostomy. Anticipate D/C home later this week vs this weekend Suzi Chery M.D. PGY-3 | Department of Surgery [phone] Associated attestation - Joel Kelly MD - 04/08/2019 11:05 AM LUDAtafabi Attestation/Addendum: No questions. Proceed with surgery today. I directly interviewed the patient, performed vargas portions of the examination, personally reviewed pertinent ancillary data/imaging, and supervised the vargas medical decision-making/plan of care. I agreewith the assessment, meds, and plan proposed by resident, unless mentioned above in this attending note. Joel Kelly MD 04/08/19 11:05 AM Melia Augustine RN - 04/08/2019 5:51 AM ESTPt has been able to drink only approx 1/4 of golytly solution overnight, surgical garment assembler notified.Pt reports multiple loose watery stoolsElectronically signed by Melia Augustine RN at 04/08 5:52 AM Emily Burdick MD - 04/07/2019 2:19 PM LatanyaKhang Ying is a 54 year old male patientwith a past medical history significant for ulcerative colitis diagnosed in 2019 on mesalamine, peptic ulcer disease, pericarditis and iron deficiency anemia who presented to OSH complaining of acute on chronic suprapubic abdominal pain for 3 days. GI consulted for UC management recommendations. Patient outside GI group is [facility]. Per recent EGD/Colon 02/2019 [facility] - duodenal ulcer (clean based) and active inflmmation in rectum/sigmoid. He was being considered for humira by his outside GI. CT showing inflammation insame area; found to have colon perforation managed conservatively. Generally perforation does not occur in UC as only mucosa disease while more common in Crohn's as transmural disease. Recommendations: Awaiting for final stool studies (calprotectin). Blood test for Quantiferon, Hepatitis B surface antigen, TPMT. No plan for colonoscopy currently due to perforation as too risky; however he does need full c-scopein 2-3 months once perforation has fully sealed/healed. Continue with broad spectrum antibiotics. AVOID STEROIDS and NO BIOLOGICS for now. Advancing diet per surgery as indicated. Once able to tolerate po start his home mesalamine. IV Protonix BID for peptic ulcer disease. Check H.pylori serology and treat if h.pylori positive. Patient needs close follow up with his private film and video editor at [facility]. GI service will sign off, please call if any further questions. Discussed with Dr Arroyo I have discussed with the resident/fellow and agree with the residents/fellows findings and plans aswritten, along with any supplemental dictated and/or attending documentation in the patient record by myself. Emily Arroyo MD Division of GI Advanced Endoscopy Sukh Arias MD - 04/07/2019 9:48 AM EST Surgery Progress Note Hospital Day #: 3 Post Operative Day #: Procedure: Procedure(s) (LRB): LAPAROSCOPIC ABSCESS DRAINAGE; POSSIBLE HARPREET'S PROCEDURE (N/A) Interval Present History: CHARLENE overnight. Yesterday, IR was able to drain yellow fluid, but deeper pelvic abscess had no clear window. Patient currently has no complaints. D/w patient the plan to possibly undergo surgery 04/08/2019 for possible abdominal washout, possible harpreet's procedure, possible sigmoid colectomy and ostomy. He understands, but would like to discuss with his prior to makinga final decision. Denies fevers, chills, chest pain, shortness of breath, N/V. Vital Signs: Temp (24hrs), Av.2 C (98.9 F), Min:36.7 C (98.1 F), Max:37.6 C (99.7 F) Visit Vitals BP 126/71 (BP Location: Left arm, Patient Position: Lying) Pulse 77 Temp 36.7 C (98.1 F) (Oral) Resp 16 Ht 1.816 m (5' 11.5") Wt 77.7 kg (171 lb 6.4 oz) SpO2 95% BMI 23.57 kg/m Intake/Output last 3 shifts: I/O last 3 completed shifts: In: 1961.8 [P.O.:600; I.V.:554.9; IV Piggyback:806.9] Out: 700 [Urine:700] Intake/Output this shift: I/O this shift: In: 120 [P.O.:120] Out: - Diet: Diet Age: Adult; Diet: Modified; Modifier: Liquid Diets; Liquid Diets: Full Liquids Only Diet Age: Adult; Diet: Modified; Modifier: Liquid Diets; Liquid Diets: Clear Liquids; Nursing Instructions (NOT seen by Food & Nutrition): Starting at time of bowel prep- Patient MAY ONLY HAVE water ice, apple juice, jackie subhash, non-red and non-pu... Diet Age: Adult; Diet: NPO; Nursing Instructions (NOT seen by Food & Nutrition): Effective breakfast 0500 the DAY OF surgery Physical Exam Gen: Alert and oriented x 3, no acute distress HEENT: Pupils equally round and reactive to light, NCAT CV: Regular rate and rhythm Resp: Non labored breathing on room air. Abdomen: soft, non-distended, mild tenderness to palpation. Data Reviewed CBC: Lab Results Component Value Date WBC 12.5 (H) 04/06/2019 RBC 2.70 (L) 04/06/2019 HGB 7.3 (L) 04/06/2019 HCT 23.3 (L) 04/06/2019 PLT 771 (H) 04/06/2019 BMP: Lab Results Component Value Date NA 134 (L) 04/06/2019 K 4.0 04/06/2019 CL 97 (L) 04/06/2019 BICARBONATE 24 04/06/2019 GLUCOSE 126 04/06/2019 BUN 4 (L) 04/06/2019 CREATININE 0.66 (L) 04/06/2019 BCR 6 04/06/2019 GFRAA >90 04/06/2019 GFRNONAA >90 04/06/2019 Assessment and Plan: Christiano Ying is a 54 y.o. male with Principal Problem: Abscess of abdominal cavity Active Problems: Ulcerative colitis Depression Patient with intra abdominal abscess of unknown underlying etiology; IBD vs diverticular disease. GIconsulted, who question Crohn's vs Ulcerative colitis vs other etiology. Endoscopy demonstrated patchy disease. CT scan obtained; IR request for drainage placed on 04/06/2019, but unable to find clear window for deep pelvic abscess; aspiration of fluid obtained from intra abdominal most likely reactiveascities. Mr. Ying is currently on a pre operative ERAS protocol. His intra abdominal abscess is most likely going to require surgical intervention for an intra abdominal wash out with harpreet'sprocedure, and possible sigmoidectomy and colostomy. He understands this, but wants to discuss with his family prior to surgery. He should continue his ERAS protocol until then. Plan: Neuro: continue home medication. Continue tylenol, oxycodone, toradol 15 mg. HEENT: no changes Resp: no changes, monitor CV: No changes, monitor GI: Intra abdominal abscess; IR review for drainage pending. Protonix for PPI, Zofran for nausea. GIconsulted for etiology of disease. Diverticular vs IBD. Contacted his outpatient GI doctor 04/06/2019for outpatient work up, awaiting documents to be faxed. Possibility of surgical intervention 04/08/2019 of Intraabdominal washout, Harpreet's procedure, possible sigmoid colectomy, possible colostomy. Consent to be obtained. ERAS, bowel prep ID: Continue Ceftriaxone and Flagyl. Monitor vitals Heme: consulted hematology on 04/06/2019 for recommendations for patient's anemia of chronic disease,awaiting recommendations prior to operation. FEN/Endo: ERAS DVT Ppx: SCDs, OOB AT. Dispo: inpatient, acute. Dr. Sukh Kingston PGY 1 General Surgery [phone] Associated attestation - Joel Kelly MD - 04/07/2019 6:00 PM ESTStaff Attestation/Addendum: No new issues. Continues to have pelvic abscess POA not accessible to perc drainage. We discussed options for surgery. We will start off with lap drainage of the abscess and then perform leak test.If negative, can leave drain and abort resection. If positive leak, then would need to proceed withsigmoid colectomy , post likely with either end colostomy or primary anastomosis with covering ileostomy. He received steroids at relatively high doses as recently as 03/18/19, so likely will need somestress dosing. Will get prepped today and proceed with surgery tomorrow. I directly interviewed the patient, performed vargas portions of the examination, personally reviewed pertinent ancillary data/imaging, and supervised the vargas medical decision-making/plan of care. I agreewith the assessment, meds, and plan proposed by resident, unless mentioned above in this attending note. Joel Kelly MD 04/07/19 5:58 PM Shavon Mitchell RN - 04/06/2019 3:40 PM ESTCase Management Screen & Assessment Patient's Name: Christiano Ying Date of : 1965 Age: 54 y.o. Gender: male Attending Provider: Joel Kelly MD Admitting Diagnosis: pelvic abscess, hx of ulcerative colitis, Abscess of abdominal cavity Admission Date and Time: 04/04/2019 10:57 PM High Risk Criteria - 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/Upon Arrival 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-Type of Residence: Private residence 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- Home Care Services: No Limited Home Supports/Lives Alone?: No Multi trauma/Critical care admit?: No Head/Spinal cord injury?: No Self pay/No prescription plan?: No Active with homecare?: No Multiple ED visits?: No Related/Unplanned readmission within 30 days?: No Complex/New medical issues: pelvic abscess Relevant comorbidities: Crohns vs ulcerative colitis 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 Outcome: Anticipate no Case Management needs for discharge planning Patient/Agent informed of choice and given written list?: Patient/agent declined list Important message (Medicare rights) given?: (N/A) CM Chart Review Notice of Privacy Practice Signed?: Yes Self Pay: No Prescription Plan?: Yes (comment) 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: Functional/Environmental Assessment Came from Rehab/SNF, plan to return?: No Brief physical/psychosocial summary: pt lives at home with SO Bathing: Independent Dressing: Independent Toileting: Independent Medication administration: Independent Transfers: Independent Ambulation: Independent Meal preparation: Independent Discharge Assessment Patient/family informed of need for discharge planning?: Yes Patient/Agent informed of choice and given written list?: Patient/agent declined list Patient expects to be discharged to:: home Living Arrangements: Spouse/significant other Support Systems: Spouse/significant other Type of Residence: Private residence Note: This freelance copywriter met with pt at bedside, CM role explained. 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 Pt admitted with abdominal abscess. Anticipate no needs, will continue to follow. Shavon Mitchell M 3: 41 PM Gisel Staples MD - 04/06/2019 1:39 PM ESTIR Brief Note Fluid collection adjacent to the rectum were aspirated. Clear yellow fluid returned, possibly ascites. Given fluid is not clearly infected, I sent the fluid for culture and gramstain and deferred drainplacement. The more superior deep pelvis abscess do not appear to have a percutaneous window. Sukh Arias MD - 04/06/2019 9:12 AM EST Surgery Progress Note Hospital Day #: 2 Post Operative Day #: Procedure: Interval Present History: Overnight had abdominal pain which resolved with PRN fentanyl; CT scan demonstrates abscess, IR consulted for possible drainage. NPO. Denies fevers, chills, chest pain, shortness of breath, N/V. Vital Signs: Temp (24hrs), Av.2 C, Min:36.8 C, Max:37.5 C Visit Vitals BP 108/62 (BP Location: Left arm, Patient Position: Lying) Pulse 78 Temp 36.8 C (Oral) Resp 18 Ht 1.816 m Wt 77.7 kg (171 lb 6.4 oz) SpO2 97% BMI 23.57 kg/m Intake/Output last 3 shifts: I/O last 3 completed shifts: In: 2493.3 [I.V.:2493.3] Out: 850 [Urine:850] Intake/Output this shift: No intake/output data recorded. Diet: Diet Age: Adult; Diet: NPO; Except For: PO Meds Physical Exam Gen: Alert and oriented x 3, no acute distress HEENT: Pupils equally round and reactive to light, NCAT CV: Regular rate and rhythm Resp: Non labored breathing on room air. Abdomen: soft, non-distended, mild tenderness to palpation. Data Reviewed CBC: Lab Results Component Value Date WBC 14.8 (H) 04/05/2019 RBC 2.80 (L) 04/05/2019 HGB 7.5 (L) 04/05/2019 HCT 23.8 (L) 04/05/2019 PLT 861 (H) 04/05/2019 BMP: Lab Results Component Value Date NA 134 (L) 04/06/2019 K 4.0 04/06/2019 CL 97 (L) 04/06/2019 BICARBONATE 24 04/06/2019 GLUCOSE 126 04/06/2019 BUN 4 (L) 04/06/2019 CREATININE 0.66 (L) 04/06/2019 BCR 6 04/06/2019 GFRAA >90 04/06/2019 GFRNONAA >90 04/06/2019 Assessment and Plan: Christiano Ying is a 54 y.o. male with Active Problems: Abscess of abdominal cavity Depression Patient with intra abdominal abscess of unknown underlying etiology; IBD vs diverticular disease. GIconsulted, who question Crohn's vs Ulcerative colitis vs other etiology. Endoscopy demonstrated patchy disease. CT scan obtained; IR request for drainage placed. Mr. Ying is currently NPO and INR is WNL. Plan: Neuro: continue home medication. Continue tylenol, oxycodone, fentanyl 25 mcg. HEENT: no changes Resp: no changes, monitor CV: No changes, monitor GI: Intra abdominal abscess; IR review for drainage pending. Protonix for PPI, Zofran for nausea. GIconsulted for etiology of disease. Diverticular vs IBD. ID: Continue Ceftriaxone and Flagyl. Monitor vitals FEN/Endo: NPO c/w PO medication. mIVF DVT Ppx: SCDs, OOB AT. Dispo: inpatient, acute. Pending IR review for drainage. Dr. Sukh Kingston PGY 1 General Surgery [phone] Associated attestation - Joel Kelly MD - 04/06/2019 5:49 PM ESTStaff Attestation/Addendum: CT-guided drainage of pelvic collection performed--appears to have been sympathetic collection rather than an abscess. Cultures pending. Unable to drain the more cephalad collection, which is more likely to be true abscess. Will follow WBC. However, he may require laparoscopic drainage, possible sigmoid resection. Likely to make that decision tomorrow. I directly interviewed the patient, performed vargas portions of the examination, personally reviewed pertinent ancillary data/imaging, and supervised the vargas medical decision-making/plan of care. I agreewith the assessment, meds, and plan proposed by resident, unless mentioned above in this attending note. Joel Kelly MD 04/06/19 5:47 PM Ludmila Mon RN - 04/06/2019 5:02 AM ESTPt c/o severe abdominal pain. He is in bed with knees at his chest. States pain is 6/10 and oxy was already given. Discussed pain with MD See, PRN fentanyl reordered. Andrew Spence RN - 04/05/2019 3:16 PM ESTAssumed care of patient at approximately 1500. 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 Will report any changes. 3: 17 PM Cristian Mo RN - 04/05/2019 5:43 AM ESTPatient had RUE PICC placed at OSH. CXR taken at [facility] indicated PICC tip terminates in the proximal SVC per MD Oreilly. Line is cleared for use at this time and orders are placed. Patient is currently sleeping in bed, dressing C/D/I. Nereida Morrow RN - 04/05/2019 2:39 AM EST 04/04/19 2317 Vitals Temp 37.3 C Pulse 80 Resp 16 BP 123/77 Oxygen Therapy SpO2 96 % Pt arrived to unit via paramedics. Pt ambulated to bed and oriented to unit and call forde. Unit specific folder given and explained. IVFs started via PIV and PICC line verified via CXR. All safety measures in place. Nereida Morrow RN - 11:24 PM ESTIf wound was present on admission, this documentation was sent to attending provider for cosignature. documented in this encounter Plan of Treatment Date Type Specialty Care Team Description 04/17/2019 Office Visit Surgery Erika Ramos V, SYSTEMS AUDITOR [address] [id number] Name Type Priority Associated Date/Time Diagnoses IR Imaging Guided Needle, Imaging Routine 04/06/2019 1:40 Drain Procedure PM EST Thiopurine Lab Routine 04/06/2019 4:27 Methyltransferase (TPMT) AM EST Vitamin B1 Lab Routine 04/06/2019 4:27 AM EST Fungus culture Microbiology Routine 04/08/2019 7:41 PM EST AFB culture; Microbiology Routine 04/08/2019 7:41 PM EST Name Type Priority Associated Order Schedule Diagnoses IR Imaging Guided Needle, Imaging Routine One Time Imaging Drain Procedure Routine for 1 Occurrences starting 04/05/2019 until 04/05/2019 Thiopurine Lab Routine Once for 1 Methyltransferase (TPMT) Occurrences starting 04/06/2019 until 04/06/2019 Vitamin B1 Lab Routine Once for 1 Occurrences starting 04/06/2019 until 04/06/2019 Prepare RBC 2 Units Blood Bank Routine Once for 1 Occurrences starting 04/08/2019 until 04/08/2019 CBC and Differential Lab Routine Daily for 5 Days starting 04/08/2019 until 04/12/2019, 3 completed Wound culture Microbiology Routine Once for 1 Occurrences starting 04/08/2019 until 04/08/2019 Health Maintenance Due Date Last Done Comments Hepatitis C Screening (B. 1965 [id number]) MMR Vaccines (1 of 1 - Standard 02/14/1965 series) Varicella Vaccines (1 of 2 - 02/14/1965 2-dose childhood series) HIV Screening 02/14/1977 Colon Cancer Screening 10 yrs 02/14/2014 DTaP,Tdap,and Td Vaccines (2 - Td) 06/23/2018 05/26/2018 Influenza Vaccine 11/18/2018 Pneumococcal Vaccine: 65+ Years (1 02/14/2029 of 2 - PCV13) HIB Vaccines Aged Out No longer eligible [...] this topic documented as of this encounter Procedures Procedure Name Priority Date/Time Associated Diagnosis Comments CBC AND DIFFERENTIAL Routine 04/10/2019 3:53 Results for this AM EST procedure are in the results section. PHOSPHORUS LEVEL Routine 04/10/2019 3:53 Results for this AM EST procedure are in the results section. MAGNESIUM LEVEL Routine 04/10/2019 3:53 Results for this AM EST procedure are in the results section. BASIC METABOLIC PANEL Routine 04/10/2019 3:53 Results for this AM EST procedure are in the results section. LAB RESULTS 04/09/2019 1:58 (OUTSIDE/HISTORICAL) PM EST OPERATIVE AND 04/09/2019 1:58 PROCEDURE NOTE PM EST OPERATIVE AND 04/09/2019 1:58 PROCEDURE NOTE PM EST OPERATIVE AND 04/09/2019 1:58 PROCEDURE NOTE PM EST RADIOLOGY REPORT 04/09/2019 1:58 PM EST CBC AND DIFFERENTIAL Routine 04/09/2019 3:57 Results for this AM EST procedure are in the results section. PHOSPHORUS LEVEL Routine 04/09/2019 3:57 Results for this AM EST procedure are in the results section. MAGNESIUM LEVEL Routine 04/09/2019 3:57 Results for this AM EST procedure are in the results section. BASIC METABOLIC PANEL Routine 04/09/2019 3:57 Results for this AM EST procedure are in the results section. WOUND CULTURE Routine 04/08/2019 7:41 Results for this PM EST procedure are in the results section. ANAEROBIC CULTURE Routine 04/08/2019 7:41 Results for this PM EST procedure are in the results section. POCT GLUCOSE, DOCKED Routine 04/08/2019 7:37 Results for this PM EST procedure are in the results section. CYSTOSCOPY 04/08/2019 6:21 Ulcerative colitis PM EST with complication, unspecified location Special Needs - in M&M mtg prior until 0800; in student advising appt (can be rescheduled if necessary) until 0900 ([phone] [phone]) LAPAROSCOPY, SURGICAL; 04/08/2019 6:21 PM EST Ulcerative colitis with W/CAVITY/CYST ASPIRATION complication, unspecified location Special Needs - in M&M mtg prior until 0800; in student advising appt (can be rescheduled if necessary) until 0900 (Jessica [phone]) BRIDGET VIDEO Routine 04/08/2019 2:36 PM EST POCT GLUCOSE, DOCKED Routine 04/08/2019 10:26 AM EST ANTIBODY IDENTIFICATION Routine 04/08/2019 6:00 AM EST CBC AND DIFFERENTIAL Routine 04/08/2019 6:00 AM EST TYPE AND CROSSMATCH Routine 04/08/2019 6:00 AM EST PHOSPHORUS LEVEL Routine 04/08/2019 6:00 AM EST MAGNESIUM LEVEL Routine 04/08/2019 6:00 AM EST BASIC METABOLIC PANEL Routine 04/08/2019 6:00 AM EST WOUND CULTURE Routine 04/06/2019 1:30 PM EST CREATININE, BODY FLUID Routine 04/06/2019 1:30 PM EST QUANTIFERON-TB GOLD PLUS Routine 04/06/2019 4:27 AM EST HELICOBACT PYLORI AB IGG Routine 04/06/2019 4:27 AM EST TOTAL FE BINDING CAPACITY Routine 04/06/2019 4:27 AM EST HEPATITIS B SURFACE ANTIGEN Routine 04/06/2019 4:27 AM EST H. PYLORI IGM AB Routine 04/06/2019 4:27 AM EST SEDIMENTATION RATE, Routine 04/06/2019 4:27 AM EST Results for this AUTOMATED procedure are in the results section. RETICULOCYTES Routine 04/06/2019 4:27 AM EST CBC Routine 04/06/2019 4:27 AM EST [place], DIRECT Routine 04/06/2019 4:27 AM EST INFLAMMATORY C-REACTIVE Routine 04/06/2019 4:27 AM EST Results for this PROTEIN (CRP) procedure are in the results section. TSH Routine 04/06/2019 4:27 AM EST T4 Routine 04/06/2019 4:27 AM EST VITAMIN B6 Routine 04/06/2019 4:27 AM EST PHOSPHORUS LEVEL Routine 04/06/2019 4:27 AM EST MAGNESIUM LEVEL Routine 04/06/2019 4:27 AM EST FOLATE Routine 04/06/2019 4:27 AM EST FERRITIN LEVEL Routine 04/06/2019 4:27 AM EST VITAMIN B12 Routine 04/06/2019 4:27 AM EST BASIC METABOLIC PANEL Routine 04/06/2019 4:27 AM EST CALPROTECTIN FECAL Routine 04/05/2019 7:01 PM EST COMMUNITY-ACQUIRED DIARRHEA Routine 04/05/2019 7:01 PM EST Results for this PANEL procedure are in the results section. H. PYLORI ANTIGEN, STOOL Routine 04/05/2019 7:01 PM EST OVA AND PARASITE SCREEN Routine 04/05/2019 7:[address] ABDOMEN PELVIS WITH STAT 04/05/2019 12:25 PM EST Results for this CONTRAST [id number] procedure are in the results section. PARTIAL THROMBOPLASTIN TIME Routine 04/05/2019 3:10 AM EST Results for this (PTT) procedure are in the results section. PROTIME INR Routine 04/05/2019 3:10 AM EST CBC AND DIFFERENTIAL Routine 04/05/2019 3:10 AM EST PHOSPHORUS LEVEL Routine 04/05/2019 3:10 AM EST MAGNESIUM LEVEL Routine 04/05/2019 3:10 AM EST BASIC METABOLIC PANEL Routine 04/05/2019 3:10 AM EST XR CHEST FRONTAL ONLY [id number] Routine 04/05/2019 1:50 AM EST documented in this encounter Results Phosphorus Level (04/10/2019 3:53 AM EST) Phosphorus 2.7 2.5 - 4.5 mg/dL [facility] Pathology Specimen Plasma Performing Organization Address [facility] Phone Number [facility] [address] [place] [address] [facility] [address] [place] [address] Pathology Magnesium Level (04/10/2019 3:53 AM EST) Magnesium 1.9 1.6 - 2.6 mg/dL [facility] Pathology Specimen Plasma Performing Organization Address [facility] Phone Number [facility] [address] [place] [address] [facility] [address] [place] [address] Pathology CBC and Differential (04/10/2019 3:53 AM EST) White Blood Cell 11.9 (H) 4 - 10 [facility] 10*3/uL [facility] Pathology Red Blood Cell 2.80 (L) 4.6 - 6.1 [facility] 10*6/uL [facility] Pathology Hemoglobin 7.6 (L) 13.5 - 18 [facility] g/dL [facility] Pathology Hematocrit 23.4 (L) 41 - 53 % [facility] Pathology Mean Cell Volume 83.6 80 - 96 fL [facility] Pathology Mean Cell Hemoglobin 27.0 27 - 33 pg [facility] Mean Cell Hgb Conc 32.3 32.0 - 36.0 [facility] g/dL [facility] Pathology Red Cell Dist Width 18.5 (H) 11.5 - 14.5 % [facility] Pathology Platelet Count 656 (H) 150 - 400 [facility] 10*3/uL [facility]ology Differential Type Automated Diff [facility] Pathology Neutrophil 82 % [facility] Pathology Lymphocyte 6 % [facility] Pathology Monocyte 10 % [facility] Pathology Eosinophil 1 % [facility] Pathology Basophil 1 % [facility] Pathology Abs Neutrophil 9.91 (H) 1.8 - 7.0 [facility] 10*3/uL [facility]ology Abs Lymphocyte 0.66 (L) 1.2 - 4.0 [facility] 10*3/uL [facility] Abs Monocyte 1.16 (H) 0 - 0.8 [facility] 10*3/uL [facility] Abs Eosinophil 0.07 0 - 0.5 [facility] 10*3/uL [facility]ology Abs Basophil 0.08 0 - 0.2 [facility] 10*3/uL [facility] Pathology Nucleated Red Blood 0 0 - 0 [facility] Cells /100{WBCs} [facility] Pathology Specimen EDTA Whole Blood Performing Organization Address City/State/Zipcode Phone Number [facility] [address] [place] [address] [phone] [facility] [address] [place] [address] Pathology Basic Metabolic Panel (04/10/2019 3:53 AM EST) Bicarbonate 29 22 - 29 mmol/L [facility] Pathology Chloride 98 98 - 107 mmol/L [facility] Pathology Creatinine 0.63 (L) 0.70 - 1.20 [facility] mg/dL [facility]ology Glucose 121 70 - 140 mg/dL [facility] Pathology Potassium 3.5 3.4 - 5.1 [facility] mmol/L [facility] Sodium 136 136 - 145 [facility] mmol/L [facility] Blood Urea Nitrogen 6 6 - 20 mg/dL [facility] Pathology Anion Gap 9 8 - 15 mmol/L [facility] Pathology Osmolality, Lalito 281 275 - 300 [facility] mosm/kg [facility]ology BUN/Cre Ratio 10 [facility] Pathology Calcium 7.9 (L) 8.6 - 10.0 [facility] mg/dL [facility] Pathology GFR Non >90 >60 [facility] [place] 2008 CDK-EPI mL/min/1.73m2 [facility] Pathology GFR >90 >60 [facility] 2008 CKD-EPI mL/min/1.73m2 [facility] Pathology Specimen Plasma Performing Organization Address [facility] Phone Number [facility] [address] [place] [address] [facility] [address] [place] [address] Pathology LAB RESULTS (OUTSIDE/HISTORICAL) (04/09/2019 1:58 PM EST) Narrative Performed At RADIOLOGY REPORT (04/09/2019 1:58 PM EST) Narrative Performed At Phosphorus Level (04/09/2019 3:57 AM EST) Phosphorus 3.4 2.5 - 4.5 mg/dL [facility] Pathology Specimen Plasma Performing Organization Address [facility] Phone Number [facility] [address] [place] [address] [phone] [facility] [address] [place] [address] Pathology Magnesium Level (04/09/2019 3:57 AM EST) Magnesium 2.1 1.6 - 2.6 mg/dL [facility] Pathology Specimen Plasma Performing Organization Address [facility] Phone Number [facility] [address] [place] [address] [facility] [address] [place] [address] Pathology CBC and Differential (04/09/2019 3:57 AM EST) White Blood Cell 19.7 (H) 4 - 10 [facility] 10*3/uL [facility] Pathology Red Blood Cell 2.88 (L) 4.6 - 6.1 [facility] 10*6/uL [facility] Pathology Hemoglobin 7.5 (L) 13.5 - 18 [facility] g/dL [facility] Pathology Hematocrit 24.3 (L) 41 - 53 % [facility] Pathology Mean Cell Volume 84.3 80 - 96 fL [facility] Pathology Mean Cell Hemoglobin 26.1 (L) 27 - 33 pg [facility] Pathology Mean Cell Hgb Conc 30.9 (L) 32.0 - 36.0 [facility] g/dL [facility] Pathology Red Cell Dist Width 18.4 (H) 11.5 - 14.5 % [facility] Pathology Platelet Count 687 (H) 150 - 400 [facility] 10*3/uL [facility] Pathology Differential Type Automated Diff [facility] Pathology Neutrophil 92 % [facility] Pathology Lymphocyte 2 % [facility] Pathology Monocyte 6 % [facility] Pathology Eosinophil 0 % [facility] Pathology Basophil 0 % [facility] Pathology Abs Neutrophil 18.00 (H) 1.8 - 7.0 [facility] 10*3/uL [facility] Pathology Abs Lymphocyte 0.46 (L) 1.2 - 4.0 [facility] 10*3/uL [facility] Pathology Abs Monocyte 1.17 (H) 0 - 0.8 [facility] 10*3/uL [facility] Pathology Abs Eosinophil 0.00 0 - 0.5 [facility] 10*3/uL [facility] Pathology Abs Basophil 0.02 0 - 0.2 [facility] 10*3/uL [facility] Pathology Nucleated Red Blood 0 0 - 0 [facility] Cells /100{WBCs} [facility] Pathology Specimen EDTA Whole Blood Performing Organization Address City/State/Zipcode Phone Number [facility] [address] [place] [address] [facility] [address] [place] [address] Pathology Basic Metabolic Panel (04/09/2019 3:57 AM EST) Bicarbonate 27 22 - 29 mmol/L [facility] Pathology Chloride 97 (L) 98 - 107 mmol/L [facility] Pathology Creatinine 0.53 (L) 0.70 - 1.20 [facility] mg/dL [facility] Pathology Glucose 117 70 - 140 mg/dL [facility] Pathology Potassium 3.9 3.4 - 5.1 [facility] mmol/L [facility] Pathology Sodium 134 (L) 136 - 145 [facility] mmol/L [facility] Pathology Blood Urea Nitrogen 7 6 - 20 mg/dL [facility] Pathology Anion Gap 10 8 - 15 mmol/L [facility] Pathology Osmolality, Lalito 277 275 - 300 [facility] mosm/kg [facility] Pathology BUN/Cre Ratio 13 [facility] Pathology Calcium 8.2 (L) 8.6 - 10.0 [facility] mg/dL [facility] Pathology GFR Non >90 >60 [facility] [place] 2009 CDK-EPI mL/min/1.73m2 [facility] Pathology GFR >90 >60 [facility] 2009 CKD-EPI mL/min/1.73m2 [facility] Pathology Specimen Plasma Performing Organization Address City/[facility] Phone Number [facility] [address] [place] [address] [phone] [facility] [address] [place] [address] Pathology Anaerobic culture ; (04/08/2019 7:41 PM EST) Special Request None [facility] Pathology Culture/Results BACTEROIDES OVATUS [facility] () [facility] Pathology Culture/Results PREVOTELLA BIVIA (A) [facility] Pathology Culture/Results BACTEROIDES FRAGILIS [facility] GROUP (A) [facility] Pathology Specimen Abscess Performing Organization Address [facility] Phone Number [facility] [address] [place] [address] [facility] [address] [place] [address] Pathology Wound culture (04/08/2019 7:41 PM EST) Special Request None [facility] Pathology Gram Stain 3+ WBC'S Seen. (A) [facility] Pathology Gram Stain GRAM-POSITIVE COCCUS [facility] (A) [facility] Pathology Gram Stain GRAM-POSITIVE BACILLUS [facility] Pathology Gram Stain GRAM-NEGATIVE BACILLUS [facility] Pathology Culture/Results STREPTOCOCCUS [facility] ANGINOSUS (A) [facility] Pathology Specimen Abscess Organism Antibiotic Method Susceptibility Streptococcus anginosus Clindamycin SELECT HEART CAZARES RESULTS Sensitive REPORTED. Streptococcus anginosus Erythromycin SELECT HEART CAZARES RESULTS Sensitive REPORTED. Streptococcus anginosus Vancomycin SELECT HEART CAZARES RESULTS Sensitive REPORTED. Streptococcus anginosus Penicillin ALTERNATE SHANTANU SUSCEPTIBILITIES 0.064: Sensitive Streptococcus anginosus Ceftriaxone ALTERNATE SHANTANU SUSCEPTIBILITIES 0.50: Sensitive Performing Organization Address [facility] Phone Number [facility] [address] [place] [address] [facility] [address] [place] [address] Pathology POCT glucose, docked (04/08/2019 7:37 PM EST) POC Glucose 109 70 - 140 mg/dL [facility] POC Specimen Whole Blood Performing Organization Address [facility] Phone Number POINT OF CARE TEST [address] [place] [address] [facility] POC [address] [place] [address] POCT glucose, docked (04/08/2019 10:26 AM EST) POC Glucose 97 70 - 140 mg/dL [facility] POC Specimen Whole Blood Performing Organization Address [facility] Phone Number POINT OF CARE TEST [address] [place] [address] [facility] POC [address] [place] [address] Antibody Identification (04/08/2019 6:00 AM EST) ANTIBODY IDENT Anti-JK(A) [facility] Anti-Specificity Unknown [facility] Pathology Site Performed at [facility] Clin Pathology [place], [place] Specimen EDTA Whole Blood Performing Organization Address City/[facility] Phone Number [facility] [address] [place] [address] [facility] [address] [place] [address] Pathology Phosphorus Level (04/08/2019 6:00 AM EST) Phosphorus 3.6 2.5 - 4.5 mg/dL [facility] Pathology Specimen Plasma Performing Organization Address [facility] Phone Number [facility] [address] [place] [address] [phone] [facility] [address] [place] [address] Pathology Magnesium Level (04/08/2019 6:00 AM EST) Magnesium 1.9 1.6 - 2.6 mg/dL [facility] Pathology Specimen Plasma Performing Organization Address City/State/Zipcode Phone Number [facility] CLINICAL PATHOLOGY [address] [place] [address] [phone] [facility] [address] [place] [address] Pathology CBC and Differential (04/08/2019 6:00 AM EST) White Blood Cell 12.8 (H) 4 - 10 [facility] 10*3/uL Univ [facility] Pathology Red Blood Cell 2.91 (L) 4.6 - 6.1 [facility] 10*6/uL [facility] Pathology Hemoglobin 7.6 (L) 13.5 - 18 [facility] g/dL [facility] Pathology Hematocrit 24.5 (L) 41 - 53 % [facility] Pathology Mean Cell Volume 84.3 80 - [address] [facility] Pathology Mean Cell Hemoglobin 26.1 (L) 27 - [address] [facility] Univ [facility] Pathology Mean Cell Hgb Conc 31.0 (L) 32.0 - 36.0 [facility] g/dL Univ [facility] Pathology Red Cell Dist Width 18.7 (H) 11.5 - 14.5 % [facility] Pathology Platelet Count 715 (H) 150 - 400 [facility] 10*3/uL [facility] Pathology Differential Type Automated Diff [facility] Pathology Neutrophil 83 % [facility] Lymphocyte 6 % [facility] Pathology Monocyte 10 % [facility] Pathology Eosinophil 0 % [facility] Pathology Basophil 1 % [facility] Pathology Abs Neutrophil 10.67 (H) 1.8 - 7.0 [facility] 10*3/uL [facility] Pathology Abs Lymphocyte 0.74 (L) 1.2 - 4.0 [facility] 10*3/uL [facility] Pathology Abs Monocyte 1.31 (H) 0 - 0.8 [facility] 10*3/uL [facility] Pathology Abs Eosinophil 0.04 0 - 0.5 [facility] 10*3/uL [facility] Pathology Abs Basophil 0.07 0 - 0.2 [facility] 10*3/uL [facility] Pathology Nucleated Red Blood 0 0 - 0 [facility] Cells /100{WBCs} [facility] Pathology Specimen EDTA Whole Blood Performing Organization Address [facility] Phone Number [facility] CLINICAL PATHOLOGY [address] [place] [address] [phone] [facility] [address] [place] [address] Pathology Basic Metabolic Panel (04/08/2019 6:00 AM EST) Bicarbonate 25 22 - 29 mmol/L [facility] Pathology Chloride 98 98 - 107 mmol/L [facility] Pathology Creatinine 0.62 (L) 0.70 - 1.20 [facility] mg/dL [facility] Pathology Glucose 102 70 - 140 mg/dL [facility] Pathology Potassium 3.8 3.4 - 5.1 [facility] mmol/L [facility] Pathology Sodium 137 136 - 145 [facility] mmol/L [facility] Pathology Blood Urea Nitrogen 6 6 - 20 mg/dL [facility] Pathology Anion Gap 14 8 - 15 mmol/L [facility] Pathology Osmolality, Lalito 282 275 - 300 [facility] mosm/kg [facility] Pathology BUN/Cre Ratio 9 [facility] Pathology Calcium 8.0 (L) 8.6 - 10.0 [facility] mg/dL [facility] Pathology GFR Non >90 >60 [facility] [place] 2009 CDK-EPI mL/min/1.73m2 [facility] Pathology GFR >90 >60 [facility] 2009 CKD-EPI mL/min/1.73m2 [facility] Pathology Specimen Plasma Performing Organization Address City/[facility]/Zipcode Phone Number [facility] CLINICAL PATHOLOGY [address] [place] [address] [facility] Clin [address] [place] [address] Pathology Type and Crossmatch (04/08/2019 6:00 AM EST) ABO/RH(D) B POS [facility] Pathology Gel Antibody Screen POS [facility] Pathology Crossmatch 04/10/2019 [facility] Expiration [facility] Pathology Site Performed at [facility] [address] [place], Pathology [place] UNIT NUMBER [id number] [facility] Pathology Blood Component Leukoreduced Red [facility] Type Cells Univ [facility] Pathology Unit Division 00 [facility] Pathology STATUS OF UNIT REL FROM [facility] Pathology CROSSMATCH RESULT Incompatible [facility] Pathology UNIT NUMBER [id number] [facility] Pathology Blood Component Leukoreduced Red [facility] Type Cells Univ [facility] Pathology Unit Division 00 [facility] Pathology STATUS OF UNIT REL FROM [facility] Pathology CROSSMATCH RESULT Incompatible [facility] Pathology UNIT NUMBER [id number] [facility] Pathology Blood Component Leukoreduced Red [facility] Type Cell Univ [facility] Pathology Unit Division 00 [facility] Pathology STATUS OF UNIT REL FROM [facility] Pathology UNIT TAG COMMENT Patient/Unit blood types differ. Okay to transfuse. [facility] JK(A) Antigen Absent [facility] Pathology TRANSFUSION STATUS OK TO TRANSFUSE [facility] Pathology CROSSMATCH RESULT Compatible [facility] Univ [facility] Pathology UNIT NUMBER [id number] [facility] Pathology Blood Component Leukoreduced Red [facility] Type Cell, 2nd Container Univ Clin Pathology Unit Division 00 [facility] Pathology STATUS OF UNIT REL FROM [facility] Pathology UNIT TAG COMMENT Patient/Unit blood types differ. Okay to transfuse. [facility] JK(A) Antigen Absent [facility] Pathology TRANSFUSION STATUS OK TO TRANSFUSE [facility] Pathology CROSSMATCH RESULT Compatible [facility] Pathology UNIT NUMBER [id number] [facility] Pathology Blood Component Leukoreduced Red [facility] Type Cell, 2nd Container Univ [facility] Pathology Unit Division 00 [facility] Pathology STATUS OF UNIT REL FROM [facility] Pathology UNIT TAG COMMENT Patient/Unit blood types differ. Okay to transfuse. [facility] JK(A) Antigen Absent [facility] Pathology TRANSFUSION STATUS OK TO TRANSFUSE [facility] Pathology CROSSMATCH RESULT Compatible [facility] Pathology UNIT NUMBER [id number] [facility] Pathology Blood Component Leukoreduced Red [facility] Type Cell, 2nd Container Univ [facility] Pathology Unit Division 00 [facility] Pathology STATUS OF UNIT REL FROM [facility] Pathology UNIT TAG COMMENT Patient/Unit blood types differ. Okay to transfuse. [facility] JK(A) Antigen Absent [facility] Pathology TRANSFUSION STATUS OK TO TRANSFUSE [facility] Pathology CROSSMATCH RESULT Compatible [facility] Pathology Specimen EDTA Whole Blood Performing Organization Address [facility] Phone Number [facility] PATH[facility] [address] [place] [address] [facility] Clin [address] [place] [address] Pathology Creatinine, body fluid (04/06/2019 1:30 PM EST) Creatinine, Fluid 0.6 mg/dL [facility] Comment: [facility] (NOTE) Pathology The performance characteristics of this test for this specimen type were determined by the Department of Pathology at [facility] and approved by the [facility] Department of Health. It has not been cleared by the FDA. Specimen Fluid Performing Organization Address [facility] Phone Number [facility] PATHOLOGY [address] [place] [address] [facility] [address] [place] [address] Pathology Wound culture (04/06/2019 1:30 PM EST) Special Request None [facility] PATHOLOGY Gram Stain No WBC's or [facility] organisms seen. [facility] Pathology Culture/Results NO GROWTH [facility] Pathology Specimen Abscess Performing Organization Address [facility] Phone Number [facility] PATHOLOG[facility] [address] [place] [address] [facility] [address] [place] [address] Pathology Phosphorus Level (04/06/2019 4:27 AM EST) Phosphorus 2.7 2.5 - 4.5 mg/dL [facility] Pathology Specimen Plasma Performing Organization Address [facility] Phone Number [facility] PATHOLOG[facility] [address] [place] [address] [phone] [facility] [address] [place] [address] Pathology Magnesium Level (04/06/2019 4:27 AM EST) Magnesium 1.9 1.6 - 2.6 mg/dL [facility] Pathology Specimen Plasma Performing Organization Address [facility] Phone Number [facility] PATH[facility] [address] [place] [address] [facility] [address] [place] [address] Pathology CBC (04/06/2019 4:27 AM EST) White Blood Cell 12.5 (H) 4 - 10 10*3/uL [facility] Univ [facility] Pathology Red Blood Cell 2.70 (L) 4.6 - 6.1 [facility] 10*6/uL [facility] Pathology Hemoglobin 7.3 (L) 13.5 - 18 g/dL [facility] Pathology Hematocrit 23.3 (L) 41 - 53 % [facility] Pathology Mean Cell Volume 86.2 80 - 96 fL [facility] Pathology Mean Cell Hemoglobin 27.0 27 - [address] [facility] Univ [facility] Pathology Mean Cell Hgb Conc 31.3 (L) 32.0 - 36.0 [facility] g/dL [facility] Pathology Red Cell Dist Width 17.7 (H) 11.5 - 14.5 % [facility] Pathology Platelet Count 771 (H) 150 - 400 [facility] 10*3/uL [facility] Pathology Specimen EDTA Whole Blood Performing Organization Address City/[facility] Phone Number [facility] PATHOLOG[facility] [address] [place] [address] [facility] Clin [address] [place] [address] Pathology Basic Metabolic Panel (04/06/2019 4:27 AM EST) Bicarbonate 24 22 - 29 mmol/L [facility] Pathology Chloride 97 (L) 98 - 107 mmol/L [facility] Pathology Creatinine 0.66 (L) 0.70 - 1.20 [facility] mg/dL [facility] Pathology Glucose 126 70 - 140 mg/dL [facility] Pathology Potassium 4.0 3.4 - 5.1 [facility] mmol/L [facility] Pathology Sodium 134 (L) 136 - 145 [facility] mmol/L [facility] Pathology Blood Urea Nitrogen 4 (L) 6 - 20 mg/dL [facility] Pathology Anion Gap 13 8 - 15 mmol/L [facility] Pathology Osmolality, Lalito 275 275 - 300 [facility] mosm/kg [facility] Pathology BUN/Cre Ratio 6 [facility] Pathology Calcium 8.0 (L) 8.6 - 10.0 [facility] mg/dL [facility] Pathology GFR Non >90 >60 [facility] [place] 2009 CDK-EPI mL/min/1.73m2 [facility] Pathology GFR >90 >60 [facility] 2009 CKD-EPI mL/min/1.73m2 [facility] Pathology Specimen Plasma Performing Organization Address [facility] Phone Number [facility] PATHOLOG[facility] [address] [place] [address] [facility] [address] [place] [address] Pathology TSH (04/06/2019 4:27 AM EST) TSH 2.030 0.270 - 4.200 u[IU]/mL [facility] Pathology Specimen Plasma Performing Organization Address [facility] Phone Number [facility] PATHOLOG[facility] [address] [place] [address] [facility] [address] [place] [address] Pathology T4 (04/06/2019 4:27 AM EST) Thyroxine 4.3 (L) 4.5 - 11.7 ug/dl [facility] Pathology Specimen Plasma Performing Organization Address [facility] Phone Number [facility] PATHOLOG[facility] [address] [place] [address] [facility] [address] [place] [address] Pathology Vitamin B6 (04/06/2019 4:27 AM EST) Vitamin B6 1.8 (L) 5.3 - 46.7 [facility] Comment: ug/L CLINICAL (NOTE) PATHOLOGY This test was developed and its performance characteristics determined by [facility]. It has not been cleared or approved by the Food and Drug Administration. Performed At: [address] [id number] Vishal Washington MD Ph:[phone] Specimen Plasma Performing Organization Address [facility] Phone Number [facility] CLINICAL PATHOLOGY [address] [place] [address] Vitamin B12 (04/06/2019 4:27 AM EST) Vitamin B12 1,230 (H) 211 - 946 pg/ml [facility] Pathology Specimen Plasma Performing Organization Address [facility] Phone Number [facility] PATHOLOG[facility] [address] [place] [address] [facility] [address] [place] [address] Pathology Folate (04/06/2019 4:27 AM EST) Folate 12.30 >4.77 ng/mL [facility] Pathology Specimen Serum Performing Organization Address [facility] Phone Number [facility] PATHOLOGY [address] [place] [address] [facility] [address] [place] [address] Pathology Iron and TIBC (04/06/2019 4:27 AM EST) Iron 15 (L) 59 - 158 ug/dl [facility] Pathology Transferrin Serum 121 (L) 200 - 360 mg/dL [facility] Pathology Total Fe Bind Cap 168 (L) 228 - 428 ug/dl [facility] Pathology % Fe Saturation 9.0 (L) 20 - 55 % [facility] Pathology Specimen Plasma Performing Organization Address [facility] Phone Number [facility] CLINICAL PATHOLOGY [address] [place] [address] [facility] [address] [place] [address] Pathology Ferritin Level (04/06/2019 4:27 AM EST) Ferritin 1,282 (H) 30 - 400 ng/ml [facility] Pathology Specimen Plasma Performing Organization Address [facility] Phone Number [facility] CLINICAL PATHOLOGY [address] [place] [address] [facility] [address] [place] [address] Pathology Reticulocytes (04/06/2019 4:27 AM EST) % Reticulocytes 1.6 0.6 - 2.8 % [facility] Automated [facility] Pathology Absolute Retic Automated 44.2 26 - 122 [facility] 10*3/uL [facility] Pathology Immature Retic Fraction 0.51 0.26 - 0.52 % [facility] Pathology Specimen EDTA Whole Blood Performing Organization Address [facility] Phone Number [facility] PATHOLOG[facility] [address] [place] [address] [facility] [address] [place] [address] Pathology [place], direct (04/06/2019 4:27 AM EST) EUSEBIO,BROAD Microscopically [facility] SPECTRUM AFRICA Positive [facility] Pathology Site Performed at [place], [place] Pathology EUSEBIO, ANTI-IGG NEG [facility] AFRICA SERUM [facility] Pathology EUSEBIO Anti-C[address] [facility] AFRICA Positive [facility] Pathology Specimen EDTA Whole Blood Performing Organization Address [facility] Phone Number [facility] PATHOLOGY [address] [place] [phone] [facility] [address] [place] [address] Pathology Helicobact pylori Ab IgG (04/06/2019 4:27 AM EST) Pathologist [facility] Helicobact pylori 0.11 0.00 - 0.79 [facility] Ab IgG Comment: Index Value (NOTE) Negative <0.80 Equivocal 0.80 - 0.89 Positive >0.89 Performed At: [facility] [address] [place], [place] [id number] Hamzah Ford MD Ph:[phone] Specimen Serum Performing Organization Address [facility] Phone Number [address] [address] PATHOLOGY [facility] [address] [place] [address] H. Pylori IgM Ab (04/06/2019 4:27 AM EST) H. Pylori, IgM <9.0 0.0 - 8.9 [facility] Abs Comment: units (NOTE) Negative <9.0 Equivocal 9.0 - 11.0 Positive >11.0 This test was developed and its performance characteristics determined by [facility]. It has not been cleared or approved by the Food and Drug Administration. Performed At: [facility] [address] [id number] Hamzah Ford MD Ph:[phone] Specimen Serum Performing Organization Address [facility] Phone Number [address] [address] Inflammatory C-Reactive Protein (CRP) (04/06/2019 4:27 AM EST) Pathologist [facility] C Reactive Protein 150.6 (H) <8.0 mg/L [facility] Pathology Specimen Plasma Performing Organization Address [facility] Phone Number [facility] PATHOLOGY [address] [place] [address] [facility] [address] [place] [address] Pathology Sedimentation rate, automated (04/06/2019 4:27 AM EST) Pathologist [facility] Sed Rate - ESR 72 (H) <20 mm/hr [facility] Pathology Specimen EDTA Whole Blood Performing Organization Address [facility] Number [facility] PATHOLOGY [address] [place] [address] [phone] [facility] [address] [place] [address] Pathology Hepatitis B surface antigen (04/06/2019 4:27 AM EST) Pathologist [facility] Hepatitis B Non Non Reactive [facility] Surface Ag ReactiveComment: No Univ Clin active or previous Pathology infection. Susceptible to infection. Specimen Serum Performing Organization Address [facility] Phone Number [facility] PATHOLOGY [address] [place] [address] [facility] [address] [place] [address] Pathology QUANTIFERON-TB GOLD PLUS (04/06/2019 4:27 AM EST) Pathologist [facility] Quantiferon-TB Negative Negative [facility] Gold Plus Comment: Univ Clin No interferon-gamma response to M.tuberculosis Pathology antigens was detected. Infection with M. tuberculosis is unlikely. A single negative result does not exclude infection with M. TB. In patients at high risk for M. tuberculosis infection, a 2nd test should be considered in accordance with the 2017 ATS/IDSA/CDC Clinical Practice Guidelines for Diagnosis of Tuberculosis in Adults and Children [Emperatriz MATHUR et. al. Clin Infec.Dis 2017 64(2):111-115] TB1 Ag minus Nil 0.01 [IU]/mL [facility] Result [facility] Pathology TB2 Ag minus Nil 0.01 [IU]/mL [facility] Result [facility] Pathology Mitogen Nil Result 1.74 [IU]/mL [facility] Pathology Nil Result 0.03 [IU]/mL [facility] Pathology Specimen Whole Blood Performing Organization Address [facility] Phone Number [facility] PATHOLOGY [address] [place] [address] [facility] [address] [place] [address] Pathology Calprotectin Fecal (04/05/2019 7:01 PM EST) Calprotectin 766 (H) 0 - 120 ug/g [facility] Comment: Univ Clin (NOTE) Pathology Concentration Interpretation Follow-Up <16 - 50 ug/g Normal None >50 -120 ug/g Borderline Re-evaluate in 4-6 weeks >120 ug/g Abnormal Repeat as clinically indicated Performed At: [facility] [id number] Vishal Washington MD Ph:[phone] Specimen Stool Performing Organization Address [facility] Phone Number [facility] PATHOLOGY [address] [place] [address] [facility] [address] [place] [address] Pathology H. pylori antigen, stool (04/05/2019 7:01 PM EST) H. Pylori AG,QL, Negative Negative [facility] Stool Comment: (NOTE) Performed At: [facility] [address] [place] [id number] Hamzah Ford MD Ph:[phone] Specimen Stool Performing Organization Address City/State/Zipcode Phone Number [facility] CLINICAL [address] [place] [address] PATHOLOGY [facility] [address] [address] Ova and Parasite screen (04/05/2019 7:01 PM EST) Special Request None [facility] PATHOLOGY Ova and Parasites Iodine wet mount: NO [facility] ova and parasites Univ Clin seen. One negative Pathology specimen does not rule out the possibility of a parasitic infection. Routine ova and parasite examination does not include Cryptosporidium, Cyclospora, Cystoisospora, or microsporidia. Ova and Parasites Quantity of stool [facility] not sufficient to [facility] perform trichrome Pathology stain. Specimen Stool Performing Organization Address City/State/Zipcode Phone Number [facility] PATHOLOGY [address] [place] [address] [phone] [facility] [address] [place] [address] Pathology Community-Acquired Diarrhea Panel (04/05/2019 7:01 PM EST) Special Request None [facility] PATHOLOGY GI Panel PCR Results [facility] Univ [facility] Pathology Campylobacter spp Not Detected [facility] Pathology C. difficile Toxin A/B Not Detected [facility] Pathology Plesiomonas shigelloides Not Detected [facility] Pathology Salmonella spp Not Detected [facility] Pathology Vibrio spp Not Detected [facility] Pathology Vibrio cholerae Not Detected [facility] Pathology Yersinia Enterocolitica Not Detected [facility] Pathology Enteroaggregative E.coli Not Detected [facility] Pathology Enteropathogenic E.coli Not Detected [facility] Pathology Enterotoxigenic E.coli Not Detected [facility] Pathology Shiga-like toxin E.coli Not Detected [facility] Pathology E.coli O157 Not applicable [facility] Pathology Shigella / E. coli Not Detected [facility] Pathology Cryptosporidium Not Detected [facility] Pathology Cyclospora cayetanensis Not Detected [facility] Pathology Entamoeba histolytica Not Detected [facility] Pathology Giardia lamblia Not Detected [facility] Pathology Adenovirus F 40/41 Not Detected [facility] Pathology Astrovirus Not Detected [facility] Pathology Norovirus G1/G2 Not Detected [facility] Pathology Rotavirus A Not Detected [facility] Pathology Sapovirus Not Detected [facility] Pathology Specimen Stool Performing Organization Address City/State/Zipcode Phone Number [facility] CLINICAL PATHOLOGY [address] [place] [address] [phone] [facility] [address] [place] [address] Abdomen Pelvis with Contrast (04/05/2019 12:25 PM EST) Specimen Narrative Performed At PROCEDURE INFORMATION: [facility] Exam: CT Abdomen And Pelvis With Contrast Exam date and time: 04/05/2019 12:03 PM Age: 54 years old Clinical indication: Abdominal tenderness; Additional info: Eval pelvic abscess TECHNIQUE: Imaging protocol: Computed tomography of the abdomen and pelvis with intravenous contrast. Radiation optimization: All CT scans at this facility use at least one of these dose optimization techniques: automated exposure control; mA and/or kV adjustment per patient size (includes targeted exams where dose is matched to clinical indication); or iterative reconstruction. Contrast material: OMNI 300; Contrast volume: 100 ml; Contrast route: IV; COMPARISON: A/P W CT ABD/PEL W 03/31/2019 12:13 PM FINDINGS: Liver: Normal. No mass. Gallbladder and bile ducts: Normal. No calcified stones. No ductal dilation. Pancreas: Normal. No ductal dilation. Spleen: Normal. No splenomegaly. Adrenals: Normal. No mass. Kidneys and ureters: Normal. No hydronephrosis. Stomach and bowel: There is wall thickening of mid sigmoid colon with surrounding edema and inflammatory stranding. Findings are consistent with perforated diverticulitis, follow-up is recommended as underlying malignancy cannot be excluded. There is pericolonic abscess measuring 6.2 x 3.7 by 5.3 cm. A 2nd loculated fluid collection noted more inferiorly within the pelvis also consistent with abscess measuring 5.3 cm. The larger collection contains small foci of gas. No dilation.There is no evidence of intestinal obstruction. Appendix: No evidence of appendicitis. Intraperitoneal space: See Stomach And Bowel Finding. Vasculature: Unremarkable. No abdominal aortic aneurysm. Lymph nodes: There are several prominent likely reactive lymph nodes within the lower abdomen and upper pelvis. Bladder: Unremarkable as visualized. Reproductive: Unremarkable as visualized. Bones/joints: Unremarkable. No acute fracture. Soft tissues: There is fat containing umbilical hernia with opening measuring 14 mm. IMPRESSION: Perforated sigmoid colon diverticulitis as discussed above. Interval increased size of pericolonic abscess. Interval increased size of 2nd abscess collection within the inferior pelvis most likely these 2 are interconnected. THIS DOCUMENT HAS BEEN ELECTRONICALLY SIGNED BY ASHLEY BAKER MD Procedure Note Interface, Received Via [employer] - 04/05/2019 1:14 PM EST PROCEDURE INFORMATION: Exam: CT Abdomen And Pelvis With Contrast Exam date and time: 04/05/2019 12:03 PM Age: 54 years old Clinical indication: Abdominal tenderness; Additional info: Eval pelvic abscess TECHNIQUE: Imaging protocol: Computed tomography of the abdomen and pelvis with intravenous contrast. Radiation optimization: All CT scans at this facility use at least one of these dose optimization techniques: automated exposure control; mA and/or kV adjustment per patient size (includes targeted exams where dose is matched to clinical indication); or iterative reconstruction. Contrast material: OMNI 300; Contrast volume: 100 ml; Contrast route: IV; COMPARISON: A/P W CT ABD/PEL W 03/31/2019 12:13 PM FINDINGS: Liver: Normal. No mass. Gallbladder and bile ducts: Normal. No calcified stones. No ductal dilation. Pancreas: Normal. No ductal dilation. Spleen: Normal. No splenomegaly. Adrenals: Normal. No mass. Kidneys and ureters: Normal. No hydronephrosis. Stomach and bowel: There is wall thickening of mid sigmoid colon with surrounding edema and inflammatory stranding. Findings are consistent with perforated diverticulitis, follow-up is recommended as underlying malignancy cannot be excluded. There is pericolonic abscess measuring 6.2 x 3.7 by 5.3 cm. A 2nd loculated fluid collection noted more inferiorly within the pelvis also consistent with abscess measuring 5.3 cm. The larger collection contains small foci of gas. No dilation.There is no evidence of intestinal obstruction. Appendix: No evidence of appendicitis. Intraperitoneal space: See Stomach And Bowel Finding. Vasculature: Unremarkable. No abdominal aortic aneurysm. Lymph nodes: There are several prominent likely reactive lymph nodes within the lower abdomen and upper pelvis. Bladder: Unremarkable as visualized. Reproductive: Unremarkable as visualized. Bones/joints: Unremarkable. No acute fracture. Soft tissues: There is fat containing umbilical hernia with opening measuring 14 mm. IMPRESSION: Perforated sigmoid colon diverticulitis as discussed above. Interval increased size of pericolonic abscess. Interval increased size of 2nd abscess collection within the inferior pelvis most likely these 2 are interconnected. THIS DOCUMENT HAS BEEN ELECTRONICALLY SIGNED BY ASHLEY BAKER MD Performing Organization Address City/State/Zipcode Phone Number [facility] [address] [place] [address] Partial Thromboplastin Time (PTT) (04/05/2019 3:10 AM EST) PTT Patient (PAT) 36.3 (H) 24.0 - 34.[address] [facility] Pathology Specimen Plasma Performing Organization Address City/[facility]/Zipcode Phone Number [facility] [address] [place] [address] [facility] [address] [place] [address] Pathology Protime-INR (04/05/2019 3:10 AM EST) PT Patient 17.0 (H) 12.5 - 14.9 [facility] s [facility] Pathology Int'l Normalized 1.33Comment: Routine [facility] Ratio intensity oral [facility] anticoagulation INR is Pathology typically 2.0-3.0. Target INR must be clinically individualized. Specimen Plasma Performing Organization Address [facility]/Zipcode Phone Number [facility] [address] [place] [address] [phone] [facility] [address] [place] [address] Pathology CBC and Differential (04/05/2019 3:10 AM EST) White Blood Cell 14.8 (H) 4 - 10 [facility] 10*3/uL [facility] Pathology Red Blood Cell 2.80 (L) 4.6 - 6.1 [facility] 10*6/uL [facility] Pathology Hemoglobin 7.5 (L) 13.5 - 18 [facility] g/dL [facility] Pathology Hematocrit 23.8 (L) 41 - 53 % [facility] Pathology Mean Cell Volume 85.2 80 - 96 fL [facility] Clin Pathology Mean Cell Hemoglobin 26.8 (L) 27 - [address] [facility] Pathology Mean Cell Hgb Conc 31.5 (L) 32.0 - 36.0 [facility] g/dL [facility] Pathology Red Cell Dist Width 18.2 (H) 11.5 - 14.5 % [facility] Pathology Platelet Count 861 (H) 150 - 400 [facility] 10*3/uL [facility] Pathology Differential Type Automated Diff [facility] Pathology Neutrophil 83 % [facility]ology Lymphocyte 4 % [facility] Pathology Monocyte 11 % [facility] Pathology Eosinophil 1 % [facility] Pathology Basophil 1 % [facility] Pathology Abs Neutrophil 12.35 (H) 1.8 - 7.0 [facility] 10*3/uL [facility] Pathology Abs Lymphocyte 0.58 (L) 1.2 - 4.0 [facility] 10*3/uL [facility] Pathology Abs Monocyte 1.67 (H) 0 - 0.8 [facility] 10*3/uL [facility] Pathology Abs Eosinophil 0.13 0 - 0.5 [facility] 10*3/uL [facility] Pathology Abs Basophil 0.09 0 - 0.2 [facility] 10*3/uL [facility] Pathology Nucleated Red Blood 0 0 - 0 [facility] Cells /100{WBCs} [facility] Pathology Specimen EDTA Whole Blood Performing Organization Address City/[facility] Phone Number [facility] [address] [place] [address] [facility] [address] [place] [address] Pathology Phosphorus Level (04/05/2019 3:10 AM EST) Phosphorus 2.8 2.5 - 4.5 mg/dL [facility] Clin Pathology Specimen Plasma Performing Organization Address City/[facility] Phone Number [facility] [address] [place] [address] [phone] [facility] [address] [place] [address] Pathology Magnesium Level (04/05/2019 3:10 AM EST) Magnesium 2.0 1.6 - 2.6 mg/dL [facility] Clin Pathology Specimen Plasma Performing Organization Address [facility] Phone Number [facility] [address] [place] [address] [facility] [address] [place] [address] Pathology Basic Metabolic Panel (04/05/2019 3:10 AM EST) Bicarbonate 25 22 - 29 mmol/L [facility] Pathology Chloride 99 98 - 107 mmol/L [facility] Pathology Creatinine 0.62 (L) 0.70 - 1.20 [facility] mg/dL [facility] Pathology Glucose 139 70 - 140 mg/dL [facility] Pathology Potassium 3.9 3.4 - 5.1 [facility] mmol/L [facility] Pathology Sodium 135 (L) 136 - 145 [facility] mmol/L [facility] Pathology Blood Urea Nitrogen 6 6 - 20 mg/dL [facility] Pathology Anion Gap 11 8 - 15 mmol/L [facility] Pathology Osmolality, Lalito 280 275 - 300 [facility] mosm/kg [facility] Pathology BUN/Cre Ratio 10 [facility] Pathology Calcium 8.0 (L) 8.6 - 10.0 [facility] mg/dL [facility] Pathology GFR Non >90 >60 [facility] [place] 2009 CDK-EPI mL/min/1.73m2 [facility] Pathology GFR >90 >60 [facility] 2009 CKD-EPI mL/min/1.73m2 [facility] Pathology Specimen Plasma Performing Organization Address City/State/Zipcode Phone Number [facility] [address] [place] [address] [phone] [facility] [address] [place] [address] Pathology XR Chest Frontal Only (04/05/2019 1:50 AM EST) Specimen Narrative Performed At PROCEDURE INFORMATION: [facility] Exam: XR Chest, 1 View Exam date and time: 04/05/2019 2:39 AM Age: 54 years old Clinical indication: Other: Please confirm picc placement TECHNIQUE: Imaging protocol: XR of the chest Views: 1 view. COMPARISON: OT CXR PORTAP CHEST AP/PORT 04/03/2019 3:19 PM FINDINGS: Tubes, catheters and devices: A peripherally inserted central venous catheter is present, with the tip in the superior vena cava. Lungs: Unremarkable. No consolidation. Pleural space: Unremarkable. No pleural effusion. No pneumothorax. Heart/Mediastinum: Unremarkable. No cardiomegaly. Bones/joints: There are degenerative changes involving the spine final shoulders. IMPRESSION: No acute disease. THIS DOCUMENT HAS BEEN ELECTRONICALLY SIGNED BY WIN BENEDICT MD Procedure Note Interface, Received Via [employer] - 04/05/2019 3:03 AM EST PROCEDURE INFORMATION: Exam: XR Chest, 1 View Exam date and time: 04/05/2019 2:39 AM Age: 54 years old Clinical indication: Other: Please confirm picc placement TECHNIQUE: Imaging protocol: XR of the chest Views: 1 view. COMPARISON: OT CXR PORTAP CHEST AP/PORT 04/03/2019 3:19 PM FINDINGS: Tubes, catheters and devices: A peripherally inserted central venous catheter is present, with the tip in the superior vena cava. Lungs: Unremarkable. No consolidation. Pleural space: Unremarkable. No pleural effusion. No pneumothorax. Heart/Mediastinum: Unremarkable. No cardiomegaly. Bones/joints: There are degenerative changes involving the spine final shoulders. IMPRESSION: No acute disease. THIS DOCUMENT HAS BEEN ELECTRONICALLY SIGNED BY WIN BENEDICT MD Performing Organization Address City/State/Zipcode Phone Number [facility] [address] [place] [address] documented in this encounter Visit Diagnoses Diagnosis Abscess of abdominal cavity - Primary Peritoneal abscess Ulcerative colitis Ulcerative colitis, unspecified Anemia of chronic disease Anemia of other chronic disease Pelvic abscess in male Encounter for ostomy care education documented in this encounter Administered Medications Medication Order MAR Action Action Date Dose Rate Site acetaminophen (TYLENOL) tablet Given 04/10/2019 3:47 AM EST 975 mg 975 mg 975 mg, Oral, Every 8 hours, First dose (after last modification) on Vee 04/09/19 at 0300, For 78 doses, Maximum daily dose of acetaminophen is 3,000 mg from all sources in 24 hours., Given 04/09/2019 7:32 PM EST 975 mg Given 04/09/2019 10:54 AM EST 975 mg cefTRIAXone (ROCEPHIN) Rate/Dose Verify 04/10/2019 6:00 AM EST 100 mL/hr infusion 1 g (premix) 1 g, Intravenous, at 100 mL/hr, Every 24 hours, First dose on [place] 04/05/19 at 0445, For 7 days, Discouraged Uses: Empiric treatment of post-surgical meningitis (ceftazidime preferred), Rate/Dose Verify 04/10/2019 5:48 AM EST 100 mL/hr New Bag 04/10/2019 5:46 AM EST 1 g 100 mL/hr docusate sodium (COLACE) capsule 100 mg Given 04/10/2019 9:27 AM EST 100 mg 100 mg, Oral, 2 Times Daily, First dose on Sat04/10/19 at 0900, For 30 days, Hold if greater than 2 BM in 24 hours, escitalopram (LEXAPRO) tablet 10 mg Given 04/10/2019 7:51 AM EST 10 mg 10 mg, Oral, Daily Standard, First dose on Sat04/05/19 at 0900, For 30 days Given 04/09/2019 8:50 AM EST 10 mg Given 04/08/2019 9:19 AM EST 10 mg heparin (porcine) 5000 UNIT/ML Given 04/09/2019 5:53 PM EST 5,000 Units injection 5,000 Units 5,000 Units, Subcutaneous, Three Times Daily Standard, First dose on Sat04/07/19 at 1700, For 30 days Given 04/09/2019 8:50 AM EST 5,000 Units Given 04/08/2019 9:19 AM EST 5,000 Units melatonin tablet 5 mg Given 04/09/2019 9:31 PM EST 5 mg 5 mg, Oral, Nightly, First dose on Sat04/07/19 at 2200, For 30 days Given 04/07/2019 11:06 PM EST 5 mg metroNIDAZOLE (FLAGYL) IVPB Rate/Dose Verify 04/10/2019 6:00 AM EST 100 mL/hr 500 mg 500 mg, Intravenous, Administer over 60 Minutes, Every 8 hours, First dose on Sat04/05/19 at 0445, For 7 days New Bag 04/10/2019 5:47 AM EST 500 mg 100 mL/hr New Bag 04/09/2019 9:31 PM EST 500 mg 100 mL/hr ondansetron (ZOFRAN) injection 4 mg Given 04/08/2019 8:12 PM EST 4 mg 4 mg, Intravenous, Every 8 hours PRN, Nausea, Vomiting, Starting 04/04/19 at 2343, For 8 days 11 hours New Bag 04/07/2019 3:27 PM EST 4 mg Given by IV push 04/07/2019 4:42 AM EST 4 mg oxyCODONE (ROXICODONE) immediate release Given 04/09/2019 5:24 AM EST 10 mg tablet 10 mg 10 mg, Oral, Every 4 hours PRN, Severe Pain (Pain Scale Score 7-10), Starting 04/06/19 at 0531, For 144 hours, Oxycodone immediate release is limited to 10 mg per dose. Higher doses ( only) require Pain Service consultation and approval., Given 04/09/2019 1:25 AM EST 10 mg Given 04/08/2019 9:51 PM EST 10 mg oxyCODONE (ROXICODONE) immediate release Given 04/09/2019 7:32 PM EST 5 mg tablet 5 mg 5 mg, Oral, Every 4 hours PRN, Moderate Pain (Pain Scale Score 4-6), Starting 04/06/19 at 0531, For 144 hours, Oxycodone immediate release is limited to 10 mg per dose. Higher doses ( only) require Pain Service consultation and approval., Given 04/09/2019 3:38 PM EST 5 mg Given 04/08/2019 2:23 PM EST 5 mg pantoprazole (PROTONIX) injection 40 mg New Bag 04/10/2019 7:51 AM EST 40 mg 40 mg, Intravenous, 2 Times Daily, First dose (after last modification) on Sat04/05/19 at 2315, For 17 doses New Bag 04/09/2019 9:31 PM EST 40 mg New Bag 04/09/2019 8:50 AM EST 40 mg polyethylene glycol (MIRALAX) packet 17 g Given 04/10/2019 9:26 AM EST 17 g 17 g, Oral, Daily Standard, First dose on Sat04/10/19 at 0900, For 30 days, Mix in 8 ounces of water, juice or milk. Avoid use in patients who require thickened liquids due to potential increased risk for aspiration., Medication Order MAR Action Action Date Dose Rate Site acetaminophen (TYLENOL) tablet Given 04/08/2019 10:26 AM EST 650 mg 650 mg 650 mg, Oral, Every 8 hours, First dose on Sat04/05/19 at 0300, For 30 days, Maximum daily dose of acetaminophen is 3,000 mg from all sources in 24 hours., Given 04/08/2019 3:30 AM EST 650 mg Given 04/07/2019 6:52 PM EST 650 mg acetaminophen (TYLENOL) tablet 975 mg Given 04/08/2019 4:01 PM EST 975 mg 975 mg, Oral, See Admin Instructions, Starting Sat04/08/19 at 0000, For 1 dose, Pre-op continue to OR, TO BE ADMINISTERED PRIOR TO TRANSFER TO O.R., alvimopan (ENTEREG) capsule 12 mg Given 04/08/2019 4:01 PM EST 12 mg 12 mg, Oral, See Admin Instructions, Starting Sat04/08/19 at 0000, For 1 dose, Pre-op continue to OR, TO BE ADMINISTERED PRIOR TO TRANSFER TO O.R. FDA REMS: Due to increased risk for myocardial infarction with prolonged use, the total course of therapy must NOT exceed 15 doses., bisacodyl (DULCOLAX) EC tablet 5 mg Given 04/07/2019 3:32 AM EST 5 mg 5 mg, Oral, Once, 04/07/19 at 0330, For 1 dose, Do not crush or chew, celecoxib (CELEBREX) capsule 200 mg Given 04/08/2019 4:00 PM EST 200 mg 200 mg, Oral, See Admin Instructions, Starting Sat04/08/19 at 0000, For 1 dose, Pre-op continue to OR, TO BE ADMINISTERED PRIOR TO TRANSFER TO O.R. Avoid in patients with elevated creatinine/CKD, and also in patients with peptic ulcer disease, dextrose 5 % and 0.45 % NaCl with KCl New Bag 04/06/2019 3:56 PM EST 125 mL/hr 20 mEq infusion at 125 mL/hr, Intravenous, Continuous, Starting 04/04/19 at 2345, For 30 days New Bag 04/06/2019 2:02 PM EST 125 mL/hr Rate/Dose Verify 04/06/2019 9:00 AM EST 125 mL/hr fentaNYL (SUBLIMAZE) (PF) Given by IV push 04/08/2019 8:50 PM EST 12.5 mcg injection 12.5 mcg 12.5 mcg, Intravenous, Every 5 min PRN, Moderate Pain (Pain Scale Score 4-6), Starting 04/08/19 at 2018, For 10 doses, Recovery Given by IV push 04/08/2019 8:45 PM EST 12.5 mcg fentaNYL (SUBLIMAZE) (PF) Given by IV push 04/06/2019 1:10 AM EST 25 mcg injection 25 mcg 25 mcg, Intravenous, Every 2 hours PRN, for breakthrough pain, Starting [place] 04/05/19 at 0244, For 1 day fentaNYL (SUBLIMAZE) (PF) Given by IV push 04/07/2019 4:42 AM EST 25 mcg injection 25 mcg 25 mcg, Intravenous, Every 2 hours PRN, for breakthrough pain, Starting Sat04/06/19 at 0455, For 1 day New Bag 04/06/2019 11:38 PM EST 25 mcg Given by IV push 04/06/2019 9:13 PM EST 25 mcg fentaNYL (SUBLIMAZE) (PF) injection 25 mcg New Bag 04/08/2019 10:37 PM EST 25 mcg 25 mcg, Intravenous, Every 2 hours PRN, Other, breakthrough pain, Starting Sat04/07/19 at 1350, For 3 days Given 04/08/2019 7:43 PM EST 25 mcg Given 04/08/2019 6:28 PM EST 100 mcg fentaNYL (SUBLIMAZE) (PF) injection Given 04/06/2019 1:17 PM EST 50 mcg Code/Trauma Medication, Starting 04/06/19 at 1317 gabapentin (NEURONTIN) capsule 600 mg Given 04/08/2019 4:01 PM EST 600 mg 600 mg, Oral, See Admin Instructions, Starting Sat04/08/19 at 0000, For 1 dose, Pre-op continue to OR, TO BE ADMINISTERED PRIOR TO TRANSFER TO O.R. Hold if patient on hemodialysis, reduce dose to 300 mg if age > 70 or reduced kidney function., hydrOXYzine (ATARAX) tablet 25 mg Given 04/07/2019 8:49 PM EST 25 mg 25 mg, Oral, Once, [facility] 04/07/19 at 2030, For 1 dose iohexol (OMNIPAQUE) 240 MG/ML contrast 20 mL Given 04/05/2019 11:05 AM EST 20 mLs 20 mL, Oral, Once PRN, Contrast, Per Protocol, Starting [place] 04/05/19 at 0827, For 1 day, Call CT Scanner prior. banquet server on call to CT. Dilute in 500 mL liquid x1 medical collections to CT scan - per protocol. Use "Contrast dose chart" link for dosing guidelines., Given 04/05/2019 8:43 AM EST 20 mLs iohexol (OMNIPAQUE) 300 MG/ML contrast Given 04/05/2019 12:18 PM EST 100 mLs injection 100 mL 100 mL, Given by IV, 1 TIME IMAGING, [place] 04/05/19 at 1100, For 1 dose ketorolac (TORADOL) 30 MG/ML injection 15 New Bag 04/07/2019 7:51 AM EST 15 mg mg 15 mg, Intravenous, Every 6 hours PRN, Moderate Pain (Pain Scale Score 4-6), Starting Sat04/07/19 at 0024, For 36 hours metoclopramide (REGLAN) injection 10 mg New Bag 04/07/2019 6:08 PM EST 10 mg 10 mg, Intravenous, Once, Sat04/07/19 at 1745, For 1 dose metroNIDAZOLE (FLAGYL) tablet 1,000 mg Given 04/07/2019 11:06 PM EST 1,000 mg 1,000 mg, Oral, Three Times Daily Standard, First dose on Sat04/07/19 at 1300, For 1 day, To be taken the day before surgery., Given 04/07/2019 2:34 PM EST 1,000 mg Given 04/07/2019 1:29 PM EST 1,000 mg midazolam (PF) (VERSED) injection Given 04/06/2019 1:17 PM EST 1 mg Code/Trauma Medication, Starting Sat04/06/19 at 1317 mineral oil enema 133 mL Given 04/08/2019 11:55 AM EST 133 mLs 133 mL, Rectal, Once, Sat04/08/19 at 1000, For 1 dose mineral oil enema 133 mL Given 04/08/2019 9:20 AM EST 133 mLs 133 mL, Rectal, Once, Sat04/08/19 at 0645, For 1 dose neomycin (MYCIFRADIN) tablet 1,000 mg Given 04/07/2019 11:30 PM EST 1,000 mg 1,000 mg, Oral, Three Times Daily Standard, First dose on Sat04/07/19 at 1300, For 1 day, To be taken the day before surgery., Given 04/07/2019 2:34 PM EST 1,000 mg Given 04/07/2019 1:30 PM EST 1,000 mg oxyCODONE (ROXICODONE) immediate release Given 04/06/2019 4:56 AM EST 5 mg tablet 5 mg 5 mg, Oral, Every 4 hours PRN, Moderate Pain (Pain Scale Score 4-6), Starting 04/05/19 at 0244, For 3 days, Oxycodone immediate release is limited to 10 mg per dose. Higher doses ( only) require Pain Service consultation and approval., Given 04/06/2019 1:04 AM EST 5 mg Given 04/05/2019 8:47 PM EST 5 mg pantoprazole (PROTONIX) injection Given by IV push 04/05/2019 11:28 AM EST 40 mg 40 mg 40 mg, Intravenous, Daily Standard, First dose on Sat04/05/19 at 1115, For 30 days polyethylene glycol (GoLYTELY,NuLYTELY) Given 04/07/2019 1:31 PM EST 4,000 mLs suspension 4,000 mL 4,000 mL, Oral, See Admin Instructions, Starting Sat04/07/19 at 1400, For 1 dose, Clear liquid diet until midnight. Start drinking Golytely at 2 pm to coincide with liquid Diet order. No ice in Golytely. Drink one cup (8 ounces) every 10 - 15 minutes until the gallon is finished. If patient becomes nauseated, drink one cup every 20 minutes until nausea ceases., simethicone (MYLICON) chewable tablet 80 mg Given 04/10/2019 3:47 AM EST 80 mg 80 mg, Oral, Once, 04/10/19 at 0045, For 1 dose documented in this encounter Additional Health Concerns Infection Noted Time Resolved Time C. difficile Rule-Out 04/05/2019 5:03 PM EST 04/06/2019 1:14 PM EST documented as of this encounter
--- OUTSIDE RECORDS SUMMARY | 2019-05-08 08:52 | XMS REPORT | Continuity of Care Document ---
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 [phone] Problems Description No Information Available Social History Type Date Description Comments Sex Unknown Tobacco Use Start: Unknown Never Smoked Cigarettes ETOH Use Occasionally consumes liquor Recreational Drug Use Denies Drug Use Allergies, Adverse Reactions, Alerts Description No Known Drug Allergies Medications Active Medications SIG Qnty Indications Ordering Date Provider Pantoprazole Sodium 1 by mouth bid 30tabs Dougie Gaytan, 03/19/[address] BD 3ML Syringe use as directed every 8units [...] Oxycodone HCL 1 by mouth every 6 Unknown 5mg hours as needed pain Tablets Afrin Nasal [place] 2 sprays each nostril Unknown twice a day for 3 0.05% Solution days only History Medications Meloxicam take one tablet 30tabs Dougie Gaytan, DO 02/10/2019 - 15mg by mouth every [...] CPT Code Status Date Vaccine Lot # [id number] Given 12/02/2018 Influenza Vac, Quadrivalent, Split, 0.5mL Dosage, Im Use [id number] Given 05/26/2018 Tdap (Adacel) Ages 7 And Above Only [id number] Given 11/18/2017 Influenza Vac, Quadrivalent, Split, 0.5mL Dosage, Im Use Vital Signs Date Vital Result Comment 04/17/2019 10:48am Weight 164.00 lb Heart Rate 68 /min BP Systolic 118 mmHg BP Diastolic 58 mmHg Respiratory Rate 18 /min Height 71 inches 5'11" BMI (Body Mass Index) 22.9 kg/m2 03/19/2019 1:56pm Body Temperature 98.7 F Weight 181.00 lb Heart Rate 97 /min BP Systolic 142 mmHg BP Diastolic 82 mmHg Respiratory Rate 18 /min Height 71 inches 5'11" O2 % BldC Oximetry 98 % BMI (Body Mass Index) 25.2 kg/m2 Results Test Acquired Date Facility Test Result H/L Range Note Urinalysis Profile 03/31/2019 Urine Color [place] Urine Appearance Cloudy Urine Specific [place] 1.033 High 1.010-1.030 Urine pH 5.0 Normal 5-9 Urine Urobilinogen Negative Negative Urine Ketones Negative Negative Urine Protein 1+(30 mg/dL) Abnormal Negative Urine Leukocytes Negative Negative Urine Blood Negative Negative * * Abnormal Negative 1 Urine Nitrite Negative Negative Urine Bilirubin Negative Negative Urine Glucose Negative Negative Urine White Blood Cell Trace(0-5/hpf) Absent Urine Red Blood Cell 1+(3-5/hpf) Abnormal Absent Urine Bacteria Absent Absent Urine Hyaline Casts Present Abnormal Absent Urine Culture And 03/31/2019 Urine Culture SEE RESULT 2 Sensitivities BELOW Comp Metabolic Panel 03/31/2019 Sodium 135 mmol/L Normal 135-14 5 Potassium 3.7 mmol/L Normal 3.5-5.0 Chloride 100 [...] Egfr Non- 93.6 >60 Egfr 113.2 >60 3 Laboratory test 03/31/2019 Lipase 17 U/L Normal 11.0-82.0 finding C Reactive Protein 151.36 mg/L High <8.01 CBC Auto Diff 03/31/2019 White Blood 11.8 10^3/uL High 3.5-10.8 Count Red Blood Count 2.91 10^6/uL Low 4.18-5.48 [...] Blood Cells % 0.0 Laboratory test 03/31/2019 Erythrocyte Sed > 120 mm/ Hr High 0-19 finding Rate Stool Occult 03/31/2019 Stool Occult SEE RESULT 4 Blood Diag Blood, Diag BELOW Poc Urinalysis 03/29/2019 Poc Glucose, NEGATIVE Negative Urine Poc Bilirubin, Urine NEGATIVE Negative Poc Ketone, Urine NEGATIVE Negative Poc Specific [place], Urine <= 1.005 Low 1.010-1.030 Poc Blood, Urine NEGATIVE Negative 5 Poc pH, Urine 5.5 Normal 5-9 Poc Protein, Urine NEGATIVE Negative Poc Urobilinogen, Urine 0.2 Negative Poc Nitrite, Urine NEGATIVE Negative Poc Leukocytes, Urine NEGATIVE Negative Poc Color, Urine YELLOW Poc Clarity, Urine CLEAR Comprehensive Met Panel-[facility] 03/19/2019 [facility] Sodium 139 mmol/L 135- 146 6 Potassium 4.2 mmol/L 3.5-5.2 Chloride# 101 mmol/L 97-110 7 Carbon Dioxide 29 mmol/L 24-34 Calcium 8.6 mg/dL 8.5-10.5 8 Glucose 86 mg/dL 70-105 BUN 16 mg/dL 6-26 Creatinine 0.8 mg/dL 0.5-1.4 Total Protein 6.1 g/dL 6.0-8.0 Albumin 3.4 g/dL Low 3.6-4.9 Globulin 2.7 g/dL 2.0-3.5 A/G Ratio 1.3 Ratio 1.0-2.2 Total Bilirubin 0.2 mg/dL 0.1-1.3 Alkaline Phosphatase 51 U/L 24-140 Alt 19 U/L 3-42 Ast 14 U/L 8-42 Anion Gap 9 mmol/L 5-15 9 Female Egfr 79 >60 10 Male Egfr 99 >60 11 [facility] 392 pg/mL 180- 914 Iron [facility] Iron, Total <10 g/dL Low 65-175 Transferrin 246.0 mg/dL 203.0-362.0 Tibc (calc) 344 g/dL 261-478 % Iron Saturation 2.9 % Low 13.0-45.0 CBC with Auto Diff-fcmg 03/19/2019 [facility] WBC 14.5 K/uL High 4.1-11.0 12 RBC 2.89 M/uL Low 4.60-6.10 13 Hemoglobin 8.0 gm/dL Low 13.5-18.0 14 Hematocrit 25.3 % Low 41.0-53.0 15 MCV 87.8 fL 80.0-95.0 16 MCH 27.8 pg 27.0-32.0 17 MCHC 31.6 g/dL Low 32.0-36.0 18 RDW 15.4 % High 10.5-14.5 19 PLT Count 629 K/ul High 150-400 20 MPV 7.3 FL 7.1-10.7 Neutrophil 84.7 % High 35.0-75.0 21 Lymphocyte 3.0 % Low 16.0-52.0 22 Monocyte 10.9 % High 0.0-8.0 23 Eosinophil 1.1 % 0.0-5.0 Basophil 0.3 % 0.0-4.0 Abs Neutrophils 12.3 K/uL High 1.8-7.7 24 Abs Lymphocytes 0.4 K/uL Low 1.2-4.8 25 Abs Monocytes 1.6 K/uL High 0.0-0.8 26 Abs Eosinophils 0.2 K/uL 0.0-0.5 27 Abs Basophils 0.0 K/uL 0.0-0.2 28 Inr/Protime 03/15/2019 Inr 1.12 High 0.82-1.09 29 Comp Metabolic Panel 03/15/2019 Sodium 134 mmol/L Low 135-145 Potassium 3.9 [...] Egfr Non- 123.2 >60 Egfr 149.0 >60 30 Laboratory test 03/15/2019 C Reactive 16.72 mg/L High <8.01 finding Protein Troponin I 0.02 ng/mL <0.03 31 CBC Auto Diff 03/15/2019 White Blood 20.2 10^3/uL High 3.5-10.8 Count [...] Blood Cells % 0.1 Laboratory test 03/15/2019 Erythrocyte Sed 45 mm/Hr High 0-19 finding Rate Urinalysis Profile 03/15/2019 Urine Color Straw Urine Appearance Clear Urine Specific [place] 1.012 Normal 1.010-1.030 Urine pH 7.0 Normal 5-9 Urine Urobilinogen Negative Negative Urine Ketones Negative Negative Urine Protein Negative Negative Urine Leukocytes Negative Negative Urine Blood Negative Negative Urine Nitrite Negative Negative Urine Bilirubin Negative Negative Urine Glucose Negative Negative Iron & Iron 03/15/2019 Total Iron 379 g/dL Normal 250-450 Binding Capacity Binding Capacity Transferrin 271 mg/dL Normal 203-362 Iron < 20 g/dL Low 50-212 Unsaturated Iron Binding < 364 g/dL % Iron Saturation 5 % Low 15-55 Laboratory test finding 03/15/2019 Ferritin 7.0 ng/ mL Low 24-336 Folate 13.74 ng/mL >3.99 Vitamin B12 479 pg/mL Normal 180-914 32 Stool Occult 03/15/2019 Stool Occult SEE RESULT 33 Blood, Screen Blood, BELOW Screen Laboratory test 03/04/2019 [facility] CK 146 U/L Normal 39-308 34 finding (315)- - Troponin-I < 0.015 ng/mL 35 C-Reactive Protein,Quant 37.4 mg/L High <3.0 Comprehensive 03/04/2019 [facility] Glucose 104 mg/dL Normal 74-106 Metabolic Panel (315)- - BUN 22 mg/dL High 7-18 Creatinine 0.9 mg/dL Normal 0.6-1.3 Glom Filtration Rate, Estimate >60 mL/min >60 If >60 mL/min >60 36 BUN/Creat 24.4 ratio Sodium 135 mmol/L Low [...] Normal 0.2-1.0 Sgot/Ast 13 U/L Low 15-37 37 SGPT/Alt 30 U/L Normal 12-78 Alkaline Phosphatase 63 U/L Normal 45-117 CBS W/Automated 03/04/2019 [facility] White Blood 16.3 K/ uL [...] 33.0-73.0 Lymph % 7.1 % Low 20.0-42.0 [place] % 8.1 % Normal 0.0-10.0 Eo% 2.6 % Normal 0.0-6.6 Bas% 0.6 % Normal 0.0-1.1 Immature Grans 0.8 % Normal 0.0-5.0 NRBC % 0.0 /100WBC < 10/ 100 WBC Neut# 13.14 K/uL High 1.8-7.0 Lymph # 1.16 K/uL Normal 1.0-4.0 [place] # 1.31 K/uL High 0.0-0.8 Eos # 0.42 K/uL Normal 0.0-0.5 Baso # 0.10 K/uL Normal 0.0-0.1 Immature Grans Absolute 0.13 K/uL NRBC # 0.00 K/uL Laboratory test 03/04/2019 [facility] Sedimentation 64 mm /hr High 2-45 38 finding (315)- - Rate Laboratory test 03/04/2019 [facility] Troponin-I < 0.015 39 finding (315)- - ng/mL CBS W/Automated 02/22/2019 [facility] White Blood Count 10.4 K/uL Normal 3.4-10.5 40 Diff (315)- - Red Blood Count 3.39 [...] 33.0-73.0 Lymph % 8.7 % Low 20.0-42.0 [place] % 11.8 % High 0.0-10.0 Eo% 2.8 % Normal 0.0-6.6 Bas% 0.7 % Normal 0.0-1.1 Immature Grans 0.4 % Normal 0.0-5.0 NRBC % 0.0 /100WBC < 10/ 100 WBC Neut# 7.85 K/uL High 1.8-7.0 Lymph # 0.90 K/uL Low 1.0-4.0 [place] # 1.23 K/uL High 0.0-0.8 Eos # 0.29 K/uL Normal 0.0-0.5 Baso # 0.07 K/uL Normal 0.0-0.1 Immature Grans Absolute 0.04 K/uL NRBC # 0.00 K/uL Laboratory test 02/22/2019 [facility] D-Dimer, 0.49 ug/ mL 41 finding (315)- - Quantitative Comprehensive 02/22/2019 [facility] Glucose 108 mg/dL High 74-10 Metabolic Panel (315)- - 6 BUN 15 mg/dL Normal 7-18 Creatinine 0.9 mg/dL Normal 0.6-1.3 Glom Filtration Rate, Estimate >60 mL/min >60 If >60 mL/min >60 42 BUN/Creat 16.6 ratio Sodium 138 mmol/L Normal [...] 55 U/L Normal 45-117 Laboratory test 02/22/2019 [facility] Lipase 124 U/L Normal 56-289 finding (315)- - Troponin-I < 0.015 ng/mL 43 Laboratory test 02/20/2019 Troponin I 0.01 ng/mL < 0.03 44 finding Comp Metabolic 02/20/2019 Sodium 137 mmol/L Normal 135-145 Panel Potassium [...] Egfr Non- 98.9 >60 Egfr 119.7 >60 45 Inr/Protime 02/20/2019 Inr 1.09 Normal 0.82-1.09 46 CBC Auto Diff 02/20/2019 White Blood 8.9 10^3/uL Normal 3.5-10.8 Count [...] Blood Cells % 0.0 Laboratory test 02/20/2019 Troponin I 0.01 ng/mL < 0.03 47 finding Laboratory test 01/14/2019 [facility] Uric Acid 4.7 mg/dL 2.6-8.4 finding CRP (C-Reactive) inflammation 0.21 mg/dL 0.00-0.75 CBC Auto Diff 01/10/2019 White Blood 6.2 10^3/uL Normal 3.5-10.8 Count [...] Cells % 0.1 Comp Metabolic Panel 01/10/2019 Sodium 139 mmol/L Normal 135-145 Potassium 4.5 [...] Egfr Non- 100.7 >60 Egfr 121.9 >60 48 Laboratory test 01/10/2019 Testosterone 206.29 ng/dL Low 240-950 finding Lipid Profile 01/10/2019 Triglycerides 87 mg/dL 49 (Trig/Chol/HDL) Cholesterol 229 mg/dL 50 HDL Cholesterol 71.1 mg/dL 51 LDL Cholesterol 141 mg/dL 52 Laboratory test 01/10/2019 PSA Screening 0.284 ng/mL Normal 0-4.000 53 finding Vitamin B12 608 pg/mL Normal 180-914 54 1 *Ascorbic acid is present which may interfere with detection of blood. 2 SEE RESULT BELOW Name: YOBANY YING : [address]: Sophia Nam MD Acct: [id number] Unit: [id number] AGE: 54 Location: [place] [address] Re03/31/19 SEX: M Status: ADM IN SPEC: [id number] SANDY: 03/31/19-[address] [facility] [address]: Sonny Stiles MD REQ: [id number] RECD: 03/31/19 STATUS: LIAN DALAL DR: Dougie Gaytan DO _ SOURCE: URINE SPDESC: ORDERED: Urine Culture Procedure Result Reported Site Urine Culture Final 04/01/19- 1051 ML No Growth (<1,000 CFU/mL) * ML - Main Lab . END OF REPORT DEPARTMENT OF PATHOLOGY, [address] [place] [address] Darryl Zuñiga M.D. Director [facility] # [id number] 3 Because ethnic data is not always readily [...] 15-29 5 Kidney failure <15 (or dialysis) 4 SEE RESULT BELOW Name: DEREKYOBANY : [address]: Sonny Stiles MD Acct: [id number] Unit: [id number] AGE: 54 Location: ED Re03/31/19 SEX: M Status: REG ER SPEC: [id number] SANDY: 03/31/[address] [facility] [address]: Sonny Stiles MD REQ: [id number] RECD: 03/31/19 STATUS: LIAN DALAL DR: Dougie Gaytan DO _ SOURCE: STOOL SPDESC: ORDERED: Occult Bl, Diag Procedure Result Reported Site Stool Occult Blood (1) Final 03/31/19- 1152 ML Stool Occult Blood Negative * ML - Main Lab . END OF REPORT DEPARTMENT OF PATHOLOGY, [address] [place] [address] Darryl Zuñiga M.D. Director [facility] # [id number] 5 Professional [employer] Representative: [id number] 6 Updated reference range on new analyzer 7 Updated reference range on new analyzer 8 Updated reference range 06-18-2018 9 Updated Reference Range 10 Concerning GFR Guidelines for Americans: Normal function or mild renal disease, if clinically at risk: >/= 60 mL/min Moderately decreased: 30-59 Severely decreased: 15-29 Renal failure: <15 There is reduced accuracy above 60ml/min/1.73 m squared, but the numeric value may be clinically useful in the near 60 range 11 Concerning GFR Guidelines: Normal function or mild [...] drugs that are excreted by the kidneys. 12 Updated Reference Range 12/2018 13 Updated Reference Range 12/2018 14 Updated Reference Range 12/2018 15 Updated Reference Range 12/2018 16 Updated Reference Range 12/2018 17 Updated Reference Range 12/2018 18 Updated Reference range 12/2018 19 Updated Reference range 12/2018 20 Updated Reference Range 12/2018 21 Updated Reference Range 12/2018 22 Updated Reference Range 12/2018 23 Updated Reference Range 12/2018 24 Updated Reference Range 12/2018 25 Updated Reference Range 12/2018 26 Updated Reference Range 12/2018 27 Updated Reference Range 12/2018 28 Updated Reference Range 12/2018 29 Standard intensity warfarin therapeutic range: 2.0-3.0 High intensity warfarin therapeutic range: 2.5-3.5 30 Because ethnic data is not always readily [...] 15-29 5 Kidney failure <15 (or dialysis) 31 Troponin-I testing on Plasma Separator Tubes (PST) has a known false positive rate of 0.20-0.40%. All positive troponins reflex immediately to secondary confirmatory testing. Using the [employer] Access Immunoassay systems, the 99th percentile upper reference limit was demonstrated to be < 0.03 ng/mL. 32 Normal Range 180 to 914 Indeterminate Range 145 to 180 Deficient Range <145 33 SEE RESULT BELOW Name: YOBANY YING : [address]: Michelle Hermosillo MD Acct: [id number] Unit: [id number] AGE: 54 Location: ED Re03/15/19 SEX: M Status: REG ER SPEC: [id number] SANDY: 03/15/19-[address]: Tru DIXON REQ: [id number] RECD: 03/15/19 STATUS: LIAN DALAL DR: Michelle Gaytan DO _ SOURCE: STOOL SPDESC: ORDERED: Occult Bl, Scn Procedure Result Reported Site Stool Occult Blood (1) Final 03/15/19- 2219 ML Stool Occult Blood Positive Collection Date (1) 03/15/19 * ML - Main Lab . END OF REPORT DEPARTMENT OF PATHOLOGY, [address] [place] [address] Darryl Zuñiga M.D. Director [facility] # [id number] 34 CP 35 0.0 - 0.045 ng/mL: Normal 0.046 - 0.5 ng/mL: Suggestive 0.6 - 1.5 ng/mL: Consistent 36 Note: Persistent reduction for 3 months or more in an eGFR <60 mL/min/1.73 m2 defines CKD. Patients with eGFR values >/=60 mL/min/1.73 m2 may also have CKD if evidence of persistent proteinuria is present. The original MDRD equation for estimated GFR is not valid for patients less than 18 years of age. Additional information may be found at www.kdoqi.org. 37 Values below the stated reference ranges of AST and ALT can be seen in normal populations. Clinical correlation is suggested. 38 This result was obtained with an ESR method that is not based on the standard Westergren Method. When comparing results obtained from the traditional Westergren ESR and this method it is important to refer to the reference range for each method. Method: Capillary Photometry 39 0.0 - 0.045 ng/mL: Normal 0.046 - 0.5 ng/mL: Suggestive 0.6 - 1.5 ng/mL: Consistent 40 CHEST PAIN 41 <=0.49 ug/mL - Low likelihood of DIC, DVT or Pulmonary Embolism >0.49 ug/mL - Additional testing should be done to rule out DIC, DVT, or Pulmonary embolism as clinically indicated. ([facility] has established a 97.89% negative predictive value for thrombotic disease when a cutoff value of 0.5 ug/mL is used.) 42 Note: Persistent reduction for 3 months or more in an eGFR <60 mL/min/1.73 m2 defines CKD. Patients with eGFR values >/=60 mL/min/1.73 m2 may also have CKD if evidence of persistent proteinuria is present. The original MDRD equation for estimated GFR is not valid for patients less than 18 years of age. Additional information may be found at www.kdoqi.org. 43 0.0 - 0.045 ng/mL: Normal 0.046 - 0.5 ng/mL: Suggestive 0.6 - 1.5 ng/mL: Consistent 44 Troponin-I testing on Plasma Separator Tubes (PST) has a known false positive rate of 0.20-0.40%. All positive troponins reflex immediately to secondary confirmatory testing. Using the [employer] DxI 800 Access Immunoassay systems, the 99th percentile upper reference limit was demonstrated to be < 0.03 ng/mL. 45 Because ethnic data is not always readily [...] 15-29 5 Kidney failure <15 (or dialysis) 46 Standard intensity warfarin therapeutic range: 2.0-3.0 High intensity warfarin therapeutic range: 2.5-3.5 47 Troponin-I testing on Plasma Separator Tubes (PST) has a known false positive rate of 0.20-0.40%. All positive troponins reflex immediately to secondary confirmatory testing. Using the [employer] DxI 800 Access Immunoassay systems, the 99th percentile upper reference limit was demonstrated to be < 0.03 ng/mL. 48 Because ethnic data is not always readily [...] 15-29 5 Kidney failure <15 (or dialysis) 49 Desirable: <150 Borderline High: 150-199 High: 200-499 Very High: >500 50 Desirable: <200 Borderline High: 200-239 High: >239 51 Low: <40 Desirable: 40-60 High: >60 52 Desirable: <100 Near Optimal: 100-129 Borderline High: 130-159 High: 160-189 Very High: >189 53 Serum levels of PSA measured using the [employer] DXI Hybritech immunoassay should not be interpreted [...] methods or kits cannot be used interchangeably. 54 Normal Range 180 to 914 Indeterminate Range 145 to 180 Deficient Range <145 Procedures Date Code Description Status 07/25/2018 58883338 Flexible Sigmoidoscopy Completed 11/29/2015 67352577 Colonoscopy Completed Medical Devices Description No Information Available Encounters Type Date Location Provider Dx Diagnosis Office Visit 03/19/2019 [facility] Raeann Matute PA K29.01 Acute gastritis with 2:00p bleeding K51.911 Ulcerative colitis, unspecified with rectal bleeding 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 loss (chronic) R07.89 Other chest pain Z68.25 Body mass index (BMI) 25.0-25.9, adult Office Visit 01/14/2019 1:30p [facility] Dougie Gaytan DO E29.1 Testicular hypofunction D51.9 [...] 26.0-26.9, adult Assessments Date Code Description Provider 04/17/2019 K51.914 Ulcerative colitis, unspecified with abscess Dougie Gaytan, 04/17/2019 D50.9 Iron deficiency anemia, unspecified Dougie Gaytan, 04/17/2019 I30.9 Acute pericarditis, unspecified Dougie Gaytan, 04/17/2019 K25.0 Acute gastric ulcer with hemorrhage Dougie Gaytan DO 04/17/2019 K57.21 Diverticulitis of large intestine with Dougie Gaytan DO perforation and abscess with bleeding 04/17/2019 Z93.3 Colostomy status Dougie Gaytan DO 04/17/2019 G47.9 Sleep disorder, unspecified Dougie Gaytan, 03/19/2019 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 Dougie Gaytan 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) 03/19/2019 K29.01 Acute gastritis with bleeding Raeann Matute PA 03/19/2019 K29.01 Acute gastritis with bleeding Dougie Gaytan DO 03/19/2019 K51.911 Ulcerative colitis, unspecified with [...] 01/14/2019 M79.672 Pain in LEFT foot Dougie Gaytan DO 01/14/2019 E29.1 Testicular hypofunction Dougie Gaytan, DO 01/14/2019 D51.9 Vitamin B12 deficiency anemia, unspecified Dougie Gaytan, 01/14/2019 F43.0 Acute stress reaction Dougie Gaytan, 01/14/2019 N52.9 Male erectile dysfunction, unspecified Dougie Gaytan, DO 01/14/2019 J30.9 Allergic rhinitis, unspecified Dougie Gaytan, DO 01/14/2019 K21.9 Gastro-esophageal reflux disease without Dougie Gaytan DO esophagitis 01/14/2019 M54.2 Cervicalgia Dougie Gaytan, DO 01/14/2019 I83.92 Asymptomatic varicose veins of LEFT lower Dougie Gaytan DO extremity 01/14/2019 K51.911 Ulcerative colitis, unspecified with rectal Dougie Gaytan DO bleeding 01/14/2019 Z13.31 Encounter for screening for depression Dougie Gaytan DO 01/14/2019 M79.672 Pain in LEFT foot Dougie Gaytan DO 01/14/2019 Z68.26 Body mass index (BMI) 26.0-26.9, adult Dougie Gaytan DO 01/14/2019 M79.672 Pain in LEFT foot Schedule, Laboratory 01/14/2019 M79.672 Pain in LEFT foot [facility] Plan of Treatment Future Appointment(s):04/30/2019 11:15 am - Dougie Gaytan at [facility]07/17/2019 3:00 pm - Dougie Gaytan at [facility]04/17/2019 - Dougie Gaytan, K51.914 Ulcerative colitis, unspecified with abscessComments:Pt has ulcerative colitis. I recommended the patient to continue with the current medication regimen, which include Mesalamine. Insurance has approved Humira and will start taking it in the future under the direction of Dr. Parham. Follow up with the specialist, Dr. Parham as scheduled. Will continue to monitor.Follow up: Follow up as scheduled.D50.9 Iron deficiency anemia, unspecifiedComments:His hemoglobin was low while he was at the hospital. Pt has had iron infusions and has an appointment scheduled for a iron infusion on 04/27/19. Follow up with Dr. Marrero as scheduled. [...] as scheduled. Will continue to monitor.Z93.3 Colostomy statusComments:Pt has colostomy in place. Has some pain in the incision site. I recommended the patient to take Tylenol and Oxycodone as needed. Pt has home care support for the colostomy maintainence. Patient hasbeen managing the colostomy well and a scripts for ostomy supplies were sent today.G47.9 Sleep disorder, unspecifiedComments:The patient was advised to try melatonin 5 mg and take it half an hour before the bedtime. He goes to bed around 8-9 pm. If 5 mg is not working, then increase upto 10 mg of melatonin. Functional Status Description No Information Available Mental Status Description No Information Available Referrals Refer to Dr Reason for Referral Status Appt Date Ron Avery MD Anemia, iron deficiency GI bleed Faxed all Closed 2019 necessary paperwork needed for the to review and schedule the pt. KR 03/20/19 REFAXED -TRH 03/24 [facility] ON OFFICE VOICEMAIL TO GET UPDATE ON REFERRAL [address] Guardado [address] [place] [address] [phone]
--- OUTSIDE RECORDS SUMMARY | 2019-05-08 08:52 | XMS REPORT | Summary of Care ---
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 Complication of colostomy RM [address] [place] [id number] Allergies No Known Allergiesdocumented as of [...] Sign Reading Time Taken Comments Blood Pressure 129/80 04/24/2019 12:04 PM EST Pulse 94 04/24/2019 12:04 PM EST Temperature 36.7 04/24/2019 12:04 PM EST C (98.1 F) Respiratory Rate 16 04/24/2019 12:04 PM EST Oxygen Saturation 96% 04/24/2019 12:04 PM EST Inhaled Oxygen Concentration - - Weight 71.7 kg (158 lb) 04/24/2019 12:04 PM EST Height 182.9 cm (6') 04/24/2019 12:04 PM EST Body Mass Index 21.43 04/24/2019 12:04 PM EST documented in this encounter Progress Notes Na Jason, SCOTT - 04/24/2019 12:00 PM Triciasong Ying is a 54 y.o. patient of Marrero, seen today for post-op supportive ostomy care. Christiano Ying is 11 days post-op from end colostomy surgery. Patient had received teaching relatedto ostomy care while hospitalized. Christiano Ying was discharged from the hospital on 04/15/2019. Patient does have home care services. Christiano Ying states the post-op course has been stable. Patient has been using the Keerthi 1piece cut to fit convex #[id number] with antonio seal ostomy system taught to him in the hospital. He denies leakage issues and has changed the pouch twice since discharge. [facility] He denies any skin issues. Christiano Spears ostomy stoma on his left abdomen is pink and moist in the center with tantissue (?slough) surrounding the stoma edges, it is flush at skin level and measures 1". He has a circumferential mucocutaneous junction separation with the depth medially from 7 to 12 o'clock probingto 3 cm. Laterally has minimal probed depth. Visible tissue in the deeper pocket is primarily becerra with scant pink. Intact skin edge has slight erythema without skin breakdown. Area of separation also examined by the acute care surgery team prior to my re pouching. I packed the medial deeper area of separation with aquacel ag and attempted to isolate the stoma with a 2 piece Dorrance 1 1/4" convex wafer #[id number] with antonio seal, pouch #[id number] and applied an ostomy belt [employer] #7300. He was shown how to apply the new pouching system including how to remove and repack the deeper pocket with aquacel ag with each change, and to change it at least every 3 days. I gave him additional aguacel ag and 2 additional wafers/ pouches and will also request samples be mailed to him from [employer] [facility] had recently placed an order for supplies and he will reach out to them today to tell them the new supplies he will need. I also gave him an [employer] booklet with directions how to placean order if he ends up needing to place his own order. I will call him on Saturday and see how things are going, he will plan to change the pouch again on Saturday. We will determine the follow up date at that time. Team is planning to check a CT of his abdomen today as he also has a becerra/brown purulent material draining from his DEDRICK drain. Patient understands to call the ostomy department should any issues develop in the meantime. Na Jason NP documented in this encounter Plan of Treatment [...] PCV13) Hepatitis C Screening (B. Completed 04/13/2019 [id number]) HIB Vaccines Aged Out No longer eligible [...] of this encounter Implants Implanted Type Area Drapery Hand Device Shelf Model / Identifier Expiration Serial / Date Lot Barrier Adhesion Seprafilm 5x6 - [id number] N/A: Abdomen [employer] 11/17/2021 [id number] / Implanted: Qty: 1 on 04/12/2019 by Michelle Marrero MD at [facility] 5E [employer]ODU[employer] / [id number] documented as of this encounter Results Not on filedocumented in this encounter Visit Diagnoses Diagnosis Colostomy in place - Primary Colostomy status Complication of colostomy Unspecified complication of colostomy or enterostomy documented in this encounter
--- NOTE | 2019-05-08 09:06 | ED ---
Abdominal Pain/Male - HPI Summary HPI Summary: This pt is a 54 Y/O M presenting to [facility] with a CC of abdominal pain that is currently rated a 6/10 in severity that has been present since 04/25/2019/. He states that the pain has been getting more steady and constant since the onset. He states that the pain is worse in the morning but decreases as he moves around throughout the day. He states that he has been urinating more than usual. He has mid-sternal CP. He states that the pain is located in his lower abdomen, around his stoma, and in his lower back. He states that he has myalgia in his upper arms at night. Pt denies any fever, chills, erythema of eyes, sore throat, SOB, cough, abdominal pain, N/V, dysuria, hematuria, edema, rash, or dizziness. He states that the pain radiates to his shoulder blades. He also denies any blood in his bowels. He has no aggravating factors. He states that he has bowel movements that produce a mucus stool but alleviates some of his pain. He states that he is 3 weeks S/P surgery for multiple abscesses on his colon. He has a Colostomy bag. He has a PMHx of UC. - History of Current Complaint Chief Complaint: Pantera Stated Complaint: LOWER ABD PAIN PER PT Time Seen by Provider: 05/08/19 08:53 Hx Obtained From: Patient Onset/Duration: Sudden Onset, Lasting Weeks - 2, Still Present Timing: Constant, Lasting Weeks - 2 Severity Initially: Mild Severity Currently: Moderate Pain Intensity: 6 Pain Scale Used: 0-10 Numeric Location: Diffuse Radiates: Yes Radiates to: Back - low back pain, Chest - mid sternal, Other - shoulder pain Aggravating Factor(s): Nothing Alleviating Factor(s): Bowel Movement - mucusy output decreases pain, Other: - movement decreases aches Associated Signs And Symptoms: Positive: Negative - chills, erythema of eyes, sore throat, SOB, dysuria, hematuria, edema, rash, or, Chest Pain, Back Pain, Urinary Symptoms - POSITIVE: increased uriniation, Other - POSITIVE: myalgia, mucus in stools, pain around stoma. Negative: Fever, Cough, Dizzy, Blood in Stool, Decreased Appetite, Nausea, Vomiting - Allergies/Home Medications Allergies/Adverse Reactions: Allergies Allergy/AdvReac Type Severity Reaction Status Date / Time No Known Allergies Allergy Verified 05/08/19 08:45 Home Medications: Home Medications Escitalopram * [Lexapro 10 mg (NF)] 10 mg PO DAILY 07/18/18 [History Confirmed 05/08/19] Colchicine* [Colcrys*] 0.6 mg PO DAILY 03/16/19 [History Confirmed 05/08/19] Pantoprazole TAB * [Protonix TAB*] 40 mg PO BID #30 tab 03/17/19 [Rx Confirmed 05/08/19] Mesalamine (NF) [Lialda (NF)] 2.4 gm PO BID tab 04/02/19 [Rx Confirmed 05/08/19 ] Acetaminophen TAB* [Tylenol TAB*] 650 mg PO Q6H PRN tab 04/04/19 [Rx Confirmed 05/08/19] Testosterone Cypionate [Depo-Testosterone] 200 mg IM .[id number] 04/30/19 [History Confirmed 05/08/19] HYDROcodone/ACETAMIN 5-325 MG* [[place]enix 5-325 TAB*] 1 tab PO Q6H PRN #16 tab MDD 4 05/08/19 [Rx] Sulfamethox/Trimethoprim DS* [Bactrim DS 800/160 TAB*] 1 tab PO BID #10 tab [Rx] PMH/Surg Hx/FS Hx/Imm Hx Previously Healthy: Yes Endocrine/Hematology History: Reports: Hx Anemia Denies: Hx Diabetes Cardiovascular History: Denies: Hx Hypertension, Hx Pacemaker/ICD Respiratory History: Denies: Hx Chronic Obstructive Pulmonary Disease (COPD) GI History: Reports: Hx Ulcer, Other GI Disorders - ulcerative colitis History: Denies: Hx Dialysis Sensory History: Reports: Hx Contacts or Glasses - reading Denies: Hx Eye Prosthesis, Hx Legally Blind, Hx Deafness, Hx Hearing Aid Opthamlomology History: Reports: Hx Contacts or Glasses - reading Denies: Hx Eye Prosthesis, Hx Legally Blind Neurological History: Denies: Hx Dementia Psychiatric History: Reports: Hx Anxiety, Hx Depression Denies: Hx Panic Disorder - Cancer History Hx Chemotherapy: No Hx Radiation Therapy: No - Surgical History Surgical History: Yes Surgery Procedure, Year, and Place: SPLEENECTOMY - Immunization History Immunizations Up to Date: Yes Infectious Disease History: No Infectious Disease History: Denies: Traveled Outside the [place] in Last 30 Days - Family History Known Family History: Positive: Cardiac Disease - fatal [place] father age 67 - Social History Occupation: Disabled Lives: With Family Alcohol Use: Rare Hx Substance Use: No Substance Use Type: Reports: None Hx Tobacco Use: No Smoking Status (MU): Never Smoked Tobacco Review of Systems Negative: Fever, Chills Negative: Erythema Negative: Sore Throat Positive: Chest Pain Negative: Shortness Of Breath, Cough Positive: Abdominal Pain, Other - mucusy stool. Negative: Vomiting, Nausea Positive: other - increased urination . Negative: dysuria, hematuria Positive: Myalgia, Other - low back pain, radiated shoulder pain . Negative: Edema Skin: Other - pain around stoma Negative: Rash Neurological/Mental Status: Negative - dizziness All Other Systems Reviewed And Are Negative: Yes Physical Exam - Summary Physical Exam Summary: Constitutional: Well-developed, Well-nourished, Alert. (-) Distressed Skin: Warm, Dry HENT: Normocephalic; Atraumatic Eyes: Conjunctiva normal Neck: Musculoskeletal ROM normal neck. (-) JVD, (-) Stridor, (-) Tracheal deviation Cardio: Rhythm regular, rate normal, Heart sounds normal; Intact distal pulses; The pedal pulses are 2+ and symmetric. Radial pulses are 2+ and symmetric. (-) Murmur Pulmonary/Chest wall: Effort normal. (-) Respiratory distress, (-) Wheezes, (-) Rales Abd: Soft, Mild lower abdominal tenderness without guarding, ostomy bag with normal output. (-) Distension, (-) Rebound Musculoskeletal: (-) Edema Lymph: (-) Cervical adenopathy Neuro: Alert, Oriented x3 Psych: Mood and affect Normal Triage Information Reviewed: Yes Vital Signs On Initial Exam: Initial Vitals Temp Pulse Resp BP Pulse Ox 98.1 F 97 15 141/95 97 05/08/19 08:43 05/08/19 08:43 05/08/19 08:43 05/08/19 08:43 05/08/19 08:43 Vital Signs Reviewed: Yes Procedures - Sedation Patient Received Moderate/Deep Sedation with Procedure: No Diagnostics - Vital Signs Vital Signs Temp Pulse Resp BP Pulse Ox 05/08/19 08:43 98.1 F 97 15 141/95 97 - Laboratory Result Diagrams: 05/08/19 09:11 05/08/19 09:11 Lab Statement: Any lab studies that have been ordered have been reviewed, and results considered in the medical decision making process. - CT CT A/P CT Interpretation Completed By: Radiologist Summary of CT Findings: THE PATIENT APPEARS TO BE STATUS POST PARTIAL COLECTOMY WITH A COLOSTOMY. THERE IS PERICOLONIC INFLAMMATORY CHANGE AT THE SIGMOID SURGICAL MARGIN WHICH MAY REFLECT INFECTIOUS/INFLAMMATORY VERSUS POSTSURGICAL CHANGE. THERE IS NO LOCULATED FLUID COLLECTION TO SUGGEST ABSCESS. ED Physician has reviewed this report. Abdominal Pain Male Course/Dx - Course Course Of Treatment: This pt is a 54 Y/O M presenting to [facility] with a CC of abdominal pain that is currently rated a 6/10 in severity that has been present since 04/25/2019/. He states that the pain has been getting more steady and constant since the onset. He states that the pain is worse in the morning but decreases as he moves around throughout the day. He states that he has been urinating more than usual. He has mid-sternal CP. He states that the pain is located in his lower abdomen, around his stoma, and in his lower back. He states that he has myalgia in his upper arms at night. Also states that he has mucusy bowel movements that alleviate his pain. This pt is a S/P surgery for multiple abscesses on colon. He has a PMHxo of a splectomy, and ulcerative colitis. His PE found Mild lower abdominal tenderness without guarding, ostomy bag with normal output. CT A/P: THE PATIENT APPEARS TO BE STATUS POST PARTIAL COLECTOMY WITH A COLOSTOMY. THERE IS. PERICOLONIC INFLAMMATORY CHANGE AT THE SIGMOID SURGICAL MARGIN WHICH MAY REFLECT INFECTIOUS/INFLAMMATORY VERSUS POSTSURGICAL CHANGE. THERE IS NO LOCULATED FLUID COLLECTION. TO SUGGEST ABSCESS. His labratory results are consistent with UTI. Dr. Ayala, surgery, recommends treating urine, follow up as needed in surgical office, trying to keep pts out of office due to covid. He has symptoms consistent with UTIs such as increased frequency and amount. He will be discharged home with a Dx of UTI and lower abdominal pain. He was given Bactrim during his ED course. - Diagnoses Provider Diagnoses: UTI (urinary tract infection), Lower abdominal pain Discharge ED - Sign-Out/Discharge Documenting (check all that apply): Patient Departure - discharge - Discharge Plan Condition: Good Disposition: HOME Patient Education Materials: Urinary Tract Infection in Men (ED), Acute Abdominal Pain (ED) Referrals: Dougie Gaytan DO [Primary Care Provider] - 4 Days Additional Instructions: PLEASE FOLLOW UP WITH YOUR PRIMARY CARE PHYSICIAN IN 3-5 DAYS AND RETURN TO THE EMERGENCY DEPARTMENT FOR ANY NEW OR WORSENING SYMPTOMS. - Attestation Statements Document Initiated by Scribe: Yes Documenting Scribe: Herman Quintero Provider For Whom Scribe is Documenting (Include Credential): Jonah Kingsley MD Scribe Attestation: Herman Rae, scribed for Jonah Kingsley MD on 05/08/19 at 1306. Status of Scribe Document: Ready
[2019-05-08 09:48] LABS: Red Cell Distribution Width 24 % (10-15)
[2019-05-08 09:57] LABS: Albumin 3.8 g/dL (3.2-5.2); Albumin/Globulin Ratio 1.1 (1-3); BUN/Creatinine Ratio 15.4 (8-20); C Reactive Protein 10.31 mg/L (<8.01); Calcium 9.2 mg/dL (8.6-10.3); EGFR African American 154.3 (>60); EGFR Non-African American 127.5 (>60); Globulin 3.4 g/dL (2-4); Potassium 4.1 mmol/L (3.5-5.0); Total Bilirubin 0.3 mg/dL (0.2-1.0); Total Protein 7.2 g/dL (6.4-8.9)
[2019-05-08 10:48] LABS: ABS Basophils 0.1 10^3/ul (0-0.2); ABS Eosinophils 0.2 10^3/ul (0-0.6); ABS Lymphocytes 0.8 10^3/ul (1.0-4.8); ABS Monocytes 0.8 10^3/ul (0-0.8); ABS Neutrophils 4.6 10^3/ul (1.5-7.7); Eosinophil % 3.3 %; Hematocrit 35 % (42-52); Hemoglobin 11.5 g/dL (14.0-18.0); Mean Corpuscular HGB Conc 33 g/dL (31-36); Mean Corpuscular Hemoglobin 29 pg (27-31); Mean Corpuscular Volume 88 fL (80-94); Mean Platelet Volume 7.7 fL (7.4-10.4); Platelet Count 410 10^3/uL (150-450); Red Blood Count 3.97 10^6 /uL (4.18-5.48); White Blood Count 6.4 10^3/uL (3.5-10.8)
[2019-05-08 11:46] LABS: Urine Appearance Clear; Urine Bilirubin Negative (Negative); Urine Blood 1+ (Negative); Urine Color Yellow; Urine Glucose Negative (Negative); Urine Ketones Negative (Negative); Urine Nitrite Negative (Negative); Urine Protein Negative (Negative); Urine Urobilinogen Negative (Negative)
[2019-05-08 11:48] LABS: Urine Bacteria Absent (Absent); Urine Red Blood Cell Absent (Absent); Urine White Blood Cell 2+(11-20/hpf) (Absent)
[2019-05-08] MEDS ORDERED: Iohexol 300* (CONTRAST) 10 ML SDV IV ONE (12:00)
[2019-05-08] MEDS ORDERED: Sulfamethox/Trimethoprim DS 800/160* TAB PO ONE (13:05)
[2019-05-08 13:30] VITALS: BP 135/92
== END 2019-05-08 13:29 | disposition home or self-care (01) ==
LOC: ED 08:40
DX: N39.0 Urinary tract infection, site not specified (principal); R10.30 Lower abdominal pain, unspecified; R07.9 Chest pain, unspecified; M54.5 Low back pain; D64.9 Anemia, unspecified; F41.9 Anxiety disorder, unspecified; F32.9 Major depressive disorder, single episode, unspecified; Z88.2 Allergy status to sulfonamides; Z79.899 Other long term (current) drug therapy; Z79.890 Hormone replacement therapy
CPT/HCPCS: 36415; 74177; 80053; 81003; 81015; 83605; 83690; 85025; 86140; 87086; 99283; A9270-GY; Q9967

== ENCOUNTER 2019-06-18 11:40 | Day surgery (SDC) | payer BC ==
[~2019-06-18 11:40] MED LIST: Buffered Lidocaine 1% SYRIN 1 ml INTRADERM ONE; Famotidine IV 10 MG/ML 2 ml VIAL (20 mg) IV ONE; GENTAMICIN ADULT IVPB ONE; Lactated Ringers 1000 ml BAG 1,000 ML IV SCH; NS 0.9% IVPB ONE
[2019-06-18] MEDS ORDERED: Famotidine IV 10 MG/ML 2 ml VIAL (20 mg) ONE (12:06)
[2019-06-18] MEDS ORDERED: cefTRIAXone(*) 2 GM ADDV.VIAL IVPB ONE (12:09)
[2019-06-18] MEDS ORDERED: Buffered Lidocaine 1% SYRIN 1 ml INTRADERM ONE (12:13)
[2019-06-18] MEDS ORDERED: Iohexol 180 (CONTRAST) 10 ML SDV IV ONE (13:03)
[2019-06-18] MEDS ORDERED: Dexamethasone IV 4 MG/ML VIAL 1 ml VIAL ONE (13:23)
[2019-06-18] MEDS ORDERED: Lidocaine 2% PF 5 ML VIAL ONE (13:23)
[2019-06-18] MEDS ORDERED: Propofol 10 MG/ML 20 ML BTL ONE (13:23)
[2019-06-18] MEDS ORDERED: Ondansetron 4 mg VIAL 2 MG/ML 2 ml VIAL ONE (13:23)
[2019-06-18] MEDS ORDERED: fentaNYL 100 mcg/2 ml 50 MCG/ML VIAL ONE (13:24)
[2019-06-18] MEDS ORDERED: Midazolam 10 mg/10 ml VIAL 1 mg/ml 10 ml VIAL (10 mg) ONE (13:24)
[2019-06-18] MEDS ORDERED: Ketamine HCL 50 mg/ml 10 ml VIAL (500 MG) ONE (13:24)
[2019-06-18 14:18] VITALS: BP 144/98
[2019-06-18] MEDS ORDERED: fentaNYL 100 mcg/2 ml 50 MCG/ML VIAL IV PRN (14:59)
[2019-06-18] MEDS ORDERED: oxyCODONE/Acetamin 5/325 mg TAB PO PRN (14:59)
[2019-06-18] MEDS ORDERED: Ondansetron 4 mg VIAL 2 MG/ML 2 ml VIAL IV PRN (14:59)
[2019-06-18] MEDS ORDERED: Naloxone 0.4 mg VIAL 0.4 mg/ml 1 ml VIAL IV PRN (14:59)
== END 2019-06-18 15:35 | disposition home or self-care (01) ==
LOC: OR 11:40
PROVIDERS: ATTEND Urology